=== PATIENT | male | born 1955 | race Two or more races ===

== ENCOUNTER 2021-05-31 01:03 | Inpatient (IN) | payer OTHER ==
[2021-05-31] MEDS ORDERED: HEPARIN SODIUM 1,000 UN/ML (10ML VL) IV ONE (01:07)
[2021-05-31] MEDS ORDERED: NITROGLYCERIN SL TABS 0.4 MG TAB SUBLINGUAL PRN (01:07)
--- NOTE | 2021-05-31 01:14 | ED ---
Chest Pain HPI - General Stated Complaint: STEMI Time Seen by Provider: 05/31/21 01:07 Source: patient, EMS Mode of arrival: EMS Limitations: no limitations - History of Present Illness Initial Comments: 's patient is 65-year-old man he was brought here by EMS to have evaluation after he had passed out. History is from the patient states that he had been having sex with his davis. He reports having some chest discomfort and then he does not remember anything until waking up in the ambulance. His had called 911 and first responders were performing CPR when EMS arrived. EMS did place him on a monitor which showed ventricular fibrillation. The patient did have a palpable carotid pulse at that time. They did shock the patient and had ROSC. The patient's is more alert and awake on arrival here and states that the pain has resolved in his chest. Patient denies known cardiac history but states he doesn't really see a doctor. No history of bleeding disorder. No medications. MD Complaint: chest pain -: minutes(s) Onset: other (Sexual activity) Pain Location: substernal Pain Radiation: none Severity: moderate Quality: aching Consistency: now resolved Improves With: nothing Worsens With: nothing Treatments Prior to Arrival: oxygen, defibrillation - Related Data Allergies Allergy/AdvReac Type Severity Reaction Status Date / Time No Known Allergies Allergy Verified 05/31/21 01:13 Review of Systems ROS Statement: Those systems with pertinent positive or pertinent negative responses have been documented in the HPI. ROS Other: All systems not noted in ROS Statement are negative. Constitutional: Denies: fever, chills Respiratory: Denies: cough, dyspnea Cardiovascular: Reports: as per HPI, chest pain, syncope Gastrointestinal: Denies: abdominal pain, vomiting Genitourinary: Denies: hematuria Musculoskeletal: Denies: back pain Skin: Denies: rash Neurological: Denies: headache, weakness Hematological/Lymphatic: Denies: easy bleeding General Exam General appearance: alert Head exam: Present: atraumatic, normocephalic Eye exam: Present: normal appearance. Absent: scleral icterus, conjunctival injection ENT exam: Present: normal oropharynx Neck exam: Present: normal inspection Respiratory exam: Present: normal lung sounds bilaterally. Absent: respiratory distress, wheezes, rales, rhonchi, stridor Cardiovascular Exam: Present: regular rate, normal rhythm, normal heart sounds. Absent: systolic murmur, diastolic murmur, rubs, gallop GI/Abdominal exam: Present: soft. Absent: distended, tenderness, guarding, rebound, rigid, mass Extremities exam: Present: normal inspection, normal capillary refill. Absent: pedal edema, calf tenderness Back exam: Present: normal inspection. Absent: CVA tenderness (R), CVA tenderness (L) Neurological exam: Present: alert Skin exam: Present: warm, dry, intact, normal color. Absent: rash Course Vital Signs 05/31/21 01:05 Temperature 97.6 F Pulse Rate 97 Respiratory 20 Rate Blood Pressure 215/103 O2 Sat by Pulse 98 Oximetry Chest Pain MDM - MDM This patient is 65-year-old man brought by ambulance after syncopal episode. There is initial rhythm strip does verify ventricular fibrillation. The patient arrives having regained consciousness and in sinus rhythm. Patient is seen here by cardiology and is going to the [facility]. He did have recurrence of chest pain in the emergency department. Critical Care Time Critical Care Time: Yes (30 minutes) Disposition Clinical Impression: Ventricular fibrillation Disposition: ADMITTED IP TO THIS HOSP Condition: Serious Referrals: None,Stated [Primary Care Provider] - 1-2 days
[2021-05-31] MEDS ORDERED: HEPARIN SOD,PORK IN 0.45% NACL 25,000 UNIT in 0.45% NACL 1 250ML.BAG IV SCH (01:15)
[2021-05-31 01:18] LABS: Glucose,Whole Blood 208 mg/dL (75-99)
[2021-05-31] MEDS ORDERED: ATORVASTATIN 80 MG TAB PO STA (01:21)
[2021-05-31 01:35] LABS: Basophils # (A) 0.1 k/uL (0-0.2); Basophils % (A) 1 %; Eosinophils # (A) 0.2 k/uL (0-0.7); Eosinophils % (A) 2 %; HCT 52.4 % (39.0-53.0); HGB 16.9 gm/dL (13.0-17.5); Lymphocytes # (A) 3.8 k/uL (1.0-4.8); Lymphocytes % (A) 27 %; MCH 28.8 pg (25.0-35.0); MCHC 32.3 g/dL (31.0-37.0); Mean Platelet Volume 9.5; Monocytes # (A) 1.1 k/uL (0-1.0); Monocytes % (A) 8 %; Neutrophils # (A) 8.2 k/uL (1.3-7.7); Neutrophils % (A) 60 %; Platelet Count 210 k/uL (150-450); RBC 5.89 m/uL (4.30-5.90); RDW 13.9 % (11.5-15.5); WBC 13.8 k/uL (3.8-10.6)
--- NOTE | 2021-05-31 01:35 | XR ---
EXAMINATION TYPE: XR chest 1V portable DATE OF EXAM: 05/31/2021 COMPARISON: NONE HISTORY: Cardiac arrest TECHNIQUE: Single view FINDINGS: Heart appears enlarged. There is some pulmonary interstitial edema. There is no pleural eff usion. Bony thorax is intact. IMPRESSION: Pulmonary interstitial edema could relate to acute heart failure.
[2021-05-31 01:36] LABS: Albumin 4.3 g/dL (3.5-5.0); Calcium 9.5 mg/dL (8.4-10.2); Potassium 3.6 mmol/L (3.5-5.1); Total Bilirubin 0.6 mg/dL (0.2-1.3); Total Protein 7.6 g/dL (6.3-8.2)
[2021-05-31] MEDS ORDERED: fentaNYL (PF) 50 MCG/ML 2 ML AMP ONE (01:39)
[2021-05-31 01:40] LABS: INR 0.9 (<1.2); Partial Thromboplastin Time 22.3 sec (22.0-30.0); Prothrombin Time 10.2 sec (9.0-12.0)
[2021-05-31] MEDS ORDERED: HEPARIN SODIUM 1,000 UN/ML (10ML VL) ONE (01:42)
[2021-05-31] MEDS ORDERED: MIDAZOLAM 2 MG/2 ML VIAL IV ONE (01:43)
[2021-05-31] MEDS ORDERED: NITROGLYCERIN SL TABS 0.4 MG TAB SUBLINGUAL ONE ×3 (01:44)
[2021-05-31] MEDS ORDERED: LIDOCAINE 1% INJ 10MG/ML (20 ML MDV) SQ ONE ×2 (01:45)
[2021-05-31] MEDS: MIDAZOLAM 2 MG/2 ML VIAL IV ONE ×2 (01:45→02:00)
[2021-05-31] MEDS ORDERED: VERAPAMIL SYRINGE (5 MG/10 ML) INTRAARTER ONE ×2 (01:46)
[2021-05-31] MEDS ORDERED: POTASSIUM CHLORIDE ER 20 MEQ TAB.ER PO STA ×2 (01:52→02:12)
[2021-05-31] MEDS ORDERED: IV FLUID CONTINUATION 1,000 ML IV ONE (02:00)
[2021-05-31] MEDS ORDERED: METOPROLOL TARTRATE 50 MG TAB PO STA (02:16)
[2021-05-31] MEDS ORDERED: fentaNYL (PF) 50 MCG/ML 2 ML AMP IV ONE (02:16)
[2021-05-31] MEDS ORDERED: METOPROLOL TARTRATE 50 MG TAB PO ONE (02:39)
[2021-05-31] MEDS ORDERED: IOPAMIDOL-370 100ML BTL INJ ONE ×2 (02:45)
--- NOTE | 2021-05-31 02:57 | P.HPIM ---
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 Patient was in his usual state of health, and during intercourse with his had an episode of passing out. EMS was called and responded within 3 minutes to the call. Patient was noted to be in ventricular fibrillation and received 1 shock which returned him to normal sinus rhythm. He was brought into the hospital and a STEMI alert was called. Patient was taken subsequently to the [facility]. Patient had right wrist access converted to right groin access due to difficult anatomy. RCA demonstrated chronic occlusion. Left coronary anatomy was similarly showing diffuse disease with left dominant circulation feeling right collaterals. Patient was given aspirin and atorvastatin, as well as sublingual nitroglycerin in the emergency room. In the [facility], patient received IV heparin, metoprolol, potassium. During patient's angiogram, it was noted that he had occlusion of his profunda femoralis on the right side as well. Patient was subsequently transferred to the ICU following his procedure. Review of systems was not completed due to acuity. Review of Systems See HPI Past Medical History Past Medical History: Unable to Obtain History of Any Multi-Drug Resistant Organisms: Unobtainable Past Surgical History: Unable to Obtain Past Psychological History: Unable to Obtain Past Alcohol Use History: Unable to Obtain Past Drug Use History: Unable to Obtain Medications and Allergies Allergies Allergy/AdvReac Type Severity Reaction Status Date / Time No Known Allergies Allergy Verified 05/31/21 01:13 Physical Exam Osteopathic Statement: *. No significant issues noted on an osteopathic structural exam other than those noted in the History and Physical/Consult. Vitals: Vital Signs Temp Pulse Resp BP Pulse Ox 05/31/21 01:25 96 23 181/97 95 05/31/21 01:20 96 22 202/106 98 05/31/21 01:15 98 22 201/95 98 05/31/21 01:10 94 22 203/99 98 05/31/21 01:05 97.6 F 97 20 215/103 98 Intake and Output 05/30/21 05/30/21 05/31/21 14:59 22:59 06:59 Other: Weight 81.647 kg Gen: awake, alert HEENT: normocephalic, atraumatic, good hearing acuity, moist mucous membranes Resp: good air exchange, breathing comfortably with no accessory muscle use CVS: good distal perfusion x 4, tachycardic, no murmurs GI: soft, NTTP, ND : no SPT, no CVAT, prado catheter not present MSK: no pitting edema, no clubbing Neuro: non-focal, moving all extremities Results CBC & Chem 7: 05/31/21 01:05 05/31/21 01:05 Labs: Abnormal Lab Results - Last 24 Hours (Table) 05/31/21 05/31/21 05/31/21 Range/Units 01:05 01:05 01:05 WBC 13.8 H (3.8-10.6) k/uL Neutrophils # 8.2 H (1.3-7.7) k/uL Monocytes # 1.1 H (0-1.0) k/uL Glucose 219 H (74-99) mg/dL POC Glucose (mg/dL) (75-99) mg/dL AST 247 H (17-59) U/L ALT 210 H (4-49) U/L Troponin I 0.038 H* (0.000-0.034) ng/mL 05/31/21 Range/Units 01:11 WBC (3.8-10.6) k/uL Neutrophils # (1.3-7.7) k/uL Monocytes # (0-1.0) k/uL Glucose (74-99) mg/dL POC Glucose (mg/dL) 208 H (75-99) mg/dL AST (17-59) U/L ALT (4-49) U/L Troponin I (0.000-0.034) ng/mL Assessment and Plan Assessment: Non-ST elevation MA Ventricular fibrillation cardiac arrest with ROSC in the field Peripheral arterial disease Elevated glucose -Admit to inpatient, telemetry -Cardiology consult following -Pulmonary consult to follow -Cardiothoracic surgery consult, pending -Continue aspirin, atorvastatin, metoprolol -Continue heparin drip -Trend troponins to peak -Lipid panel, A1c, TSH -Low-dose sliding scale insulin Patient is a full code is surrogate decision-maker
[2021-05-31] MEDS ORDERED: RX INFO: IV CONTRAST WAS GIVEN 1 EACH MISC MISCELLANE PRN (02:59)
[2021-05-31] MEDS ORDERED: AMIODARONE IN DEXTROSE,ISO-OSM 360 MG/200 ML PLAST..BAG IV ONE (03:00)
[2021-05-31] MEDS ORDERED: DEXTROSE 5% IN WATER 100 ML with AMIODARONE 150 MG IV ONE ×2 (03:00→03:01)
[2021-05-31] MEDS ORDERED: AMIODARONE IN DEXTROSE,ISO-OSM 150 MG/100 ML PLAST..BAG IV ONE (03:00)
[2021-05-31] MEDS ORDERED: AMIODARONE 360 MG in DEXTROSE 5% IN WATER 200 ML IV ONE ×2 (03:15)
[2021-05-31] MEDS: SODIUM CHLORIDE 0.9% 1,000 ML IV SCH ×2 (04:10→18:00)
[2021-05-31 04:43] LABS: Glucose,Whole Blood 176 mg/dL (75-99)
--- NOTE | 2021-05-31 05:00 | CC ---
CARDIAC CATHETERIZATION REPORT DATE OF SERVICE: 05/31/2021 PROCEDURE: Left heart catheterization and coronary angiography. PERFORMED BY: Dr. Devan Menchaca. Moderate conscious sedation time was 52 minutes. Patient was administered Versed and fentanyl. Oxygen saturation, hemodynamics and EKG were monitored closely. CLINICAL INFORMATION: Mr. 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 He was found to be in atrial fibrillation. He was shocked and there was return of spontaneous circulation and after arrival he still had mild discomfort in the chest, but he was hemodynamically stable. He was advised cardiac cath to assess for any significant obstructive CAD. The clinical picture is that of a non-ST elevation IL and ventricular fibrillation with cardiac arrest, probably of ischemic nature. No ST-segment elevation was noted. PROCEDURE NOTE: Under local anesthesia and strict aseptic precautions, a 6-[place]uv[place] sheath was placed in the right radial artery. I noted that there was a significant tortuosity of his brachiocephalic system. I had a lot of difficulty, but I was able to with a help of a Glidewire get into the ascending aorta and performed selective coronary injection of the right coronary artery and subselective injection of the left system. I then decided to proceed from the right femoral approach. Under strict aseptic precautions and local anesthesia a 6-[place]uv[place] sheath was placed in the right femoral artery. There was also significant tortuosity of the femoral system. However, I performed selective coronary angiography of the right coronary as well as the left coronary system and checked LV pressures as well. I noted that there was a significant disease but there was no acute occlusion that required immediate intervention. I reviewed the findings with the patient and suggested I will seek surgical opinion for possible bypasses to the branches of circumflex, RCA and also the LAD. There was evidence of triple-vessel disease. The sheath was then taken out and manual compression used to secure hemostasis. There was evidence of what seems to be occlusion of the profunda and the superficial femoral was patent. The puncture and access site were in the common femoral artery. Manual compression was used to take the femoral sheath out. The radial sheath was taken out and TR band applied with saturation of the fingers of the right hand of about 100%. The patient tolerated procedure well. CARDIAC CATHETERIZATION FINDINGS: The left ventricular end-diastolic pressure was about 9 mmHg without any gradient across aortic valve. CORONARY ANGIOGRAPHY FINDINGS: RIGHT CORONARY ARTERY: This vessel is totally occluded in the proximal portion with limited antegrade flow. Appears to be a chronic occlusion. I have obtained multiple injection both from the femoral and radial approach but this vessel seems to be chronically occluded without much antegrade flow. There are rich collaterals coming from the left system. LEFT MAIN CORONARY ARTERY: This is a long patent vessel free of significant disease that bifurcates into LAD and circumflex. There is no significant disease in the left main coronary artery. LEFT ANTERIOR DESCENDING CORONARY ARTERY: This vessel has diffuse disease throughout, has minor irregularities in the midportion. At the junction of the proximal and middle one third, there is about a 60% to 70% narrowing which I believe is moderate to severe narrowing. Beyond that, the caliber of the vessel improves and in the distal one fourth there is a subtotal occlusion of the LAD and the LAD is a very large distribution vessel that curves over the apex to supply the inferoapical portion of left ventricle. The LAD therefore has a 60% to 70% mid lesion and also has a distal subtotal occlusion. LAD is a very good graftable vessel. There are smaller diagonal branches that come off which have no significant disease. LEFT POSTERIOR CIRCUMFLEX CORONARY ARTERY: Left posterior circumflex coronary artery is technically a nondominant vessel that seems to give off high obtuse marginal branches very proximally and in the midportion there is marked much antegrade flow. Possibly the vessel is totally occluded in the mid portion after the 2 obtuse marginal branches. COLLATERAL CIRCULATION: There is a rich network of collaterals opacifying the distal branches of the RCA and circumflex and most of the collaterals are coming from the septal branches of the LAD. The 2 branches of distal RCA as well as the circumflex system is well opacified and all of these are very large caliber vessels that are graftable. The collaterals size is at least 2-2.2 mm. Most of the collaterals are coming from the septal branches of the LAD. Left ventriculogram was not performed. FINAL IMPRESSION: This patient has a right dominant system with total occlusion of the RCA, nondominant circumflex is also distally occluded. LAD in the proximal/midportion has a 60% to 70% narrowing and distally at the apex has a 99% narrowing. There is a rich network of collaterals opacifying the branches of both circumflex and RCA. Most of the collaterals are coming from the septal branches opacifying the circumflex system as well as the RCA system. The left ventricular end-diastolic pressure is normal and is about 9 mmHg without any gradient across aortic valve. RECOMMENDATIONS: After reviewing the angiogram and after some deliberation, I am recommending aortocoronary bypass surgery with GUIDO to LAD and vein graft to the branches of circumflex and RCA. The patient did not have a large myocardial infarction and he will be on amiodarone drip, beta blockers and we have given additional potassium orally and magnesium level is being checked. The patient will go to the ICU and I will seek a Cardiac surgery consult. Details were discussed with the patient and . Prognosis remains guarded. MMODL / IJN: [id number] /
[2021-05-31 05:04] LABS: Basophils % (A) 0 %; Eosinophils % (A) 0 %; HCT 48.5 % (39.0-53.0); HGB 15.6 gm/dL (13.0-17.5); Lymphocytes # (A) 0.7 k/uL (1.0-4.8); Lymphocytes % (A) 4 %; MCH 28.7 pg (25.0-35.0); MCHC 32.1 g/dL (31.0-37.0); MCV 89.4 fL (80.0-100.0); Mean Platelet Volume 10.3; Monocytes # (A) 1.5 k/uL (0-1.0); Monocytes % (A) 8 %; Neutrophils # (A) 16.2 k/uL (1.3-7.7); Neutrophils % (A) 87 %; Platelet Count 190 k/uL (150-450); RBC 5.42 m/uL (4.30-5.90); RDW 14.2 % (11.5-15.5); WBC 18.7 k/uL (3.8-10.6)
--- NOTE | 2021-05-31 05:06 | CONS ---
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 According to the available information in the note, the patient was having sexual activity when he suddenly developed some chest discomfort and passed out. His family did CPR and then the EMS arrived and he was found to be in ventricular fibrillation. He received 1 shock and then return of spontaneous circulation occurred. He was brought to the emergency room. EKG revealed a sinus mechanism with inferior ST changes, but no evidence of any ST elevation. I saw the patient in the emergency room, spoke to the family and suggested that I will do a cardiac cath and the clinical picture was that of cardiac arrest with ischemia, ventricular fibrillation and possible non ST elevation ID. There was ST- segment depression in the inferior leads and LVH by voltage criteria. I proceeded with the coronary angiography immediately after explaining to the patient and family the rationale, risks, benefits, and options. PAST MEDICAL HISTORY: Unremarkable for any hypertension, diabetes, myocardial infarction or CVA. MEDICATIONS: None. ALLERGIES: None. PAST SURGICAL HISTORY: The patient has not had any previous surgeries that we know of. PHYSICAL EXAMINATION: On examination, blood pressure was 160/90. Pulse rate was about 100 per minute regular. HEENT unremarkable. Fundus was not examined by me. NECK is supple. JVD is not evident. HEART exam reveals S1, S2 without significant murmurs. LUNGS revealed decent air entry. ABDOMEN is soft, nontender. Lower EXTREMITIES reveal diminished pulses. CENTRAL NERVOUS SYSTEM grossly no focal deficits but patient is somewhat slow to respond. IMPRESSION: 1. Acute cardiac arrest with ventricular fibrillation requiring shock and CPR. 2. Non-ST elevation myocardial infarction. 3. No evidence of any other significant risk factors. RECOMMENDATIONS: Prompt cardiac catheterization and based on findings, intervention as appropriate. MMODL / IJN: [id number] /
[2021-05-31 05:20] LABS: Partial Thromboplastin Time 25.7 sec (22.0-30.0); Prothrombin Time 10.6 sec (9.0-12.0)
[2021-05-31] MEDS ORDERED: ONDANSETRON 4 MG/2 ML VIAL IVP PRN (05:45)
[2021-05-31] MEDS: HEPARIN SOD,PORK IN 0.45% NACL 25,000 UNIT in 0.45% NACL 1 250ML.BAG IV SCH ×2 (05:47→07:00)
[2021-05-31 06:19] LABS: ALT 191 U/L (4-49); AST 204 U/L (17-59); African American GFR (CKD) >90 (>60 ml/min/1.73 sqM); Albumin 3.9 g/dL (3.5-5.0); Alkaline Phosphatase 113 U/L (38-126); Anion Gap 12 mmol/L; Bilirubin, Delta 0.1 mg/dL (0.0-0.2); Bilirubin,Unconjugated 0.3 mg/dL (0.0-1.1); Blood Urea Nitrogen 19 mg/dL (9-20); Calcium 8.8 mg/dL (8.4-10.2); Carbon Dioxide 24 mmol/L (22-30); Chloride 102 mmol/L (98-107); Glucose 185 mg/dL (74-99); Magnesium 1.8 mg/dL (1.6-2.3); Non-African American GFR(CKD) >90 (>60 ml/min/1.73 sqM); Potassium 4.3 mmol/L (3.5-5.1); Sodium 138 mmol/L (137-145); Total Bilirubin 0.4 mg/dL (0.2-1.3); Total Protein 6.9 g/dL (6.3-8.2)
[2021-05-31] MEDS: NITROGLYCERIN-D5W PMX 50 MG in DEXTROSE/WATER 1 250ML.BAG IV SCH (06:29)
[2021-05-31] MEDS ORDERED: Magnesium Replacement Protocol 1 EACH MISC MISCELLANE PRN (06:49)
--- NOTE | 2021-05-31 08:58 | P.PN ---
Subjective Progress Note Date: 05/31/21 64-year-old gentleman was admitted last night following a syncopal episode and cardiac arrest at home. It appears that patient developed ventricular fibrillation requiring CPR and shock. Patient was taken Lab and was found to have total occlusion of the RCA and circumflex with good collateral from the le ft coronary system. LAD itself has about 70% stenosis in the midportion. Patient incident was felt to be ischemic ventricular fibrillation breath and acute VA. His second troponin went up only 0.922. Patient is alert but confused. Surgical evaluation for bypass is pending. Patient is otherwise maintaining sinus rhythm. Patient is on amiodarone. His electoral lites are within normal limits. Creatinine is 0.89. A chest x-ray on admission showed evidence of pulmonary edema. Patient is output is a about 800 ml. patient is currently on amiodarone, Lipitor losartan and a metoprolol. I'm going to add small dose of Lasix. We'll going to get an echocardiogram today Objective - Vital Signs Vital signs: Vital Signs Temp 97.7 F 05/31/21 03:36 Pulse 72 05/31/21 07:00 Resp 21 05/31/21 07:00 BP 134/88 05/31/21 03:36 Pulse Ox 95 05/31/21 07:00 Intake & Output 05/30/21 05/31/21 05/31/21 18:59 06:59 18:59 Intake Total 1428 75 Output Total 800 0 Balance 628 75 Weight 81.647 kg Intake: IV 1228 75 Sodium Chloride 0.9% 1, 225 75 000 ml @ 75 mls/hr IV . [id number] [facility] Rx#:[id number] Oral 200 Output: Urine 300 0 Emesis 500 - Exam GENERAL EXAM: Patient is alert and oriented and doesn't appear to be in any acute distress HEENT: Normocephalic. Normal reaction of pupils, equal size, normal range of extraocular motion. No erythema or exudates in the throat. NECK: No masses, no nuchal rigidity. CHEST: No chest wall deformity. LUNGS: Show diminished breath sounds at bases HEART: S1 and S2 normal ABDOMEN: No hepatosplenomegaly, normal bowel sounds, no guarding or rigidity. SKIN: No rashes CENTRAL NERVOUS SYSTEM: No focal deficits. EXTREMITIES: No cyanosis, clubbing or edema. - Labs CBC & Chem 7: 12/26/21 04:30 05/31/21 05:36 Labs: Abnormal Lab Results - Last 24 Hours (Table) 05/31/21 05/31/21 05/31/21 Range/Units 01:05 01:05 01:05 WBC 13.8 H (3.8-10.6) k/uL Neutrophils # 8.2 H (1.3-7.7) k/uL Lymphocytes # (1.0-4.8) k/uL Monocytes # 1.1 H (0-1.0) k/uL Glucose 219 H (74-99) mg/dL POC Glucose (mg/dL) (75-99) mg/dL AST 247 H (17-59) U/L ALT 210 H (4-49) U/L Troponin I 0.038 H* (0.000-0.034) ng/mL C-Reactive Protein (<1.0) mg/dL 05/31/21 05/31/21 05/31/21 Range/Units 01:11 04:30 04:40 WBC 18.7 H (3.8-10.6) k/uL Neutrophils # 16.2 H (1.3-7.7) k/uL Lymphocytes # 0.7 L (1.0-4.8) k/uL Monocytes # 1.5 H (0-1.0) k/uL Glucose (74-99) mg/dL POC Glucose (mg/dL) 208 H 176 H (75-99) mg/dL AST (17-59) U/L ALT (4-49) U/L Troponin I (0.000-0.034) ng/mL C-Reactive Protein (<1.0) mg/dL 05/31/21 05/31/21 Range/Units 05:36 05:36 WBC (3.8-10.6) k/uL Neutrophils # (1.3-7.7) k/uL Lymphocytes # (1.0-4.8) k/uL Monocytes # (0-1.0) k/uL Glucose 185 H (74-99) mg/dL POC Glucose (mg/dL) (75-99) mg/dL AST 204 H (17-59) U/L ALT 191 H (4-49) U/L Troponin I 0.922 H* (0.000-0.034) ng/mL C-Reactive Protein 1.0 H (<1.0) mg/dL Assessment and Plan (1) CAD in [place] artery Current Visit: Yes Status: Acute Code(s): I25.10 - ATHSCL HEART DISEASE OF [place] CORONARY ARTERY W/O ANG PCTRS SNOMED Code(s): 01526417 (2) Ventricular fibrillation Current Visit: Yes Status: Acute Code(s): I49.01 - VENTRICULAR FIBRILLATION SNOMED Code(s): 37475604 (3) Non-STEMI (non-ST elevated myocardial infarction) Current Visit: Yes Status: Acute Code(s): I21.4 - NON-ST ELEVATION (NSTEMI) MYOCARDIAL INFARCTION SNOMED Code(s): 43238603 (4) Pulmonary edema Current Visit: Yes Status: Acute Code(s): J81.1 - CHRONIC PULMONARY EDEMA SNOMED Code(s): 62429665 Plan: Continue current medical therapy. Add small dose of Lasix. Echocardiogram. Depending upon the LV function, further recommendations to follow. Surgical consult for bypass
[2021-05-31 09:46] LABS: Glucose,Whole Blood 133 mg/dL (75-99)
[2021-05-31] MEDS: FUROSEMIDE 10 MG/ML 2 ML VIAL IV SCH ×2 (09:49→20:16)
[2021-05-31] MEDS: POTASSIUM CHLORIDE ER 10 MEQ TAB.ER.PRT PO SCH ×2 (09:50→20:16)
[2021-05-31] MEDS: ATORVASTATIN 40 MG TAB PO SCH (09:50)
[2021-05-31] MEDS: METOPROLOL TARTRATE 25 MG TAB PO SCH ×2 (09:51→20:16)
[2021-05-31] MEDS: INSULIN ASPART (NovoLOG) 100 UNIT/ML VIAL SQ SCH ×3 (09:51→18:19)
[2021-05-31] MEDS: MAGNESIUM SULFATE-D5W PMX 1 GM in DEXTROSE/WATER 1 100ML.BAG IVPB SCH ×2 (09:51→10:54)
[2021-05-31] MEDS: AMIODARONE 450 MG in DEXTROSE 5% IN WATER 250 ML IV SCH ×2 (10:00)
--- NOTE | 2021-05-31 10:43 | P.GSCN ---
History of Present Illness Consult date: 05/31/21 Reason for Consult: Triple-vessel coronary artery disease Requesting physician: Jody Menchaca History of present illness: This is a 65-year-old active gentleman who does not follow regularly with a physician on an outpatient basis. He reports no significant previous medical history and is on no home medications. He presented to [facility] emergency room via EMS after V. fib arrest with CPR and 1 shock with subsequent ROSC. Apparently he was at home and having relations with his when he reported chest discomfort and subsequently passed out. His called 911, CPR was performed, EMS arrived and placed the patient on a monitor demonstrating V. fib although patient did have a palpable carotid pulse. He was shocked once with return of spontaneous circulation and transported to [facility] for further evaluation. EKG demonstrated sinus rhythm with ST abnormalities. Chest x-ray demonstrated pulmonary interstitial edema. Labs demonstrated WBC 13.8, hemoglobin 16.9, creatinine 1.04, AST 247, atrial T2 10, troponin 0.038 which did elevate to 0.9-2 and patient was ruled in for non-STEMI. He was taken to the [facility] Claims [facility] by Dr. Menchaca which demonstrated total occlusion of the RCA, distal total occlusion of the circumflex, proximal to mid LAD 60-70% with distal LAD 99%, with collaterals to both the right and left systems. Consultation was placed to cardiothoracic surgery for revascularization recommendations. 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 Past Psychological History: No Psychological Hx Reported Smoking Status: Never smoker Past Alcohol Use History: None Reported Past Drug Use History: None Reported - Past Family History Father Family Medical History: Dementia Additional Family Medical History / Comment(s): Father had Alzheimer's Mother Family Medical History: CVA/TIA, Hypertension Medications and Allergies Home Medications Medication Instructions Recorded Confirmed Type No Known Home Medications 05/31/21 05/31/21 History Allergies Allergy/AdvReac Type Severity Reaction Status Date / Time No Known Allergies Allergy Verified 05/31/21 08:25 Surgical - Exam Vital Signs Temp Pulse Resp BP Pulse Ox 97.6 F 97 20 215/103 98 05/31/21 01:05 05/31/21 01:05 05/31/21 01:05 05/31/21 01:05 05/31/21 01:05 CONSTITUTIONAL: Awake and alert, appears comfortable, cooperative, well- developed, well-nourished, no pain, no acute distress EYES: Pupils equal, round, reactive to light, normal ocular movement ENT: Moist mucous membranes without oral lesions present NECK: No masses, no bruits, trachea midline RESPIRATORY: Lungs sounds clear to auscultation bilaterally. Respirations even, nonlabored. Currently on 2 L nasal cannula with oxygen saturation 96%. Strong cough. No chest wall deformities. No clubbing or cyanosis present CARDIOVASCULAR: S1, S2 present. Regular rate and rhythm, sinus rhythm on telemetry. Palpable peripheral pulses bilaterally. No edema present. No calf pain or tenderness noted. No significant lower extremity varicosities noted. GASTROINTESTINAL: Abdomen soft, nontender, nondistended without masses or organomegaly noted. There is no rebound or guarding present. Active bowel sounds present 4 quadrants. GENITOURINARY: Deferred INTEGUMENTARY: Skin is warm and dry with evidence of good perfusion. NEUROLOGIC: Cranial nerves II through XII intact, normal coordination, no obvious motor or sensory deficits, speech is normal MUSKULOSKELETAL: Able to move all extremities, strength equal bilaterally, normal posture PSYCHIATRIC: Alert and oriented to person place and time although forgetful but reorients quickly Results - Labs 05/31/21 04:30 05/31/21 05:36 Abnormal Lab Results - Last 24 Hours (Table) 05/31/21 05/31/21 05/31/21 Range/Units 01:05 01:05 01:05 WBC 13.8 H (3.8-10.6) k/uL Neutrophils # 8.2 H (1.3-7.7) k/uL Lymphocytes # (1.0-4.8) k/uL Monocytes # 1.1 H (0-1.0) k/uL Glucose 219 H (74-99) mg/dL POC Glucose (mg/dL) (75-99) mg/dL AST 247 H (17-59) U/L ALT 210 H (4-49) U/L Troponin I 0.038 H* (0.000-0.034) ng/mL C-Reactive Protein (<1.0) mg/dL 05/31/21 05/31/21 05/31/21 Range/Units 01:11 04:30 04:40 WBC 18.7 H (3.8-10.6) k/uL Neutrophils # 16.2 H (1.3-7.7) k/uL Lymphocytes # 0.7 L (1.0-4.8) k/uL Monocytes # 1.5 H (0-1.0) k/uL Glucose (74-99) mg/dL POC Glucose (mg/dL) 208 H 176 H (75-99) mg/dL AST (17-59) U/L ALT (4-49) U/L Troponin I (0.000-0.034) ng/mL C-Reactive Protein (<1.0) mg/dL 05/31/21 05/31/21 05/31/21 Range/Units 05:36 05:36 09:44 WBC (3.8-10.6) k/uL Neutrophils # (1.3-7.7) k/uL Lymphocytes # (1.0-4.8) k/uL Monocytes # (0-1.0) k/uL Glucose 185 H (74-99) mg/dL POC Glucose (mg/dL) 133 H (75-99) mg/dL AST 204 H (17-59) U/L ALT 191 H (4-49) U/L Troponin I 0.922 H* (0.000-0.034) ng/mL C-Reactive Protein 1.0 H (<1.0) mg/dL Diabetes panel 05/31/21 05/31/21 Range/Units 01:05 05:36 Sodium 138 138 (137-145) mmol/L Potassium 3.6 4.3 (3.5-5.1) mmol/L Chloride 100 102 (98-107) mmol/L Carbon Dioxide 22 24 (22-30) mmol/L BUN 20 19 (9-20) mg/dL Creatinine 1.04 0.89 (0.66-1.25) mg/dL Glucose 219 H 185 H (74-99) mg/dL Calcium 9.5 8.8 (8.4-10.2) mg/dL AST 247 H 204 H (17-59) U/L ALT 210 H 191 H (4-49) U/L Alkaline Phosphatase 115 113 (38-126) U/L Total Protein 7.6 6.9 (6.3-8.2) g/dL Albumin 4.3 3.9 (3.5-5.0) g/dL Thyroid panel 05/31/21 Range/Units 05:36 TSH 2.300 (0.465-4.680) mIU/L Calcium panel 05/31/21 05/31/21 Range/Units 01:05 05:36 Calcium 9.5 8.8 (8.4-10.2) mg/dL Albumin 4.3 3.9 (3.5-5.0) g/dL Pituitary panel 05/31/21 05/31/21 Range/Units 01:05 05:36 Sodium 138 138 (137-145) mmol/L Potassium 3.6 4.3 (3.5-5.1) mmol/L Chloride 100 102 (98-107) mmol/L Carbon Dioxide 22 24 (22-30) mmol/L BUN 20 19 (9-20) mg/dL Creatinine 1.04 0.89 (0.66-1.25) mg/dL Glucose 219 H 185 H (74-99) mg/dL Calcium 9.5 8.8 (8.4-10.2) mg/dL TSH 2.300 (0.465-4.680) mIU/L Adrenal panel 05/31/21 05/31/21 Range/Units 01:05 05:36 Sodium 138 138 (137-145) mmol/L Potassium 3.6 4.3 (3.5-5.1) mmol/L Chloride 100 102 (98-107) mmol/L Carbon Dioxide 22 24 (22-30) mmol/L BUN 20 19 (9-20) mg/dL Creatinine 1.04 0.89 (0.66-1.25) mg/dL Glucose 219 H 185 H (74-99) mg/dL Calcium 9.5 8.8 (8.4-10.2) mg/dL Total Bilirubin 0.6 0.4 (0.2-1.3) mg/dL AST 247 H 204 H (17-59) U/L ALT 210 H 191 H (4-49) U/L Alkaline Phosphatase 115 113 (38-126) U/L Total Protein 7.6 6.9 (6.3-8.2) g/dL Albumin 4.3 3.9 (3.5-5.0) g/dL - Imaging Chest x-ray: report reviewed, image reviewed EKG: image reviewed Additional studies: Heart catheterization films reviewed with Dr. Chaudhry Assessment and Plan Assessment: 1. Triple-vessel coronary artery disease, non-STEMI this admission 2. Status post V. fib arrest with CPR and shock 1, ROSC achieved 3. Post arrest memory impairment 4. Leukocytosis, likely reactive 5. Elevated LFTs, likely reactive 6. Never smoker Plan: The patient was seen and examined at the bedside in the intensive care unit with Dr. Chaudhry. Chart/diagnostics reviewed. The usual perioperative course of cor onary artery bypass surgery was discussed in detail with the patient at the bedside as well as with his over the phone, risks and benefits were reviewed, all questions were answered. The patient does appear to have some short-term memory loss. Preoperative testing was initiated, once completed we will calculate STS risk score and discussed with the patient and his . Recommend continuing statin and beta rosie, aspirin added. Continue amiodarone. Our plan is for myocardial revascularization with left internal mammary artery, endoscopic vein harvesting, possible left radial artery harvesting with Dr. Howard early this week pending the outcome of preoperative testing. More recommendations to follow. Thank you Dr. Menchaca for this consult. We will follow along with you. Time with Patient: Greater than 30
[2021-05-31 11:48] LABS: Chol/HDL Ratio 7.95 Ratio; LDL Cholesterol,Calculated 310.2 mg/dL (0.0-131.0)
--- NOTE | 2021-05-31 11:51 | ECHOF ---
Referral Reason:Acute NSTEMI and Vfib arrest. Assess LV FX MEASUREMENTS -------- HEIGHT: 180.3 cm WEIGHT: 81.6 kg BP: RVIDd: 2.9 cm (< 3.3) IVSd: 1.9 cm (0.6 - 1.1) LVIDd: 3.5 cm (3.9 - 5.3) LVPWd: 1.6 cm (0.6 - 1.1) IVSs: 2.6 cm LVIDs: 1.9 cm LVPWs: 2.4 cm LAESV Index (A-L): 33.89 ml/m Ao Diam: 3.4 cm (2.0 - 3.7) AV Cusp: 2.2 cm (1.5 - 2.6) LA Diam: 3.9 cm (2.7 - 3.8) MV EXCURSION: 17.701 mm (> 18.000) MV EF SLOPE: 88 mm/s (70 - 150) EPSS: 0.7 cm MV E Alex: 1.08 m/s MV DecT: 182 ms MV A Alex: 1.12 m/s MV E/A Ratio: 0.97 AV maxP.87 mmHg AV meanP.87 mmHg AR PHT: 682 ms RAP: 5.00 mmHg RVSP: 12.04 mmHg FINDINGS -------- This was a technically difficult study with suboptimal views. The left ventricular size is normal. There is severe concentric left ventricular hypertrophy. Ove rall left ventricular systolic function is low-normal with, an EF between 50 - 55 %. Normal LAP Gra de 1 Diastolic Dysfunction.Apical hypertrophy The right ventricle is normal in size. LA is midly dilated 29-33ml/m2. The right atrial size is normal. Lumason used Aortic valve is trileaflet and is mildly thickened. There is mild aortic regurgitation. Peak/mean gradient across the Aortic Valve is 13.87mmHg / 7.87mmHg. Functionally bicuspid aortic valve. Ao rtic valve is functionally bicuspid and is mildly thickened. The mitral valve is normal. The mitral valve leaflets are mildly thickened. There is trace mitral regurgitation. The tricuspid valve appears structurally normal. Trace tricuspid regurgitation present. Right all tricular systolic pressure is normal at < 35 mmHg. There is no pulmonic regurgitation present. The aortic root size is normal. Normal inferior vena cava with normal inspiratory collapse consistent with estimated right atrial pre ssure of 5 mmHg. There is no pericardial effusion. CONCLUSIONS -------- 1. The left ventricular size is normal. 2. There is severe concentric left ventricular hypertrophy. 3. Overall left ventricular systolic function is low-normal with, an EF between 50 - 55 %.Apical hype rtrophy 4. Normal LAP Grade 1 Diastolic Dysfunction. 5. LA is midly dilated 29-33ml/m2. 6. Aortic valve is trileaflet and is mildly thickened. 7. Peak/mean gradient across the Aortic Valve is 13.87mmHg / 7.87mmHg. 8. Functionally bicuspid aortic valve. 9. Aortic valve is functionally bicuspid and is mildly thickened. 10. The mitral valve leaflets are mildly thickened. 11. There is trace mitral regurgitation. 12. Trace tricuspid regurgitation present. 13. There is no pericardial effusion. SAMPLE SELECTOR: Valery Barber RDCS
[2021-05-31 11:54] LABS: Glucose,Whole Blood 147 mg/dL (75-99)
--- NOTE | 2021-05-31 12:27 | US ---
EXAMINATION TYPE: US carotid duplex BILAT DATE OF EXAM: 05/31/2021 COMPARISON: NONE CLINICAL HISTORY: 65-year-old male preop cardiac surgery. AMS, patient kept repeating same questions, states no stroke history, pre open heart TECHNIQUE: Carotid duplex ultrasound examination. Indirect Doppler criteria was utilized. 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 Left ICA appears to have high grade stenosis throughout length that was imaged today IMPRESSION: 1. Unable to identify any color Doppler flow within the right ICA. Findings could represent occlusion or subtotal occlusion. 2. Additionally, measurement suggests severe, greater than 70% left ICA stenosis. Criteria for Assigning % of Stenosis / Diameter reduction (Estimation based on the indirect measurements of the internal carotid artery velocities (ICA PSV). 1. Normal (no stenosis)=ICA PSV < 125 cm/s: ratio < 2.0: ICA EDV<40 cm/s. 2. Less than 50% stenosis=ICA PSV < 125 cm/s: ratio < 2.0: ICA EDV<40 cm/s. 3. 50 to 69% stenosis=ICA PSV of 125 to 230 cm/s: ration 2.0 ? 4.0: ICA EDV 40-100 cm/s. 4. Greater than 70% stenosis to near occlusion= ICA PSV > 230 cm/s: ratio > 4.0: ICA EDV > 100 cm/s. 5. Near occlusion= ICA PSV velocities may be low or undetectable: variable ratio and ICA EDV. 6. Total occlusion=unable to detect flow.
[2021-05-31] MEDS: HEPARIN SODIUM 1,000 UN/ML (10ML VL) IV PRN ×2 (12:28→23:36)
--- NOTE | 2021-05-31 14:27 | XR ---
EXAMINATION TYPE: XR chest 1V portable DATE OF EXAM: 05/31/2021 COMPARISON: 05/31/2021 HISTORY: 65 years Male. STUDY INDICATION GIVEN: chf . TECHNIQUE: AP chest radiograph IMPRESSION: Stable mild cardiomegaly with decreased interstitial opacities and minimal lung base atelectatic damon ges. Pneumothorax or large effusion. Catheter projecting over the right lower hemithorax unchanged in appearance.
--- NOTE | 2021-05-31 14:28 | P.PN ---
Subjective Progress Note Date: 05/31/21 (delayed charting seen at 1130) Principal diagnosis: unresponsive Val is a 65-year-old male with high cholesterol not currently taking medication who presents to ER with a V. fib arrest. He has been having intercourse when he passed out. Bystander CPR was in progress when EMS arrived. They placed him on a monitor he was shown to be in V. fib. Patient was successfully cardioverted with Rosc. Vital signs on arrival showed hypertension with a blood pressure 215/103. He was taken for emergent cardiac cath which showed a total occlusion of the RCA, nondominant circumflex distally occluded, LAD with 60-70% narrowing in the midportion and 99% at the apex. He did not require stent at that time. He was placed on amiodarone and heparin. He was admitted to the ICU and cardiac surgery was consulted. They did recommend cardiac bypass. Cholesterol came back extremely elevated with a total cholesterol 407 and an LDL of 310. Echo shows severe concentric LVH, ejection fraction 50-55%, grade 1 diastolic dysfunction. Carotid ultrasound showed severe greater than 70% left ICA stenosis. He was started on Lipitor, Cozaar, and metoprolol. Patient seen and examined at bedside. Apparently he has been diagnosed with type cholesterol the past. He was on a very strict diet and has lowered his cholesterol but has come off his diet recent bleed. It was on his brother also has high cholesterol and stated medications. He is complaining of some rib pain. No overt chest pain no shortness of breath no nausea or vomiting. present at bedside she has lots of questions regarding open heart surgery. She did talk to Valery Tinsley from cardiothoracic this morning. I showed her the open-heart binder and asked her to make a list of questions from in the morning. General: non toxic, no distress, appears at stated age Derm: warm, dry, proturbance skin colored, without flucuation on rihgt elbow with wide base. Head: atraumatic, normocephalic, symmetric Eyes: EOMI, no lid lag, anicteric sclera Mouth: no lip lesion, mucus membranes moist Cardiovascular: S1S2 reg, no murmur, positive posterior tibial pulse bilateral, Lungs: CTA bilateral, no rhonchi, no rales , no accessory muscle use Abdominal: soft, nontender to palpation, no guarding, no appreciable organomegaly Ext: no gross muscle atrophy, no edema, no contractures Neuro: CN II-XI grossly intact, no focal neuro deficits Psych: Alert, oriented, appropriate affect , slow thinking, repeats questions Assessment/Plan: V. fib arrest Multivessel coronary artery disease Non-STEMI Hyperlipidemia, Xanthomas -Aspirin, heparin, beta rosie, statin - likely will need PCSK9 inhinbitor as outpatient -Amiodarone, telemetry -Cardiothoracic surgery recommendations: Plan for cardiac bypass surgery early next week -Cardiology recommendations -Await pulmonary consultation Carotid stenosis -Await vascular surgery recommendations Elevated BP on arrival without previous diagnosis of HTN - follow BP - Continue current medications Transaminitis - likely due to decreased prefusion, alos possible fatty infiltration of the liver - repeat labs in AM -check liver US Hyperglycemia -Likely reflective acute distress -Hemoglobin A1c 5.7 DVT prophylaxis: Heparin drip Discussed with: Patient, nursing, Anticipated discharge: 10-[address]: home health A total of 45 minutes was spent on the care of this complex patient more than 50% of the time was spent in counseling and care coordination. Objective - Vital Signs Vital signs: Vital Signs Temp 97.7 F 05/31/21 03:36 Pulse 75 05/31/21 11:00 Resp 21 05/31/21 11:00 BP 151/81 05/31/21 11:00 Pulse Ox 96 05/31/21 11:00 Intake & Output 05/30/21 05/31/21 05/31/21 18:59 06:59 18:59 Intake Total 1428 353.562 Output Total 800 1650 Balance 628 -1296.438 Weight 81.647 kg Intake: IV 1228 300 Sodium Chloride 0.9% 1, 225 300 000 ml @ 75 mls/hr IV . [id number] ANN Rx#:[id number] Intake, IV Titration 53.562 Amount Heparin Sod,Pork in 0.45% 53.562 NaCl 25,000 unit In 0.45 % NaCl 1 250ml.bag @ 12 UNITS/KG/HR 9.798 mls/hr IV .Q24H ANN Rx#: [id number] Oral 200 Output: Urine 300 1650 Emesis 500 Other: # Voids 1 - Labs CBC & Chem 7: 05/31/21 04:30 05/31/21 05:36 Labs: Abnormal Lab Results - Last 24 Hours (Table) 05/31/21 05/31/21 05/31/21 Range/Units 01:05 01:05 01:05 WBC 13.8 H (3.8-10.6) k/uL Neutrophils # 8.2 H (1.3-7.7) k/uL Lymphocytes # (1.0-4.8) k/uL Monocytes # 1.1 H (0-1.0) k/uL APTT (22.0-30.0) sec Glucose 219 H (74-99) mg/dL POC Glucose (mg/dL) (75-99) mg/dL AST 247 H (17-59) U/L ALT 210 H (4-49) U/L Troponin I 0.038 H* (0.000-0.034) ng/mL C-Reactive Protein (<1.0) mg/dL Triglycerides (0.00-149.00) mg/dL Cholesterol (0.00-200.00) mg/dL LDL Cholesterol, Calc (0.0-131.0) mg/dL VLDL Cholesterol, Calc (5.00-40.00) mg/dL 05/31/21 05/31/21 05/31/21 Range/Units 01:11 04:30 04:40 WBC 18.7 H (3.8-10.6) k/uL Neutrophils # 16.2 H (1.3-7.7) k/uL Lymphocytes # 0.7 L (1.0-4.8) k/uL Monocytes # 1.5 H (0-1.0) k/uL APTT (22.0-30.0) sec Glucose (74-99) mg/dL POC Glucose (mg/dL) 208 H 176 H (75-99) mg/dL AST (17-59) U/L ALT (4-49) U/L Troponin I (0.000-0.034) ng/mL C-Reactive Protein (<1.0) mg/dL Triglycerides (0.00-149.00) mg/dL Cholesterol (0.00-200.00) mg/dL LDL Cholesterol, Calc (0.0-131.0) mg/dL VLDL Cholesterol, Calc (5.00-40.00) mg/dL 05/31/21 05/31/21 05/31/21 Range/Units 05:36 05:36 09:44 WBC (3.8-10.6) k/uL Neutrophils # (1.3-7.7) k/uL Lymphocytes # (1.0-4.8) k/uL Monocytes # (0-1.0) k/uL APTT (22.0-30.0) sec Glucose 185 H (74-99) mg/dL POC Glucose (mg/dL) 133 H (75-99) mg/dL AST 204 H (17-59) U/L ALT 191 H (4-49) U/L Troponin I 0.922 H* (0.000-0.034) ng/mL C-Reactive Protein 1.0 H (<1.0) mg/dL Triglycerides 228.00 H (0.00-149.00) mg/dL Cholesterol 407.00 H (0.00-200.00) mg/dL LDL Cholesterol, Calc 310.2 H (0.0-131.0) mg/dL VLDL Cholesterol, Calc 45.60 H (5.00-40.00) mg/dL 05/31/21 05/31/21 05/31/21 Range/Units 10:55 11:40 12:31 WBC (3.8-10.6) k/uL Neutrophils # (1.3-7.7) k/uL Lymphocytes # (1.0-4.8) k/uL Monocytes # (0-1.0) k/uL APTT 36.2 H (22.0-30.0) sec Glucose (74-99) mg/dL POC Glucose (mg/dL) 147 H (75-99) mg/dL AST (17-59) U/L ALT (4-49) U/L Troponin I 2.540 H* (0.000-0.034) ng/mL C-Reactive Protein (<1.0) mg/dL Triglycerides (0.00-149.00) mg/dL Cholesterol (0.00-200.00) mg/dL LDL Cholesterol, Calc (0.0-131.0) mg/dL VLDL Cholesterol, Calc (5.00-40.00) mg/dL
--- NOTE | 2021-05-31 14:43 | P.CNPUL ---
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 EMS responded within 3 minutes to the call, and he was noted to be in ventricular fibrillation, received 1 shock and there was return of normal sinus rhythm and return of spontaneous circulation. He was brought into the hospital and seen by cardiology on consultation. Acute ST elevation VT alert was called, patient had cardiac catheterization and he was found to have chronic occlusion of the RCA. He was also found to have diffuse disease in the left coronary system patient received aspirin, atorvastatin, and sublingual nitroglycerin. And he also received heparin in the catheterization laboratory. Transferred after the cardiac cath to the ICU, thoracic surgery was consulted, and I was asked to see him on consultation for preoperative pulmonary clearance. Patient has no active pulmonary symptoms whatsoever. Denies any history of COPD, he is a lifetime nonsmoker. Never complained of shortness of breath. No history of cough wheezing. Although the patient had COVID-19 infection back in August of 2020. Patient is not vaccinated. Initial chest x-ray on admission showed evidence of congestive heart failure. Follow-up chest x-ray continues to show minimal cardiomegaly with interstitial opacities and atelectatic changes at the bases. Echocardiogram showed good LV function however he had severe concentric LVH. No significant valvular pathology was noted. Patient was found to have bicuspid aortic valve mildly thickened. There was also evidence of grade 1 diastolic dysfunction. And trace of mitral regurgitation at any rate considering the plan to undergo cardiac surgery, I was asked to see him on consultation, based on his clinical pulmonary history, patient is considered low operative risk. Review of Systems Constitutional: Negative HEENT: Negative Cardiac: As noted in HPI Pulmonary: As noted in HPI GI: Negative Genitourinary: Negative Muscular skeletal: Negative Hematologic: Negative Neurologic: Negative Endocrine: Negative Psychiatric: Negative Skin: Negative Past Medical History Past Medical History: No Reported History Additional Past Medical History / Comment(s): Patient denies any history although he does not see a physician on a regular basis History of Any Multi-Drug Resistant Organisms: None Reported Past Surgical History: Unable to Obtain Additional Past Surgical History / Comment(s): Vasectomy Past Anesthesia/Blood Transfusion Reactions: No Reported Reaction Additional Past Anesthesia/Blood Transfusion Reaction / Comment(s): 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 Past Psychological History: No Psychological Hx Reported Smoking Status: Never smoker Past Alcohol Use History: None Reported Past Drug Use History: None Reported - Past Family History Father Family Medical History: Dementia Additional Family Medical History / Comment(s): Father had Alzheimer's Mother Family Medical History: CVA/TIA, Hypertension Medications and Allergies Home Medications Medication Instructions Recorded Confirmed Type No Known Home Medications 05/31/21 05/31/21 History Allergies Allergy/AdvReac Type Severity Reaction Status Date / Time No Known Allergies Allergy Verified 05/31/21 08:25 Physical Exam Vitals: Vital Signs Temp Pulse Resp BP Pulse Ox 05/31/21 11:00 75 21 151/81 96 05/31/21 10:00 72 14 94 L 05/31/21 09:00 85 21 139/74 91 L 05/31/21 08:00 71 18 128/87 94 L 05/31/21 07:00 72 21 95 05/31/21 06:00 66 14 96 05/31/21 05:00 67 20 97 05/31/21 04:16 97 05/31/21 04:00 66 13 99 05/31/21 03:36 97.7 F 69 17 134/88 98 05/31/21 01:25 96 23 181/97 95 05/31/21 01:20 96 22 202/106 98 05/31/21 01:15 98 22 201/95 98 05/31/21 01:10 94 22 203/99 98 05/31/21 01:05 97.6 F 97 20 215/103 98 Intake and Output 05/30/21 05/31/21 05/31/21 22:59 06:59 14:59 Intake Total 1428 353.562 Output Total 800 1650 Balance 628 -1296.438 Intake: IV 1228 300 Sodium Chloride 0.9% 1, 225 300 000 ml @ 75 mls/hr IV . [id number] [facility] Rx#:[id number] Intake, IV Titration 53.562 Amount Heparin Sod,Pork in 0.45% 53.562 NaCl 25,000 unit In 0.45 % NaCl 1 250ml.bag @ 12 UNITS/KG/HR 9.798 mls/hr IV .Q24H [facility] Rx#: [id number] Oral 200 Output: Urine 300 1650 Emesis 500 Other: # Voids 1 Weight 81.647 kg Physical Exam: Revealed a 65-year-old white male pleasant in no distress. Head: Atraumatic, normocephalic. HEENT:[Neck is supple.] [No neck masses.] [No thyromegaly.] [No JVD.] Chest: [Clear throughout, no crackles, no rhonchi, no wheezes.] Cardiac Exam: [Normal S1 and S2, no S3 gallop, 2/6 systolic murmur at the left lower sternal border. Abdomen: [Soft, nontender, no megaly, no rebound, no guarding, normal bowel sounds.] Extremities: [No clubbing, no edema, no cyanosis.] Neurological Exam: [No focal neurologic deficit.] Alert oriented 3 focal deficit Psychiatric: Normal mood affect and normal mental status examination. Skin: No rashes. Results - Laboratory Findings CBC and BMP: 05/31/21 04:30 05/31/21 05:36 PT/INR, D-dimer PT 10.6 sec (9.0-12.0) 05/31/21 04:30 INR 1.0 (<1.2) 05/31/21 04:30 Abnormal lab findings: Abnormal Labs 05/31/21 05/31/21 05/31/21 01:05 01:05 01:05 WBC 13.8 H Neutrophils # 8.2 H Lymphocytes # Monocytes # 1.1 H APTT Glucose 219 H POC Glucose (mg/dL) AST 247 H ALT 210 H Troponin I 0.038 H* C-Reactive Protein Triglycerides Cholesterol LDL Cholesterol, Calc VLDL Cholesterol, Calc 05/31/21 05/31/21 05/31/21 01:11 04:30 04:40 WBC 18.7 H Neutrophils # 16.2 H Lymphocytes # 0.7 L Monocytes # 1.5 H APTT Glucose POC Glucose (mg/dL) 208 H 176 H AST ALT Troponin I C-Reactive Protein Triglycerides Cholesterol LDL Cholesterol, Calc VLDL Cholesterol, Calc 05/31/21 05/31/21 05/31/21 05:36 05:36 09:44 WBC Neutrophils # Lymphocytes # Monocytes # APTT Glucose 185 H POC Glucose (mg/dL) 133 H AST 204 H ALT 191 H Troponin I 0.922 H* C-Reactive Protein 1.0 H Triglycerides 228.00 H Cholesterol 407.00 H LDL Cholesterol, Calc 310.2 H VLDL Cholesterol, Calc 45.60 H 05/31/21 05/31/21 05/31/21 10:55 11:40 12:31 WBC Neutrophils # Lymphocytes # Monocytes # APTT 36.2 H Glucose POC Glucose (mg/dL) 147 H AST ALT Troponin I 2.540 H* C-Reactive Protein Triglycerides Cholesterol LDL Cholesterol, Calc VLDL Cholesterol, Calc - Diagnostic Findings Chest x-ray: image reviewed (As noted in HPI.) Assessment and Plan Assessment: Impression: Ventricular fibrillation/cardiac arrest with return of spontaneous circulation in the field. Acute non-ST elevation myocardial infarction Coronary arteriosclerosis, patient is yet to be scheduled for myocardial vascularization by cardiothoracic surgery on the case. Patient has triple- vessel coronary artery disease. Mild diastolic congestive heart failure as noted on chest x-ray Lifetime nonsmoker Recommendation: Continue incentive spirometry Patient has no significant pulmonary history, clinically patient is considered low operative risk based on his pulmonary status. Agree with myocardial revascularization. Will follow postoperatively. In the meantime continue cardiac meds as ordered by cardiology including statins, heparin, beta blockers, aspirin and nitroglycerin We will follow the patient postoperatively. Time with Patient: Greater than 30
--- NOTE | 2021-05-31 15:28 | CT ---
EXAMINATION TYPE: CT angio head neck DATE OF EXAM: 05/31/2021 HISTORY: Carotid stenosis, confusion. COMPARISON: Carotid duplex 05/31/2021 CT DLP: 1753.2 mGycm. Automated Exposure Control for Dose Reduction was Utilized. TECHNIQUE: CT of the head without contrast was performed. 2-D sagittal and coronal reformats were obtained. CTA scan of the head and neck is performed without and with IV Contrast, patient injected with 65 mL of Isovue 370, axial images are obtained, coronal and sagittal reformatted images are reviewed. 3D reconstructed images are created on an independent workstation and reviewed. FINDINGS: No acute intracranial hemorrhage, mass effect, or midline shift. 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 Otherwise the nix-white differentiation is preserved. Calvarium a ppears unremarkable. Visualized paranasal sinuses and mastoid air cells are clear. Bilateral globes a nd orbits appear symmetric and unremarkable. Aberrant right subclavian artery. The right common carotid artery arises from the aortic arch. Patent origins of the great vessels from the aortic arch. Right common carotid artery appears patent. Complete occlusion of the right internal carotid artery n ear its origin. Left common carotid artery appears patent. Moderate atherosclerotic noncalcified plaque of the proxim al left internal carotid artery with approximately 60% luminal narrowing per NASCET criteria. Moderate atherosclerotic calcified and noncalcified plaque at the origin of the right vertebral arter y with moderate luminal narrowing. Left vertebral artery originates from the aortic arch and appears patent. Codominant vertebral arteries which appear patent. Right intracranial internal carotid artery is occluded with reconstitution at the carotid terminus. L eft intracranial internal carotid artery appears patent. Hypoplastic A1 segment of the right anterior cerebral artery. A2 segment and distal of the right ante rior cerebral artery appears patent. Left anterior cerebral artery appears patent. Anterior communica ting artery is present. Middle cerebral arteries appear patent. Hypoplastic V4 segment of the right vertebral artery relative to the left. Basilar artery appears patent. Irregularity and mild narrowing of the right posterior cerebral artery. Hypoplastic/stenotic P1 segment of the left posterior cerebral artery with stenosis of the proximal P 2 segment. Right posterior communicating artery is visualized. Left posterior indicating artery is no t well visualized. Dural venous sinuses appear patent. No definite abnormal enhancement of the brain parenchyma. IMPRESSION: 1. No acute intracranial process. 2. Complete occlusion of the right internal carotid artery near its origin at the carotid bifurcation . 3. Moderate luminal narrowing of the proximal left internal carotid artery secondary to noncalcified atherosclerotic plaque approximately 60%. 4. Hypoplastic/stenotic P1 segment and stenosed proximal P2 segment of the left posterior cerebral ar natalie with patency distally. 5. Irregular P1 segment of the right posterior cerebral artery. 6. Aberrant right subclavian artery. NASCET criteria was used in interpretation of this exam?
[2021-05-31] MEDS ORDERED: MD COMMUNICATION TO PHARMACY 1 EACH MISC PO ONE (15:36)
--- NOTE | 2021-05-31 16:59 | CT ---
EXAMINATION TYPE: CT chest wo con DATE OF EXAM: 05/31/2021 COMPARISON: Chest radiograph 05/31/2021 HISTORY: Eval aorta for clampability. Congestive heart failure CT DLP: 436.2 mGycm. Automated Exposure Control for Dose Reduction was Utilized. TECHNIQUE: CT scan of the thorax is performed without IV contrast. 2-D sagittal and coronal reformat s were obtained. FINDINGS: LUNGS: Central airways are normal course and caliber. No focal consolidation or pneumothorax. Trace r ight pleural effusion with recent atelectasis. MEDIASTINUM: Lack of IV contrast is noted to limit evaluation for mediastinal and especially hilar ad enopathy. There are no definitive greater than 1 cm hilar or mediastinal lymph nodes. Heart size appe ars mildly enlarged. No pericardial effusion. There is a variant right subclavian artery. No atherosc lerotic vascular calcifications of the thoracic aorta. Fusiform dilatation of the ascending thoracic aorta measuring 4.3 cm. Main pulmonary artery is of normal caliber. OTHER: Contrast material is present within the gallbladder from prior CT examination; otherwise, no a dditional significant abnormality is seen. IMPRESSION: 1. No atherosclerotic vascular calcifications of the thoracic aorta. Fusiform dilatation of the ascen ding thoracic aorta measuring 4.3 cm. 2. Trace right pleural effusion with adjacent atelectasis. No focal consolidation or pneumothorax. 3. Cardiomegaly.
--- NOTE | 2021-05-31 17:31 | US ---
EXAMINATION TYPE: US liver DATE OF EXAM: 05/31/2021 COMPARISON: NONE CLINICAL HISTORY: transaminitis . abn labs EXAM MEASUREMENTS: Liver Length: 18.2 cm Gallbladder Wall: 0.2 cm CBD: 0.5 cm Right Kidney: 12.1 x 4.5 x 5.2 cm Pancreas: wnl Liver: heterogeneous and upper limits of normal for size Gallbladder: wnl Evidence for sonographic Onofre's sign: no CBD: wnl Right Kidney: wnl IMPRESSION: Slightly heterogeneous appearance of the liver parenchyma which is nonspecific but can be seen with u nderlying hepatocellular disease most commonly hepatic steatosis.
[2021-05-31 17:59] LABS: Glucose,Whole Blood 149 mg/dL (75-99)
[2021-05-31] MEDS: MUPIROCIN 2% OINT 22 GM TUBE NASAL SCH (20:16)
[2021-05-31] MEDS ORDERED: LOSARTAN 50 MG TAB PO SCH (21:00)
[2021-05-31 21:50] LABS: Appearance,Urine Clear (Clear); Bilirubin,Urine Negative (Negative); Blood,Urine Negative (Negative); Color,Urine Light Yellow; Glucose,Urine (UA) Negative (Negative); Ketones,Urine Negative (Negative); Leukocyte Esterase,Urine Negative (Negative); Nitrite,Urine Negative (Negative); PH, Urine 5.5 (5.0-8.0); Protein,Urine Trace (Negative); Urobilinogen,Urine <2.0 mg/dL (<2.0)
[2021-05-31 23:23] LABS: Hepatitis A Antibody IgM Nonreactive (Nonreactive); Hepatitis B Core IgM Nonreactive (Nonreactive); Hepatitis B Surface Antigen Nonreactive (Nonreactive); Hepatitis C IgG Antibody Nonreactive (Nonreactive)
[2021-06-01] MEDS: AMIODARONE 450 MG in DEXTROSE 5% IN WATER 250 ML IV SCH ×6 (03:50→18:26)
[2021-06-01] MEDS ORDERED: PAPAVERINE 360 MG in SODIUM CHLORIDE 0.9% 90 ML IV ONE (05:00)
[2021-06-01] MEDS ORDERED: ELECTROLYTE-A SOLUTION 1,000 ML with POTASSIUM CHLORIDE 40 MEQ, MAGNESIUM SULFATE 16 ME... IV SCH ×5 (05:00)
[2021-06-01] MEDS ORDERED: SODIUM BICARB 8.4% 50 ML SYR (1 MEQ/ML) IV ONE (05:00)
[2021-06-01] MEDS ORDERED: PHENYLEPHRINE 10 MG/ML VIAL IV ONE (05:00)
[2021-06-01] MEDS ORDERED: DILTIAZEM 125 MG in SODIUM CHLORIDE 0.9% 100 ML IV SCH (05:00)
[2021-06-01] MEDS ORDERED: MAGNESIUM SULFATE 16.24 MEQ in EMPTY SYRINGE 1 SYR IV ONE (05:00)
[2021-06-01] MEDS ORDERED: NITROGLYCERIN-D5W PMX 50 MG in DEXTROSE/WATER 1 250ML.BAG IV SCH ×2 (05:00→13:38)
[2021-06-01] MEDS ORDERED: PROTAMINE SULFATE 250 MG in EMPTY BAG 1 BAG IV ONE (05:00)
[2021-06-01] MEDS ORDERED: INSULIN REGULAR 100 UNIT in SODIUM CHLORIDE 0.9% 100 ML IV SCH ×2 (05:00→13:38)
[2021-06-01] MEDS ORDERED: NITROGLYCERIN-D5W PMX 25 MG/250 ML BTL IV ONE (05:00)
[2021-06-01] MEDS ORDERED: ALBUMIN HUMAN 25% 50 ML in EMPTY BAG 1 BAG IVPB ONE (05:00)
[2021-06-01] MEDS ORDERED: LACTATED RINGERS 1,000 ML IV SCH (05:00)
[2021-06-01] MEDS ORDERED: HEPARIN SODIUM,PORCINE 5,000 UNIT in SODIUM CHLORIDE 0.9% 500 ML 500 ML IV ONE (05:00)
[2021-06-01] MEDS ORDERED: CALCIUM CHLORIDE 100 MG/ML 10 ML SYRINGE IVP ONE (05:00)
[2021-06-01] MEDS ORDERED: CHLORHEXIDINE GLUCONATE 15 ML CUP MUCOUS MEM ONE (05:00)
[2021-06-01] MEDS ORDERED: NOREPINEPHRINE 4 MG in SODIUM CHLORIDE 0.9% 250 ML IV SCH ×2 (05:00→18:45)
[2021-06-01] MEDS ORDERED: PROTAMINE SULFATE 10 MG/ML 25 ML VIAL IV ONE ×2 (05:00→07:54)
[2021-06-01] MEDS ORDERED: ELECTROLYTE-A SOLUTION 1,000 ML with POTASSIUM CHLORIDE 100 MEQ, MAGNESIUM SULFATE 16 M... IV SCH ×5 (05:00)
[2021-06-01] MEDS ORDERED: TRANEXAMIC ACID 2,000 MG in SODIUM CHLORIDE 0.9% 80 ML IV ONE (05:00)
[2021-06-01] MEDS ORDERED: ASPIRIN 325 MG TAB PO ONE (05:00)
[2021-06-01] MEDS ORDERED: HEPARIN SODIUM 1,000 UN/ML (10ML VL) IV ONE (05:00)
[2021-06-01] MEDS ORDERED: ATORVASTATIN 10 MG TAB PO ONE (05:00)
[2021-06-01] MEDS ORDERED: METOPROLOL TARTRATE 12.5 MG TAB PO ONE (05:00)
[2021-06-01] MEDS ORDERED: ALBUMIN HUMAN 5% 500 ML in EMPTY BAG 1 BAG IVPB ONE ×6 (05:00)
[2021-06-01] MEDS ORDERED: PHENYLEPHRINE 40 MG in SODIUM CHLORIDE 0.9% 250 ML IV ONE (05:00)
[2021-06-01] MEDS ORDERED: CLEVIDIPINE BUTYRATE 25 MG in EMPTY BAG 1 BAG IV SCH (05:00)
[2021-06-01] MEDS ORDERED: MANNITOL 25% 12.5 GM/50 ML VIAL IV ONE ×2 (05:00)
[2021-06-01 05:15] LABS: Basophils % (A) 0 %; Eosinophils % (A) 0 %; HCT 43.6 % (39.0-53.0); HGB 13.8 gm/dL (13.0-17.5); Lymphocytes # (A) 1.2 k/uL (1.0-4.8); Lymphocytes % (A) 9 %; MCH 28.2 pg (25.0-35.0); MCHC 31.6 g/dL (31.0-37.0); MCV 89.2 fL (80.0-100.0); Mean Platelet Volume 9.4; Monocytes # (A) 1.1 k/uL (0-1.0); Monocytes % (A) 8 %; Neutrophils # (A) 11.3 k/uL (1.3-7.7); Neutrophils % (A) 82 %; Platelet Count 153 k/uL (150-450); RBC 4.89 m/uL (4.30-5.90); RDW 14.6 % (11.5-15.5); WBC 13.8 k/uL (3.8-10.6)
[2021-06-01 05:22] LABS: Prothrombin Time 10.3 sec (9.0-12.0)
[2021-06-01 06:56] LABS: ALT 125 U/L (4-49); AST 90 U/L (17-59); African American GFR (CKD) >90 (>60 ml/min/1.73 sqM); Albumin 3.3 g/dL (3.5-5.0); Alkaline Phosphatase 90 U/L (38-126); Anion Gap 4 mmol/L; Blood Urea Nitrogen 15 mg/dL (9-20); Calcium 8.5 mg/dL (8.4-10.2); Carbon Dioxide 27 mmol/L (22-30); Chloride 104 mmol/L (98-107); Glucose 124 mg/dL (74-99); Magnesium 2.1 mg/dL (1.6-2.3); Non-African American GFR(CKD) >90 (>60 ml/min/1.73 sqM); Potassium 4.1 mmol/L (3.5-5.1); Sodium 135 mmol/L (137-145); Total Bilirubin 0.7 mg/dL (0.2-1.3); Total Protein 6.3 g/dL (6.3-8.2)
--- NOTE | 2021-06-01 06:57 | P.PN ---
Subjective Progress Note Date: 06/01/21 Principal diagnosis: Severe coronary artery disease The patient is a pleasant 65-year-old gentleman who had a cardiac arrest with V. fib. CPR was initiated and the patient was brought into normal sinus rhythm. An emergent heart catheterization was performed and revealed severe triple- vessel CAD and the patient is in process of having coronary artery bypass grafting later on today. He was seen in the ICU. He denies any symptoms of chest pain or chest discomfort. He is hemodynamically stable. He continues to be on amiodarone IV. He is in process of having the surgery later on today. Please note that an echocardiogram was performed and showed normal function with evidence of bicuspid aortic valve with only mild aortic stenosis. Objective - Vital Signs Vital signs: Vital Signs Temp 98.0 F 06/01/21 04:00 Pulse 70 06/01/21 06:00 Resp 19 06/01/21 06:00 BP 151/82 06/01/21 06:00 Pulse Ox 97 06/01/21 06:00 Intake & Output 05/31/21 05/31/21 06/01/21 06:59 18:59 06:59 Intake Total 1428 055.508 8386.423 Output Total 800 2250 820 Balance 628 -1521.438 903.423 Weight 81.647 kg 81.7 kg Intake: IV 1228 675 900 Sodium Chloride 0.9% 1, 225 675 900 000 ml @ 75 mls/hr IV . [id number] [facility] Rx#:[id number] Intake, IV Titration 53.562 623.423 Amount Amiodarone 450 mg In 250.000 Dextrose 5% in Water 250 ml @ 0.5 MG/MIN 16.667 mls/hr IV .Q15H [facility] Rx#: [id number] Heparin Sod,Pork in 0.45% 247.073 NaCl 25,000 unit In 0.45 % NaCl 1 250ml.bag @ 12 UNITS/KG/HR 9.798 mls/hr IV .Q24H [facility] Rx#: [id number] Heparin Sod,Pork in 0.45% 53.562 126.35 NaCl 25,000 unit In 0.45 % NaCl 1 250ml.bag @ 12 UNITS/KG/HR 9.798 mls/hr IV .Q24H [facility] Rx#: [id number] Oral 200 200 Output: Urine 300 2250 820 Emesis 500 Other: # Voids 0 - Constitutional General appearance: Present: no acute distress - Respiratory Respiratory: bilateral: CTA - Cardiovascular Rhythm: regular - Labs CBC & Chem 7: 06/01/21 04:47 05/31/21 05:36 Labs: Abnormal Lab Results - Last 24 Hours (Table) 05/31/21 05/31/21 05/31/21 Range/Units 05:36 09:44 10:55 WBC (3.8-10.6) k/uL Neutrophils # (1.3-7.7) k/uL Monocytes # (0-1.0) k/uL APTT 36.2 H (22.0-30.0) sec POC Glucose (mg/dL) 133 H (75-99) mg/dL Troponin I (0.000-0.034) ng/mL Triglycerides 228.00 H (0.00-149.00) mg/dL Cholesterol 407.00 H (0.00-200.00) mg/dL LDL Cholesterol, Calc 310.2 H (0.0-131.0) mg/dL VLDL Cholesterol, Calc 45.60 H (5.00-40.00) mg/dL Urine Protein (Negative) Crossmatch 05/31/21 05/31/21 05/31/21 Range/Units 11:40 12:31 12:31 WBC (3.8-10.6) k/uL Neutrophils # (1.3-7.7) k/uL Monocytes # (0-1.0) k/uL APTT (22.0-30.0) sec POC Glucose (mg/dL) 147 H (75-99) mg/dL Troponin I 2.540 H* (0.000-0.034) ng/mL Triglycerides (0.00-149.00) mg/dL Cholesterol (0.00-200.00) mg/dL LDL Cholesterol, Calc (0.0-131.0) mg/dL VLDL Cholesterol, Calc (5.00-40.00) mg/dL Urine Protein (Negative) Crossmatch See Detail 05/31/21 05/31/21 05/31/21 Range/Units 17:58 20:05 20:05 WBC (3.8-10.6) k/uL Neutrophils # (1.3-7.7) k/uL Monocytes # (0-1.0) k/uL APTT 40.8 H (22.0-30.0) sec POC Glucose (mg/dL) 149 H (75-99) mg/dL Troponin I 2.470 H* (0.000-0.034) ng/mL Triglycerides (0.00-149.00) mg/dL Cholesterol (0.00-200.00) mg/dL LDL Cholesterol, Calc (0.0-131.0) mg/dL VLDL Cholesterol, Calc (5.00-40.00) mg/dL Urine Protein (Negative) Crossmatch 05/31/21 06/01/21 06/01/21 Range/Units 21:00 01:53 04:47 WBC 13.8 H (3.8-10.6) k/uL Neutrophils # 11.3 H (1.3-7.7) k/uL Monocytes # 1.1 H (0-1.0) k/uL APTT 63.2 H (22.0-30.0) sec POC Glucose (mg/dL) (75-99) mg/dL Troponin I (0.000-0.034) ng/mL Triglycerides (0.00-149.00) mg/dL Cholesterol (0.00-200.00) mg/dL LDL Cholesterol, Calc (0.0-131.0) mg/dL VLDL Cholesterol, Calc (5.00-40.00) mg/dL Urine Protein Trace H (Negative) Crossmatch Microbiology - Last 24 Hours (Table) 05/31/21 12:11 Nasal Screen MRSA/MSSA - Preliminary Nasal Swab Assessment and Plan Assessment: Assessment #1 cardiac arrest #2 severe triple-vessel CAD #3 bicuspid aortic valve Plan #1 continue the current medical regimen #2 the patient is in process of having open heart surgery
[2021-06-01] MEDS ORDERED: HEPARIN SODIUM,PORCINE 10,000 UNIT/ML 1 ML VIAL ONE (07:54)
[2021-06-01] MEDS ORDERED: VECURONIUM 10 MG VIAL IV ONE (07:54)
[2021-06-01] MEDS ORDERED: SODIUM BICARB 8.4% 50 ML SYR (1 MEQ/ML) ONE (07:54)
[2021-06-01] MEDS ORDERED: CALCIUM CHLORIDE 100 MG/ML 10 ML SYRINGE ONE (07:54)
[2021-06-01] MEDS ORDERED: INSULIN REGULAR 100 UNIT/ML VIAL (IV) ONE (07:54)
[2021-06-01] MEDS ORDERED: SODIUM CHLORIDE 0.9% 250 ML BAG ONE (07:54)
[2021-06-01] MEDS ORDERED: PROPOFOL 10 MG/ML 20 ML VIAL IV ONE (07:54)
[2021-06-01] MEDS ORDERED: ELECTROLYTE-R (PH 7.4) 1,000 ML IV.SOLN IV ONE (07:54)
[2021-06-01] MEDS ORDERED: ePHEDrine 50 MG/ML 1 ML AMP ONE (07:54)
[2021-06-01] MEDS ORDERED: MIDAZOLAM 2 MG/2 ML VIAL ONE (07:54)
[2021-06-01] MEDS ORDERED: MAGNESIUM SULFATE 4 MEQ/ML 10ML VIAL ONE (07:54)
[2021-06-01] MEDS ORDERED: LIDOCAINE 2% SYG (PF) 100 MG/5 ML ONE (07:54)
[2021-06-01] MEDS ORDERED: NITROGLYCERIN-D5W PMX 50 MG/250 ML BOTTLE IV ONE (07:54)
[2021-06-01] MEDS ORDERED: fentaNYL (PF) 50 MCG/ML 50 ML VIAL ONE (07:54)
[2021-06-01] MEDS ORDERED: TRANEXAMIC ACID 1,000 MG/10 ML VIAL ONE (07:54)
[2021-06-01] MEDS ORDERED: SODIUM CHLORIDE 0.9% IRRIG 1,000 ML BTL IRRIGATION ONE (07:54)
[2021-06-01] MEDS ORDERED: HEPARIN SODIUM 1,000 UN/ML (10ML VL) ONE (08:00)
[2021-06-01] MEDS ORDERED: HEPARIN SODIUM,PORCINE 5,000 UNIT/ML 1 ML VIAL ONE (08:00)
[2021-06-01] MEDS ORDERED: ASPIRIN 81 MG PO SCH (09:00)
[2021-06-01 09:17] LABS: ABG Glucose Whole Blood 120 mg/dL (75-99); ABG HCO3 27 mmol/L (21-25); ABG Ionized Calcium 4.6 mg/dL (4.5-5.3); ABG Lactic Acid Whole Blood 0.8 mmol/L (0.5-1.6); ABG PCO2 43 mmHg (35-45); ABG PH 7.41 (7.35-7.45); ABG PO2 349 mmHg (83-108); ABG Potassium Whole Blood 4.3 mmol/L (3.4-4.5); ABG Sodium Whole Blood 137 mmol/L (135-146); ABG TCO2 28 mmol/L (19-24)
[2021-06-01] MEDS: ceFAZolin 1,000 MG in SODIUM CHLORIDE 0.9% IRRIGATIO 1,000 ML IRRIGATION ONE ×2 (09:37→13:45)
[2021-06-01 10:19] LABS: ABG Base Excess 0.1 mmol/L; ABG Glucose Whole Blood 123 mg/dL (75-99); ABG HCO3 25 mmol/L (21-25); ABG Hematocrit 36 % (34.0-46.0); ABG Ionized Calcium 4.3 mg/dL (4.5-5.3); ABG Lactic Acid Whole Blood 0.8 mmol/L (0.5-1.6); ABG Oxygen Saturation 99.5 % (94-97); ABG PCO2 40 mmHg (35-45); ABG PO2 179 mmHg (83-108); ABG Potassium Whole Blood 4.1 mmol/L (3.4-4.5); ABG Sodium Whole Blood 137 mmol/L (135-146); ABG TCO2 26 mmol/L (19-24)
[2021-06-01 11:24] LABS: ABG Base Excess -0.2 mmol/L; ABG Glucose Whole Blood 147 mg/dL (75-99); ABG HCO3 25 mmol/L (21-25); ABG Hematocrit 33 % (34.0-46.0); ABG Ionized Calcium 4.1 mg/dL (4.5-5.3); ABG Oxygen Saturation 99.9 % (94-97); ABG PCO2 45 mmHg (35-45); ABG PH 7.36 (7.35-7.45); ABG PO2 317 mmHg (83-108); ABG Potassium Whole Blood 6.1 mmol/L (3.4-4.5); ABG Sodium Whole Blood 133 mmol/L (135-146); ABG TCO2 27 mmol/L (19-24)
[2021-06-01 11:49] LABS: ABG Base Excess -0.9 mmol/L; ABG Glucose Whole Blood 161 mg/dL (75-99); ABG HCO3 24 mmol/L (21-25); ABG Hematocrit 36 % (34.0-46.0); ABG Ionized Calcium 4.1 mg/dL (4.5-5.3); ABG Oxygen Saturation 99.9 % (94-97); ABG PCO2 41 mmHg (35-45); ABG PH 7.38 (7.35-7.45); ABG PO2 378 mmHg (83-108); ABG Sodium Whole Blood 132 mmol/L (135-146); ABG TCO2 25 mmol/L (19-24)
[2021-06-01 12:16] LABS: ABG Glucose Whole Blood 172 mg/dL (75-99); ABG HCO3 22 mmol/L (21-25); ABG Hematocrit 34 % (34.0-46.0); ABG PCO2 41 mmHg (35-45); ABG PH 7.33 (7.35-7.45); ABG PO2 350 mmHg (83-108); ABG Sodium Whole Blood 134 mmol/L (135-146); ABG TCO2 23 mmol/L (19-24)
[2021-06-01 12:28] LABS: ABG Base Excess -1.8 mmol/L; ABG Glucose Whole Blood 184 mg/dL (75-99); ABG HCO3 23 mmol/L (21-25); ABG Hematocrit 33 % (34.0-46.0); ABG Ionized Calcium 3.9 mg/dL (4.5-5.3); ABG Oxygen Saturation 99.9 % (94-97); ABG PCO2 37 mmHg (35-45); ABG PO2 411 mmHg (83-108); ABG Potassium Whole Blood 5.6 mmol/L (3.4-4.5); ABG Sodium Whole Blood 135 mmol/L (135-146); ABG TCO2 24 mmol/L (19-24)
[2021-06-01] MEDS: SODIUM CHLORIDE 0.9% 1,000 ML IV SCH ×2 (13:16→18:27)
[2021-06-01] MEDS: ATORVASTATIN 40 MG TAB PO SCH (13:17)
[2021-06-01] MEDS: FUROSEMIDE 10 MG/ML 2 ML VIAL IV SCH (13:17)
[2021-06-01] MEDS: INSULIN ASPART (NovoLOG) 100 UNIT/ML VIAL SQ SCH ×2 (13:17→13:18)
[2021-06-01] MEDS: METOPROLOL TARTRATE 25 MG TAB PO SCH (13:17)
[2021-06-01] MEDS: NITROGLYCERIN-D5W PMX 50 MG in DEXTROSE/WATER 1 250ML.BAG IV SCH (13:17)
[2021-06-01] MEDS: MUPIROCIN 2% OINT 22 GM TUBE NASAL SCH ×2 (13:18→21:47)
[2021-06-01] MEDS: POTASSIUM CHLORIDE ER 10 MEQ TAB.ER.PRT PO SCH (13:18)
[2021-06-01] MEDS ORDERED: IPRATROPIUM-ALBUTEROL 3 ML NEB INHALATION PRN (13:38)
[2021-06-01] MEDS ORDERED: Phosphorus Replacement Protoco 1 EACH MISC MISCELLANE PRN (13:38)
[2021-06-01] MEDS ORDERED: BENZOCAINE/MENTHOL LOZENG 1 EACH LOZENGE MUCOUS MEM PRN (13:38)
[2021-06-01] MEDS ORDERED: ONDANSETRON 4 MG/2 ML VIAL IVP PRN (13:38)
[2021-06-01] MEDS ORDERED: AMIODARONE 360 MG in DEXTROSE 5% IN WATER 200 ML IV PRN ×2 (13:38)
[2021-06-01] MEDS ORDERED: DEXMEDETOMIDINE/0.9% NACL(PMX) 400 MCG in EMPTY BAG 1 BAG IV SCH (13:38)
[2021-06-01] MEDS ORDERED: Magnesium Replacement Protocol 1 EACH MISC MISCELLANE PRN (13:38)
[2021-06-01] MEDS ORDERED: Potassium Replacement Protocol 1 EACH MISC MISCELLANE PRN (13:38)
[2021-06-01] MEDS ORDERED: hydrALAZINE HCL 20 MG/ML 1 ML VIAL IVP PRN (13:38)
[2021-06-01] MEDS ORDERED: DEXTROSE 5% IN WATER 100 ML with AMIODARONE 150 MG IV PRN (13:38)
[2021-06-01] MEDS ORDERED: ALBUMIN HUMAN 5% 250 ML in EMPTY BAG 1 BAG IVPB PRN (13:38)
[2021-06-01] MEDS ORDERED: AMIODARONE 450 MG in DEXTROSE 5% IN WATER 250 ML IV PRN ×2 (13:38)
[2021-06-01 13:44] LABS: ABG Base Excess 2.1 mmol/L; ABG Hematocrit 40 % (34.0-46.0); ABG Oxygen Saturation 99.7 % (94-97)
[2021-06-01 13:46] LABS: ABG Lactic Acid Whole Blood 2.9 mmol/L (0.5-1.6); ABG Potassium Whole Blood 6.9 mmol/L (3.4-4.5)
[2021-06-01 13:47] LABS: ABG Lactic Acid Whole Blood 4.2 mmol/L (0.5-1.6); ABG Potassium Whole Blood 6.3 mmol/L (3.4-4.5)
[2021-06-01 13:48] LABS: ABG Lactic Acid Whole Blood 4.7 mmol/L (0.5-1.6)
[2021-06-01 14:13] LABS: Glucose,Whole Blood 104 mg/dL (75-99)
[2021-06-01 14:20] LABS: ABG Base Excess 1.1 mmol/L; ABG HCO3 26 mmol/L (21-25); ABG PCO2 40 mmHg (35-45); ABG PH 7.41 (7.35-7.45); ABG PO2 273 mmHg (83-108); ABG TCO2 27 mmol/L (19-24); Allen Test Performed? Yes
[2021-06-01 14:26] LABS: Basophils # (A) 0.2 k/uL (0-0.2); Basophils % (A) 1 %; Eosinophils # (A) 0.1 k/uL (0-0.7); Eosinophils % (A) 0 %; HCT 37.3 % (39.0-53.0); HGB 12.2 gm/dL (13.0-17.5); Lymphocytes # (A) 1.2 k/uL (1.0-4.8); Lymphocytes % (A) 7 %; MCH 29.4 pg (25.0-35.0); MCHC 32.8 g/dL (31.0-37.0); MCV 89.6 fL (80.0-100.0); Mean Platelet Volume 9.8; Monocytes # (A) 1.1 k/uL (0-1.0); Monocytes % (A) 6 %; Neutrophils # (A) 14.9 k/uL (1.3-7.7); Neutrophils % (A) 85 %; Platelet Count 123 k/uL (150-450); RBC 4.16 m/uL (4.30-5.90); RDW 14.6 % (11.5-15.5); WBC 17.5 k/uL (3.8-10.6)
--- NOTE | 2021-06-01 14:33 | XR ---
EXAMINATION TYPE: XR chest 1V portable DATE OF EXAM: 06/01/2021 HISTORY: Post Op CABG COMPARISON: Preoperative study 05/31/2021 TECHNIQUE: Single view of the chest is submitted. FINDINGS: Endotracheal tube, NG tube, SG catheter, mediastianal drains and chest tubes are appropriately placed . Post operative changes of CABG. No sizeable pneumothorax. Scattered Pleural-parencymal opacities may reflect atelectasis. The heart is not enlarged. IMPRESSION: 1. Post operative changes of CABG.
[2021-06-01] MEDS: CLEVIDIPINE BUTYRATE 25 MG in EMPTY BAG 1 BAG IV SCH ×3 (14:34→21:46)
[2021-06-01] MEDS: LACTATED RINGERS 1,000 ML IV SCH (14:34)
[2021-06-01 14:46] LABS: Ionized Calcium 4.6 mg/dL (4.5-5.3)
[2021-06-01] MEDS ORDERED: CALCIUM GLUCONATE 2 GM in SODIUM CHLORIDE 0.9% 100 ML IVPB PRN (15:00)
[2021-06-01 15:01] LABS: Partial Thromboplastin Time 33.2 sec (22.0-30.0)
[2021-06-01 15:04] LABS: ALT 75 U/L (4-49); AST 73 U/L (17-59); African American GFR (CKD) >90 (>60 ml/min/1.73 sqM); Albumin 2.6 g/dL (3.5-5.0); Alkaline Phosphatase 60 U/L (38-126); Anion Gap 7 mmol/L; Blood Urea Nitrogen 16 mg/dL (9-20); Calcium 7.9 mg/dL (8.4-10.2); Carbon Dioxide 24 mmol/L (22-30); Chloride 104 mmol/L (98-107); Glucose 112 mg/dL (74-99); Magnesium 2.8 mg/dL (1.6-2.3); Non-African American GFR(CKD) 81 (>60 ml/min/1.73 sqM); Potassium 4.7 mmol/L (3.5-5.1); Sodium 135 mmol/L (137-145); Total Bilirubin 0.5 mg/dL (0.2-1.3); Total Protein 4.9 g/dL (6.3-8.2)
[2021-06-01 15:07] LABS: Glucose,Whole Blood 103 mg/dL (75-99)
--- NOTE | 2021-06-01 15:32 | OP ---
OPERATIVE REPORT DATE OF SURGERY: 06/01/2021 PREOPERATIVE DIAGNOSIS: Coronary artery disease. POSTOPERATIVE DIAGNOSIS: Coronary artery disease. PROCEDURE: 1. Coronary artery bypass grafting x3 vessels (left internal mammary artery to left anterior descending artery, saphenous vein graft to obtuse marginal artery, saphenous vein graft to posterior descending artery). 2. Endoscopic harvest of left greater saphenous vein. 3. Ligation of left atrial appendage using 35 mm AtriClip. 4. Epiaortic ultrasound. 5. Transesophageal echocardiogram. SURGEON: Kevin Howard M.D. ASSISTANTS: 1. HUGO Parker. 2. HUGO Davies. ANESTHESIA: General. SPECIMEN: None. COMPLICATIONS: None. INDICATION: The patient is a 65-year-old male with a past medical history significant for hypertension and hyperlipidemia who presented to the hospital after a ventricular fibrillation arrest followed by CPR and one cardioversion. Workup revealed a non-ST- elevation myocardial infarction. Cardiac catheterization revealed multivessel coronary artery disease. The patient did have some confusion following this event but was otherwise neurologically intact and hemodynamically stable. Coronary artery bypass was recommended. The risks, benefits and alternatives of the procedure were discussed with the patient. All of his questions were answered. Consent was obtained. Of note, during his preoperative workup he was noted to have a complete occlusion of the right internal carotid artery. CT of the head and neck verified this finding. Vascular Surgery was consulted and felt there was no additional intervention to be done at this point. FINDINGS: The left internal mammary artery was good conduit with brisk flow. The saphenous vein was a good conduit. The left anterior descending artery measured 1.3 mm. The posterior descending artery measured 1.3 mm. The distal obtuse marginal artery branch off the circumflex artery measured 1.3 mm. PROCEDURE IN DETAIL: The patient was taken to the operating room and placed supine on the operating room table. After induction of general anesthesia, he was prepped and draped in the usual sterile fashion. Preoperative transesophageal echocardiogram confirmed a preserved ejection fraction with trace mitral regurgitation and trace aortic insufficiency. The aortic valve itself was trileaflet in nature without evidence of stenosis. A median sternotomy was performed. The left internal mammary artery was harvested in standard fashion, taking care to clip all branches. Intravenous heparin was administered. The vessel was transected distally, revealing brisk flow. Simultaneously, greater saphenous vein was harvested from the left lower extremity using endoscopic technique. All branches were tied. Both the mammary artery and saphenous vein were good conduits. A pericardial cradle was created. The ascending aorta was identified. It was dilated in nature, which was consistent with our preoperative findings. His preoperative CT scan revealed an ascending aorta measuring approximately 4.2 cm in diameter. It did not appear to be thin-walled. There was no significant calcific plaque noted. Epiaortic ultrasound was then performed on the ascending aorta. Again no calcific plaque or atheromatous disease was identified. An arterial cannula was placed in the distal ascending aorta. A venous cannula was placed through the atrial appendage directed into the IVC. Both antegrade and retrograde catheters were placed as well. The patient was then placed on cardiopulmonary bypass with good decompression of the heart. The aortic cross-clamp was applied. Cold blood potassium and cardioplegia was delivered in both antegrade and retrograde fashion to achieve arrest of the heart. Of note, cardioplegia was delivered every 15 to 20 minutes with the patient under cross- clamp. I began by identifying the left atrial appendage. A 35 mm AtriClip was placed across the base to ensure ligation. Next, attention was turned to the inferior wall. The posterior descending artery was identified. A small arteriotomy was created. This vessel accepted a 1.0 mm probe. Using the saphenous vein in a reverse fashion, and end-to-side anastomosis was created. This was performed using running 7-0 Prolene suture. The graft was hemostatic and had great flow. Next, attention was directed to the lateral wall. The distal branch of the circumflex artery was identified and dissected free just prior to a bifurcation. A small arteriotomy was created. This vessel accepted a 1.0 mm probe. Using saphenous vein in a reverse fashion, end-to-side anastomosis was created. This was performed using 7-0 Prolene suture. The graft was hemostatic and had great flow. Finally, attention was turned to the anterior wall. The left anterior descending artery was identified and it was dissected free in its mid portion. A small arteriotomy was created. This vessel accepted a 1.0 mm probe. Using the left internal mammary artery, an end-to-side anastomosis was created. This was performed using a running 8-0 Prolene suture. The graft was hemostatic. The mammary pedicle was then tacked down to the anterior surface of the heart. Attention was then turned to the proximal anastomoses. These were performed in an end-to-side fashion using running 6-0 Prolene suture. One liter of warm blood was delivered in retrograde fashion. Both lidocaine and magnesium were administered as well. The aortic cross-clamp was removed. The vein grafts were de-aired in the standard fashion. Distal anastomoses were inspected and appeared to be hemostatic. Temporary atrial and ventricular pacing wires were placed and brought through the skin. The patient was then weaned off cardiopulmonary bypass. He without difficulty. Follow-up transesophageal echocardiogram confirmed preserved ejection fraction and no change in valvular pathology. Protamine was administered. Of note, there were no adverse reactions. The remaining cannulas were then removed. The mediastinum was copiously irrigated with warm saline solution. Again all surgical sites were inspected and appeared to be hemostatic. Soft tissues were reapproximated over the ascending aorta as well as the apex of the heart. Straight chest tubes were placed in both the left pleural space and the mediastinum. These were all secured to the skin using sutures. The sternum was then reapproximated using the [employer] System. The cables were placed in a [id number] fashion. At the completion of the closure, the sternum was well aligned. The remainder of the wound was closed in layers. A sterile dressing was applied. The patient appeared to tolerate the procedure well. There were no immediate complications. He returned to the ICU in critical but stable condition. He did not receive any intraoperative blood products. We did optimize his perfusion pressure throughout the case. MMODL / IJN: [id number] /
[2021-06-01] MEDS ORDERED: IPRATROPIUM-ALBUTEROL 3 ML NEB INHALATION SCH (16:00)
[2021-06-01 16:06] LABS: Glucose,Whole Blood 119 mg/dL (75-99)
[2021-06-01] MEDS: HEPARIN SODIUM,PORCINE/PF 5,000 UNIT/0.5 ML SYRINGE SQ SCH ×2 (16:23→23:03)
--- NOTE | 2021-06-01 16:39 | P.PN ---
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 EMS responded within 3 minutes to the call, and he was noted to be in ventricular fibrillation, received 1 shock and there was return of normal sinus rhythm and return of spontaneous circulation. He was brought into the hospital and seen by cardiology on consultation. Acute ST elevation DC alert was called, patient had cardiac catheterization and he was found to have chronic occlusion of the RCA. He was also found to have diffuse disease in the left coronary system patient received aspirin, atorvastatin, and sublingual nitroglycerin. And he also received heparin in the catheterization laboratory. Transferred after the cardiac cath to the ICU, thoracic surgery was consulted, and I was asked to see him on consultation for preoperative pulmonary clearance. Patient has no active pulmonary symptoms whatsoever. Denies any history of COPD, he is a lifetime nonsmoker. Never complained of shortness of breath. No history of cough wheezing. Although the patient had COVID-19 infection back in August of 2020. Patient is not vaccinated. Initial chest x-ray on admission showed evidence of congestive heart failure. Follow-up chest x-ray continues to show minimal cardiomegaly with interstitial opacities and atelectatic changes at the bases. Echocardiogram showed good LV function however he had severe concentric LVH. No significant valvular pathology was noted. Patient was found to have bicuspid aortic valve mildly thickened. There was also evidence of grade 1 diastolic dysfunction. And trace of mitral regurgitation at any rate considering the plan to undergo cardiac surgery, I was asked to see him on consultation, based on his clinical pulmonary history, patient is considered low operative risk. Reevaluated today on 06/01/21, patient just came back from the operating room, he is status post CABG, patient had GUIDO to LAD saphenous vein graft to obtuse marginal artery and saphenous vein graft to posterior descending. He is now in the ICU on mechanical ventilation, he is on assist control rate of 12 tidal volume of 500 FiO2 was initially on the percent and now it is 50%, and PEEP of 5. Chest x-ray showed no evidence of active disease, postoperative changes noted. ABG earlier today showed a pO2 of 273 pCO2 40 pH of 7.41 hence the patient is now on 50% FiO2. Patient is not requiring any inotropes or any pressors, he is on a low dose of propofol, and on clevidipine. Objective - Vital Signs Vital signs: Vital Signs Temp 98.0 F 06/01/21 04:00 Pulse 93 06/01/21 16:00 Resp 25 H 06/01/21 16:00 BP 131/76 06/01/21 14:45 Pulse Ox 95 06/01/21 16:00 Intake & Output 05/31/21 06/01/21 06/01/21 18:59 06:59 18:59 Intake Total 081.764 5026.423 297.665 Output Total 2250 820 1569 Balance -1521.438 903.423 -1271.335 Weight 81.7 kg Intake: IV 675 900 273.0 CO/CI 50 Lactated Ringers 1,000 ml 100 @ 50 mls/hr IV .Q20H ANN Rx#:[id number] Nitroglycerin-D5w Pmx 50 3.0 mg In Dextrose/Water 1 250ml.bag @ 5 MCG/MIN 1.5 mls/hr IV .Q24H ANN Rx#: [id number] Pressure bag 18 Sodium Chloride 0.9% 1, 675 900 000 ml @ 75 mls/hr IV . [id number] ANN Rx#:[id number] ceFAZolin 2 gm In Sodium 50 Chloride 0.9% 50 ml @ 100 mls/hr IVPB ONCE ONE Rx# :[id number] Intake, IV Titration 53.562 623.423 24.665 Amount Amiodarone 450 mg In 250.000 Dextrose 5% in Water 250 ml @ 0.5 MG/MIN 16.667 mls/hr IV .Q15H ANN Rx#: [id number] Clevidipine Butyrate 25 24.665 mg In Empty Bag 1 bag @ 1 MG/HR 2 mls/hr IV .Q24H ANN Rx#:[id number] Heparin Sod,Pork in 0.45% 247.073 NaCl 25,000 unit In 0.45 % NaCl 1 250ml.bag @ 12 UNITS/KG/HR 9.798 mls/hr IV .Q24H ANN Rx#: [id number] Heparin Sod,Pork in 0.45% 53.562 126.35 NaCl 25,000 unit In 0.45 % NaCl 1 250ml.bag @ 12 UNITS/KG/HR 9.798 mls/hr IV .Q24H [facility] Rx#: [id number] Oral 200 Output: Chest Tube Drainage 209 Chest Tube Left Pleural/ 58 Mediastinal Chest Tube Mediastinal 151 Urine 2250 820 460 Estimated Blood Loss 900 Other: Voiding Method Indwelling Catheter # Voids 0 ABP, PAP, CO, CI - Last Documented Arterial Blood Pressure 142/57 Pulmonary Artery Pressure 34/20 Cardiac Output 7.4 Cardiac Index 3.7 - Exam Physical Exam alert revealed 65-year-old white male intubated sedated in no distress. Head: Atraumatic, normocephalic. Endotracheal tube and orogastric tube are intact HEENT:[Neck is supple.] [No neck masses.] [No thyromegaly.] [No JVD.] Chest: [Chest tubes noted mediastinal tube noted crackles at the bases no rhonchi and no wheezes symmetrical chest expansion. Cardiac Exam: [Normal S1 and S2, no S3 gallop, no murmur.] Abdomen: [Soft, nontender, no megaly, no rebound, no guarding, normal bowel so unds.] Extremities: [No clubbing, no edema, no cyanosis.] Neurological Exam: Cannot assess patient is sedated Cannot assess patient is sedated - Labs CBC & Chem 7: 06/01/21 14:10 06/01/21 14:10 Labs: Abnormal Lab Results - Last 24 Hours (Table) 05/31/21 05/31/21 05/31/21 Range/Units 12:31 17:58 20:05 WBC (3.8-10.6) k/uL RBC (4.30-5.90) m/uL Hgb (13.0-17.5) gm/dL Hct (39.0-53.0) % Plt Count (150-450) k/uL Neutrophils # (1.3-7.7) k/uL Monocytes # (0-1.0) k/uL APTT (22.0-30.0) sec ABG pH (7.35-7.45) ABG pO2 (83-108) mmHg ABG HCO3 (21-25) mmol/L ABG Total CO2 (19-24) mmol/L ABG O2 Saturation (94-97) % ABG Hematocrit (34.0-46.0) % ABG Sodium (135-146) mmol/L ABG Potassium (3.4-4.5) mmol/L ABG Ionized Calcium (4.5-5.3) mg/dL ABG Glucose (75-99) mg/dL ABG Lactic Acid (0.5-1.6) mmol/L Hemoglobin (13.0-17.5) gm/dL Sodium (137-145) mmol/L Glucose (74-99) mg/dL POC Glucose (mg/dL) 149 H (75-99) mg/dL Calcium (8.4-10.2) mg/dL Magnesium (1.6-2.3) mg/dL AST (17-59) U/L ALT (4-49) U/L Troponin I 2.470 H* (0.000-0.034) ng/mL Total Protein (6.3-8.2) g/dL Albumin (3.5-5.0) g/dL Arterial Blood Potassium (3.4-4.5) mmol/L Arterial Blood Glucose (75-99) mg/dL Urine Protein (Negative) Crossmatch See Detail 05/31/21 05/31/21 06/01/21 Range/Units 20:05 21:00 01:53 WBC (3.8-10.6) k/uL RBC (4.30-5.90) m/uL Hgb (13.0-17.5) gm/dL Hct (39.0-53.0) % Plt Count (150-450) k/uL Neutrophils # (1.3-7.7) k/uL Monocytes # (0-1.0) k/uL APTT 40.8 H 63.2 H (22.0-30.0) sec ABG pH (7.35-7.45) ABG pO2 (83-108) mmHg ABG HCO3 (21-25) mmol/L ABG Total CO2 (19-24) mmol/L ABG O2 Saturation (94-97) % ABG Hematocrit (34.0-46.0) % ABG Sodium (135-146) mmol/L ABG Potassium (3.4-4.5) mmol/L ABG Ionized Calcium (4.5-5.3) mg/dL ABG Glucose (75-99) mg/dL ABG Lactic Acid (0.5-1.6) mmol/L Hemoglobin (13.0-17.5) gm/dL Sodium (137-145) mmol/L Glucose (74-99) mg/dL POC Glucose (mg/dL) (75-99) mg/dL Calcium (8.4-10.2) mg/dL Magnesium (1.6-2.3) mg/dL AST (17-59) U/L ALT (4-49) U/L Troponin I (0.000-0.034) ng/mL Total Protein (6.3-8.2) g/dL Albumin (3.5-5.0) g/dL Arterial Blood Potassium (3.4-4.5) mmol/L Arterial Blood Glucose (75-99) mg/dL Urine Protein Trace H (Negative) Crossmatch 06/01/21 06/01/21 06/01/21 Range/Units 04:47 04:47 09:16 WBC 13.8 H (3.8-10.6) k/uL RBC (4.30-5.90) m/uL Hgb (13.0-17.5) gm/dL Hct (39.0-53.0) % Plt Count (150-450) k/uL Neutrophils # 11.3 H (1.3-7.7) k/uL Monocytes # 1.1 H (0-1.0) k/uL APTT (22.0-30.0) sec ABG pH (7.35-7.45) ABG pO2 349 H (83-108) mmHg ABG HCO3 27 H (21-25) mmol/L ABG Total CO2 28 H (19-24) mmol/L ABG O2 Saturation 99.7 H (94-97) % ABG Hematocrit (34.0-46.0) % ABG Sodium (135-146) mmol/L ABG Potassium (3.4-4.5) mmol/L ABG Ionized Calcium (4.5-5.3) mg/dL ABG Glucose 120 H (75-99) mg/dL ABG Lactic Acid (0.5-1.6) mmol/L Hemoglobin (13.0-17.5) gm/dL Sodium 135 L (137-145) mmol/L Glucose 124 H (74-99) mg/dL POC Glucose (mg/dL) (75-99) mg/dL Calcium (8.4-10.2) mg/dL Magnesium (1.6-2.3) mg/dL AST 90 H (17-59) U/L ALT 125 H (4-49) U/L Troponin I (0.000-0.034) ng/mL Total Protein (6.3-8.2) g/dL Albumin 3.3 L (3.5-5.0) g/dL Arterial Blood Potassium (3.4-4.5) mmol/L Arterial Blood Glucose 120 H (75-99) mg/dL Urine Protein (Negative) Crossmatch 06/01/21 06/01/21 06/01/21 Range/Units 10:18 11:23 11:48 WBC (3.8-10.6) k/uL RBC (4.30-5.90) m/uL Hgb (13.0-17.5) gm/dL Hct (39.0-53.0) % Plt Count (150-450) k/uL Neutrophils # (1.3-7.7) k/uL Monocytes # (0-1.0) k/uL APTT (22.0-30.0) sec ABG pH (7.35-7.45) ABG pO2 179 H 317 H 378 H (83-108) mmHg ABG HCO3 (21-25) mmol/L ABG Total CO2 26 H 27 H 25 H (19-24) mmol/L ABG O2 Saturation 99.5 H 99.9 H 99.9 H (94-97) % ABG Hematocrit 33 L (34.0-46.0) % ABG Sodium 133 L 132 L (135-146) mmol/L ABG Potassium 6.1 H 6.9 H* (3.4-4.5) mmol/L ABG Ionized Calcium 4.3 L 4.1 L 4.1 L (4.5-5.3) mg/dL ABG Glucose 123 H 147 H 161 H (75-99) mg/dL ABG Lactic Acid 2.0 H 2.9 H* (0.5-1.6) mmol/L Hemoglobin 11.7 L 10.7 L 11.6 L (13.0-17.5) gm/dL Sodium (137-145) mmol/L Glucose (74-99) mg/dL POC Glucose (mg/dL) (75-99) mg/dL Calcium (8.4-10.2) mg/dL Magnesium (1.6-2.3) mg/dL AST (17-59) U/L ALT (4-49) U/L Troponin I (0.000-0.034) ng/mL Total Protein (6.3-8.2) g/dL Albumin (3.5-5.0) g/dL Arterial Blood Potassium 6.1 H 6.9 H* (3.4-4.5) mmol/L Arterial Blood Glucose 123 H 147 H 161 H (75-99) mg/dL Urine Protein (Negative) Crossmatch 06/01/21 06/01/21 06/01/21 Range/Units 12:15 12:27 14:10 WBC 17.5 H (3.8-10.6) k/uL RBC 4.16 L (4.30-5.90) m/uL Hgb 12.2 L (13.0-17.5) gm/dL Hct 37.3 L (39.0-53.0) % Plt Count 123 L (150-450) k/uL Neutrophils # 14.9 H (1.3-7.7) k/uL Monocytes # 1.1 H (0-1.0) k/uL APTT (22.0-30.0) sec ABG pH 7.33 L (7.35-7.45) ABG pO2 350 H 411 H (83-108) mmHg ABG HCO3 (21-25) mmol/L ABG Total CO2 (19-24) mmol/L ABG O2 Saturation 100.0 H 99.9 H (94-97) % ABG Hematocrit 33 L (34.0-46.0) % ABG Sodium 134 L (135-146) mmol/L ABG Potassium 6.3 H* 5.6 H (3.4-4.5) mmol/L ABG Ionized Calcium 4.0 L 3.9 L (4.5-5.3) mg/dL ABG Glucose 172 H 184 H (75-99) mg/dL ABG Lactic Acid 4.2 H* 4.7 H* (0.5-1.6) mmol/L Hemoglobin 11.0 L 10.8 L (13.0-17.5) gm/dL Sodium (137-145) mmol/L Glucose (74-99) mg/dL POC Glucose (mg/dL) (75-99) mg/dL Calcium (8.4-10.2) mg/dL Magnesium (1.6-2.3) mg/dL AST (17-59) U/L ALT (4-49) U/L Troponin I (0.000-0.034) ng/mL Total Protein (6.3-8.2) g/dL Albumin (3.5-5.0) g/dL Arterial Blood Potassium 6.3 H* 5.6 H (3.4-4.5) mmol/L Arterial Blood Glucose 172 H 184 H (75-99) mg/dL Urine Protein (Negative) Crossmatch 06/01/21 06/01/21 06/01/21 Range/Units 14:10 14:10 14:11 WBC (3.8-10.6) k/uL RBC (4.30-5.90) m/uL Hgb (13.0-17.5) gm/dL Hct (39.0-53.0) % Plt Count (150-450) k/uL Neutrophils # (1.3-7.7) k/uL Monocytes # (0-1.0) k/uL APTT 33.2 H (22.0-30.0) sec ABG pH (7.35-7.45) ABG pO2 (83-108) mmHg ABG HCO3 (21-25) mmol/L ABG Total CO2 (19-24) mmol/L ABG O2 Saturation (94-97) % ABG Hematocrit (34.0-46.0) % ABG Sodium (135-146) mmol/L ABG Potassium (3.4-4.5) mmol/L ABG Ionized Calcium (4.5-5.3) mg/dL ABG Glucose (75-99) mg/dL ABG Lactic Acid (0.5-1.6) mmol/L Hemoglobin (13.0-17.5) gm/dL Sodium 135 L (137-145) mmol/L Glucose 112 H (74-99) mg/dL POC Glucose (mg/dL) 104 H (75-99) mg/dL Calcium 7.9 L (8.4-10.2) mg/dL Magnesium 2.8 H (1.6-2.3) mg/dL AST 73 H (17-59) U/L ALT 75 H (4-49) U/L Troponin I (0.000-0.034) ng/mL Total Protein 4.9 L (6.3-8.2) g/dL Albumin 2.6 L (3.5-5.0) g/dL Arterial Blood Potassium (3.4-4.5) mmol/L Arterial Blood Glucose (75-99) mg/dL Urine Protein (Negative) Crossmatch 06/01/21 06/01/21 06/01/21 Range/Units 14:14 15:05 16:05 WBC (3.8-10.6) k/uL RBC (4.30-5.90) m/uL Hgb (13.0-17.5) gm/dL Hct (39.0-53.0) % Plt Count (150-450) k/uL Neutrophils # (1.3-7.7) k/uL Monocytes # (0-1.0) k/uL APTT (22.0-30.0) sec ABG pH (7.35-7.45) ABG pO2 273 H (83-108) mmHg ABG HCO3 26 H (21-25) mmol/L ABG Total CO2 27 H (19-24) mmol/L ABG O2 Saturation 100.0 H (94-97) % ABG Hematocrit (34.0-46.0) % ABG Sodium (135-146) mmol/L ABG Potassium (3.4-4.5) mmol/L ABG Ionized Calcium (4.5-5.3) mg/dL ABG Glucose (75-99) mg/dL ABG Lactic Acid (0.5-1.6) mmol/L Hemoglobin (13.0-17.5) gm/dL Sodium (137-145) mmol/L Glucose (74-99) mg/dL POC Glucose (mg/dL) 103 H 119 H (75-99) mg/dL Calcium (8.4-10.2) mg/dL Magnesium (1.6-2.3) mg/dL AST (17-59) U/L ALT (4-49) U/L Troponin I (0.000-0.034) ng/mL Total Protein (6.3-8.2) g/dL Albumin (3.5-5.0) g/dL Arterial Blood Potassium (3.4-4.5) mmol/L Arterial Blood Glucose (75-99) mg/dL Urine Protein (Negative) Crossmatch Microbiology - Last 24 Hours (Table) 05/31/21 12:11 Nasal Screen MRSA/MSSA - Preliminary Nasal Swab Assessment and Plan Assessment: Impression: Status post CABG, GUIDO to LAD, SVG to obtuse marginal artery and SVG to posterior descending artery. Postoperative day #0 patient is intubated and mechanically ventilated Ventricular fibrillation/cardiac arrest with return of spontaneous circulation in the field. Acute non-ST elevation myocardial infarction Coronary arteriosclerosis, patient is yet to be scheduled for myocardial vascularization by cardiothoracic surgery on the case. Patient has triple- vessel coronary artery disease. Mild diastolic congestive heart failure as noted on chest x-ray Lifetime nonsmoker Recommendation: Continue ventilatory support and adjust ventilator settings accordingly patient is now on 50% assist control rate of 12 tidal volume is 500 and PEEP of 5 Possible weaning and extubation in the next few hours. Continue cardiac meds as ordered Early extubation is possible and postoperative incentive spirometry. We'll continue to follow. Critical care time is over 30 minutes Time with Patient: Greater than 30
--- NOTE | 2021-06-01 16:57 | P.PN ---
Subjective Progress Note Date: 06/01/21 Principal diagnosis: unresponsive Val is a 65-year-old male with high cholesterol not currently taking medication who presents to ER with a V. fib arrest. He has been having intercourse when he passed out. Bystander CPR was in progress when EMS arrived. They placed him on a monitor he was shown to be in V. fib. Patient was successfully cardioverted with Rosc. Vital signs on arrival showed hypertension with a blood pressure 215/103. He was taken for emergent cardiac cath which showed a total occlusion of the RCA, nondominant circumflex distally occluded, LAD with 60-70% narrowing in the midportion and 99% at the apex. He did not require stent at that time. He was placed on amiodarone and heparin. He was admitted to the ICU and cardiac surgery was consulted. They did recommend cardiac bypass. Cholesterol came back extremely elevated with a total chol esterol 407 and an LDL of 310. Echo shows severe concentric LVH, ejection fraction 50-55%, grade 1 diastolic dysfunction. Carotid ultrasound showed severe greater than 70% left ICA stenosis. He was started on Lipitor, Cozaar, and metoprolol. He was taken for CABG on 06/01 and underwent GUIDO to LAD, SVG to OM and SVG to posterior descending artery Patient seen and examined at bedside. He is sedated on the vent. Currently on nitro, prop, and cleveprix. General: non toxic, no distress, appears at stated age Derm: dressing inplace b/l LE. , Lesion on left elbow, skin colored raise, wide based. Head: atraumatic, normocephalic, symmetric Eyes: PERRL, no lid lesion, anicteric sclera Mouth: no lip lesion, mucus membranes moist Cardiovascular: S1S2 reg, no murmur, positive posterior tibial pulse bilateral, Lungs: Course bs bilateral, no rhonchi, no rales , no accessory muscle use, on vent Abdominal: soft, nontender to palpation, no guarding, no appreciable organomegaly Ext: no gross muscle atrophy, no edema, no contractures Neuro: + cough, + gag, breathing over the vent, no withdrawal to pain on sedation Psych: sedated on vent Assessment/Plan: V. fib arrest Multivessel coronary artery disease S/P CABG, GUIDO to LAD, SVG to OM and SVG to PDA Non-STEMI Hyperlipidemia, Xanthomas - management per cardio thorasic surgery -statin - likely will need PCSK9 inhinbitor as outpatient -Cardiology recommendations -Pulm recs Carotid stenosis -Await vascular recs Elevated BP on arrival without previous diagnosis of HTN - follow BP - Continue current medications Transaminitis Hepatic Steatosis - likely due to decreased perfusion and fatty infiltration of the liver - repeat labs in AM -check liver US Hyperglycemia -Likely reflective acute distress -Hemoglobin A1c 5.7 Discussed with: Nursing Anticipated discharge: 6-[address]: home health A total of 25 minutes was spent on the care of this complex patient more than 50% of the time was spent in counseling and care coordination. Objective - Vital Signs Vital signs: Vital Signs Temp 98.0 F 06/01/21 04:00 Pulse 93 06/01/21 16:00 Resp 25 H 06/01/21 16:00 BP 131/76 06/01/21 14:45 Pulse Ox 95 06/01/21 16:00 Intake & Output 05/31/21 06/01/21 06/01/21 18:59 06:59 18:59 Intake Total 589.850 7746.423 314.665 Output Total 2250 820 1569 Balance -1521.438 903.423 -1254.335 Weight 81.7 kg Intake: IV 675 900 273.0 CO/CI 50 Lactated Ringers 1,000 ml 100 @ 50 mls/hr IV .Q20H ANN Rx#:[id number] Nitroglycerin-D5w Pmx 50 3.0 mg In Dextrose/Water 1 250ml.bag @ 5 MCG/MIN 1.5 mls/hr IV .Q24H ANN Rx#: [id number] Pressure bag 18 Sodium Chloride 0.9% 1, 675 900 000 ml @ 75 mls/hr IV . [id number] ANN Rx#:[id number] ceFAZolin 2 gm In Sodium 50 Chloride 0.9% 50 ml @ 100 mls/hr IVPB ONCE ONE Rx# :[id number] Intake, IV Titration 53.562 623.423 41.665 Amount Amiodarone 450 mg In 250.000 Dextrose 5% in Water 250 ml @ 0.5 MG/MIN 16.667 mls/hr IV .Q15H ANN Rx#: [id number] Clevidipine Butyrate 25 41.665 mg In Empty Bag 1 bag @ 1 MG/HR 2 mls/hr IV .Q24H [facility] Rx#:[id number] Heparin Sod,Pork in 0.45% 247.073 NaCl 25,000 unit In 0.45 % NaCl 1 250ml.bag @ 12 UNITS/KG/HR 9.798 mls/hr IV .Q24H [facility] Rx#: [id number] Heparin Sod,Pork in 0.45% 53.562 126.35 NaCl 25,000 unit In 0.45 % NaCl 1 250ml.bag @ 12 UNITS/KG/HR 9.798 mls/hr IV .Q24H [facility] Rx#: [id number] Oral 200 Output: Chest Tube Drainage 209 Chest Tube Left Pleural/ 58 Mediastinal Chest Tube Mediastinal 151 Urine 2250 820 460 Estimated Blood Loss 900 Other: Voiding Method Indwelling Catheter # Voids 0 ABP, PAP, CO, CI - Last Documented Arterial Blood Pressure 142/57 Pulmonary Artery Pressure 34/20 Cardiac Output 7.4 Cardiac Index 3.7 - Labs CBC & Chem 7: 06/01/21 14:10 06/01/21 14:10 Labs: Abnormal Lab Results - Last 24 Hours (Table) 05/31/21 05/31/21 05/31/21 Range/Units 12:31 17:58 20:05 WBC (3.8-10.6) k/uL RBC (4.30-5.90) m/uL Hgb (13.0-17.5) gm/dL Hct (39.0-53.0) % Plt Count (150-450) k/uL Neutrophils # (1.3-7.7) k/uL Monocytes # (0-1.0) k/uL APTT (22.0-30.0) sec ABG pH (7.35-7.45) ABG pO2 (83-108) mmHg ABG HCO3 (21-25) mmol/L ABG Total CO2 (19-24) mmol/L ABG O2 Saturation (94-97) % ABG Hematocrit (34.0-46.0) % ABG Sodium (135-146) mmol/L ABG Potassium (3.4-4.5) mmol/L ABG Ionized Calcium (4.5-5.3) mg/dL ABG Glucose (75-99) mg/dL ABG Lactic Acid (0.5-1.6) mmol/L Hemoglobin (13.0-17.5) gm/dL Sodium (137-145) mmol/L Glucose (74-99) mg/dL POC Glucose (mg/dL) 149 H (75-99) mg/dL Calcium (8.4-10.2) mg/dL Magnesium (1.6-2.3) mg/dL AST (17-59) U/L ALT (4-49) U/L Troponin I 2.470 H* (0.000-0.034) ng/mL Total Protein (6.3-8.2) g/dL Albumin (3.5-5.0) g/dL Arterial Blood Potassium (3.4-4.5) mmol/L Arterial Blood Glucose (75-99) mg/dL Urine Protein (Negative) Crossmatch See Detail 05/31/21 05/31/21 06/01/21 Range/Units 20:05 21:00 01:53 WBC (3.8-10.6) k/uL RBC (4.30-5.90) m/uL Hgb (13.0-17.5) gm/dL Hct (39.0-53.0) % Plt Count (150-450) k/uL Neutrophils # (1.3-7.7) k/uL Monocytes # (0-1.0) k/uL APTT 40.8 H 63.2 H (22.0-30.0) sec ABG pH (7.35-7.45) ABG pO2 (83-108) mmHg ABG HCO3 (21-25) mmol/L ABG Total CO2 (19-24) mmol/L ABG O2 Saturation (94-97) % ABG Hematocrit (34.0-46.0) % ABG Sodium (135-146) mmol/L ABG Potassium (3.4-4.5) mmol/L ABG Ionized Calcium (4.5-5.3) mg/dL ABG Glucose (75-99) mg/dL ABG Lactic Acid (0.5-1.6) mmol/L Hemoglobin (13.0-17.5) gm/dL Sodium (137-145) mmol/L Glucose (74-99) mg/dL POC Glucose (mg/dL) (75-99) mg/dL Calcium (8.4-10.2) mg/dL Magnesium (1.6-2.3) mg/dL AST (17-59) U/L ALT (4-49) U/L Troponin I (0.000-0.034) ng/mL Total Protein (6.3-8.2) g/dL Albumin (3.5-5.0) g/dL Arterial Blood Potassium (3.4-4.5) mmol/L Arterial Blood Glucose (75-99) mg/dL Urine Protein Trace H (Negative) Crossmatch 06/01/21 06/01/21 06/01/21 Range/Units 04:47 04:47 09:16 WBC 13.8 H (3.8-10.6) k/uL RBC (4.30-5.90) m/uL Hgb (13.0-17.5) gm/dL Hct (39.0-53.0) % Plt Count (150-450) k/uL Neutrophils # 11.3 H (1.3-7.7) k/uL Monocytes # 1.1 H (0-1.0) k/uL APTT (22.0-30.0) sec ABG pH (7.35-7.45) ABG pO2 349 H (83-108) mmHg ABG HCO3 27 H (21-25) mmol/L ABG Total CO2 28 H (19-24) mmol/L ABG O2 Saturation 99.7 H (94-97) % ABG Hematocrit (34.0-46.0) % ABG Sodium (135-146) mmol/L ABG Potassium (3.4-4.5) mmol/L ABG Ionized Calcium (4.5-5.3) mg/dL ABG Glucose 120 H (75-99) mg/dL ABG Lactic Acid (0.5-1.6) mmol/L Hemoglobin (13.0-17.5) gm/dL Sodium 135 L (137-145) mmol/L Glucose 124 H (74-99) mg/dL POC Glucose (mg/dL) (75-99) mg/dL Calcium (8.4-10.2) mg/dL Magnesium (1.6-2.3) mg/dL AST 90 H (17-59) U/L ALT 125 H (4-49) U/L Troponin I (0.000-0.034) ng/mL Total Protein (6.3-8.2) g/dL Albumin 3.3 L (3.5-5.0) g/dL Arterial Blood Potassium (3.4-4.5) mmol/L Arterial Blood Glucose 120 H (75-99) mg/dL Urine Protein (Negative) Crossmatch 06/01/21 06/01/21 06/01/21 Range/Units 10:18 11:23 11:48 WBC (3.8-10.6) k/uL RBC (4.30-5.90) m/uL Hgb (13.0-17.5) gm/dL Hct (39.0-53.0) % Plt Count (150-450) k/uL Neutrophils # (1.3-7.7) k/uL Monocytes # (0-1.0) k/uL APTT (22.0-30.0) sec ABG pH (7.35-7.45) ABG pO2 179 H 317 H 378 H (83-108) mmHg ABG HCO3 (21-25) mmol/L ABG Total CO2 26 H 27 H 25 H (19-24) mmol/L ABG O2 Saturation 99.5 H 99.9 H 99.9 H (94-97) % ABG Hematocrit 33 L (34.0-46.0) % ABG Sodium 133 L 132 L (135-146) mmol/L ABG Potassium 6.1 H 6.9 H* (3.4-4.5) mmol/L ABG Ionized Calcium 4.3 L 4.1 L 4.1 L (4.5-5.3) mg/dL ABG Glucose 123 H 147 H 161 H (75-99) mg/dL ABG Lactic Acid 2.0 H 2.9 H* (0.5-1.6) mmol/L Hemoglobin 11.7 L 10.7 L 11.6 L (13.0-17.5) gm/dL Sodium (137-145) mmol/L Glucose (74-99) mg/dL POC Glucose (mg/dL) (75-99) mg/dL Calcium (8.4-10.2) mg/dL Magnesium (1.6-2.3) mg/dL AST (17-59) U/L ALT (4-49) U/L Troponin I (0.000-0.034) ng/mL Total Protein (6.3-8.2) g/dL Albumin (3.5-5.0) g/dL Arterial Blood Potassium 6.1 H 6.9 H* (3.4-4.5) mmol/L Arterial Blood Glucose 123 H 147 H 161 H (75-99) mg/dL Urine Protein (Negative) Crossmatch 06/01/21 06/01/21 06/01/21 Range/Units 12:15 12: 14:10 WBC 17.5 H (3.8-10.6) k/uL RBC 4.16 L (4.30-5.90) m/uL Hgb 12.2 L (13.0-17.5) gm/dL Hct 37.3 L (39.0-53.0) % Plt Count 123 L (150-450) k/uL Neutrophils # 14.9 H (1.3-7.7) k/uL Monocytes # 1.1 H (0-1.0) k/uL APTT (22.0-30.0) sec ABG pH 7.33 L (7.35-7.45) ABG pO2 350 H 411 H (83-108) mmHg ABG HCO3 (21-25) mmol/L ABG Total CO2 (19-24) mmol/L ABG O2 Saturation 100.0 H 99.9 H (94-97) % ABG Hematocrit 33 L (34.0-46.0) % ABG Sodium 134 L (135-146) mmol/L ABG Potassium 6.3 H* 5.6 H (3.4-4.5) mmol/L ABG Ionized Calcium 4.0 L 3.9 L (4.5-5.3) mg/dL ABG Glucose 172 H 184 H (75-99) mg/dL ABG Lactic Acid 4.2 H* 4.7 H* (0.5-1.6) mmol/L Hemoglobin 11.0 L 10.8 L (13.0-17.5) gm/dL Sodium (137-145) mmol/L Glucose (74-99) mg/dL POC Glucose (mg/dL) (75-99) mg/dL Calcium (8.4-10.2) mg/dL Magnesium (1.6-2.3) mg/dL AST (17-59) U/L ALT (4-49) U/L Troponin I (0.000-0.034) ng/mL Total Protein (6.3-8.2) g/dL Albumin (3.5-5.0) g/dL Arterial Blood Potassium 6.3 H* 5.6 H (3.4-4.5) mmol/L Arterial Blood Glucose 172 H 184 H (75-99) mg/dL Urine Protein (Negative) Crossmatch 06/01/21 06/01/21 06/01/21 Range/Units 14:10 14:10 14:11 WBC (3.8-10.6) k/uL RBC (4.30-5.90) m/uL Hgb (13.0-17.5) gm/dL Hct (39.0-53.0) % Plt Count (150-450) k/uL Neutrophils # (1.3-7.7) k/uL Monocytes # (0-1.0) k/uL APTT 33.2 H (22.0-30.0) sec ABG pH (7.35-7.45) ABG pO2 (83-108) mmHg ABG HCO3 (21-25) mmol/L ABG Total CO2 (19-24) mmol/L ABG O2 Saturation (94-97) % ABG Hematocrit (34.0-46.0) % ABG Sodium (135-146) mmol/L ABG Potassium (3.4-4.5) mmol/L ABG Ionized Calcium (4.5-5.3) mg/dL ABG Glucose (75-99) mg/dL ABG Lactic Acid (0.5-1.6) mmol/L Hemoglobin (13.0-17.5) gm/dL Sodium 135 L (137-145) mmol/L Glucose 112 H (74-99) mg/dL POC Glucose (mg/dL) 104 H (75-99) mg/dL Calcium 7.9 L (8.4-10.2) mg/dL Magnesium 2.8 H (1.6-2.3) mg/dL AST 73 H (17-59) U/L ALT 75 H (4-49) U/L Troponin I (0.000-0.034) ng/mL Total Protein 4.9 L (6.3-8.2) g/dL Albumin 2.6 L (3.5-5.0) g/dL Arterial Blood Potassium (3.4-4.5) mmol/L Arterial Blood Glucose (75-99) mg/dL Urine Protein (Negative) Crossmatch 06/01/21 06/01/21 06/01/21 Range/Units 14:14 15:05 16:05 WBC (3.8-10.6) k/uL RBC (4.30-5.90) m/uL Hgb (13.0-17.5) gm/dL Hct (39.0-53.0) % Plt Count (150-450) k/uL Neutrophils # (1.3-7.7) k/uL Monocytes # (0-1.0) k/uL APTT (22.0-30.0) sec ABG pH (7.35-7.45) ABG pO2 273 H (83-108) mmHg ABG HCO3 26 H (21-25) mmol/L ABG Total CO2 27 H (19-24) mmol/L ABG O2 Saturation 100.0 H (94-97) % ABG Hematocrit (34.0-46.0) % ABG Sodium (135-146) mmol/L ABG Potassium (3.4-4.5) mmol/L ABG Ionized Calcium (4.5-5.3) mg/dL ABG Glucose (75-99) mg/dL ABG Lactic Acid (0.5-1.6) mmol/L Hemoglobin (13.0-17.5) gm/dL Sodium (137-145) mmol/L Glucose (74-99) mg/dL POC Glucose (mg/dL) 103 H 119 H (75-99) mg/dL Calcium (8.4-10.2) mg/dL Magnesium (1.6-2.3) mg/dL AST (17-59) U/L ALT (4-49) U/L Troponin I (0.000-0.034) ng/mL Total Protein (6.3-8.2) g/dL Albumin (3.5-5.0) g/dL Arterial Blood Potassium (3.4-4.5) mmol/L Arterial Blood Glucose (75-99) mg/dL Urine Protein (Negative) Crossmatch Microbiology - Last 24 Hours (Table) 05/31/21 12:11 Nasal Screen MRSA/MSSA - Preliminary Nasal Swab
[2021-06-01 17:05] LABS: Glucose,Whole Blood 148 mg/dL (75-99)
[2021-06-01 17:11] LABS: Basophils % (A) 0 %; Eosinophils % (A) 0 %; HCT 41.5 % (39.0-53.0); HGB 13.3 gm/dL (13.0-17.5); Lymphocytes % (A) 6 %; MCH 28.7 pg (25.0-35.0); MCHC 31.9 g/dL (31.0-37.0); MCV 89.8 fL (80.0-100.0); Mean Platelet Volume 9.6; Monocytes # (A) 1.5 k/uL (0-1.0); Monocytes % (A) 8 %; Neutrophils # (A) 15.7 k/uL (1.3-7.7); Neutrophils % (A) 85 %; Platelet Count 153 k/uL (150-450); RBC 4.62 m/uL (4.30-5.90); RDW 14.8 % (11.5-15.5); WBC 18.5 k/uL (3.8-10.6)
[2021-06-01] MEDS: ACETAMINOPHEN IV (For NPO) 1,000 MG in EMPTY BAG 1 BAG IVPB SCH ×2 (17:25→23:03)
[2021-06-01] MEDS: KETOROLAC 30 MG/ML 1 ML VIAL IVP SCH ×2 (17:44→23:04)
[2021-06-01 18:04] LABS: Glucose,Whole Blood 149 mg/dL (75-99)
[2021-06-01 19:01] LABS: Glucose,Whole Blood 138 mg/dL (75-99)
[2021-06-01 19:46] LABS: Glucose,Whole Blood 133 mg/dL (75-99)
[2021-06-01 20:01] LABS: Basophils % (A) 0 %; Eosinophils % (A) 0 %; HCT 37.4 % (39.0-53.0); HGB 12.2 gm/dL (13.0-17.5); Lymphocytes # (A) 0.6 k/uL (1.0-4.8); Lymphocytes % (A) 4 %; MCHC 32.5 g/dL (31.0-37.0); MCV 89.1 fL (80.0-100.0); Mean Platelet Volume 9.9; Monocytes # (A) 1.1 k/uL (0-1.0); Monocytes % (A) 8 %; Neutrophils # (A) 12.7 k/uL (1.3-7.7); Neutrophils % (A) 87 %; Platelet Count 133 k/uL (150-450); RDW 15.2 % (11.5-15.5); WBC 14.6 k/uL (3.8-10.6)
[2021-06-01 21:16] LABS: Glucose,Whole Blood 131 mg/dL (75-99)
[2021-06-01 22:13] LABS: Glucose,Whole Blood 133 mg/dL (75-99)
[2021-06-01 23:27] LABS: Glucose,Whole Blood 140 mg/dL (75-99)
[2021-06-02] MEDS: IPRATROPIUM-ALBUTEROL 3 ML NEB INHALATION SCH ×5 (00:10→20:49)
[2021-06-02 00:49] LABS: Glucose,Whole Blood 139 mg/dL (75-99)
[2021-06-02 02:42] LABS: Glucose,Whole Blood 128 mg/dL (75-99)
[2021-06-02] MEDS: CLEVIDIPINE BUTYRATE 25 MG in EMPTY BAG 1 BAG IV SCH (02:45)
[2021-06-02] MEDS: HYDROcodone/APAP 5-325MG 1 EACH TAB PO PRN ×4 (02:45→20:23)
[2021-06-02 03:32] LABS: Glucose,Whole Blood 124 mg/dL (75-99)
[2021-06-02 03:44] LABS: Basophils % (A) 0 %; Eosinophils % (A) 0 %; HCT 38.5 % (39.0-53.0); HGB 12.6 gm/dL (13.0-17.5); Lymphocytes # (A) 0.8 k/uL (1.0-4.8); Lymphocytes % (A) 5 %; MCH 29.2 pg (25.0-35.0); MCHC 32.8 g/dL (31.0-37.0); MCV 89.1 fL (80.0-100.0); Mean Platelet Volume 9.8; Monocytes # (A) 1.2 k/uL (0-1.0); Monocytes % (A) 8 %; Neutrophils # (A) 13.5 k/uL (1.3-7.7); Neutrophils % (A) 86 %; Platelet Count 152 k/uL (150-450); RBC 4.32 m/uL (4.30-5.90); RDW 15.4 % (11.5-15.5); WBC 15.8 k/uL (3.8-10.6)
[2021-06-02 03:50] LABS: Ionized Calcium 4.7 mg/dL (4.5-5.3)
[2021-06-02 03:58] LABS: ALT 69 U/L (4-49); AST 114 U/L (17-59); African American GFR (CKD) >90 (>60 ml/min/1.73 sqM); Albumin 3.2 g/dL (3.5-5.0); Alkaline Phosphatase 79 U/L (38-126); Anion Gap 6 mmol/L; Blood Urea Nitrogen 19 mg/dL (9-20); Calcium 8.3 mg/dL (8.4-10.2); Carbon Dioxide 25 mmol/L (22-30); Chloride 104 mmol/L (98-107); Glucose 141 mg/dL (74-99); Magnesium 2.2 mg/dL (1.6-2.3); Non-African American GFR(CKD) >90 (>60 ml/min/1.73 sqM); Potassium 4.8 mmol/L (3.5-5.1); Sodium 135 mmol/L (137-145); Total Bilirubin 0.7 mg/dL (0.2-1.3); Total Protein 5.7 g/dL (6.3-8.2)
[2021-06-02] MEDS: KETOROLAC 30 MG/ML 1 ML VIAL IVP SCH ×4 (05:13→23:41)
[2021-06-02 05:34] LABS: Glucose,Whole Blood 121 mg/dL (75-99)
[2021-06-02] MEDS ORDERED: ACETAMINOPHEN TAB 325 MG TAB PO PRN (06:43)
[2021-06-02 06:52] LABS: Glucose,Whole Blood 132 mg/dL (75-99)
[2021-06-02] MEDS: METOCLOPRAMIDE 5 MG/ML 2 ML VIAL IVP PRN (06:55)
--- NOTE | 2021-06-02 07:53 | P.PN ---
Subjective Progress Note Date: 06/02/21 Principal diagnosis: Severe coronary artery disease The patient is a pleasant 65-year-old gentleman who had a cardiac arrest with V. fib. CPR was initiated and the patient was brought into normal sinus rhythm. An emergent heart catheterization was performed and revealed severe triple- vessel CAD. The patient underwent coronary artery bypass grafting 3 yesterday with GUIDO to LAD and SVG to OM and SVG to PDA. He was seen this morning. The patient currently is extubated. He is sitting in the chair. Hemodynamically stable and not on any vasopressors. He is slightly hypertensive and tachycardic with a resting heart rate 100 bpm. He is on maximize medical treatment consistent of dual antiplatelet therapy along with simvastatin along with beta rosie. I would suggest to gradually increase the dose of beta rosie as far as his blood pressure and heart rate allow. His LDL is extremely elevated. The hemoglobin is 12.6. The creatinine is normal. Electrolytes are normal. The chest x-ray was reviewed as well. The chest x-ray showed left pleural effusion. Objective - Vital Signs Vital signs: Vital Signs Temp 99.5 F 06/02/21 04:00 Pulse 101 H 06/02/21 07:15 Resp 20 06/02/21 07:15 BP 146/86 06/02/21 02:15 Pulse Ox 95 06/02/21 07:15 Intake & Output 06/01/21 06/02/21 06/02/21 18:59 06:59 18:59 Intake Total 102.526 9811.167 Output Total 1879 1344 Balance -1358.560 295.167 Weight 87.7 kg Intake: IV 434.0 1568.5 ACETAMINOPHEN IV (For NPO 100 ) 1,000 mg In Empty Bag 1 bag @ 400 mls/hr IVPB Q6HR ANN Rx#:[id number] Albumin Human 5% 500 ml 500 In Empty Bag 1 bag @ 250 mls/hr IVPB ONCE ONE Rx#: [id number] CO/CI 90 200 Lactated Ringers 1,000 ml 200 650 @ 50 mls/hr IV .Q20H ANN Rx#:[id number] Nitroglycerin-D5w Pmx 50 6.0 1.5 mg In Dextrose/Water 1 250ml.bag @ 5 MCG/MIN 1.5 mls/hr IV .Q24H ANN Rx#: [id number] Pressure bag 36 117 ceFAZolin 2 gm In Sodium 50 Chloride 0.9% 50 ml @ 100 mls/hr IVPB ONCE ONE Rx# :[id number] Intake, IV Titration 86.440 70.667 Amount Clevidipine Butyrate 25 64.865 45.066 mg In Empty Bag 1 bag @ 1 MG/HR 2 mls/hr IV .Q24H ANN Rx#:[id number] Dexmedetomidine/0.9% NaCl 17.600 0.204 (Pmx) 400 mcg In Empty Bag 1 bag @ Titrate IV . Q0M ANN Rx#:[id number] Insulin Regular 100 unit 1.952 19.897 In Sodium Chloride 0.9% 100 ml @ Per Protocol IV .Q0M ANN Rx#:[id number] Norepinephrine 4 mg In 2.023 5.5 Sodium Chloride 0.9% 250 ml @ 0.05 MCG/KG/MIN 15. 564 mls/hr IV .Q98S25K ANN Rx#:[id number] Output: Chest Tube Drainage 279 419 Chest Tube Left Pleural/ 72 289 Mediastinal Chest Tube Mediastinal 207 130 Urine 700 925 Estimated Blood Loss 900 Other: Voiding Method Indwelling Catheter Indwelling Catheter ABP, PAP, CO, CI - Last Documented Arterial Blood Pressure 144/63 Pulmonary Artery Pressure 28/11 Cardiac Output 5.7 Cardiac Index 2.9 - Constitutional General appearance: Present: no acute distress - Respiratory Respiratory: bilateral: diminished - Cardiovascular Rhythm: regular - Labs CBC & Chem 7: 06/02/21 03:35 06/02/21 03:35 Labs: Abnormal Lab Results - Last 24 Hours (Table) 05/31/21 06/01/21 06/01/21 Range/Units 12:31 09:16 10:18 WBC (3.8-10.6) k/uL RBC (4.30-5.90) m/uL Hgb (13.0-17.5) gm/dL Hct (39.0-53.0) % Plt Count (150-450) k/uL Neutrophils # (1.3-7.7) k/uL Lymphocytes # (1.0-4.8) k/uL Monocytes # (0-1.0) k/uL APTT (22.0-30.0) sec ABG pH (7.35-7.45) ABG pO2 349 H 179 H (83-108) mmHg ABG HCO3 27 H (21-25) mmol/L ABG Total CO2 28 H 26 H (19-24) mmol/L ABG O2 Saturation 99.7 H 99.5 H (94-97) % ABG Hematocrit (34.0-46.0) % ABG Sodium (135-146) mmol/L ABG Potassium (3.4-4.5) mmol/L ABG Ionized Calcium 4.3 L (4.5-5.3) mg/dL ABG Glucose 120 H 123 H (75-99) mg/dL ABG Lactic Acid (0.5-1.6) mmol/L Hemoglobin 11.7 L (13.0-17.5) gm/dL Sodium (137-145) mmol/L Glucose (74-99) mg/dL POC Glucose (mg/dL) (75-99) mg/dL Calcium (8.4-10.2) mg/dL Magnesium (1.6-2.3) mg/dL AST (17-59) U/L ALT (4-49) U/L Total Protein (6.3-8.2) g/dL Albumin (3.5-5.0) g/dL Arterial Blood Potassium (3.4-4.5) mmol/L Arterial Blood Glucose 120 H 123 H (75-99) mg/dL Crossmatch See Detail 06/01/21 06/01/21 06/01/21 Range/Units 11:23 11:48 12:15 WBC (3.8-10.6) k/uL RBC (4.30-5.90) m/uL Hgb (13.0-17.5) gm/dL Hct (39.0-53.0) % Plt Count (150-450) k/uL Neutrophils # (1.3-7.7) k/uL Lymphocytes # (1.0-4.8) k/uL Monocytes # (0-1.0) k/uL APTT (22.0-30.0) sec ABG pH 7.33 L (7.35-7.45) ABG pO2 317 H 378 H 350 H (83-108) mmHg ABG HCO3 (21-25) mmol/L ABG Total CO2 27 H 25 H (19-24) mmol/L ABG O2 Saturation 99.9 H 99.9 H 100.0 H (94-97) % ABG Hematocrit 33 L (34.0-46.0) % ABG Sodium 133 L 132 L 134 L (135-146) mmol/L ABG Potassium 6.1 H 6.9 H* 6.3 H* (3.4-4.5) mmol/L ABG Ionized Calcium 4.1 L 4.1 L 4.0 L (4.5-5.3) mg/dL ABG Glucose 147 H 161 H 172 H (75-99) mg/dL ABG Lactic Acid 2.0 H 2.9 H* 4.2 H* (0.5-1.6) mmol/L Hemoglobin 10.7 L 11.6 L 11.0 L (13.0-17.5) gm/dL Sodium (137-145) mmol/L Glucose (74-99) mg/dL POC Glucose (mg/dL) (75-99) mg/dL Calcium (8.4-10.2) mg/dL Magnesium (1.6-2.3) mg/dL AST (17-59) U/L ALT (4-49) U/L Total Protein (6.3-8.2) g/dL Albumin (3.5-5.0) g/dL Arterial Blood Potassium 6.1 H 6.9 H* 6.3 H* (3.4-4.5) mmol/L Arterial Blood Glucose 147 H 161 H 172 H (75-99) mg/dL Crossmatch 06/01/21 06/01/21 06/01/21 Range/Units 12: 14:10 14:10 WBC 17.5 H (3.8-10.6) k/uL RBC 4.16 L (4.30-5.90) m/uL Hgb 12.2 L (13.0-17.5) gm/dL Hct 37.3 L (39.0-53.0) % Plt Count 123 L (150-450) k/uL Neutrophils # 14.9 H (1.3-7.7) k/uL Lymphocytes # (1.0-4.8) k/uL Monocytes # 1.1 H (0-1.0) k/uL APTT 33.2 H (22.0-30.0) sec ABG pH (7.35-7.45) ABG pO2 411 H (83-108) mmHg ABG HCO3 (21-25) mmol/L ABG Total CO2 (19-24) mmol/L ABG O2 Saturation 99.9 H (94-97) % ABG Hematocrit 33 L (34.0-46.0) % ABG Sodium (135-146) mmol/L ABG Potassium 5.6 H (3.4-4.5) mmol/L ABG Ionized Calcium 3.9 L (4.5-5.3) mg/dL ABG Glucose 184 H (75-99) mg/dL ABG Lactic Acid 4.7 H* (0.5-1.6) mmol/L Hemoglobin 10.8 L (13.0-17.5) gm/dL Sodium (137-145) mmol/L Glucose (74-99) mg/dL POC Glucose (mg/dL) (75-99) mg/dL Calcium (8.4-10.2) mg/dL Magnesium (1.6-2.3) mg/dL AST (17-59) U/L ALT (4-49) U/L Total Protein (6.3-8.2) g/dL Albumin (3.5-5.0) g/dL Arterial Blood Potassium 5.6 H (3.4-4.5) mmol/L Arterial Blood Glucose 184 H (75-99) mg/dL Crossmatch 06/01/21 06/01/21 06/01/21 Range/Units 14:10 14:11 14:14 WBC (3.8-10.6) k/uL RBC (4.30-5.90) m/uL Hgb (13.0-17.5) gm/dL Hct (39.0-53.0) % Plt Count (150-450) k/uL Neutrophils # (1.3-7.7) k/uL Lymphocytes # (1.0-4.8) k/uL Monocytes # (0-1.0) k/uL APTT (22.0-30.0) sec ABG pH (7.35-7.45) ABG pO2 273 H (83-108) mmHg ABG HCO3 26 H (21-25) mmol/L ABG Total CO2 27 H (19-24) mmol/L ABG O2 Saturation 100.0 H (94-97) % ABG Hematocrit (34.0-46.0) % ABG Sodium (135-146) mmol/L ABG Potassium (3.4-4.5) mmol/L ABG Ionized Calcium (4.5-5.3) mg/dL ABG Glucose (75-99) mg/dL ABG Lactic Acid (0.5-1.6) mmol/L Hemoglobin (13.0-17.5) gm/dL Sodium 135 L (137-145) mmol/L Glucose 112 H (74-99) mg/dL POC Glucose (mg/dL) 104 H (75-99) mg/dL Calcium 7.9 L (8.4-10.2) mg/dL Magnesium 2.8 H (1.6-2.3) mg/dL AST 73 H (17-59) U/L ALT 75 H (4-49) U/L Total Protein 4.9 L (6.3-8.2) g/dL Albumin 2.6 L (3.5-5.0) g/dL Arterial Blood Potassium (3.4-4.5) mmol/L Arterial Blood Glucose (75-99) mg/dL Crossmatch 06/01/21 06/01/21 06/01/21 Range/Units 15:05 16:05 17:03 WBC (3.8-10.6) k/uL RBC (4.30-5.90) m/uL Hgb (13.0-17.5) gm/dL Hct (39.0-53.0) % Plt Count (150-450) k/uL Neutrophils # (1.3-7.7) k/uL Lymphocytes # (1.0-4.8) k/uL Monocytes # (0-1.0) k/uL APTT (22.0-30.0) sec ABG pH (7.35-7.45) ABG pO2 (83-108) mmHg ABG HCO3 (21-25) mmol/L ABG Total CO2 (19-24) mmol/L ABG O2 Saturation (94-97) % ABG Hematocrit (34.0-46.0) % ABG Sodium (135-146) mmol/L ABG Potassium (3.4-4.5) mmol/L ABG Ionized Calcium (4.5-5.3) mg/dL ABG Glucose (75-99) mg/dL ABG Lactic Acid (0.5-1.6) mmol/L Hemoglobin (13.0-17.5) gm/dL Sodium (137-145) mmol/L Glucose (74-99) mg/dL POC Glucose (mg/dL) 103 H 119 H 148 H (75-99) mg/dL Calcium (8.4-10.2) mg/dL Magnesium (1.6-2.3) mg/dL AST (17-59) U/L ALT (4-49) U/L Total Protein (6.3-8.2) g/dL Albumin (3.5-5.0) g/dL Arterial Blood Potassium (3.4-4.5) mmol/L Arterial Blood Glucose (75-99) mg/dL Crossmatch 06/01/21 06/01/21 06/01/21 Range/Units 18:03 18:59 19:45 WBC (3.8-10.6) k/uL RBC (4.30-5.90) m/uL Hgb (13.0-17.5) gm/dL Hct (39.0-53.0) % Plt Count (150-450) k/uL Neutrophils # (1.3-7.7) k/uL Lymphocytes # (1.0-4.8) k/uL Monocytes # (0-1.0) k/uL APTT (22.0-30.0) sec ABG pH (7.35-7.45) ABG pO2 (83-108) mmHg ABG HCO3 (21-25) mmol/L ABG Total CO2 (19-24) mmol/L ABG O2 Saturation (94-97) % ABG Hematocrit (34.0-46.0) % ABG Sodium (135-146) mmol/L ABG Potassium (3.4-4.5) mmol/L ABG Ionized Calcium (4.5-5.3) mg/dL ABG Glucose (75-99) mg/dL ABG Lactic Acid (0.5-1.6) mmol/L Hemoglobin (13.0-17.5) gm/dL Sodium (137-145) mmol/L Glucose (74-99) mg/dL POC Glucose (mg/dL) 149 H 138 H 133 H (75-99) mg/dL Calcium (8.4-10.2) mg/dL Magnesium (1.6-2.3) mg/dL AST (17-59) U/L ALT (4-49) U/L Total Protein (6.3-8.2) g/dL Albumin (3.5-5.0) g/dL Arterial Blood Potassium (3.4-4.5) mmol/L Arterial Blood Glucose (75-99) mg/dL Crossmatch 06/01/21 06/01/21 06/01/21 Range/Units 19:50 21:15 22:12 WBC 14.6 H (3.8-10.6) k/uL RBC 4.20 L (4.30-5.90) m/uL Hgb 12.2 L (13.0-17.5) gm/dL Hct 37.4 L (39.0-53.0) % Plt Count 133 L (150-450) k/uL Neutrophils # 12.7 H (1.3-7.7) k/uL Lymphocytes # 0.6 L (1.0-4.8) k/uL Monocytes # 1.1 H (0-1.0) k/uL APTT (22.0-30.0) sec ABG pH (7.35-7.45) ABG pO2 (83-108) mmHg ABG HCO3 (21-25) mmol/L ABG Total CO2 (19-24) mmol/L ABG O2 Saturation (94-97) % ABG Hematocrit (34.0-46.0) % ABG Sodium (135-146) mmol/L ABG Potassium (3.4-4.5) mmol/L ABG Ionized Calcium (4.5-5.3) mg/dL ABG Glucose (75-99) mg/dL ABG Lactic Acid (0.5-1.6) mmol/L Hemoglobin (13.0-17.5) gm/dL Sodium (137-145) mmol/L Glucose (74-99) mg/dL POC Glucose (mg/dL) 131 H 133 H (75-99) mg/dL Calcium (8.4-10.2) mg/dL Magnesium (1.6-2.3) mg/dL AST (17-59) U/L ALT (4-49) U/L Total Protein (6.3-8.2) g/dL Albumin (3.5-5.0) g/dL Arterial Blood Potassium (3.4-4.5) mmol/L Arterial Blood Glucose (75-99) mg/dL Crossmatch 06/01/21 06/01/21 06/02/21 Range/Units 23:25 Unknown 00:48 WBC 18.5 H (3.8-10.6) k/uL RBC (4.30-5.90) m/uL Hgb (13.0-17.5) gm/dL Hct (39.0-53.0) % Plt Count (150-450) k/uL Neutrophils # 15.7 H (1.3-7.7) k/uL Lymphocytes # (1.0-4.8) k/uL Monocytes # 1.5 H (0-1.0) k/uL APTT (22.0-30.0) sec ABG pH (7.35-7.45) ABG pO2 (83-108) mmHg ABG HCO3 (21-25) mmol/L ABG Total CO2 (19-24) mmol/L ABG O2 Saturation (94-97) % ABG Hematocrit (34.0-46.0) % ABG Sodium (135-146) mmol/L ABG Potassium (3.4-4.5) mmol/L ABG Ionized Calcium (4.5-5.3) mg/dL ABG Glucose (75-99) mg/dL ABG Lactic Acid (0.5-1.6) mmol/L Hemoglobin (13.0-17.5) gm/dL Sodium (137-145) mmol/L Glucose (74-99) mg/dL POC Glucose (mg/dL) 140 H 139 H (75-99) mg/dL Calcium (8.4-10.2) mg/dL Magnesium (1.6-2.3) mg/dL AST (17-59) U/L ALT (4-49) U/L Total Protein (6.3-8.2) g/dL Albumin (3.5-5.0) g/dL Arterial Blood Potassium (3.4-4.5) mmol/L Arterial Blood Glucose (75-99) mg/dL Crossmatch 06/02/21 06/02/21 06/02/21 Range/Units 02:41 03:31 03:35 WBC 15.8 H (3.8-10.6) k/uL RBC (4.30-5.90) m/uL Hgb 12.6 L (13.0-17.5) gm/dL Hct 38.5 L (39.0-53.0) % Plt Count (150-450) k/uL Neutrophils # 13.5 H (1.3-7.7) k/uL Lymphocytes # 0.8 L (1.0-4.8) k/uL Monocytes # 1.2 H (0-1.0) k/uL APTT (22.0-30.0) sec ABG pH (7.35-7.45) ABG pO2 (83-108) mmHg ABG HCO3 (21-25) mmol/L ABG Total CO2 (19-24) mmol/L ABG O2 Saturation (94-97) % ABG Hematocrit (34.0-46.0) % ABG Sodium (135-146) mmol/L ABG Potassium (3.4-4.5) mmol/L ABG Ionized Calcium (4.5-5.3) mg/dL ABG Glucose (75-99) mg/dL ABG Lactic Acid (0.5-1.6) mmol/L Hemoglobin (13.0-17.5) gm/dL Sodium (137-145) mmol/L Glucose (74-99) mg/dL POC Glucose (mg/dL) 128 H 124 H (75-99) mg/dL Calcium (8.4-10.2) mg/dL Magnesium (1.6-2.3) mg/dL AST (17-59) U/L ALT (4-49) U/L Total Protein (6.3-8.2) g/dL Albumin (3.5-5.0) g/dL Arterial Blood Potassium (3.4-4.5) mmol/L Arterial Blood Glucose (75-99) mg/dL Crossmatch 06/02/21 06/02/21 06/02/21 Range/Units 03:35 05:33 06:51 WBC (3.8-10.6) k/uL RBC (4.30-5.90) m/uL Hgb (13.0-17.5) gm/dL Hct (39.0-53.0) % Plt Count (150-450) k/uL Neutrophils # (1.3-7.7) k/uL Lymphocytes # (1.0-4.8) k/uL Monocytes # (0-1.0) k/uL APTT (22.0-30.0) sec ABG pH (7.35-7.45) ABG pO2 (83-108) mmHg ABG HCO3 (21-25) mmol/L ABG Total CO2 (19-24) mmol/L ABG O2 Saturation (94-97) % ABG Hematocrit (34.0-46.0) % ABG Sodium (135-146) mmol/L ABG Potassium (3.4-4.5) mmol/L ABG Ionized Calcium (4.5-5.3) mg/dL ABG Glucose (75-99) mg/dL ABG Lactic Acid (0.5-1.6) mmol/L Hemoglobin (13.0-17.5) gm/dL Sodium 135 L (137-145) mmol/L Glucose 141 H (74-99) mg/dL POC Glucose (mg/dL) 121 H 132 H (75-99) mg/dL Calcium 8.3 L (8.4-10.2) mg/dL Magnesium (1.6-2.3) mg/dL AST 114 H (17-59) U/L ALT 69 H (4-49) U/L Total Protein 5.7 L (6.3-8.2) g/dL Albumin 3.2 L (3.5-5.0) g/dL Arterial Blood Potassium (3.4-4.5) mmol/L Arterial Blood Glucose (75-99) mg/dL Crossmatch Microbiology - Last 24 Hours (Table) 05/31/21 12:11 Nasal Screen MRSA/MSSA - Final Nasal Swab Assessment and Plan Assessment: Assessment #1 cardiac arrest #2 severe triple-vessel CAD and status post CABG #3 bicuspid aortic valve Plan #1 continue the current medical regimen #2 up titrate the dose of beta rosie down the line #3 restart the patient on amiodarone by mouth #4 suggesting adding Zetia as well # follow-up with the patient
--- NOTE | 2021-06-02 07:54 | P.PN ---
Subjective Progress Note Date: 06/02/21 Principal diagnosis: Triple-vessel coronary artery disease with non-STEMI this admission, V. fib arrest with CPR and shock 1, postarrest memory impairment, leukocytosis, transaminitis, hypertension on admission. Previous medical history of hyperlipidemia, COVID infection in August 2020, remains unvaccinated, never smoker. Bilateral carotid stenosis, right ICA 100%, left ICA 60% per CTA. POD #1 coronary artery bypass grafting 3 vessels, left internal mammary artery to the left anterior descending artery, reverse saphenous vein graft to the obtuse marginal artery, reverse saphenous vein graft to the posterior descending artery, endoscopic harvesting of the left greater saphenous vein, ligation of the left atrial appendage using a 35 mm AtriClip, epi-aortic ultrasound and intraoperative transesophageal echocardiogram The patient was seen and examined this morning in the intensive care unit. He is sitting up in the recliner in no acute distress. He was successfully extubated last night at 20:10. States pain is controlled on current medication regimen, denies shortness of breath. States he feels tired. Remains in sinus tach with heart rate in the low 100s, hemodynamically stable on no inotropes or pressors. Nursing reports less confusion. Right internal jugular [place]/Cordis, right radial arterial line, mediastinal/left pleural chest tubes all remain. No other new concerns. Objective - Vital Signs Vital signs: Vital Signs Temp 99.5 F 06/02/21 04:00 Pulse 101 H 06/02/21 07:15 Resp 20 06/02/21 07:15 BP 146/86 06/02/21 02:15 Pulse Ox 95 06/02/21 07:15 Intake & Output 06/01/21 06/02/21 06/02/21 18:59 06:59 18:59 Intake Total 419.999 2716.167 Output Total 1879 1344 Balance -1358.560 295.167 Weight 87.7 kg Intake: IV 434.0 1568.5 ACETAMINOPHEN IV (For NPO 100 ) 1,000 mg In Empty Bag 1 bag @ 400 mls/hr IVPB Q6HR [facility] Rx#:[id number] Albumin Human 5% 500 ml 500 In Empty Bag 1 bag @ 250 mls/hr IVPB ONCE ONE Rx#: [id number] CO/CI 90 200 Lactated Ringers 1,000 ml 200 650 @ 50 mls/hr IV .Q20H ANN Rx#:[id number] Nitroglycerin-D5w Pmx 50 6.0 1.5 mg In Dextrose/Water 1 250ml.bag @ 5 MCG/MIN 1.5 mls/hr IV .Q24H ANN Rx#: [id number] Pressure bag 36 117 ceFAZolin 2 gm In Sodium 50 Chloride 0.9% 50 ml @ 100 mls/hr IVPB ONCE ONE Rx# :[id number] Intake, IV Titration 86.440 70.667 Amount Clevidipine Butyrate 25 64.865 45.066 mg In Empty Bag 1 bag @ 1 MG/HR 2 mls/hr IV .Q24H ANN Rx#:[id number] Dexmedetomidine/0.9% NaCl 17.600 0.204 (Pmx) 400 mcg In Empty Bag 1 bag @ Titrate IV . Q0M [facility] Rx#:[id number] Insulin Regular 100 unit 1.952 19.897 In Sodium Chloride 0.9% 100 ml @ Per Protocol IV .Q0M [facility] Rx#:[id number] Norepinephrine 4 mg In 2.023 5.5 Sodium Chloride 0.9% 250 ml @ 0.05 MCG/KG/MIN 15. 564 mls/hr IV .[id number] [facility] Rx#:[id number] Output: Chest Tube Drainage 279 419 Chest Tube Left Pleural/ 72 289 Mediastinal Chest Tube Mediastinal 207 130 Urine 700 925 Estimated Blood Loss 900 Other: Voiding Method Indwelling Catheter Indwelling Catheter ABP, PAP, CO, CI - Last Documented Arterial Blood Pressure 144/63 Pulmonary Artery Pressure 28/11 Cardiac Output 5.7 Cardiac Index 2.9 - Exam CONSTITUTIONAL: Appears comfortable, cooperative, no acute distress RESPIRATORY: Lungs sounds diminished bilaterally. Respirations even, nonlabored. Currently on 4 L nasal cannula with oxygen saturation 98%. Able to achieve 750-1000 mL on incentive spirometry. Strong cough. CARDIOVASCULAR: S1, S2 present. Regular rate and rhythm, sinus tach on telemetry with heart rate in the low 100's. Sternum stable. Palpable peripheral pulses bilaterally. No edema present. No calf pain or tenderness noted. Heart hugger in place with patient demonstrating appropriate use. Antiembolism stockings, SCDs present. GASTROINTESTINAL: Abdomen soft, nontender, nondistended. Hypoactive bowel sounds present 4 quadrants. Tolerating clear liquid diet. GENITOURINARY: Robles present draining clear, yellow urine. Output overnight 70-160 mL per hour, down to 30 mL/h this morning. INTEGUMENTARY: Skin is warm and dry with evidence of good perfusion. Anterior chest incision well approximated and covered with dry intact dressing. Left lower extremity EVH site well approximated without redness or drainage. NEUROLOGIC: Cranial nerves II through XII intact MUSKULOSKELETAL: Able to move all extremities, strength equal bilaterally PSYCHIATRIC: Alert and oriented to person place and time, appropriate affect INVASIVE LINES AND TUBES: Mediastinal/left pleural chest tubes present and connected to wall suction, no air leaks present. Mediastinal tube with 110 mL serosanguineous drainage overnight, 360 mL since surgery. Left pleural chest tube with 250 mL serosanguineous drainage overnight, 350 mL in the last 24 hours. A/V epicardial pacemaker wires present, connected to generator, VVI mode with backup rate 50 bpm. Right internal jugular [place]/Cordis, right radial arterial line present. Last CO/CI 5.7/2.9, PA 03/06, CVP 7. - Allied health notes Allied health notes reviewed: nursing - Labs CBC & Chem 7: 06/02/21 03:35 06/02/21 03:35 Labs: Abnormal Lab Results - Last 24 Hours (Table) 05/31/21 06/01/21 06/01/21 Range/Units 12:31 09:16 10:18 WBC (3.8-10.6) k/uL RBC (4.30-5.90) m/uL Hgb (13.0-17.5) gm/dL Hct (39.0-53.0) % Plt Count (150-450) k/uL Neutrophils # (1.3-7.7) k/uL Lymphocytes # (1.0-4.8) k/uL Monocytes # (0-1.0) k/uL APTT (22.0-30.0) sec ABG pH (7.35-7.45) ABG pO2 349 H 179 H (83-108) mmHg ABG HCO3 27 H (21-25) mmol/L ABG Total CO2 28 H 26 H (19-24) mmol/L ABG O2 Saturation 99.7 H 99.5 H (94-97) % ABG Hematocrit (34.0-46.0) % ABG Sodium (135-146) mmol/L ABG Potassium (3.4-4.5) mmol/L ABG Ionized Calcium 4.3 L (4.5-5.3) mg/dL ABG Glucose 120 H 123 H (75-99) mg/dL ABG Lactic Acid (0.5-1.6) mmol/L Hemoglobin 11.7 L (13.0-17.5) gm/dL Sodium (137-145) mmol/L Glucose (74-99) mg/dL POC Glucose (mg/dL) (75-99) mg/dL Calcium (8.4-10.2) mg/dL Magnesium (1.6-2.3) mg/dL AST (17-59) U/L ALT (4-49) U/L Total Protein (6.3-8.2) g/dL Albumin (3.5-5.0) g/dL Arterial Blood Potassium (3.4-4.5) mmol/L Arterial Blood Glucose 120 H 123 H (75-99) mg/dL Crossmatch See Detail 06/01/21 06/01/21 06/01/21 Range/Units 11:23 11:48 12:15 WBC (3.8-10.6) k/uL RBC (4.30-5.90) m/uL Hgb (13.0-17.5) gm/dL Hct (39.0-53.0) % Plt Count (150-450) k/uL Neutrophils # (1.3-7.7) k/uL Lymphocytes # (1.0-4.8) k/uL Monocytes # (0-1.0) k/uL APTT (22.0-30.0) sec ABG pH 7.33 L (7.35-7.45) ABG pO2 317 H 378 H 350 H (83-108) mmHg ABG HCO3 (21-25) mmol/L ABG Total CO2 27 H 25 H (19-24) mmol/L ABG O2 Saturation 99.9 H 99.9 H 100.0 H (94-97) % ABG Hematocrit 33 L (34.0-46.0) % ABG Sodium 133 L 132 L 134 L (135-146) mmol/L ABG Potassium 6.1 H 6.9 H* 6.3 H* (3.4-4.5) mmol/L ABG Ionized Calcium 4.1 L 4.1 L 4.0 L (4.5-5.3) mg/dL ABG Glucose 147 H 161 H 172 H (75-99) mg/dL ABG Lactic Acid 2.0 H 2.9 H* 4.2 H* (0.5-1.6) mmol/L Hemoglobin 10.7 L 11.6 L 11.0 L (13.0-17.5) gm/dL Sodium (137-145) mmol/L Glucose (74-99) mg/dL POC Glucose (mg/dL) (75-99) mg/dL Calcium (8.4-10.2) mg/dL Magnesium (1.6-2.3) mg/dL AST (17-59) U/L ALT (4-49) U/L Total Protein (6.3-8.2) g/dL Albumin (3.5-5.0) g/dL Arterial Blood Potassium 6.1 H 6.9 H* 6.3 H* (3.4-4.5) mmol/L Arterial Blood Glucose 147 H 161 H 172 H (75-99) mg/dL Crossmatch 06/01/21 06/01/21 06/01/21 Range/Units 12:27 14:10 14:10 WBC 17.5 H (3.8-10.6) k/uL RBC 4.16 L (4.30-5.90) m/uL Hgb 12.2 L (13.0-17.5) gm/dL Hct 37.3 L (39.0-53.0) % Plt Count 123 L (150-450) k/uL Neutrophils # 14.9 H (1.3-7.7) k/uL Lymphocytes # (1.0-4.8) k/uL Monocytes # 1.1 H (0-1.0) k/uL APTT 33.2 H (22.0-30.0) sec ABG pH (7.35-7.45) ABG pO2 411 H (83-108) mmHg ABG HCO3 (21-25) mmol/L ABG Total CO2 (19-24) mmol/L ABG O2 Saturation 99.9 H (94-97) % ABG Hematocrit 33 L (34.0-46.0) % ABG Sodium (135-146) mmol/L ABG Potassium 5.6 H (3.4-4.5) mmol/L ABG Ionized Calcium 3.9 L (4.5-5.3) mg/dL ABG Glucose 184 H (75-99) mg/dL ABG Lactic Acid 4.7 H* (0.5-1.6) mmol/L Hemoglobin 10.8 L (13.0-17.5) gm/dL Sodium (137-145) mmol/L Glucose (74-99) mg/dL POC Glucose (mg/dL) (75-99) mg/dL Calcium (8.4-10.2) mg/dL Magnesium (1.6-2.3) mg/dL AST (17-59) U/L ALT (4-49) U/L Total Protein (6.3-8.2) g/dL Albumin (3.5-5.0) g/dL Arterial Blood Potassium 5.6 H (3.4-4.5) mmol/L Arterial Blood Glucose 184 H (75-99) mg/dL Crossmatch 06/01/21 06/01/21 06/01/21 Range/Units 14:10 14:11 14:14 WBC (3.8-10.6) k/uL RBC (4.30-5.90) m/uL Hgb (13.0-17.5) gm/dL Hct (39.0-53.0) % Plt Count (150-450) k/uL Neutrophils # (1.3-7.7) k/uL Lymphocytes # (1.0-4.8) k/uL Monocytes # (0-1.0) k/uL APTT (22.0-30.0) sec ABG pH (7.35-7.45) ABG pO2 273 H (83-108) mmHg ABG HCO3 26 H (21-25) mmol/L ABG Total CO2 27 H (19-24) mmol/L ABG O2 Saturation 100.0 H (94-97) % ABG Hematocrit (34.0-46.0) % ABG Sodium (135-146) mmol/L ABG Potassium (3.4-4.5) mmol/L ABG Ionized Calcium (4.5-5.3) mg/dL ABG Glucose (75-99) mg/dL ABG Lactic Acid (0.5-1.6) mmol/L Hemoglobin (13.0-17.5) gm/dL Sodium 135 L (137-145) mmol/L Glucose 112 H (74-99) mg/dL POC Glucose (mg/dL) 104 H (75-99) mg/dL Calcium 7.9 L (8.4-10.2) mg/dL Magnesium 2.8 H (1.6-2.3) mg/dL AST 73 H (17-59) U/L ALT 75 H (4-49) U/L Total Protein 4.9 L (6.3-8.2) g/dL Albumin 2.6 L (3.5-5.0) g/dL Arterial Blood Potassium (3.4-4.5) mmol/L Arterial Blood Glucose (75-99) mg/dL Crossmatch 06/01/21 06/01/21 06/01/21 Range/Units 15:05 16:05 17:03 WBC (3.8-10.6) k/uL RBC (4.30-5.90) m/uL Hgb (13.0-17.5) gm/dL Hct (39.0-53.0) % Plt Count (150-450) k/uL Neutrophils # (1.3-7.7) k/uL Lymphocytes # (1.0-4.8) k/uL Monocytes # (0-1.0) k/uL APTT (22.0-30.0) sec ABG pH (7.35-7.45) ABG pO2 (83-108) mmHg ABG HCO3 (21-25) mmol/L ABG Total CO2 (19-24) mmol/L ABG O2 Saturation (94-97) % ABG Hematocrit (34.0-46.0) % ABG Sodium (135-146) mmol/L ABG Potassium (3.4-4.5) mmol/L ABG Ionized Calcium (4.5-5.3) mg/dL ABG Glucose (75-99) mg/dL ABG Lactic Acid (0.5-1.6) mmol/L Hemoglobin (13.0-17.5) gm/dL Sodium (137-145) mmol/L Glucose (74-99) mg/dL POC Glucose (mg/dL) 103 H 119 H 148 H (75-99) mg/dL Calcium (8.4-10.2) mg/dL Magnesium (1.6-2.3) mg/dL AST (17-59) U/L ALT (4-49) U/L Total Protein (6.3-8.2) g/dL Albumin (3.5-5.0) g/dL Arterial Blood Potassium (3.4-4.5) mmol/L Arterial Blood Glucose (75-99) mg/dL Crossmatch 06/01/21 06/01/21 06/01/21 Range/Units 18:03 18:59 19:45 WBC (3.8-10.6) k/uL RBC (4.30-5.90) m/uL Hgb (13.0-17.5) gm/dL Hct (39.0-53.0) % Plt Count (150-450) k/uL Neutrophils # (1.3-7.7) k/uL Lymphocytes # (1.0-4.8) k/uL Monocytes # (0-1.0) k/uL APTT (22.0-30.0) sec ABG pH (7.35-7.45) ABG pO2 (83-108) mmHg ABG HCO3 (21-25) mmol/L ABG Total CO2 (19-24) mmol/L ABG O2 Saturation (94-97) % ABG Hematocrit (34.0-46.0) % ABG Sodium (135-146) mmol/L ABG Potassium (3.4-4.5) mmol/L ABG Ionized Calcium (4.5-5.3) mg/dL ABG Glucose (75-99) mg/dL ABG Lactic Acid (0.5-1.6) mmol/L Hemoglobin (13.0-17.5) gm/dL Sodium (137-145) mmol/L Glucose (74-99) mg/dL POC Glucose (mg/dL) 149 H 138 H 133 H (75-99) mg/dL Calcium (8.4-10.2) mg/dL Magnesium (1.6-2.3) mg/dL AST (17-59) U/L ALT (4-49) U/L Total Protein (6.3-8.2) g/dL Albumin (3.5-5.0) g/dL Arterial Blood Potassium (3.4-4.5) mmol/L Arterial Blood Glucose (75-99) mg/dL Crossmatch 06/01/21 06/01/21 06/01/21 Range/Units 19:50 21:15 22:12 WBC 14.6 H (3.8-10.6) k/uL RBC 4.20 L (4.30-5.90) m/uL Hgb 12.2 L (13.0-17.5) gm/dL Hct 37.4 L (39.0-53.0) % Plt Count 133 L (150-450) k/uL Neutrophils # 12.7 H (1.3-7.7) k/uL Lymphocytes # 0.6 L (1.0-4.8) k/uL Monocytes # 1.1 H (0-1.0) k/uL APTT (22.0-30.0) sec ABG pH (7.35-7.45) ABG pO2 (83-108) mmHg ABG HCO3 (21-25) mmol/L ABG Total CO2 (19-24) mmol/L ABG O2 Saturation (94-97) % ABG Hematocrit (34.0-46.0) % ABG Sodium (135-146) mmol/L ABG Potassium (3.4-4.5) mmol/L ABG Ionized Calcium (4.5-5.3) mg/dL ABG Glucose (75-99) mg/dL ABG Lactic Acid (0.5-1.6) mmol/L Hemoglobin (13.0-17.5) gm/dL Sodium (137-145) mmol/L Glucose (74-99) mg/dL POC Glucose (mg/dL) 131 H 133 H (75-99) mg/dL Calcium (8.4-10.2) mg/dL Magnesium (1.6-2.3) mg/dL AST (17-59) U/L ALT (4-49) U/L Total Protein (6.3-8.2) g/dL Albumin (3.5-5.0) g/dL Arterial Blood Potassium (3.4-4.5) mmol/L Arterial Blood Glucose (75-99) mg/dL Crossmatch 06/01/21 06/01/21 06/02/21 Range/Units 23:25 Unknown 00:48 WBC 18.5 H (3.8-10.6) k/uL RBC (4.30-5.90) m/uL Hgb (13.0-17.5) gm/dL Hct (39.0-53.0) % Plt Count (150-450) k/uL Neutrophils # 15.7 H (1.3-7.7) k/uL Lymphocytes # (1.0-4.8) k/uL Monocytes # 1.5 H (0-1.0) k/uL APTT (22.0-30.0) sec ABG pH (7.35-7.45) ABG pO2 (83-108) mmHg ABG HCO3 (21-25) mmol/L ABG Total CO2 (19-24) mmol/L ABG O2 Saturation (94-97) % ABG Hematocrit (34.0-46.0) % ABG Sodium (135-146) mmol/L ABG Potassium (3.4-4.5) mmol/L ABG Ionized Calcium (4.5-5.3) mg/dL ABG Glucose (75-99) mg/dL ABG Lactic Acid (0.5-1.6) mmol/L Hemoglobin (13.0-17.5) gm/dL Sodium (137-145) mmol/L Glucose (74-99) mg/dL POC Glucose (mg/dL) 140 H 139 H (75-99) mg/dL Calcium (8.4-10.2) mg/dL Magnesium (1.6-2.3) mg/dL AST (17-59) U/L ALT (4-49) U/L Total Protein (6.3-8.2) g/dL Albumin (3.5-5.0) g/dL Arterial Blood Potassium (3.4-4.5) mmol/L Arterial Blood Glucose (75-99) mg/dL Crossmatch 06/02/21 06/02/21 06/02/21 Range/Units 02:41 03:31 03:35 WBC 15.8 H (3.8-10.6) k/uL RBC (4.30-5.90) m/uL Hgb 12.6 L (13.0-17.5) gm/dL Hct 38.5 L (39.0-53.0) % Plt Count (150-450) k/uL Neutrophils # 13.5 H (1.3-7.7) k/uL Lymphocytes # 0.8 L (1.0-4.8) k/uL Monocytes # 1.2 H (0-1.0) k/uL APTT (22.0-30.0) sec ABG pH (7.35-7.45) ABG pO2 (83-108) mmHg ABG HCO3 (21-25) mmol/L ABG Total CO2 (19-24) mmol/L ABG O2 Saturation (94-97) % ABG Hematocrit (34.0-46.0) % ABG Sodium (135-146) mmol/L ABG Potassium (3.4-4.5) mmol/L ABG Ionized Calcium (4.5-5.3) mg/dL ABG Glucose (75-99) mg/dL ABG Lactic Acid (0.5-1.6) mmol/L Hemoglobin (13.0-17.5) gm/dL Sodium (137-145) mmol/L Glucose (74-99) mg/dL POC Glucose (mg/dL) 128 H 124 H (75-99) mg/dL Calcium (8.4-10.2) mg/dL Magnesium (1.6-2.3) mg/dL AST (17-59) U/L ALT (4-49) U/L Total Protein (6.3-8.2) g/dL Albumin (3.5-5.0) g/dL Arterial Blood Potassium (3.4-4.5) mmol/L Arterial Blood Glucose (75-99) mg/dL Crossmatch 06/02/21 06/02/21 06/02/21 Range/Units 03:35 05:33 06:51 WBC (3.8-10.6) k/uL RBC (4.30-5.90) m/uL Hgb (13.0-17.5) gm/dL Hct (39.0-53.0) % Plt Count (150-450) k/uL Neutrophils # (1.3-7.7) k/uL Lymphocytes # (1.0-4.8) k/uL Monocytes # (0-1.0) k/uL APTT (22.0-30.0) sec ABG pH (7.35-7.45) ABG pO2 (83-108) mmHg ABG HCO3 (21-25) mmol/L ABG Total CO2 (19-24) mmol/L ABG O2 Saturation (94-97) % ABG Hematocrit (34.0-46.0) % ABG Sodium (135-146) mmol/L ABG Potassium (3.4-4.5) mmol/L ABG Ionized Calcium (4.5-5.3) mg/dL ABG Glucose (75-99) mg/dL ABG Lactic Acid (0.5-1.6) mmol/L Hemoglobin (13.0-17.5) gm/dL Sodium 135 L (137-145) mmol/L Glucose 141 H (74-99) mg/dL POC Glucose (mg/dL) 121 H 132 H (75-99) mg/dL Calcium 8.3 L (8.4-10.2) mg/dL Magnesium (1.6-2.3) mg/dL AST 114 H (17-59) U/L ALT 69 H (4-49) U/L Total Protein 5.7 L (6.3-8.2) g/dL Albumin 3.2 L (3.5-5.0) g/dL Arterial Blood Potassium (3.4-4.5) mmol/L Arterial Blood Glucose (75-99) mg/dL Crossmatch Microbiology - Last 24 Hours (Table) 05/31/21 12:11 Nasal Screen MRSA/MSSA - Final Nasal Swab - Imaging and Cardiology Chest x-ray: image reviewed Assessment and Plan Assessment: 1. Triple-vessel coronary artery disease, non-STEMI this admission, status post three-vessel CABG 2. Status post V. fib arrest with CPR and shock 1, ROSC achieved 3. Post arrest memory impairment 4. Leukocytosis, likely reactive 5. Transaminitis, likely from hepatic steatosis 6. Hypertension on admission 7. History of hyperlipidemia, untreated, cholesterol 407, LDL 310, t riglycerides 228 8. Bilateral carotid stenosis, right ICA 100%, left ICA 60% per CTA. 9. COVID infection in August 2020, remains unvaccinated 10. Never smoker Plan: 1. Continue aspirin, statin, Plavix, beta rosie therapy. Will increase beta rosie therapy as tolerated, started at 25 mg twice a day today. Discontinue IV nitro 2. Will initiate amiodarone 400 mg twice a day today due to recent V. fib arrest as well as prophylaxis for atrial fibrillation 3. Wean O2 as tolerated. Encourage incentive spirometry 10 times every hour while awake. Bronchodilators per pulmonology 4. Increase activity, ambulate as tolerated. PT/OT/cardiac rehab consulted 5. Will monitor daily labs and x-rays. Electrolyte replacement protocol. Will give 20 mg IV lasix today 6. Pain control current medication regimen 7. Insulin management per primary care service. Patient is not a diabetic, hemoglobin A1c 5.7%. Needs tight blood sugar control to promote sternal union and prevent infection 8. Continue mediastinal/left pleural chest tubes for another 24 hours 9. Continue Robles catheter for another 24 hours for strict accurate intake and output. Daily weights 10. Discontinue [place]. Connect Cordis to continuous CVP monitoring 11. Keep mean arterial pressure greater than 70 due to carotid stenosis, patient to follow up with vascular outpatient 12. More recommendations to follow as patient progresses Time with Patient: Greater than 30
--- NOTE | 2021-06-02 07:59 | XR ---
EXAMINATION TYPE: XR chest 1V portable DATE OF EXAM: 06/02/2021 COMPARISON: 06/01/2021 HISTORY: SOB, Follow Up FINDINGS: Endotracheal tube and NG tube have been removed. Oklee-Seun catheter and mediastinal drains are in delmar ce. Left-sided chest tube remains in place. Small less than 10% pneumothorax noted. Mild pulmonary venous congestion scattered basilar atelectasis. Stable appearance of the cardio-mediastinal structures at this time. IMPRESSION: 1. Tiny left apical pneumothorax noted. Scattered areas of atelectasis and mild pulmonary venous kathi estion.
[2021-06-02 08:04] LABS: Glucose,Whole Blood 125 mg/dL (75-99)
[2021-06-02] MEDS: AMIODARONE 200 MG TAB PO SCH ×2 (08:42→20:17)
[2021-06-02] MEDS: HEPARIN SODIUM,PORCINE/PF 5,000 UNIT/0.5 ML SYRINGE SQ SCH ×3 (08:42→23:41)
[2021-06-02] MEDS: CLOPIDOGREL 75 MG TAB PO SCH (08:43)
[2021-06-02] MEDS: ATORVASTATIN 40 MG TAB PO SCH (08:43)
[2021-06-02] MEDS: ASPIRIN 325 MG TAB PO SCH (08:43)
[2021-06-02] MEDS: MUPIROCIN 2% OINT 22 GM TUBE NASAL SCH ×2 (08:43→20:18)
[2021-06-02] MEDS ORDERED: FUROSEMIDE 10 MG/ML 2 ML VIAL IV ONE ×2 (08:45→14:24)
[2021-06-02] MEDS ORDERED: METOPROLOL TARTRATE 12.5 MG TAB PO SCH (09:00)
[2021-06-02] MEDS ORDERED: bisacodyL 10 MG SUPP RECTAL PRN (09:00)
[2021-06-02] MEDS ORDERED: METOPROLOL TARTRATE 25 MG TAB PO SCH (09:00)
[2021-06-02] MEDS ORDERED: PANTOPRAZOLE 40 MG/10 ML VIAL IVP SCH (09:00)
[2021-06-02] MEDS ORDERED: MAGNESIUM HYDROXIDE 2,400 MG/10 ML CUP PO PRN (09:00)
[2021-06-02 09:02] LABS: Glucose,Whole Blood 123 mg/dL (75-99)
--- NOTE | 2021-06-02 09:54 | P.GSCN ---
History of Present Illness Consult date: 06/02/21 History of present illness: Daljit is a 65-year-old male who initially presented to the hospital with a V. fib arrest, CPR and shock 1. He was found to have triple-vessel coronary artery disease with a non-STEMI, leukocytosis, transaminitis and hypertension. He has a history of hyperlipidemia, history of Covid remaining on vaccinated and a never smoker. He underwent imaging revealing an occluded right internal carotid artery as well as left ICA stenosis 60-70%. He underwent relatively urgent coronary artery bypass grafting 3 with the left internal mammary artery to left anterior descending, reverse saphenous vein to obtuse marginal artery and reverse saphenous to the posterior descending as well as a left atrial appendage clip. He tolerated this relatively well. This morning he is seen for his carotid stenosis. He is extubated and sitting in chair at the bedside. His pain is controlled denies any chest pains or shortness of breath. He denies any issues with unilateral weakness or speech impairment. He denies any history of this study is aware of. He has not seen a doctor regularly in the past. Review of Systems 14 point review of systems performed. 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 Past Psychological History: No Psychological Hx Reported Smoking Status: Never smoker Past Alcohol Use History: None Reported Past Drug Use History: None Reported - Past Family History Father Family Medical History: Dementia Additional Family Medical History / Comment(s): Father had Alzheimer's Mother Family Medical History: CVA/TIA, Hypertension Medications and Allergies Home Medications Medication Instructions Recorded Confirmed Type No Known Home Medications 05/31/21 05/31/21 History Allergies Allergy/AdvReac Type Severity Reaction Status Date / Time No Known Allergies Allergy Verified 05/31/21 08:25 Surgical - Exam Vital Signs Temp Pulse Resp BP Pulse Ox 97.6 F 97 20 215/103 98 05/31/21 01:05 05/31/21 01:05 05/31/21 01:05 05/31/21 01:05 05/31/21 01:05 Gen. is a pleasant and cooperative male appearing comfortable sitting at the bedside HEENT is normocephalic, atraumatic. Central lines in the right neck. L marilynn sounds are diminished, on 4 L O2 per nasal cannula. Strong cough. Heart is regular in rate and rhythm. Abdomen is soft, nontender nondistended. Robles is present draining clear yellow urine. Skin is warm and dry without evidence of good perfusion. Cranial nerves II through XII grossly intact. No significant weakness. Alert and oriented to person place and time. Normal mood and affect. Results CTA and ultrasounds are reviewed. CT shows a proximally 60% left internal carotid artery stenosis. The ultrasound shows a peak systolic velocity of 327.5 with a ratio of 3.5 measuring about 70% stenosis. - Labs 06/02/21 03:35 06/02/21 03:35 Abnormal Lab Results - Last 24 Hours (Table) 05/31/21 06/01/21 06/01/21 Range/Units 12:31 09:16 10:18 WBC (3.8-10.6) k/uL RBC (4.30-5.90) m/uL Hgb (13.0-17.5) gm/dL Hct (39.0-53.0) % Plt Count (150-450) k/uL Neutrophils # (1.3-7.7) k/uL Lymphocytes # (1.0-4.8) k/uL Monocytes # (0-1.0) k/uL APTT (22.0-30.0) sec ABG pH (7.35-7.45) ABG pO2 349 H 179 H (83-108) mmHg ABG HCO3 27 H (21-25) mmol/L ABG Total CO2 28 H 26 H (19-24) mmol/L ABG O2 Saturation 99.7 H 99.5 H (94-97) % ABG Hematocrit (34.0-46.0) % ABG Sodium (135-146) mmol/L ABG Potassium (3.4-4.5) mmol/L ABG Ionized Calcium 4.3 L (4.5-5.3) mg/dL ABG Glucose 120 H 123 H (75-99) mg/dL ABG Lactic Acid (0.5-1.6) mmol/L Hemoglobin 11.7 L (13.0-17.5) gm/dL Sodium (137-145) mmol/L Glucose (74-99) mg/dL POC Glucose (mg/dL) (75-99) mg/dL Calcium (8.4-10.2) mg/dL Magnesium (1.6-2.3) mg/dL AST (17-59) U/L ALT (4-49) U/L Total Protein (6.3-8.2) g/dL Albumin (3.5-5.0) g/dL Arterial Blood Potassium (3.4-4.5) mmol/L Arterial Blood Glucose 120 H 123 H (75-99) mg/dL Crossmatch See Detail 06/01/21 06/01/21 06/01/21 Range/Units 11:23 11:48 12:15 WBC (3.8-10.6) k/uL RBC (4.30-5.90) m/uL Hgb (13.0-17.5) gm/dL Hct (39.0-53.0) % Plt Count (150-450) k/uL Neutrophils # (1.3-7.7) k/uL Lymphocytes # (1.0-4.8) k/uL Monocytes # (0-1.0) k/uL APTT (22.0-30.0) sec ABG pH 7.33 L (7.35-7.45) ABG pO2 317 H 378 H 350 H (83-108) mmHg ABG HCO3 (21-25) mmol/L ABG Total CO2 27 H 25 H (19-24) mmol/L ABG O2 Saturation 99.9 H 99.9 H 100.0 H (94-97) % ABG Hematocrit 33 L (34.0-46.0) % ABG Sodium 133 L 132 L 134 L (135-146) mmol/L ABG Potassium 6.1 H 6.9 H* 6.3 H* (3.4-4.5) mmol/L ABG Ionized Calcium 4.1 L 4.1 L 4.0 L (4.5-5.3) mg/dL ABG Glucose 147 H 161 H 172 H (75-99) mg/dL ABG Lactic Acid 2.0 H 2.9 H* 4.2 H* (0.5-1.6) mmol/L Hemoglobin 10.7 L 11.6 L 11.0 L (13.0-17.5) gm/dL Sodium (137-145) mmol/L Glucose (74-99) mg/dL POC Glucose (mg/dL) (75-99) mg/dL Calcium (8.4-10.2) mg/dL Magnesium (1.6-2.3) mg/dL AST (17-59) U/L ALT (4-49) U/L Total Protein (6.3-8.2) g/dL Albumin (3.5-5.0) g/dL Arterial Blood Potassium 6.1 H 6.9 H* 6.3 H* (3.4-4.5) mmol/L Arterial Blood Glucose 147 H 161 H 172 H (75-99) mg/dL Crossmatch 06/01/21 06/01/21 06/01/21 Range/Units 12:27 14:10 14:10 WBC 17.5 H (3.8-10.6) k/uL RBC 4.16 L (4.30-5.90) m/uL Hgb 12.2 L (13.0-17.5) gm/dL Hct 37.3 L (39.0-53.0) % Plt Count 123 L (150-450) k/uL Neutrophils # 14.9 H (1.3-7.7) k/uL Lymphocytes # (1.0-4.8) k/uL Monocytes # 1.1 H (0-1.0) k/uL APTT 33.2 H (22.0-30.0) sec ABG pH (7.35-7.45) ABG pO2 411 H (83-108) mmHg ABG HCO3 (21-25) mmol/L ABG Total CO2 (19-24) mmol/L ABG O2 Saturation 99.9 H (94-97) % ABG Hematocrit 33 L (34.0-46.0) % ABG Sodium (135-146) mmol/L ABG Potassium 5.6 H (3.4-4.5) mmol/L ABG Ionized Calcium 3.9 L (4.5-5.3) mg/dL ABG Glucose 184 H (75-99) mg/dL ABG Lactic Acid 4.7 H* (0.5-1.6) mmol/L Hemoglobin 10.8 L (13.0-17.5) gm/dL Sodium (137-145) mmol/L Glucose (74-99) mg/dL POC Glucose (mg/dL) (75-99) mg/dL Calcium (8.4-10.2) mg/dL Magnesium (1.6-2.3) mg/dL AST (17-59) U/L ALT (4-49) U/L Total Protein (6.3-8.2) g/dL Albumin (3.5-5.0) g/dL Arterial Blood Potassium 5.6 H (3.4-4.5) mmol/L Arterial Blood Glucose 184 H (75-99) mg/dL Crossmatch 06/01/21 06/01/21 06/01/21 Range/Units 14:10 14:11 14:14 WBC (3.8-10.6) k/uL RBC (4.30-5.90) m/uL Hgb (13.0-17.5) gm/dL Hct (39.0-53.0) % Plt Count (150-450) k/uL Neutrophils # (1.3-7.7) k/uL Lymphocytes # (1.0-4.8) k/uL Monocytes # (0-1.0) k/uL APTT (22.0-30.0) sec ABG pH (7.35-7.45) ABG pO2 273 H (83-108) mmHg ABG HCO3 26 H (21-25) mmol/L ABG Total CO2 27 H (19-24) mmol/L ABG O2 Saturation 100.0 H (94-97) % ABG Hematocrit (34.0-46.0) % ABG Sodium (135-146) mmol/L ABG Potassium (3.4-4.5) mmol/L ABG Ionized Calcium (4.5-5.3) mg/dL ABG Glucose (75-99) mg/dL ABG Lactic Acid (0.5-1.6) mmol/L Hemoglobin (13.0-17.5) gm/dL Sodium 135 L (137-145) mmol/L Glucose 112 H (74-99) mg/dL POC Glucose (mg/dL) 104 H (75-99) mg/dL Calcium 7.9 L (8.4-10.2) mg/dL Magnesium 2.8 H (1.6-2.3) mg/dL AST 73 H (17-59) U/L ALT 75 H (4-49) U/L Total Protein 4.9 L (6.3-8.2) g/dL Albumin 2.6 L (3.5-5.0) g/dL Arterial Blood Potassium (3.4-4.5) mmol/L Arterial Blood Glucose (75-99) mg/dL Crossmatch 06/01/21 06/01/21 06/01/21 Range/Units 15:05 16:05 17:03 WBC (3.8-10.6) k/uL RBC (4.30-5.90) m/uL Hgb (13.0-17.5) gm/dL Hct (39.0-53.0) % Plt Count (150-450) k/uL Neutrophils # (1.3-7.7) k/uL Lymphocytes # (1.0-4.8) k/uL Monocytes # (0-1.0) k/uL APTT (22.0-30.0) sec ABG pH (7.35-7.45) ABG pO2 (83-108) mmHg ABG HCO3 (21-25) mmol/L ABG Total CO2 (19-24) mmol/L ABG O2 Saturation (94-97) % ABG Hematocrit (34.0-46.0) % ABG Sodium (135-146) mmol/L ABG Potassium (3.4-4.5) mmol/L ABG Ionized Calcium (4.5-5.3) mg/dL ABG Glucose (75-99) mg/dL ABG Lactic Acid (0.5-1.6) mmol/L Hemoglobin (13.0-17.5) gm/dL Sodium (137-145) mmol/L Glucose (74-99) mg/dL POC Glucose (mg/dL) 103 H 119 H 148 H (75-99) mg/dL Calcium (8.4-10.2) mg/dL Magnesium (1.6-2.3) mg/dL AST (17-59) U/L ALT (4-49) U/L Total Protein (6.3-8.2) g/dL Albumin (3.5-5.0) g/dL Arterial Blood Potassium (3.4-4.5) mmol/L Arterial Blood Glucose (75-99) mg/dL Crossmatch 06/01/21 06/01/21 06/01/21 Range/Units 18:03 18:59 19:45 WBC (3.8-10.6) k/uL RBC (4.30-5.90) m/uL Hgb (13.0-17.5) gm/dL Hct (39.0-53.0) % Plt Count (150-450) k/uL Neutrophils # (1.3-7.7) k/uL Lymphocytes # (1.0-4.8) k/uL Monocytes # (0-1.0) k/uL APTT (22.0-30.0) sec ABG pH (7.35-7.45) ABG pO2 (83-108) mmHg ABG HCO3 (21-25) mmol/L ABG Total CO2 (19-24) mmol/L ABG O2 Saturation (94-97) % ABG Hematocrit (34.0-46.0) % ABG Sodium (135-146) mmol/L ABG Potassium (3.4-4.5) mmol/L ABG Ionized Calcium (4.5-5.3) mg/dL ABG Glucose (75-99) mg/dL ABG Lactic Acid (0.5-1.6) mmol/L Hemoglobin (13.0-17.5) gm/dL Sodium (137-145) mmol/L Glucose (74-99) mg/dL POC Glucose (mg/dL) 149 H 138 H 133 H (75-99) mg/dL Calcium (8.4-10.2) mg/dL Magnesium (1.6-2.3) mg/dL AST (17-59) U/L ALT (4-49) U/L Total Protein (6.3-8.2) g/dL Albumin (3.5-5.0) g/dL Arterial Blood Potassium (3.4-4.5) mmol/L Arterial Blood Glucose (75-99) mg/dL Crossmatch 06/01/21 06/01/21 06/01/21 Range/Units 19:50 21:15 22:12 WBC 14.6 H (3.8-10.6) k/uL RBC 4.20 L (4.30-5.90) m/uL Hgb 12.2 L (13.0-17.5) gm/dL Hct 37.4 L (39.0-53.0) % Plt Count 133 L (150-450) k/uL Neutrophils # 12.7 H (1.3-7.7) k/uL Lymphocytes # 0.6 L (1.0-4.8) k/uL Monocytes # 1.1 H (0-1.0) k/uL APTT (22.0-30.0) sec ABG pH (7.35-7.45) ABG pO2 (83-108) mmHg ABG HCO3 (21-25) mmol/L ABG Total CO2 (19-24) mmol/L ABG O2 Saturation (94-97) % ABG Hematocrit (34.0-46.0) % ABG Sodium (135-146) mmol/L ABG Potassium (3.4-4.5) mmol/L ABG Ionized Calcium (4.5-5.3) mg/dL ABG Glucose (75-99) mg/dL ABG Lactic Acid (0.5-1.6) mmol/L Hemoglobin (13.0-17.5) gm/dL Sodium (137-145) mmol/L Glucose (74-99) mg/dL POC Glucose (mg/dL) 131 H 133 H (75-99) mg/dL Calcium (8.4-10.2) mg/dL Magnesium (1.6-2.3) mg/dL AST (17-59) U/L ALT (4-49) U/L Total Protein (6.3-8.2) g/dL Albumin (3.5-5.0) g/dL Arterial Blood Potassium (3.4-4.5) mmol/L Arterial Blood Glucose (75-99) mg/dL Crossmatch 06/01/21 06/01/21 06/02/21 Range/Units 23:25 Unknown 00:48 WBC 18.5 H (3.8-10.6) k/uL RBC (4.30-5.90) m/uL Hgb (13.0-17.5) gm/dL Hct (39.0-53.0) % Plt Count (150-450) k/uL Neutrophils # 15.7 H (1.3-7.7) k/uL Lymphocytes # (1.0-4.8) k/uL Monocytes # 1.5 H (0-1.0) k/uL APTT (22.0-30.0) sec ABG pH (7.35-7.45) ABG pO2 (83-108) mmHg ABG HCO3 (21-25) mmol/L ABG Total CO2 (19-24) mmol/L ABG O2 Saturation (94-97) % ABG Hematocrit (34.0-46.0) % ABG Sodium (135-146) mmol/L ABG Potassium (3.4-4.5) mmol/L ABG Ionized Calcium (4.5-5.3) mg/dL ABG Glucose (75-99) mg/dL ABG Lactic Acid (0.5-1.6) mmol/L Hemoglobin (13.0-17.5) gm/dL Sodium (137-145) mmol/L Glucose (74-99) mg/dL POC Glucose (mg/dL) 140 H 139 H (75-99) mg/dL Calcium (8.4-10.2) mg/dL Magnesium (1.6-2.3) mg/dL AST (17-59) U/L ALT (4-49) U/L Total Protein (6.3-8.2) g/dL Albumin (3.5-5.0) g/dL Arterial Blood Potassium (3.4-4.5) mmol/L Arterial Blood Glucose (75-99) mg/dL Crossmatch 06/02/21 06/02/21 06/02/21 Range/Units 02:41 03:31 03:35 WBC 15.8 H (3.8-10.6) k/uL RBC (4.30-5.90) m/uL Hgb 12.6 L (13.0-17.5) gm/dL Hct 38.5 L (39.0-53.0) % Plt Count (150-450) k/uL Neutrophils # 13.5 H (1.3-7.7) k/uL Lymphocytes # 0.8 L (1.0-4.8) k/uL Monocytes # 1.2 H (0-1.0) k/uL APTT (22.0-30.0) sec ABG pH (7.35-7.45) ABG pO2 (83-108) mmHg ABG HCO3 (21-25) mmol/L ABG Total CO2 (19-24) mmol/L ABG O2 Saturation (94-97) % ABG Hematocrit (34.0-46.0) % ABG Sodium (135-146) mmol/L ABG Potassium (3.4-4.5) mmol/L ABG Ionized Calcium (4.5-5.3) mg/dL ABG Glucose (75-99) mg/dL ABG Lactic Acid (0.5-1.6) mmol/L Hemoglobin (13.0-17.5) gm/dL Sodium (137-145) mmol/L Glucose (74-99) mg/dL POC Glucose (mg/dL) 128 H 124 H (75-99) mg/dL Calcium (8.4-10.2) mg/dL Magnesium (1.6-2.3) mg/dL AST (17-59) U/L ALT (4-49) U/L Total Protein (6.3-8.2) g/dL Albumin (3.5-5.0) g/dL Arterial Blood Potassium (3.4-4.5) mmol/L Arterial Blood Glucose (75-99) mg/dL Crossmatch 06/02/21 06/02/21 06/02/21 Range/Units 03:35 05:33 06:51 WBC (3.8-10.6) k/uL RBC (4.30-5.90) m/uL Hgb (13.0-17.5) gm/dL Hct (39.0-53.0) % Plt Count (150-450) k/uL Neutrophils # (1.3-7.7) k/uL Lymphocytes # (1.0-4.8) k/uL Monocytes # (0-1.0) k/uL APTT (22.0-30.0) sec ABG pH (7.35-7.45) ABG pO2 (83-108) mmHg ABG HCO3 (21-25) mmol/L ABG Total CO2 (19-24) mmol/L ABG O2 Saturation (94-97) % ABG Hematocrit (34.0-46.0) % ABG Sodium (135-146) mmol/L ABG Potassium (3.4-4.5) mmol/L ABG Ionized Calcium (4.5-5.3) mg/dL ABG Glucose (75-99) mg/dL ABG Lactic Acid (0.5-1.6) mmol/L Hemoglobin (13.0-17.5) gm/dL Sodium 135 L (137-145) mmol/L Glucose 141 H (74-99) mg/dL POC Glucose (mg/dL) 121 H 132 H (75-99) mg/dL Calcium 8.3 L (8.4-10.2) mg/dL Magnesium (1.6-2.3) mg/dL AST 114 H (17-59) U/L ALT 69 H (4-49) U/L Total Protein 5.7 L (6.3-8.2) g/dL Albumin 3.2 L (3.5-5.0) g/dL Arterial Blood Potassium (3.4-4.5) mmol/L Arterial Blood Glucose (75-99) mg/dL Crossmatch 06/02/21 06/02/21 Range/Units 08:03 09:00 WBC (3.8-10.6) k/uL RBC (4.30-5.90) m/uL Hgb (13.0-17.5) gm/dL Hct (39.0-53.0) % Plt Count (150-450) k/uL Neutrophils # (1.3-7.7) k/uL Lymphocytes # (1.0-4.8) k/uL Monocytes # (0-1.0) k/uL APTT (22.0-30.0) sec ABG pH (7.35-7.45) ABG pO2 (83-108) mmHg ABG HCO3 (21-25) mmol/L ABG Total CO2 (19-24) mmol/L ABG O2 Saturation (94-97) % ABG Hematocrit (34.0-46.0) % ABG Sodium (135-146) mmol/L ABG Potassium (3.4-4.5) mmol/L ABG Ionized Calcium (4.5-5.3) mg/dL ABG Glucose (75-99) mg/dL ABG Lactic Acid (0.5-1.6) mmol/L Hemoglobin (13.0-17.5) gm/dL Sodium (137-145) mmol/L Glucose (74-99) mg/dL POC Glucose (mg/dL) 125 H 123 H (75-99) mg/dL Calcium (8.4-10.2) mg/dL Magnesium (1.6-2.3) mg/dL AST (17-59) U/L ALT (4-49) U/L Total Protein (6.3-8.2) g/dL Albumin (3.5-5.0) g/dL Arterial Blood Potassium (3.4-4.5) mmol/L Arterial Blood Glucose (75-99) mg/dL Crossmatch Microbiology - Last 24 Hours (Table) 05/31/21 12:11 Nasal Screen MRSA/MSSA - Final Nasal Swab Diabetes panel 06/01/21 06/02/21 Range/Units 14:10 03:35 Sodium 135 L 135 L (137-145) mmol/L Potassium 4.7 4.8 (3.5-5.1) mmol/L Chloride 104 104 (98-107) mmol/L Carbon Dioxide 24 25 (22-30) mmol/L BUN 16 19 (9-20) mg/dL Creatinine 0.99 0.83 (0.66-1.25) mg/dL Glucose 112 H 141 H (74-99) mg/dL Calcium 7.9 L 8.3 L (8.4-10.2) mg/dL AST 73 H 114 H (17-59) U/L ALT 75 H 69 H (4-49) U/L Alkaline Phosphatase 60 79 (38-126) U/L Total Protein 4.9 L 5.7 L (6.3-8.2) g/dL Albumin 2.6 L 3.2 L (3.5-5.0) g/dL Calcium panel 06/01/21 06/02/21 Range/Units 14:10 03:35 Calcium 7.9 L 8.3 L (8.4-10.2) mg/dL Ionized Calcium Chel 4.6 4.7 (4.5-5.3) mg/dL Albumin 2.6 L 3.2 L (3.5-5.0) g/dL Pituitary panel 06/01/21 06/02/21 Range/Units 14:10 03:35 Sodium 135 L 135 L (137-145) mmol/L Potassium 4.7 4.8 (3.5-5.1) mmol/L Chloride 104 104 (98-107) mmol/L Carbon Dioxide 24 25 (22-30) mmol/L BUN 16 19 (9-20) mg/dL Creatinine 0.99 0.83 (0.66-1.25) mg/dL Glucose 112 H 141 H (74-99) mg/dL Calcium 7.9 L 8.3 L (8.4-10.2) mg/dL Adrenal panel 06/01/21 06/02/21 Range/Units 14:10 03:35 Sodium 135 L 135 L (137-145) mmol/L Potassium 4.7 4.8 (3.5-5.1) mmol/L Chloride 104 104 (98-107) mmol/L Carbon Dioxide 24 25 (22-30) mmol/L BUN 16 19 (9-20) mg/dL Creatinine 0.99 0.83 (0.66-1.25) mg/dL Glucose 112 H 141 H (74-99) mg/dL Calcium 7.9 L 8.3 L (8.4-10.2) mg/dL Total Bilirubin 0.5 0.7 (0.2-1.3) mg/dL AST 73 H 114 H (17-59) U/L ALT 75 H 69 H (4-49) U/L Alkaline Phosphatase 60 79 (38-126) U/L Total Protein 4.9 L 5.7 L (6.3-8.2) g/dL Albumin 2.6 L 3.2 L (3.5-5.0) g/dL Assessment and Plan Assessment: Left internal carotid artery stenosis Right carotid artery occlusion V. fib arrest with CPR and Rosc Postoperative day 1 from coronary artery bypass grafting 3 vessels Hyperlipidemia Hypertension History of COVID August 2020 Plan: At this time the patient appears to be doing well and his postoperative phases from his CABG. No evidence of symptomatic carotid stenosis at this time. We'll follow-up as an outpatient for surveillance imaging and discussions regarding possibly fixing his carotid likely with a trans-carotid artery revascularization versus open endarterectomy. He is continue his medications as previously ordered. No further plans from vascular standpoint at this time. Discharge information will be provided.
[2021-06-02 10:08] LABS: Glucose,Whole Blood 123 mg/dL (75-99)
[2021-06-02 11:02] LABS: Glucose,Whole Blood 117 mg/dL (75-99)
[2021-06-02] MEDS: LACTATED RINGERS 1,000 ML IV SCH (11:06)
[2021-06-02 11:33] VITALS: BMI 27.7
[2021-06-02 11:45] LABS: Glucose,Whole Blood 122 mg/dL (75-99)
--- NOTE | 2021-06-02 12:56 | P.PN ---
Subjective Progress Note Date: 06/02/21 Principal diagnosis: unresponsive Val is a 65-year-old male with high cholesterol not currently taking medication who presents to ER with a V. fib arrest. He has been having intercourse when he passed out. Bystander CPR was in progress when EMS arrived. They placed him on a monitor he was shown to be in V. fib. Patient was successfully cardioverted with Rosc. Vital signs on arrival showed hypertension with a blood pressure 215/103. He was taken for emergent cardiac cath which showed a total occlusion of the RCA, nondominant circumflex distally occluded, LAD with 60-70% narrowing in the midportion and 99% at the apex. He did not require stent at that time. He was placed on amiodarone and heparin. He was admitted to the ICU and cardiac surgery was consulted. They did recommend cardiac bypass. Cholesterol came back extremely elevated with a total chol esterol 407 and an LDL of 310. Echo shows severe concentric LVH, ejection fraction 50-55%, grade 1 diastolic dysfunction. Carotid ultrasound showed severe greater than 70% left ICA stenosis. He was started on Lipitor, Cozaar, and metoprolol. He was taken for CABG on 06/01 and underwent GUIDO to LAD, SVG to OM and SVG to posterior descending artery Patient seen and examined at bedside. Awake, alert, sitting in chair. Complaining of some low back pain. Denies any significant chest discomfort other than when coughing, breathing well. present at bedside and all questions answered. Was up and ambulating in the halls today. General: non toxic, no distress, appears at stated age Derm: warm, dry Head: atraumatic, normocephalic, symmetric Eyes: EOMI, no lid lag, anicteric sclera Mouth: no lip lesion, mucus membranes moist Cardiovascular: S1S2 reg, no murmur, positive posterior tibial pulse bilateral, spinal and chest tube in place, Bear Hugger in place Lungs: Decreased bs bilateral, no rhonchi, no rales , no accessory muscle use Abdominal: soft, nontender to palpation, no guarding, no appreciable organomegaly Ext: no gross muscle atrophy, no edema, no contractures Neuro: CN II-XI grossly intact, no focal neuro deficits Psych: Alert, oriented, flat affect, delayed thinking Assessment/Plan: V. fib arrest Multivessel coronary artery disease S/P CABG, GUIDO to LAD, SVG to OM and SVG to PDA Non-STEMI Hyperlipidemia, Xanthomas - management per cardio thorasic surgery -statin - likely will need PCSK9 inhinbitor as outpatient -Cardiology recommendations -Pulm recs - Plavix, Metoprolol, ASA - amio Carotid stenosis -Await vascular recs Elevated BP on arrival without previous diagnosis of HTN - follow BP - Continue current medications Transaminitis Hepatic Steatosis - likely due to decreased perfusion and fatty infiltration of the liver - repeat labs in AM Hyperglycemia - currently on insulin gtt for tight glycemic control -Likely reflective acute distress -Hemoglobin A1c 5.7 Discussed with: Nursing Anticipated discharge: 6-[address]: home health A total of 25 minutes was spent on the care of this complex patient more than 50% of the time was spent in counseling and care coordination. Active Medications Generic Name Dose Route Start Last Admin Trade Name Freq PRN Reason Stop Dose Admin Acetaminophen 650 mg 06/02/21 06:43 Acetaminophen Tab 325 Mg Tab PO Q4HR PRN Fever and/ or Pain Hydrocodone Bitart/Acetaminophen 2 each 06/02/21 01:10 06/02/21 08:31 Hydrocodone/Apap 5-325mg 1 Each Tab PO 2 each Q4HR PRN Administration Severe Pain Hydrocodone Bitart/Acetaminophen 1 each 06/02/21 01:10 Hydrocodone/Apap 5-325mg 1 Each Tab PO Q4HR PRN Moderate Pain Albuterol/Ipratropium 3 ml 06/01/21 13:38 Ipratropium-Albuterol 3 Ml Neb INHALATION RT-Q2H PRN Shortness Of Breath Or Wheezing Albuterol/Ipratropium 3 ml 06/01/21 20:00 06/02/21 12:34 Ipratropium-Albuterol 3 Ml Neb INHALATION Not Given RT-QID ANN Amiodarone HCl 400 mg 06/02/21 09:00 06/02/21 08:42 Amiodarone 200 Mg Tab PO 400 mg BID ANN Administration Aspirin 325 mg 06/02/21 09:00 06/02/21 08:43 Aspirin 325 Mg Tab PO 325 mg DAILY ANN Administration Atorvastatin Calcium 80 mg 05/31/21 09:00 06/02/21 08:43 Atorvastatin 40 Mg Tab PO 80 mg DAILY ANN Administration Benzocaine/Menthol 1 each 06/01/21 13:38 Benzocaine/Menthol Lozeng 1 Each Lozenge MUCOUS MEM Q2H PRN Sore Throat Bisacodyl 10 mg 06/02/21 09:00 Bisacodyl 10 Mg Supp RECTAL DAILY PRN Constipation Clopidogrel Bisulfate 75 mg 06/02/21 09:00 06/02/21 08:43 Clopidogrel 75 Mg Tab PO 75 mg DAILY ANN Administration Heparin Sodium (Porcine) 5,000 unit 06/01/21 16:00 06/02/21 08:42 Heparin Sodium,Porcine/Pf 5,000 Unit/0.5 Ml Syringe SQ 5,000 unit Q8HR ANN Administration Hydralazine HCl 10 mg 06/01/21 13:38 Hydralazine Hcl 20 Mg/Ml 1 Ml Vial IVP Q1H PRN Blood Pressure - High Amiodarone HCl 150 mg/ 103 mls @ 618 mls/hr 06/01/21 13:38 Dextrose/Water IV .Q10M PRN A.FIB/FLUTTER Protocol Amiodarone HCl 360 mg/ 207.2 mls @ 34.533 mls/hr 06/01/21 13:38 Dextrose/Water IV .Q6H PRN A.FIB/FLUTTER Protocol 1 MG/MIN Insulin Human Regular 100 unit 101 mls @ 0 mls/hr 06/01/21 13:38 06/02/21 09:01 / Sodium Chloride IV 1 units/hr .Q0M ANN 1.01 mls/hr Titration Protocol Per Protocol Lactated Ringer's 1,000 mls @ 20 mls/hr 06/01/21 13:38 06/02/21 11:06 Lactated Ringers IV 20 mls/hr .Q24H ANN Administration Albumin Human 250 ml/ IV 250 mls @ 250 mls/hr 06/01/21 13:38 06/01/21 18:52 Solution IVPB 06/03/21 13:39 250 mls/hr Q1HR PRN Administration For Volume Protocol Amiodarone HCl 450 mg/ 250 mls @ 16.667 mls/hr 06/01/21 13:38 Dextrose/Water IV .Q15H PRN A.FIB/FLUTTER Protocol 0.5 MG/MIN Ketorolac Tromethamine 15 mg 06/01/21 18:00 06/02/21 11:06 Ketorolac 30 Mg/Ml 1 Ml Vial IVP 06/06/21 18:01 15 mg Q6HR ANN Administration Magnesium Hydroxide 2,400 mg 06/02/21 09:00 Magnesium Hydroxide 2,400 Mg/10 Ml Cup PO BID PRN Constipation Metoclopramide HCl 10 mg 06/01/21 13:38 06/02/21 06:55 Metoclopramide 5 Mg/Ml 2 Ml Vial IVP 10 mg Q4H PRN Administration Nausea And Vomiting Metoprolol Tartrate 25 mg 06/02/21 09:00 06/02/21 07:19 Metoprolol Tartrate 25 Mg Tab PO 25 mg BID ANN Administration Miscellaneous Information 1 each 06/01/21 13:38 Magnesium Replacement Protocol 1 Each Misc MISCELLANE DAILY PRN Per Protocol Protocol Miscellaneous Information 1 each 06/01/21 13:38 Potassium Replacement Protocol 1 Each Misc MISCELLANE DAILY PRN Per Protocol Protocol Miscellaneous Information 1 each 06/01/21 13:38 Phosphorus Replacement Protoco 1 Each Misc MISCELLANE DAILY PRN Per Protocol Protocol Mupirocin 1 applic 06/01/21 21:00 06/02/21 08:43 Mupirocin 2% Oint 22 Gm Tube NASAL 06/04/21 21:01 1 applic BID ANN Administration Ondansetron HCl 4 mg 06/01/21 13:38 Ondansetron 4 Mg/2 Ml Vial IVP Q6HR PRN Nausea And Vomiting Pantoprazole Sodium 40 mg 06/03/21 07:30 Pantoprazole 40 Mg Tablet PO AC-BRKFST ANN Senna/Docusate Sodium 2 each 06/02/21 21:00 Sennosides-Docusate Sodium 1 Each Tab PO HS ANN Sodium Chloride 10 ml 06/01/21 21:00 06/02/21 08:43 Sodium Chloride 0.9% Flush 10 Ml Syringe IV 10 ml BID ANN Administration Objective - Vital Signs Vital signs: Vital Signs Temp 99.5 F 06/02/21 04:00 Pulse 79 06/02/21 11:00 Resp 26 H 06/02/21 11:00 BP 146/86 06/02/21 02:15 Pulse Ox 97 06/02/21 11:00 Intake & Output 06/01/21 06/02/21 06/02/21 18:59 06:59 18:59 Intake Total 657.979 2727.167 899.283 Output Total 1879 1344 350 Balance -1358.560 295.167 549.283 Weight 87.7 kg 87.7 kg Intake: IV 434.0 1568.5 296 ACETAMINOPHEN IV (For NPO 100 ) 1,000 mg In Empty Bag 1 bag @ 400 mls/hr IVPB Q6HR ANN Rx#:[id number] Albumin Human 5% 500 ml 500 In Empty Bag 1 bag @ 250 mls/hr IVPB ONCE ONE Rx#: [id number] CO/CI 90 200 20 Lactated Ringers 1,000 ml 200 650 190 @ 20 mls/hr IV .Q24H ANN Rx#:[id number] Nitroglycerin-D5w Pmx 50 6.0 1.5 mg In Dextrose/Water 1 250ml.bag @ 5 MCG/MIN 1.5 mls/hr IV .Q24H ANN Rx#: [id number] Pressure bag 36 117 36 ceFAZolin 2 gm In Sodium 50 50 Chloride 0.9% 50 ml @ 100 mls/hr IVPB ONCE ONE Rx# :[id number] Intake, IV Titration 86.440 70.667 3.283 Amount Clevidipine Butyrate 25 64.865 45.066 mg In Empty Bag 1 bag @ 1 MG/HR 2 mls/hr IV .Q24H [facility] Rx#:[id number] Dexmedetomidine/0.9% NaCl 17.600 0.204 (Pmx) 400 mcg In Empty Bag 1 bag @ Titrate IV . Q0M [facility] Rx#:[id number] Insulin Regular 100 unit 1.952 19.897 3.283 In Sodium Chloride 0.9% 100 ml @ Per Protocol IV .Q0M ANN Rx#:[id number] Norepinephrine 4 mg In 2.023 5.5 Sodium Chloride 0.9% 250 ml @ 0.05 MCG/KG/MIN 15. 564 mls/hr IV .[id number] ANN Rx#:[id number] Oral 600 Output: Chest Tube Drainage 279 419 150 Chest Tube Left Pleural/ 72 289 80 Mediastinal Chest Tube Mediastinal 207 130 70 Urine 700 925 200 Estimated Blood Loss 900 Other: Voiding Method Indwelling Catheter Indwelling Catheter Indwelling Catheter ABP, PAP, CO, CI - Last Documented Arterial Blood Pressure 134/59 Pulmonary Artery Pressure 31/11 Cardiac Output 4.4 Cardiac Index 2.2 - Labs CBC & Chem 7: 06/02/21 03:35 06/02/21 03:35 Labs: Abnormal Lab Results - Last 24 Hours (Table) 05/31/21 06/01/21 06/01/21 Range/Units 12:31 09:16 10:18 WBC (3.8-10.6) k/uL RBC (4.30-5.90) m/uL Hgb (13.0-17.5) gm/dL Hct (39.0-53.0) % Plt Count (150-450) k/uL Neutrophils # (1.3-7.7) k/uL Lymphocytes # (1.0-4.8) k/uL Monocytes # (0-1.0) k/uL APTT (22.0-30.0) sec ABG pH (7.35-7.45) ABG pO2 349 H 179 H (83-108) mmHg ABG HCO3 27 H (21-25) mmol/L ABG Total CO2 28 H 26 H (19-24) mmol/L ABG O2 Saturation 99.7 H 99.5 H (94-97) % ABG Hematocrit (34.0-46.0) % ABG Sodium (135-146) mmol/L ABG Potassium (3.4-4.5) mmol/L ABG Ionized Calcium 4.3 L (4.5-5.3) mg/dL ABG Glucose 120 H 123 H (75-99) mg/dL ABG Lactic Acid (0.5-1.6) mmol/L Hemoglobin 11.7 L (13.0-17.5) gm/dL Sodium (137-145) mmol/L Glucose (74-99) mg/dL POC Glucose (mg/dL) (75-99) mg/dL Calcium (8.4-10.2) mg/dL Magnesium (1.6-2.3) mg/dL AST (17-59) U/L ALT (4-49) U/L Total Protein (6.3-8.2) g/dL Albumin (3.5-5.0) g/dL Arterial Blood Potassium (3.4-4.5) mmol/L Arterial Blood Glucose 120 H 123 H (75-99) mg/dL Crossmatch See Detail 06/01/21 06/01/21 06/01/21 Range/Units 11:23 11:48 12:15 WBC (3.8-10.6) k/uL RBC (4.30-5.90) m/uL Hgb (13.0-17.5) gm/dL Hct (39.0-53.0) % Plt Count (150-450) k/uL Neutrophils # (1.3-7.7) k/uL Lymphocytes # (1.0-4.8) k/uL Monocytes # (0-1.0) k/uL APTT (22.0-30.0) sec ABG pH 7.33 L (7.35-7.45) ABG pO2 317 H 378 H 350 H (83-108) mmHg ABG HCO3 (21-25) mmol/L ABG Total CO2 27 H 25 H (19-24) mmol/L ABG O2 Saturation 99.9 H 99.9 H 100.0 H (94-97) % ABG Hematocrit 33 L (34.0-46.0) % ABG Sodium 133 L 132 L 134 L (135-146) mmol/L ABG Potassium 6.1 H 6.9 H* 6.3 H* (3.4-4.5) mmol/L ABG Ionized Calcium 4.1 L 4.1 L 4.0 L (4.5-5.3) mg/dL ABG Glucose 147 H 161 H 172 H (75-99) mg/dL ABG Lactic Acid 2.0 H 2.9 H* 4.2 H* (0.5-1.6) mmol/L Hemoglobin 10.7 L 11.6 L 11.0 L (13.0-17.5) gm/dL Sodium (137-145) mmol/L Glucose (74-99) mg/dL POC Glucose (mg/dL) (75-99) mg/dL Calcium (8.4-10.2) mg/dL Magnesium (1.6-2.3) mg/dL AST (17-59) U/L ALT (4-49) U/L Total Protein (6.3-8.2) g/dL Albumin (3.5-5.0) g/dL Arterial Blood Potassium 6.1 H 6.9 H* 6.3 H* (3.4-4.5) mmol/L Arterial Blood Glucose 147 H 161 H 172 H (75-99) mg/dL Crossmatch 06/01/21 06/01/21 06/01/21 Range/Units 12: 14:10 14:10 WBC 17.5 H (3.8-10.6) k/uL RBC 4.16 L (4.30-5.90) m/uL Hgb 12.2 L (13.0-17.5) gm/dL Hct 37.3 L (39.0-53.0) % Plt Count 123 L (150-450) k/uL Neutrophils # 14.9 H (1.3-7.7) k/uL Lymphocytes # (1.0-4.8) k/uL Monocytes # 1.1 H (0-1.0) k/uL APTT 33.2 H (22.0-30.0) sec ABG pH (7.35-7.45) ABG pO2 411 H (83-108) mmHg ABG HCO3 (21-25) mmol/L ABG Total CO2 (19-24) mmol/L ABG O2 Saturation 99.9 H (94-97) % ABG Hematocrit 33 L (34.0-46.0) % ABG Sodium (135-146) mmol/L ABG Potassium 5.6 H (3.4-4.5) mmol/L ABG Ionized Calcium 3.9 L (4.5-5.3) mg/dL ABG Glucose 184 H (75-99) mg/dL ABG Lactic Acid 4.7 H* (0.5-1.6) mmol/L Hemoglobin 10.8 L (13.0-17.5) gm/dL Sodium (137-145) mmol/L Glucose (74-99) mg/dL POC Glucose (mg/dL) (75-99) mg/dL Calcium (8.4-10.2) mg/dL Magnesium (1.6-2.3) mg/dL AST (17-59) U/L ALT (4-49) U/L Total Protein (6.3-8.2) g/dL Albumin (3.5-5.0) g/dL Arterial Blood Potassium 5.6 H (3.4-4.5) mmol/L Arterial Blood Glucose 184 H (75-99) mg/dL Crossmatch 06/01/21 06/01/21 06/01/21 Range/Units 14:10 14:11 14:14 WBC (3.8-10.6) k/uL RBC (4.30-5.90) m/uL Hgb (13.0-17.5) gm/dL Hct (39.0-53.0) % Plt Count (150-450) k/uL Neutrophils # (1.3-7.7) k/uL Lymphocytes # (1.0-4.8) k/uL Monocytes # (0-1.0) k/uL APTT (22.0-30.0) sec ABG pH (7.35-7.45) ABG pO2 273 H (83-108) mmHg ABG HCO3 26 H (21-25) mmol/L ABG Total CO2 27 H (19-24) mmol/L ABG O2 Saturation 100.0 H (94-97) % ABG Hematocrit (34.0-46.0) % ABG Sodium (135-146) mmol/L ABG Potassium (3.4-4.5) mmol/L ABG Ionized Calcium (4.5-5.3) mg/dL ABG Glucose (75-99) mg/dL ABG Lactic Acid (0.5-1.6) mmol/L Hemoglobin (13.0-17.5) gm/dL Sodium 135 L (137-145) mmol/L Glucose 112 H (74-99) mg/dL POC Glucose (mg/dL) 104 H (75-99) mg/dL Calcium 7.9 L (8.4-10.2) mg/dL Magnesium 2.8 H (1.6-2.3) mg/dL AST 73 H (17-59) U/L ALT 75 H (4-49) U/L Total Protein 4.9 L (6.3-8.2) g/dL Albumin 2.6 L (3.5-5.0) g/dL Arterial Blood Potassium (3.4-4.5) mmol/L Arterial Blood Glucose (75-99) mg/dL Crossmatch 06/01/21 06/01/21 06/01/21 Range/Units 15:05 16:05 17:03 WBC (3.8-10.6) k/uL RBC (4.30-5.90) m/uL Hgb (13.0-17.5) gm/dL Hct (39.0-53.0) % Plt Count (150-450) k/uL Neutrophils # (1.3-7.7) k/uL Lymphocytes # (1.0-4.8) k/uL Monocytes # (0-1.0) k/uL APTT (22.0-30.0) sec ABG pH (7.35-7.45) ABG pO2 (83-108) mmHg ABG HCO3 (21-25) mmol/L ABG Total CO2 (19-24) mmol/L ABG O2 Saturation (94-97) % ABG Hematocrit (34.0-46.0) % ABG Sodium (135-146) mmol/L ABG Potassium (3.4-4.5) mmol/L ABG Ionized Calcium (4.5-5.3) mg/dL ABG Glucose (75-99) mg/dL ABG Lactic Acid (0.5-1.6) mmol/L Hemoglobin (13.0-17.5) gm/dL Sodium (137-145) mmol/L Glucose (74-99) mg/dL POC Glucose (mg/dL) 103 H 119 H 148 H (75-99) mg/dL Calcium (8.4-10.2) mg/dL Magnesium (1.6-2.3) mg/dL AST (17-59) U/L ALT (4-49) U/L Total Protein (6.3-8.2) g/dL Albumin (3.5-5.0) g/dL Arterial Blood Potassium (3.4-4.5) mmol/L Arterial Blood Glucose (75-99) mg/dL Crossmatch 06/01/21 06/01/21 06/01/21 Range/Units 18:03 18:59 19:45 WBC (3.8-10.6) k/uL RBC (4.30-5.90) m/uL Hgb (13.0-17.5) gm/dL Hct (39.0-53.0) % Plt Count (150-450) k/uL Neutrophils # (1.3-7.7) k/uL Lymphocytes # (1.0-4.8) k/uL Monocytes # (0-1.0) k/uL APTT (22.0-30.0) sec ABG pH (7.35-7.45) ABG pO2 (83-108) mmHg ABG HCO3 (21-25) mmol/L ABG Total CO2 (19-24) mmol/L ABG O2 Saturation (94-97) % ABG Hematocrit (34.0-46.0) % ABG Sodium (135-146) mmol/L ABG Potassium (3.4-4.5) mmol/L ABG Ionized Calcium (4.5-5.3) mg/dL ABG Glucose (75-99) mg/dL ABG Lactic Acid (0.5-1.6) mmol/L Hemoglobin (13.0-17.5) gm/dL Sodium (137-145) mmol/L Glucose (74-99) mg/dL POC Glucose (mg/dL) 149 H 138 H 133 H (75-99) mg/dL Calcium (8.4-10.2) mg/dL Magnesium (1.6-2.3) mg/dL AST (17-59) U/L ALT (4-49) U/L Total Protein (6.3-8.2) g/dL Albumin (3.5-5.0) g/dL Arterial Blood Potassium (3.4-4.5) mmol/L Arterial Blood Glucose (75-99) mg/dL Crossmatch 06/01/21 06/01/21 06/01/21 Range/Units 19:50 21:15 22:12 WBC 14.6 H (3.8-10.6) k/uL RBC 4.20 L (4.30-5.90) m/uL Hgb 12.2 L (13.0-17.5) gm/dL Hct 37.4 L (39.0-53.0) % Plt Count 133 L (150-450) k/uL Neutrophils # 12.7 H (1.3-7.7) k/uL Lymphocytes # 0.6 L (1.0-4.8) k/uL Monocytes # 1.1 H (0-1.0) k/uL APTT (22.0-30.0) sec ABG pH (7.35-7.45) ABG pO2 (83-108) mmHg ABG HCO3 (21-25) mmol/L ABG Total CO2 (19-24) mmol/L ABG O2 Saturation (94-97) % ABG Hematocrit (34.0-46.0) % ABG Sodium (135-146) mmol/L ABG Potassium (3.4-4.5) mmol/L ABG Ionized Calcium (4.5-5.3) mg/dL ABG Glucose (75-99) mg/dL ABG Lactic Acid (0.5-1.6) mmol/L Hemoglobin (13.0-17.5) gm/dL Sodium (137-145) mmol/L Glucose (74-99) mg/dL POC Glucose (mg/dL) 131 H 133 H (75-99) mg/dL Calcium (8.4-10.2) mg/dL Magnesium (1.6-2.3) mg/dL AST (17-59) U/L ALT (4-49) U/L Total Protein (6.3-8.2) g/dL Albumin (3.5-5.0) g/dL Arterial Blood Potassium (3.4-4.5) mmol/L Arterial Blood Glucose (75-99) mg/dL Crossmatch 06/01/21 06/01/21 06/02/21 Range/Units 23:25 Unknown 00:48 WBC 18.5 H (3.8-10.6) k/uL RBC (4.30-5.90) m/uL Hgb (13.0-17.5) gm/dL Hct (39.0-53.0) % Plt Count (150-450) k/uL Neutrophils # 15.7 H (1.3-7.7) k/uL Lymphocytes # (1.0-4.8) k/uL Monocytes # 1.5 H (0-1.0) k/uL APTT (22.0-30.0) sec ABG pH (7.35-7.45) ABG pO2 (83-108) mmHg ABG HCO3 (21-25) mmol/L ABG Total CO2 (19-24) mmol/L ABG O2 Saturation (94-97) % ABG Hematocrit (34.0-46.0) % ABG Sodium (135-146) mmol/L ABG Potassium (3.4-4.5) mmol/L ABG Ionized Calcium (4.5-5.3) mg/dL ABG Glucose (75-99) mg/dL ABG Lactic Acid (0.5-1.6) mmol/L Hemoglobin (13.0-17.5) gm/dL Sodium (137-145) mmol/L Glucose (74-99) mg/dL POC Glucose (mg/dL) 140 H 139 H (75-99) mg/dL Calcium (8.4-10.2) mg/dL Magnesium (1.6-2.3) mg/dL AST (17-59) U/L ALT (4-49) U/L Total Protein (6.3-8.2) g/dL Albumin (3.5-5.0) g/dL Arterial Blood Potassium (3.4-4.5) mmol/L Arterial Blood Glucose (75-99) mg/dL Crossmatch 06/02/21 06/02/21 06/02/21 Range/Units 02:41 03:31 03:35 WBC 15.8 H (3.8-10.6) k/uL RBC (4.30-5.90) m/uL Hgb 12.6 L (13.0-17.5) gm/dL Hct 38.5 L (39.0-53.0) % Plt Count (150-450) k/uL Neutrophils # 13.5 H (1.3-7.7) k/uL Lymphocytes # 0.8 L (1.0-4.8) k/uL Monocytes # 1.2 H (0-1.0) k/uL APTT (22.0-30.0) sec ABG pH (7.35-7.45) ABG pO2 (83-108) mmHg ABG HCO3 (21-25) mmol/L ABG Total CO2 (19-24) mmol/L ABG O2 Saturation (94-97) % ABG Hematocrit (34.0-46.0) % ABG Sodium (135-146) mmol/L ABG Potassium (3.4-4.5) mmol/L ABG Ionized Calcium (4.5-5.3) mg/dL ABG Glucose (75-99) mg/dL ABG Lactic Acid (0.5-1.6) mmol/L Hemoglobin (13.0-17.5) gm/dL Sodium (137-145) mmol/L Glucose (74-99) mg/dL POC Glucose (mg/dL) 128 H 124 H (75-99) mg/dL Calcium (8.4-10.2) mg/dL Magnesium (1.6-2.3) mg/dL AST (17-59) U/L ALT (4-49) U/L Total Protein (6.3-8.2) g/dL Albumin (3.5-5.0) g/dL Arterial Blood Potassium (3.4-4.5) mmol/L Arterial Blood Glucose (75-99) mg/dL Crossmatch 06/02/21 06/02/21 06/02/21 Range/Units 03:35 05:33 06:51 WBC (3.8-10.6) k/uL RBC (4.30-5.90) m/uL Hgb (13.0-17.5) gm/dL Hct (39.0-53.0) % Plt Count (150-450) k/uL Neutrophils # (1.3-7.7) k/uL Lymphocytes # (1.0-4.8) k/uL Monocytes # (0-1.0) k/uL APTT (22.0-30.0) sec ABG pH (7.35-7.45) ABG pO2 (83-108) mmHg ABG HCO3 (21-25) mmol/L ABG Total CO2 (19-24) mmol/L ABG O2 Saturation (94-97) % ABG Hematocrit (34.0-46.0) % ABG Sodium (135-146) mmol/L ABG Potassium (3.4-4.5) mmol/L ABG Ionized Calcium (4.5-5.3) mg/dL ABG Glucose (75-99) mg/dL ABG Lactic Acid (0.5-1.6) mmol/L Hemoglobin (13.0-17.5) gm/dL Sodium 135 L (137-145) mmol/L Glucose 141 H (74-99) mg/dL POC Glucose (mg/dL) 121 H 132 H (75-99) mg/dL Calcium 8.3 L (8.4-10.2) mg/dL Magnesium (1.6-2.3) mg/dL AST 114 H (17-59) U/L ALT 69 H (4-49) U/L Total Protein 5.7 L (6.3-8.2) g/dL Albumin 3.2 L (3.5-5.0) g/dL Arterial Blood Potassium (3.4-4.5) mmol/L Arterial Blood Glucose (75-99) mg/dL Crossmatch 06/02/21 06/02/21 06/02/21 Range/Units 08:03 09:00 10:07 WBC (3.8-10.6) k/uL RBC (4.30-5.90) m/uL Hgb (13.0-17.5) gm/dL Hct (39.0-53.0) % Plt Count (150-450) k/uL Neutrophils # (1.3-7.7) k/uL Lymphocytes # (1.0-4.8) k/uL Monocytes # (0-1.0) k/uL APTT (22.0-30.0) sec ABG pH (7.35-7.45) ABG pO2 (83-108) mmHg ABG HCO3 (21-25) mmol/L ABG Total CO2 (19-24) mmol/L ABG O2 Saturation (94-97) % ABG Hematocrit (34.0-46.0) % ABG Sodium (135-146) mmol/L ABG Potassium (3.4-4.5) mmol/L ABG Ionized Calcium (4.5-5.3) mg/dL ABG Glucose (75-99) mg/dL ABG Lactic Acid (0.5-1.6) mmol/L Hemoglobin (13.0-17.5) gm/dL Sodium (137-145) mmol/L Glucose (74-99) mg/dL POC Glucose (mg/dL) 125 H 123 H 123 H (75-99) mg/dL Calcium (8.4-10.2) mg/dL Magnesium (1.6-2.3) mg/dL AST (17-59) U/L ALT (4-49) U/L Total Protein (6.3-8.2) g/dL Albumin (3.5-5.0) g/dL Arterial Blood Potassium (3.4-4.5) mmol/L Arterial Blood Glucose (75-99) mg/dL Crossmatch 06/02/21 06/02/21 Range/Units 11:01 11:44 WBC (3.8-10.6) k/uL RBC (4.30-5.90) m/uL Hgb (13.0-17.5) gm/dL Hct (39.0-53.0) % Plt Count (150-450) k/uL Neutrophils # (1.3-7.7) k/uL Lymphocytes # (1.0-4.8) k/uL Monocytes # (0-1.0) k/uL APTT (22.0-30.0) sec ABG pH (7.35-7.45) ABG pO2 (83-108) mmHg ABG HCO3 (21-25) mmol/L ABG Total CO2 (19-24) mmol/L ABG O2 Saturation (94-97) % ABG Hematocrit (34.0-46.0) % ABG Sodium (135-146) mmol/L ABG Potassium (3.4-4.5) mmol/L ABG Ionized Calcium (4.5-5.3) mg/dL ABG Glucose (75-99) mg/dL ABG Lactic Acid (0.5-1.6) mmol/L Hemoglobin (13.0-17.5) gm/dL Sodium (137-145) mmol/L Glucose (74-99) mg/dL POC Glucose (mg/dL) 117 H 122 H (75-99) mg/dL Calcium (8.4-10.2) mg/dL Magnesium (1.6-2.3) mg/dL AST (17-59) U/L ALT (4-49) U/L Total Protein (6.3-8.2) g/dL Albumin (3.5-5.0) g/dL Arterial Blood Potassium (3.4-4.5) mmol/L Arterial Blood Glucose (75-99) mg/dL Crossmatch Microbiology - Last 24 Hours (Table) 05/31/21 12:11 Nasal Screen MRSA/MSSA - Final Nasal Swab
--- NOTE | 2021-06-02 13:17 | P.PN ---
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 EMS responded within 3 minutes to the call, and he was noted to be in ventricular fibrillation, received 1 shock and there was return of normal sinus rhythm and return of spontaneous circulation. He was brought into the hospital and seen by cardiology on consultation. Acute ST elevation SC alert was called, patient had cardiac catheterization and he was found to have chronic occlusion of the RCA. He was also found to have diffuse disease in the left coronary system patient received aspirin, atorvastatin, and sublingual nitroglycerin. And he also received heparin in the catheterization laboratory. Transferred after the cardiac cath to the ICU, thoracic surgery was consulted, and I was asked to see him on consultation for preoperative pulmonary clearance. Patient has no active pulmonary symptoms whatsoever. Denies any history of COPD, he is a lifetime nonsmoker. Never complained of shortness of breath. No history of cough wheezing. Although the patient had COVID-19 infection back in August of 2020. Patient is not vaccinated. Initial chest x-ray on admission showed evidence of congestive heart failure. Follow-up chest x-ray continues to show minimal cardiomegaly with interstitial opacities and atelectatic changes at the bases. Echocardiogram showed good LV function however he had severe concentric LVH. No significant valvular pathology was noted. Patient was found to have bicuspid aortic valve mildly thickened. There was also evidence of grade 1 diastolic dysfunction. And trace of mitral regurgitation at any rate considering the plan to undergo cardiac surgery, I was asked to see him on consultation, based on his clinical pulmonary history, patient is considered low operative risk. Reevaluated today on 06/01/21, patient just came back from the operating room, he is status post CABG, patient had GUIDO to LAD saphenous vein graft to obtuse marginal artery and saphenous vein graft to posterior descending. He is now in the ICU on mechanical ventilation, he is on assist control rate of 12 tidal volume of 500 FiO2 was initially on the percent and now it is 50%, and PEEP of 5. Chest x-ray showed no evidence of active disease, postoperative changes noted. ABG earlier today showed a pO2 of 273 pCO2 40 pH of 7.41 hence the patient is now on 50% FiO2. Patient is not requiring any inotropes or any pressors, he is on a low dose of propofol, and on clevidipine. Reevaluated today on 06/02/21, patient remains in the ICU, he was extubated shortly after his bypass surgery yesterday. He is now postoperative day #1. Patient is doing well, he is sitting in a recliner, he is already ambulating, extubation time was 20: 10. Patient is on room air. Not in any distress. Chest x-ray showed tiny left apical pneumothorax and minimal atelectasis with mild venous congestion. CBC is relatively normal WBC count is 15.8 hemoglobin is 12.6. Asymmetric metabolic profile is unremarkable. Objective - Vital Signs Vital signs: Vital Signs Temp 99.5 F 06/02/21 04:00 Pulse 79 06/02/21 11:00 Resp 26 H 06/02/21 11:00 BP 146/86 06/02/21 02:15 Pulse Ox 97 06/02/21 11:00 Intake & Output 06/01/21 06/02/21 06/02/21 18:59 06:59 18:59 Intake Total 479.847 9074.167 899.283 Output Total 1879 1344 350 Balance -1358.560 295.167 549.283 Weight 87.7 kg 87.7 kg Intake: IV 434.0 1568.5 296 ACETAMINOPHEN IV (For NPO 100 ) 1,000 mg In Empty Bag 1 bag @ 400 mls/hr IVPB Q6HR [facility] Rx#:[id number] Albumin Human 5% 500 ml 500 In Empty Bag 1 bag @ 250 mls/hr IVPB ONCE ONE Rx#: [id number] CO/CI 90 200 20 Lactated Ringers 1,000 ml 200 650 190 @ 20 mls/hr IV .Q24H [facility] Rx#:[id number] Nitroglycerin-D5w Pmx 50 6.0 1.5 mg In Dextrose/Water 1 250ml.bag @ 5 MCG/MIN 1.5 mls/hr IV .Q24H [facility] Rx#: [id number] Pressure bag 36 117 36 ceFAZolin 2 gm In Sodium 50 50 Chloride 0.9% 50 ml @ 100 mls/hr IVPB ONCE ONE Rx# :[id number] Intake, IV Titration 86.440 70.667 3.283 Amount Clevidipine Butyrate 25 64.865 45.066 mg In Empty Bag 1 bag @ 1 MG/HR 2 mls/hr IV .Q24H [facility] Rx#:[id number] Dexmedetomidine/0.9% NaCl 17.600 0.204 (Pmx) 400 mcg In Empty Bag 1 bag @ Titrate IV . Q0M [facility] Rx#:[id number] Insulin Regular 100 unit 1.952 19.897 3.283 In Sodium Chloride 0.9% 100 ml @ Per Protocol IV .Q0M [facility] Rx#:[id number] Norepinephrine 4 mg In 2.023 5.5 Sodium Chloride 0.9% 250 ml @ 0.05 MCG/KG/MIN 15. 564 mls/hr IV .[id number] [facility] Rx#:[id number] Oral 600 Output: Chest Tube Drainage 279 419 150 Chest Tube Left Pleural/ 72 289 80 Mediastinal Chest Tube Mediastinal 207 130 70 Urine 700 925 200 Estimated Blood Loss 900 Other: Voiding Method Indwelling Catheter Indwelling Catheter Indwelling Catheter ABP, PAP, CO, CI - Last Documented Arterial Blood Pressure 134/59 Pulmonary Artery Pressure 31/11 Cardiac Output 4.4 Cardiac Index 2.2 - Exam Physical Exam: Revealed a 65-year-old white male in no distress. Head: Atraumatic normocephalic. HEENT:[Neck is supple.] [No neck masses.] [No thyromegaly.] [No JVD.] Chest: [Chest tubes noted, crackles at the bases no rhonchi and no wheezes Cardiac Exam: [Normal S1 and S2, no S3 gallop, 2/6 systolic murmur throughout the precordium. Abdomen: [Soft, nontender, no megaly, no rebound, no guarding, normal bowel sounds.] Extremities: [No clubbing, no edema, no cyanosis.] Neurological Exam: [No focal neurologic deficit.] Alert oriented 3. Psychiatric: Normal mood affect and normal mental status examination. - Labs CBC & Chem 7: 06/02/21 03:35 06/02/21 03:35 Labs: Abnormal Lab Results - Last 24 Hours (Table) 05/31/21 06/01/21 06/01/21 Range/Units 12:31 09:16 10:18 WBC (3.8-10.6) k/uL RBC (4.30-5.90) m/uL Hgb (13.0-17.5) gm/dL Hct (39.0-53.0) % Plt Count (150-450) k/uL Neutrophils # (1.3-7.7) k/uL Lymphocytes # (1.0-4.8) k/uL Monocytes # (0-1.0) k/uL APTT (22.0-30.0) sec ABG pH (7.35-7.45) ABG pO2 349 H 179 H (83-108) mmHg ABG HCO3 27 H (21-25) mmol/L ABG Total CO2 28 H 26 H (19-24) mmol/L ABG O2 Saturation 99.7 H 99.5 H (94-97) % ABG Hematocrit (34.0-46.0) % ABG Sodium (135-146) mmol/L ABG Potassium (3.4-4.5) mmol/L ABG Ionized Calcium 4.3 L (4.5-5.3) mg/dL ABG Glucose 120 H 123 H (75-99) mg/dL ABG Lactic Acid (0.5-1.6) mmol/L Hemoglobin 11.7 L (13.0-17.5) gm/dL Sodium (137-145) mmol/L Glucose (74-99) mg/dL POC Glucose (mg/dL) (75-99) mg/dL Calcium (8.4-10.2) mg/dL Magnesium (1.6-2.3) mg/dL AST (17-59) U/L ALT (4-49) U/L Total Protein (6.3-8.2) g/dL Albumin (3.5-5.0) g/dL Arterial Blood Potassium (3.4-4.5) mmol/L Arterial Blood Glucose 120 H 123 H (75-99) mg/dL Crossmatch See Detail 06/01/21 06/01/21 06/01/21 Range/Units 11:23 11:48 12:15 WBC (3.8-10.6) k/uL RBC (4.30-5.90) m/uL Hgb (13.0-17.5) gm/dL Hct (39.0-53.0) % Plt Count (150-450) k/uL Neutrophils # (1.3-7.7) k/uL Lymphocytes # (1.0-4.8) k/uL Monocytes # (0-1.0) k/uL APTT (22.0-30.0) sec ABG pH 7.33 L (7.35-7.45) ABG pO2 317 H 378 H 350 H (83-108) mmHg ABG HCO3 (21-25) mmol/L ABG Total CO2 27 H 25 H (19-24) mmol/L ABG O2 Saturation 99.9 H 99.9 H 100.0 H (94-97) % ABG Hematocrit 33 L (34.0-46.0) % ABG Sodium 133 L 132 L 134 L (135-146) mmol/L ABG Potassium 6.1 H 6.9 H* 6.3 H* (3.4-4.5) mmol/L ABG Ionized Calcium 4.1 L 4.1 L 4.0 L (4.5-5.3) mg/dL ABG Glucose 147 H 161 H 172 H (75-99) mg/dL ABG Lactic Acid 2.0 H 2.9 H* 4.2 H* (0.5-1.6) mmol/L Hemoglobin 10.7 L 11.6 L 11.0 L (13.0-17.5) gm/dL Sodium (137-145) mmol/L Glucose (74-99) mg/dL POC Glucose (mg/dL) (75-99) mg/dL Calcium (8.4-10.2) mg/dL Magnesium (1.6-2.3) mg/dL AST (17-59) U/L ALT (4-49) U/L Total Protein (6.3-8.2) g/dL Albumin (3.5-5.0) g/dL Arterial Blood Potassium 6.1 H 6.9 H* 6.3 H* (3.4-4.5) mmol/L Arterial Blood Glucose 147 H 161 H 172 H (75-99) mg/dL Crossmatch 06/01/21 06/01/21 06/01/21 Range/Units 12: 14:10 14:10 WBC 17.5 H (3.8-10.6) k/uL RBC 4.16 L (4.30-5.90) m/uL Hgb 12.2 L (13.0-17.5) gm/dL Hct 37.3 L (39.0-53.0) % Plt Count 123 L (150-450) k/uL Neutrophils # 14.9 H (1.3-7.7) k/uL Lymphocytes # (1.0-4.8) k/uL Monocytes # 1.1 H (0-1.0) k/uL APTT 33.2 H (22.0-30.0) sec ABG pH (7.35-7.45) ABG pO2 411 H (83-108) mmHg ABG HCO3 (21-25) mmol/L ABG Total CO2 (19-24) mmol/L ABG O2 Saturation 99.9 H (94-97) % ABG Hematocrit 33 L (34.0-46.0) % ABG Sodium (135-146) mmol/L ABG Potassium 5.6 H (3.4-4.5) mmol/L ABG Ionized Calcium 3.9 L (4.5-5.3) mg/dL ABG Glucose 184 H (75-99) mg/dL ABG Lactic Acid 4.7 H* (0.5-1.6) mmol/L Hemoglobin 10.8 L (13.0-17.5) gm/dL Sodium (137-145) mmol/L Glucose (74-99) mg/dL POC Glucose (mg/dL) (75-99) mg/dL Calcium (8.4-10.2) mg/dL Magnesium (1.6-2.3) mg/dL AST (17-59) U/L ALT (4-49) U/L Total Protein (6.3-8.2) g/dL Albumin (3.5-5.0) g/dL Arterial Blood Potassium 5.6 H (3.4-4.5) mmol/L Arterial Blood Glucose 184 H (75-99) mg/dL Crossmatch 06/01/21 06/01/21 06/01/21 Range/Units 14:10 14:11 14:14 WBC (3.8-10.6) k/uL RBC (4.30-5.90) m/uL Hgb (13.0-17.5) gm/dL Hct (39.0-53.0) % Plt Count (150-450) k/uL Neutrophils # (1.3-7.7) k/uL Lymphocytes # (1.0-4.8) k/uL Monocytes # (0-1.0) k/uL APTT (22.0-30.0) sec ABG pH (7.35-7.45) ABG pO2 273 H (83-108) mmHg ABG HCO3 26 H (21-25) mmol/L ABG Total CO2 27 H (19-24) mmol/L ABG O2 Saturation 100.0 H (94-97) % ABG Hematocrit (34.0-46.0) % ABG Sodium (135-146) mmol/L ABG Potassium (3.4-4.5) mmol/L ABG Ionized Calcium (4.5-5.3) mg/dL ABG Glucose (75-99) mg/dL ABG Lactic Acid (0.5-1.6) mmol/L Hemoglobin (13.0-17.5) gm/dL Sodium 135 L (137-145) mmol/L Glucose 112 H (74-99) mg/dL POC Glucose (mg/dL) 104 H (75-99) mg/dL Calcium 7.9 L (8.4-10.2) mg/dL Magnesium 2.8 H (1.6-2.3) mg/dL AST 73 H (17-59) U/L ALT 75 H (4-49) U/L Total Protein 4.9 L (6.3-8.2) g/dL Albumin 2.6 L (3.5-5.0) g/dL Arterial Blood Potassium (3.4-4.5) mmol/L Arterial Blood Glucose (75-99) mg/dL Crossmatch 06/01/21 06/01/21 06/01/21 Range/Units 15:05 16:05 17:03 WBC (3.8-10.6) k/uL RBC (4.30-5.90) m/uL Hgb (13.0-17.5) gm/dL Hct (39.0-53.0) % Plt Count (150-450) k/uL Neutrophils # (1.3-7.7) k/uL Lymphocytes # (1.0-4.8) k/uL Monocytes # (0-1.0) k/uL APTT (22.0-30.0) sec ABG pH (7.35-7.45) ABG pO2 (83-108) mmHg ABG HCO3 (21-25) mmol/L ABG Total CO2 (19-24) mmol/L ABG O2 Saturation (94-97) % ABG Hematocrit (34.0-46.0) % ABG Sodium (135-146) mmol/L ABG Potassium (3.4-4.5) mmol/L ABG Ionized Calcium (4.5-5.3) mg/dL ABG Glucose (75-99) mg/dL ABG Lactic Acid (0.5-1.6) mmol/L Hemoglobin (13.0-17.5) gm/dL Sodium (137-145) mmol/L Glucose (74-99) mg/dL POC Glucose (mg/dL) 103 H 119 H 148 H (75-99) mg/dL Calcium (8.4-10.2) mg/dL Magnesium (1.6-2.3) mg/dL AST (17-59) U/L ALT (4-49) U/L Total Protein (6.3-8.2) g/dL Albumin (3.5-5.0) g/dL Arterial Blood Potassium (3.4-4.5) mmol/L Arterial Blood Glucose (75-99) mg/dL Crossmatch 06/01/21 06/01/21 06/01/21 Range/Units 18:03 18:59 19:45 WBC (3.8-10.6) k/uL RBC (4.30-5.90) m/uL Hgb (13.0-17.5) gm/dL Hct (39.0-53.0) % Plt Count (150-450) k/uL Neutrophils # (1.3-7.7) k/uL Lymphocytes # (1.0-4.8) k/uL Monocytes # (0-1.0) k/uL APTT (22.0-30.0) sec ABG pH (7.35-7.45) ABG pO2 (83-108) mmHg ABG HCO3 (21-25) mmol/L ABG Total CO2 (19-24) mmol/L ABG O2 Saturation (94-97) % ABG Hematocrit (34.0-46.0) % ABG Sodium (135-146) mmol/L ABG Potassium (3.4-4.5) mmol/L ABG Ionized Calcium (4.5-5.3) mg/dL ABG Glucose (75-99) mg/dL ABG Lactic Acid (0.5-1.6) mmol/L Hemoglobin (13.0-17.5) gm/dL Sodium (137-145) mmol/L Glucose (74-99) mg/dL POC Glucose (mg/dL) 149 H 138 H 133 H (75-99) mg/dL Calcium (8.4-10.2) mg/dL Magnesium (1.6-2.3) mg/dL AST (17-59) U/L ALT (4-49) U/L Total Protein (6.3-8.2) g/dL Albumin (3.5-5.0) g/dL Arterial Blood Potassium (3.4-4.5) mmol/L Arterial Blood Glucose (75-99) mg/dL Crossmatch 06/01/21 06/01/21 06/01/21 Range/Units 19:50 21:15 22:12 WBC 14.6 H (3.8-10.6) k/uL RBC 4.20 L (4.30-5.90) m/uL Hgb 12.2 L (13.0-17.5) gm/dL Hct 37.4 L (39.0-53.0) % Plt Count 133 L (150-450) k/uL Neutrophils # 12.7 H (1.3-7.7) k/uL Lymphocytes # 0.6 L (1.0-4.8) k/uL Monocytes # 1.1 H (0-1.0) k/uL APTT (22.0-30.0) sec ABG pH (7.35-7.45) ABG pO2 (83-108) mmHg ABG HCO3 (21-25) mmol/L ABG Total CO2 (19-24) mmol/L ABG O2 Saturation (94-97) % ABG Hematocrit (34.0-46.0) % ABG Sodium (135-146) mmol/L ABG Potassium (3.4-4.5) mmol/L ABG Ionized Calcium (4.5-5.3) mg/dL ABG Glucose (75-99) mg/dL ABG Lactic Acid (0.5-1.6) mmol/L Hemoglobin (13.0-17.5) gm/dL Sodium (137-145) mmol/L Glucose (74-99) mg/dL POC Glucose (mg/dL) 131 H 133 H (75-99) mg/dL Calcium (8.4-10.2) mg/dL Magnesium (1.6-2.3) mg/dL AST (17-59) U/L ALT (4-49) U/L Total Protein (6.3-8.2) g/dL Albumin (3.5-5.0) g/dL Arterial Blood Potassium (3.4-4.5) mmol/L Arterial Blood Glucose (75-99) mg/dL Crossmatch 06/01/21 06/01/21 06/02/21 Range/Units 23:25 Unknown 00:48 WBC 18.5 H (3.8-10.6) k/uL RBC (4.30-5.90) m/uL Hgb (13.0-17.5) gm/dL Hct (39.0-53.0) % Plt Count (150-450) k/uL Neutrophils # 15.7 H (1.3-7.7) k/uL Lymphocytes # (1.0-4.8) k/uL Monocytes # 1.5 H (0-1.0) k/uL APTT (22.0-30.0) sec ABG pH (7.35-7.45) ABG pO2 (83-108) mmHg ABG HCO3 (21-25) mmol/L ABG Total CO2 (19-24) mmol/L ABG O2 Saturation (94-97) % ABG Hematocrit (34.0-46.0) % ABG Sodium (135-146) mmol/L ABG Potassium (3.4-4.5) mmol/L ABG Ionized Calcium (4.5-5.3) mg/dL ABG Glucose (75-99) mg/dL ABG Lactic Acid (0.5-1.6) mmol/L Hemoglobin (13.0-17.5) gm/dL Sodium (137-145) mmol/L Glucose (74-99) mg/dL POC Glucose (mg/dL) 140 H 139 H (75-99) mg/dL Calcium (8.4-10.2) mg/dL Magnesium (1.6-2.3) mg/dL AST (17-59) U/L ALT (4-49) U/L Total Protein (6.3-8.2) g/dL Albumin (3.5-5.0) g/dL Arterial Blood Potassium (3.4-4.5) mmol/L Arterial Blood Glucose (75-99) mg/dL Crossmatch 06/02/21 06/02/21 06/02/21 Range/Units 02:41 03:31 03:35 WBC 15.8 H (3.8-10.6) k/uL RBC (4.30-5.90) m/uL Hgb 12.6 L (13.0-17.5) gm/dL Hct 38.5 L (39.0-53.0) % Plt Count (150-450) k/uL Neutrophils # 13.5 H (1.3-7.7) k/uL Lymphocytes # 0.8 L (1.0-4.8) k/uL Monocytes # 1.2 H (0-1.0) k/uL APTT (22.0-30.0) sec ABG pH (7.35-7.45) ABG pO2 (83-108) mmHg ABG HCO3 (21-25) mmol/L ABG Total CO2 (19-24) mmol/L ABG O2 Saturation (94-97) % ABG Hematocrit (34.0-46.0) % ABG Sodium (135-146) mmol/L ABG Potassium (3.4-4.5) mmol/L ABG Ionized Calcium (4.5-5.3) mg/dL ABG Glucose (75-99) mg/dL ABG Lactic Acid (0.5-1.6) mmol/L Hemoglobin (13.0-17.5) gm/dL Sodium (137-145) mmol/L Glucose (74-99) mg/dL POC Glucose (mg/dL) 128 H 124 H (75-99) mg/dL Calcium (8.4-10.2) mg/dL Magnesium (1.6-2.3) mg/dL AST (17-59) U/L ALT (4-49) U/L Total Protein (6.3-8.2) g/dL Albumin (3.5-5.0) g/dL Arterial Blood Potassium (3.4-4.5) mmol/L Arterial Blood Glucose (75-99) mg/dL Crossmatch 06/02/21 06/02/21 06/02/21 Range/Units 03:35 05:33 06:51 WBC (3.8-10.6) k/uL RBC (4.30-5.90) m/uL Hgb (13.0-17.5) gm/dL Hct (39.0-53.0) % Plt Count (150-450) k/uL Neutrophils # (1.3-7.7) k/uL Lymphocytes # (1.0-4.8) k/uL Monocytes # (0-1.0) k/uL APTT (22.0-30.0) sec ABG pH (7.35-7.45) ABG pO2 (83-108) mmHg ABG HCO3 (21-25) mmol/L ABG Total CO2 (19-24) mmol/L ABG O2 Saturation (94-97) % ABG Hematocrit (34.0-46.0) % ABG Sodium (135-146) mmol/L ABG Potassium (3.4-4.5) mmol/L ABG Ionized Calcium (4.5-5.3) mg/dL ABG Glucose (75-99) mg/dL ABG Lactic Acid (0.5-1.6) mmol/L Hemoglobin (13.0-17.5) gm/dL Sodium 135 L (137-145) mmol/L Glucose 141 H (74-99) mg/dL POC Glucose (mg/dL) 121 H 132 H (75-99) mg/dL Calcium 8.3 L (8.4-10.2) mg/dL Magnesium (1.6-2.3) mg/dL AST 114 H (17-59) U/L ALT 69 H (4-49) U/L Total Protein 5.7 L (6.3-8.2) g/dL Albumin 3.2 L (3.5-5.0) g/dL Arterial Blood Potassium (3.4-4.5) mmol/L Arterial Blood Glucose (75-99) mg/dL Crossmatch 06/02/21 06/02/21 06/02/21 Range/Units 08:03 09:00 10:07 WBC (3.8-10.6) k/uL RBC (4.30-5.90) m/uL Hgb (13.0-17.5) gm/dL Hct (39.0-53.0) % Plt Count (150-450) k/uL Neutrophils # (1.3-7.7) k/uL Lymphocytes # (1.0-4.8) k/uL Monocytes # (0-1.0) k/uL APTT (22.0-30.0) sec ABG pH (7.35-7.45) ABG pO2 (83-108) mmHg ABG HCO3 (21-25) mmol/L ABG Total CO2 (19-24) mmol/L ABG O2 Saturation (94-97) % ABG Hematocrit (34.0-46.0) % ABG Sodium (135-146) mmol/L ABG Potassium (3.4-4.5) mmol/L ABG Ionized Calcium (4.5-5.3) mg/dL ABG Glucose (75-99) mg/dL ABG Lactic Acid (0.5-1.6) mmol/L Hemoglobin (13.0-17.5) gm/dL Sodium (137-145) mmol/L Glucose (74-99) mg/dL POC Glucose (mg/dL) 125 H 123 H 123 H (75-99) mg/dL Calcium (8.4-10.2) mg/dL Magnesium (1.6-2.3) mg/dL AST (17-59) U/L ALT (4-49) U/L Total Protein (6.3-8.2) g/dL Albumin (3.5-5.0) g/dL Arterial Blood Potassium (3.4-4.5) mmol/L Arterial Blood Glucose (75-99) mg/dL Crossmatch 06/02/21 06/02/21 Range/Units 11:01 11:44 WBC (3.8-10.6) k/uL RBC (4.30-5.90) m/uL Hgb (13.0-17.5) gm/dL Hct (39.0-53.0) % Plt Count (150-450) k/uL Neutrophils # (1.3-7.7) k/uL Lymphocytes # (1.0-4.8) k/uL Monocytes # (0-1.0) k/uL APTT (22.0-30.0) sec ABG pH (7.35-7.45) ABG pO2 (83-108) mmHg ABG HCO3 (21-25) mmol/L ABG Total CO2 (19-24) mmol/L ABG O2 Saturation (94-97) % ABG Hematocrit (34.0-46.0) % ABG Sodium (135-146) mmol/L ABG Potassium (3.4-4.5) mmol/L ABG Ionized Calcium (4.5-5.3) mg/dL ABG Glucose (75-99) mg/dL ABG Lactic Acid (0.5-1.6) mmol/L Hemoglobin (13.0-17.5) gm/dL Sodium (137-145) mmol/L Glucose (74-99) mg/dL POC Glucose (mg/dL) 117 H 122 H (75-99) mg/dL Calcium (8.4-10.2) mg/dL Magnesium (1.6-2.3) mg/dL AST (17-59) U/L ALT (4-49) U/L Total Protein (6.3-8.2) g/dL Albumin (3.5-5.0) g/dL Arterial Blood Potassium (3.4-4.5) mmol/L Arterial Blood Glucose (75-99) mg/dL Crossmatch Microbiology - Last 24 Hours (Table) 05/31/21 12:11 Nasal Screen MRSA/MSSA - Final Nasal Swab Assessment and Plan Assessment: Impression: Status post CABG, GUIDO to LAD, SVG to obtuse marginal artery and SVG to posterior descending artery. Postoperative day #1 Ventricular fibrillation/cardiac arrest with return of spontaneous circulation in the field. Acute non-ST elevation myocardial infarction Coronary arteriosclerosis, patient is yet to be scheduled for myocardial vascularization by cardiothoracic surgery on the case. Patient has triple- vessel coronary artery disease. Mild diastolic congestive heart failure as noted on chest x-ray Lifetime nonsmoker Recommendation: Incentive spirometry Aspirin statins and Plavix and beta blockers Continue amiodarone Ambulate Pain control medication Discontinue unnecessary catheters or tubes We will continue to follow. Time with Patient: Less than 30
[2021-06-02 13:57] LABS: Glucose,Whole Blood 155 mg/dL (75-99)
[2021-06-02 14:57] LABS: Glucose,Whole Blood 142 mg/dL (75-99)
[2021-06-02 16:13] LABS: Glucose,Whole Blood 133 mg/dL (75-99)
[2021-06-02] MEDS: METOPROLOL TARTRATE 25 MG TAB PO SCH ×2 (16:32→21:31)
[2021-06-02 17:11] LABS: Glucose,Whole Blood 139 mg/dL (75-99)
[2021-06-02 19:21] LABS: Glucose,Whole Blood 191 mg/dL (75-99)
[2021-06-02 20:01] LABS: Glucose,Whole Blood 136 mg/dL (75-99)
[2021-06-02] MEDS: SENNOSIDES-DOCUSATE SODIUM 1 EACH TAB PO SCH (20:17)
[2021-06-02 21:29] LABS: Glucose,Whole Blood 101 mg/dL (75-99)
[2021-06-02 23:11] LABS: Glucose,Whole Blood 108 mg/dL (75-99)
[2021-06-03 02:46] LABS: Glucose,Whole Blood 123 mg/dL (75-99)
[2021-06-03 03:49] LABS: Glucose,Whole Blood 136 mg/dL (75-99)
[2021-06-03 03:59] LABS: Basophils % (A) 0 %; Eosinophils % (A) 0 %; HCT 34.3 % (39.0-53.0); HGB 11.2 gm/dL (13.0-17.5); Lymphocytes # (A) 0.5 k/uL (1.0-4.8); Lymphocytes % (A) 3 %; MCH 29.4 pg (25.0-35.0); MCHC 32.7 g/dL (31.0-37.0); MCV 90.1 fL (80.0-100.0); Mean Platelet Volume 10.1; Monocytes # (A) 1.1 k/uL (0-1.0); Monocytes % (A) 8 %; Neutrophils # (A) 12.5 k/uL (1.3-7.7); Neutrophils % (A) 87 %; Platelet Count 129 k/uL (150-450); RBC 3.81 m/uL (4.30-5.90); RDW 15.2 % (11.5-15.5); WBC 14.3 k/uL (3.8-10.6)
[2021-06-03 04:16] LABS: Ionized Calcium 4.8 mg/dL (4.5-5.3)
[2021-06-03 04:22] LABS: Calcium 8.3 mg/dL (8.4-10.2); Potassium 4.4 mmol/L (3.5-5.1); Total Bilirubin 1.1 mg/dL (0.2-1.3); Total Protein 5.6 g/dL (6.3-8.2)
[2021-06-03 05:56] LABS: Glucose,Whole Blood 108 mg/dL (75-99)
[2021-06-03] MEDS: KETOROLAC 30 MG/ML 1 ML VIAL IVP SCH (06:05)
[2021-06-03] MEDS: PANTOPRAZOLE 40 MG TABLET PO SCH (06:05)
[2021-06-03] MEDS: HYDROcodone/APAP 5-325MG 1 EACH TAB PO PRN ×3 (06:09→21:14)
[2021-06-03] MEDS ORDERED: KETOROLAC 30 MG/ML 1 ML VIAL IVP PRN (06:53)
[2021-06-03 06:57] LABS: Glucose,Whole Blood 129 mg/dL (75-99)
--- NOTE | 2021-06-03 07:23 | XR ---
EXAMINATION TYPE: XR chest 1V portable DATE OF EXAM: 06/03/2021 COMPARISON: 06/02/2021 INDICATION: Postop cardiac surgery TECHNIQUE: Single frontal view of the chest is obtained. FINDINGS: The heart size is mildly prominent. The pulmonary vasculature is normal. Left lower lobe infiltrate is present. Sternotomy wires are in the midline. Mediastinal tubes are in the midline. Epicardial leads are evident. Left-sided chest tube is present. Small pneumothorax is pr esent. Catheter sheath on the right. IMPRESSION: 1. Small left apical pneumothorax. Aside chest tube is stable in position. 2. Mediastinal chest tubes. 3. Mild cardiomegaly. 4. Small left lower lobe infiltrate. Correlate for atelectasis
--- NOTE | 2021-06-03 07:38 | P.PN ---
Subjective Progress Note Date: 06/03/21 Principal diagnosis: Triple-vessel coronary artery disease with non-STEMI this admission, V. fib arrest with CPR and shock 1, postarrest memory impairment, leukocytosis, transaminitis, hypertension on admission. Previous medical history of hyperlipidemia, COVID infection in August 2020, remains unvaccinated, never smoker. Bilateral carotid stenosis, right ICA 100%, left ICA 60% per CTA. POD #2 coronary artery bypass grafting 3 vessels, left internal mammary artery to the left anterior descending artery, reverse saphenous vein graft to the obtuse marginal artery, reverse saphenous vein graft to the posterior descending artery, endoscopic harvesting of the left greater saphenous vein, ligation of the left atrial appendage using a 35 mm AtriClip, epi-aortic ultrasound and intraoperative transesophageal echocardiogram The patient was seen and examined this morning in the intensive care unit. He was ambulating in the hallway with nursing, currently sitting up in the recliner in no acute distress. States pain is controlled on current medication regimen, denies shortness of breath. Remains in sinus rhythm, hemodynamically stable on no inotropes or pressors. Right internal jugular Cordis, right radial arterial line, mediastinal/left pleural chest tubes all remain. No other new concerns. Objective - Vital Signs Vital signs: Vital Signs Temp 97.8 F 06/03/21 04:00 Pulse 97 06/03/21 07:00 Resp 16 06/03/21 07:00 BP 113/68 06/03/21 01:30 Pulse Ox 92 L 06/03/21 07:00 Intake & Output 06/02/21 06/03/21 06/03/21 18:59 06:59 18:59 Intake Total 2111.575 565.720 46 Output Total 880 810 20 Balance 1231.575 -244.280 26 Weight 87.7 kg 88.8 kg Intake: IV 499 552 46 CO/CI 20 Lactated Ringers 1,000 ml 360 480 40 @ 20 mls/hr IV .Q24H [facility] Rx#:[id number] Pressure bag 69 72 6 ceFAZolin 2 gm In Sodium 50 Chloride 0.9% 50 ml @ 100 mls/hr IVPB ONCE ONE Rx# :[id number] Intake, IV Titration 12.575 13.720 Amount Insulin Regular 100 unit 12.575 13.720 In Sodium Chloride 0.9% 100 ml @ Per Protocol IV .Q0M [facility] Rx#:[id number] Oral 1600 Output: Chest Tube Drainage 200 260 20 Chest Tube Left Pleural/ 100 70 Mediastinal Chest Tube Mediastinal 100 190 20 Urine 680 550 Other: Voiding Method Indwelling Catheter Indwelling Catheter # Voids 0 ABP, PAP, CO, CI - Last Documented Arterial Blood Pressure 144/58 Pulmonary Artery Pressure 31/11 Cardiac Output 4.4 Cardiac Index 2.2 - Exam CONSTITUTIONAL: Appears comfortable, cooperative, no acute distress RESPIRATORY: Lungs sounds diminished bilaterally. Respirations even, non labored. Currently on 2 L nasal cannula with oxygen saturation 93%. Able to achieve 1000 mL on incentive spirometry. Strong nonproductive cough. CARDIOVASCULAR: S1, S2 present. Regular rate and rhythm, sinus rhythm on telemetry. Sternum stable. Palpable peripheral pulses bilaterally. No edema present. No calf pain or tenderness noted. Heart hugger in place with patient demonstrating appropriate use. Antiembolism stockings, SCDs present. GASTROINTESTINAL: Abdomen soft, nontender, nondistended. Active bowel sounds present 4 quadrants. Tolerating clear liquid diet. Positive flatus GENITOURINARY: Robles present draining clear, yellow urine. Output overnight 30 mL per hour, 1195 mL in the last 24 hours. INTEGUMENTARY: Skin is warm and dry with evidence of good perfusion. Anterior chest incision well approximated and covered with dry intact dressing. Left lower extremity EVH site well approximated without redness or drainage. NEUROLOGIC: Cranial nerves II through XII intact MUSKULOSKELETAL: Able to move all extremities, strength equal bilaterally PSYCHIATRIC: Alert and oriented to person place and time, appropriate affect INVASIVE LINES AND TUBES: Mediastinal/left pleural chest tubes present and connected to wall suction, no air leaks present. Mediastinal tube with 60 mL serosanguineous drainage overnight, 300 mL in the last 24 hours. Left pleural chest tube with 30 mL serosanguineous drainage overnight, 250 mL in the last 24 hours. A/V epicardial pacemaker wires present, grounded. Right internal jugular Cordis, right radial arterial line present. - Allied health notes Allied health notes reviewed: nursing - Labs CBC & Chem 7: 06/03/21 03:46 06/03/21 03:46 Labs: Abnormal Lab Results - Last 24 Hours (Table) 06/02/21 06/02/21 06/02/21 Range/Units 08:03 09:00 10:07 WBC (3.8-10.6) k/uL RBC (4.30-5.90) m/uL Hgb (13.0-17.5) gm/dL Hct (39.0-53.0) % Plt Count (150-450) k/uL Neutrophils # (1.3-7.7) k/uL Lymphocytes # (1.0-4.8) k/uL Monocytes # (0-1.0) k/uL Sodium (137-145) mmol/L BUN (9-20) mg/dL Glucose (74-99) mg/dL POC Glucose (mg/dL) 125 H 123 H 123 H (75-99) mg/dL Calcium (8.4-10.2) mg/dL AST (17-59) U/L Total Protein (6.3-8.2) g/dL Albumin (3.5-5.0) g/dL 06/02/21 06/02/21 06/02/21 Range/Units 11:01 11:44 13:55 WBC (3.8-10.6) k/uL RBC (4.30-5.90) m/uL Hgb (13.0-17.5) gm/dL Hct (39.0-53.0) % Plt Count (150-450) k/uL Neutrophils # (1.3-7.7) k/uL Lymphocytes # (1.0-4.8) k/uL Monocytes # (0-1.0) k/uL Sodium (137-145) mmol/L BUN (9-20) mg/dL Glucose (74-99) mg/dL POC Glucose (mg/dL) 117 H 122 H 155 H (75-99) mg/dL Calcium (8.4-10.2) mg/dL AST (17-59) U/L Total Protein (6.3-8.2) g/dL Albumin (3.5-5.0) g/dL 06/02/21 06/02/21 06/02/21 Range/Units 14:56 16:12 17:10 WBC (3.8-10.6) k/uL RBC (4.30-5.90) m/uL Hgb (13.0-17.5) gm/dL Hct (39.0-53.0) % Plt Count (150-450) k/uL Neutrophils # (1.3-7.7) k/uL Lymphocytes # (1.0-4.8) k/uL Monocytes # (0-1.0) k/uL Sodium (137-145) mmol/L BUN (9-20) mg/dL Glucose (74-99) mg/dL POC Glucose (mg/dL) 142 H 133 H 139 H (75-99) mg/dL Calcium (8.4-10.2) mg/dL AST (17-59) U/L Total Protein (6.3-8.2) g/dL Albumin (3.5-5.0) g/dL 06/02/21 06/02/21 06/02/21 Range/Units 19:19 19:59 21:28 WBC (3.8-10.6) k/uL RBC (4.30-5.90) m/uL Hgb (13.0-17.5) gm/dL Hct (39.0-53.0) % Plt Count (150-450) k/uL Neutrophils # (1.3-7.7) k/uL Lymphocytes # (1.0-4.8) k/uL Monocytes # (0-1.0) k/uL Sodium (137-145) mmol/L BUN (9-20) mg/dL Glucose (74-99) mg/dL POC Glucose (mg/dL) 191 H 136 H 101 H (75-99) mg/dL Calcium (8.4-10.2) mg/dL AST (17-59) U/L Total Protein (6.3-8.2) g/dL Albumin (3.5-5.0) g/dL 06/02/21 06/03/21 06/03/21 Range/Units 23:09 02:44 03:46 WBC 14.3 H (3.8-10.6) k/uL RBC 3.81 L (4.30-5.90) m/uL Hgb 11.2 L (13.0-17.5) gm/dL Hct 34.3 L (39.0-53.0) % Plt Count 129 L (150-450) k/uL Neutrophils # 12.5 H (1.3-7.7) k/uL Lymphocytes # 0.5 L (1.0-4.8) k/uL Monocytes # 1.1 H (0-1.0) k/uL Sodium (137-145) mmol/L BUN (9-20) mg/dL Glucose (74-99) mg/dL POC Glucose (mg/dL) 108 H 123 H (75-99) mg/dL Calcium (8.4-10.2) mg/dL AST (17-59) U/L Total Protein (6.3-8.2) g/dL Albumin (3.5-5.0) g/dL 06/03/21 06/03/21 06/03/21 Range/Units 03:46 03:48 05:55 WBC (3.8-10.6) k/uL RBC (4.30-5.90) m/uL Hgb (13.0-17.5) gm/dL Hct (39.0-53.0) % Plt Count (150-450) k/uL Neutrophils # (1.3-7.7) k/uL Lymphocytes # (1.0-4.8) k/uL Monocytes # (0-1.0) k/uL Sodium 130 L (137-145) mmol/L BUN 32 H (9-20) mg/dL Glucose 141 H (74-99) mg/dL POC Glucose (mg/dL) 136 H 108 H (75-99) mg/dL Calcium 8.3 L (8.4-10.2) mg/dL AST 80 H (17-59) U/L Total Protein 5.6 L (6.3-8.2) g/dL Albumin 3.0 L (3.5-5.0) g/dL 06/03/21 Range/Units 06:56 WBC (3.8-10.6) k/uL RBC (4.30-5.90) m/uL Hgb (13.0-17.5) gm/dL Hct (39.0-53.0) % Plt Count (150-450) k/uL Neutrophils # (1.3-7.7) k/uL Lymphocytes # (1.0-4.8) k/uL Monocytes # (0-1.0) k/uL Sodium (137-145) mmol/L BUN (9-20) mg/dL Glucose (74-99) mg/dL POC Glucose (mg/dL) 129 H (75-99) mg/dL Calcium (8.4-10.2) mg/dL AST (17-59) U/L Total Protein (6.3-8.2) g/dL Albumin (3.5-5.0) g/dL - Imaging and Cardiology Chest x-ray: report reviewed, image reviewed Assessment and Plan Assessment: 1. Triple-vessel coronary artery disease, non-STEMI this admission, status post three-vessel CABG 2. Status post V. fib arrest with CPR and shock 1, ROSC achieved 3. Post arrest memory impairment 4. Leukocytosis, likely reactive 5. Transaminitis, likely from hepatic steatosis 6. Hypertension on admission 7. History of hyperlipidemia, untreated, cholesterol 407, LDL 310, triglycer ides 228 8. Bilateral carotid stenosis, right ICA 100%, left ICA 60% per CTA. 9. COVID infection in August 2020, remains unvaccinated 10. Never smoker Plan: 1. Continue aspirin, statin, Plavix, beta rosie therapy. Will increase beta rosie therapy as tolerated, increasaed to 50 mg twice a day today. 2. Continue amiodarone 400 mg twice a day today due to recent V. fib arrest as well as prophylaxis for atrial fibrillation 3. Wean O2 as tolerated. Encourage incentive spirometry 10 times every hour while awake. Bronchodilators per pulmonology 4. Increase activity, ambulate as tolerated. PT/OT/cardiac rehab consulted 5. Will monitor daily labs and x-rays. Electrolyte replacement protocol. Will give 20 mg IVP lasix today 6. Pain control current medication regimen 7. Insulin management per primary care service. Patient is not a diabetic, hemoglobin A1c 5.7%. Needs tight blood sugar control to promote sternal union and prevent infection 8. Will discontinue mediastinal chest tube, continue left pleural chest tubes for another 24 hours 9. Discontinue Robles catheter. May bladder scan and straight cath for >300 mL residual 10. Strict accurate intake and output. Daily weights 11. Discontinue cordis, arterial line 12. Keep mean arterial pressure greater than 70 due to carotid stenosis, patient to follow up with vascular outpatient 13. Likely will place transfer orders for [facility] this afternoon 14. More recommendations to follow as patient progresses Time with Patient: Greater than 30
[2021-06-03 08:09] LABS: Glucose,Whole Blood 149 mg/dL (75-99)
[2021-06-03] MEDS: ASPIRIN 325 MG TAB PO SCH (08:22)
[2021-06-03] MEDS: CLOPIDOGREL 75 MG TAB PO SCH (08:22)
[2021-06-03] MEDS: AMIODARONE 200 MG TAB PO SCH ×2 (08:22→21:11)
[2021-06-03] MEDS: ATORVASTATIN 40 MG TAB PO SCH (08:22)
[2021-06-03] MEDS: METOPROLOL TARTRATE 50 MG TAB PO SCH ×2 (08:22→21:11)
[2021-06-03] MEDS: HEPARIN SODIUM,PORCINE/PF 5,000 UNIT/0.5 ML SYRINGE SQ SCH ×3 (08:22→23:59)
[2021-06-03] MEDS: MUPIROCIN 2% OINT 22 GM TUBE NASAL SCH (08:24)
[2021-06-03] MEDS: LACTATED RINGERS 1,000 ML IV SCH (08:26)
[2021-06-03] MEDS: IPRATROPIUM-ALBUTEROL 3 ML NEB INHALATION SCH ×4 (08:28→19:42)
[2021-06-03] MEDS ORDERED: FUROSEMIDE 10 MG/ML 2 ML VIAL IV ONE (08:56)
[2021-06-03] MEDS ORDERED: CALCIUM GLUCONATE 1 GM in SODIUM CHLORIDE 0.9% 100 ML IVPB ONE (08:56)
--- NOTE | 2021-06-03 09:08 | P.VSCSTY ---
Greater Saphenous Vein Mapping This is bilateral lower extremity greater saphenous vein mapping. Date of service: 05/31/2021 Vein quality and ultrasound appearance: We see no intraluminal thrombus or obvious wall changes. Vein size groin right : 8.8 x 8.8 groin left: 12.1 x 10.1 High thigh right: 4.3 x 6.3 high thigh left: 5.8 x 5.5 Mid thigh right: 3.4 x 5.1 mid thigh left: 3.9 x 5.0 Above-knee right: 3.7 x 5.4 above- knee left: 4.0 x 5.0 Below knee right: 3.4 x 4.3 below-knee left: 4.3 x 5.1 Mid calf right: 3.4 x 3.8 mid calf left: 3.4 x 4.6 Ankle right: 3.5 x 4.9 ankle left: 3.1 x 4.0 Impression: Usable bilateral greater saphenous vein.
[2021-06-03] MEDS ORDERED: INSULIN DETEMIR (LEVEMIR) 100 UNIT/ML SYR SQ ONE (09:45)
[2021-06-03 10:35] LABS: Glucose,Whole Blood 129 mg/dL (75-99)
[2021-06-03 12:08] LABS: Glucose,Whole Blood 121 mg/dL (75-99)
[2021-06-03] MEDS: INSULIN ASPART (NovoLOG) 100 UNIT/ML VIAL SQ SCH ×3 (12:47→21:09)
--- NOTE | 2021-06-03 13:14 | CDI ---
Documentation Clarification Form Date: 06/03/2021 12:59:26 PM From: Latisha Powell CCS, CCDS Admit Date: 05/31/2021 02:09:00 AM Patient Name: Daljit Maki Visit Number: [id number] Discharge Date: ATTENTION: The Clinical Documentation Specialists (CDI) and [facility] Coding Staff appreciate your assistance in clarifying documentation. Please respond to the clarification below the line at the bottom and electronically sign. The CDI & [facility] Coding staff will review the response and follow-up if needed. Please note: Queries are made part of the Legal Health Record. If you have any questions, please contact the author of this message via ITS. Dr. Tejinder Barrientos: Mild Diastolic Congestive Heart Failure as noted on the Chest Xray is documented in the 05/31 Pulmonary/Critical Care Consult and subsequent Progress Notes on 06/01 & 06/02 without further acuity. Additional information regarding the Acuity of CHF is requested. History/Risk Factors per the 05/31 H/P: PAD. Nonsmoker. Clinical Indicators: Presented to the ED on 05/31 via EMS after suffering V Fib Cardiac Arrest at home requiring CPR and Shocked x1 by EMS with ROSC. Admitted with Ventricular Fibrillation. Taken to the [facility] tender restoration labor and diagnosed with CAD with NSTEMI. 06/01: To OR for CABG x3 05/31 VS: T 97.6, P 97, R 20 - 22, BP 215/103, PO 98 2Lnc, BMI: 28.1 05/31 LAB: WBC 13.8, Neut 8.2, [place] 1.1; glucose 219, AST 247, ALT 210, Troponin 0.038, 0.922, 2.540; Triglycerides 228.00, Cholesterol 407.00. BNP: not done. 05/31: Echocardiogram Results: Severe LVH, Left systolic low normal with EF 50- 55%, Apical hypertrophy, Trace MR/TR. 05/31 CXR: Pulmonary interstitial edema could relate to acute heart failure. Treatment 05/31: ICU postop Heart Catheterization, O2 2Lnc, IV Heparin, Nitro sl, po Lipitor, IV Lasix 20 mg q12Hr (ordered, not given) 06/01: CABG x3, IV Cefazolin, IV Heparin, IV Albumin 250 mls/hr q1Hr, IV Clevidipine, IV Insulin, IV Lactated Ringers 1,000 mls @ 20 mls/hr q24H, IV Nitro/Dextrose, IV Tylenol, IV Toradol, IV Levophed, INH Duoneb QID 06/02: IV Lasix 20 mg x2. 06/03: IV Lasix 20 mg x1 In your professional opinion, can you please clarify the [acuity and type] of CHF if known? [ ] Acute Systolic Heart Failure [ ] Acute Diastolic Heart Failure [ ] Acute Systolic & Diastolic Heart Failure [ ] Other, please specify [ ] Unable to determine (Template Last Revised: July 2020) MTDD
--- NOTE | 2021-06-03 13:43 | P.PN ---
Subjective Progress Note Date: 06/03/21 Principal diagnosis: Severe coronary artery disease The patient is a pleasant 65-year-old gentleman who had a cardiac arrest with V. fib. CPR was initiated and the patient was brought into normal sinus rhythm. An emergent heart catheterization was performed and revealed severe triple- vessel CAD. The patient underwent coronary artery bypass grafting 3 yesterday with GUIDO to LAD and SVG to OM and SVG to PDA. The patient was seen today. He seems to be stable overall. Hemodynamically he is stable. The heart rate has been in the 90s. The dose of metoprolol was increased earlier today. Pressure is within normal limits. The chest x-ray was reviewed and seems to be better compared to the one from yesterday. Currently he is on dual antiplatelet therapy along with high intensity statin along with beta rosie. Urine output is good as well as Objective - Vital Signs Vital signs: Vital Signs Temp 98.3 F 06/03/21 12:00 Pulse 86 06/03/21 12:27 Resp 17 06/03/21 12:00 BP 128/73 06/03/21 12:00 Pulse Ox 91 L 06/03/21 12:00 Intake & Output 06/02/21 06/03/21 06/03/21 18:59 06:59 18:59 Intake Total 2111.575 565.720 270 Output Total 880 810 530 Balance 1231.575 -244.280 -260 Weight 87.7 kg 88.8 kg Intake: IV 499 552 270 CO/CI 20 Lactated Ringers 1,000 ml 360 480 240 @ 20 mls/hr IV .Q24H [facility] Rx#:[id number] Pressure bag 69 72 30 ceFAZolin 2 gm In Sodium 50 Chloride 0.9% 50 ml @ 100 mls/hr IVPB ONCE ONE Rx# :[id number] Intake, IV Titration 12.575 13.720 0 Amount Insulin Regular 100 unit 12.575 13.720 0 In Sodium Chloride 0.9% 100 ml @ Per Protocol IV .Q0M [facility] Rx#:[id number] Oral 1600 Output: Chest Tube Drainage 200 260 30 Chest Tube Left Pleural/ 100 70 10 Mediastinal Chest Tube Mediastinal 100 190 20 Urine 680 550 500 Other: Voiding Method Indwelling Catheter Indwelling Catheter Indwelling Catheter # Voids 0 ABP, PAP, CO, CI - Last Documented Arterial Blood Pressure 128/73 Pulmonary Artery Pressure 31/11 Cardiac Output 4.4 Cardiac Index 2.2 - Constitutional General appearance: Present: no acute distress - Respiratory Respiratory: bilateral: diminished - Cardiovascular Rhythm: regular - Labs CBC & Chem 7: 06/03/21 03:46 06/03/21 03:46 Labs: Abnormal Lab Results - Last 24 Hours (Table) 06/02/21 06/02/21 06/02/21 Range/Units 13:55 14:56 16:12 WBC (3.8-10.6) k/uL RBC (4.30-5.90) m/uL Hgb (13.0-17.5) gm/dL Hct (39.0-53.0) % Plt Count (150-450) k/uL Neutrophils # (1.3-7.7) k/uL Lymphocytes # (1.0-4.8) k/uL Monocytes # (0-1.0) k/uL Sodium (137-145) mmol/L BUN (9-20) mg/dL Glucose (74-99) mg/dL POC Glucose (mg/dL) 155 H 142 H 133 H (75-99) mg/dL Calcium (8.4-10.2) mg/dL AST (17-59) U/L Total Protein (6.3-8.2) g/dL Albumin (3.5-5.0) g/dL 06/02/21 06/02/21 06/02/21 Range/Units 17:10 19:19 19:59 WBC (3.8-10.6) k/uL RBC (4.30-5.90) m/uL Hgb (13.0-17.5) gm/dL Hct (39.0-53.0) % Plt Count (150-450) k/uL Neutrophils # (1.3-7.7) k/uL Lymphocytes # (1.0-4.8) k/uL Monocytes # (0-1.0) k/uL Sodium (137-145) mmol/L BUN (9-20) mg/dL Glucose (74-99) mg/dL POC Glucose (mg/dL) 139 H 191 H 136 H (75-99) mg/dL Calcium (8.4-10.2) mg/dL AST (17-59) U/L Total Protein (6.3-8.2) g/dL Albumin (3.5-5.0) g/dL 06/02/21 06/02/21 06/03/21 Range/Units 21:28 23:09 02:44 WBC (3.8-10.6) k/uL RBC (4.30-5.90) m/uL Hgb (13.0-17.5) gm/dL Hct (39.0-53.0) % Plt Count (150-450) k/uL Neutrophils # (1.3-7.7) k/uL Lymphocytes # (1.0-4.8) k/uL Monocytes # (0-1.0) k/uL Sodium (137-145) mmol/L BUN (9-20) mg/dL Glucose (74-99) mg/dL POC Glucose (mg/dL) 101 H 108 H 123 H (75-99) mg/dL Calcium (8.4-10.2) mg/dL AST (17-59) U/L Total Protein (6.3-8.2) g/dL Albumin (3.5-5.0) g/dL 06/03/21 06/03/21 06/03/21 Range/Units 03:46 03:46 03:48 WBC 14.3 H (3.8-10.6) k/uL RBC 3.81 L (4.30-5.90) m/uL Hgb 11.2 L (13.0-17.5) gm/dL Hct 34.3 L (39.0-53.0) % Plt Count 129 L (150-450) k/uL Neutrophils # 12.5 H (1.3-7.7) k/uL Lymphocytes # 0.5 L (1.0-4.8) k/uL Monocytes # 1.1 H (0-1.0) k/uL Sodium 130 L (137-145) mmol/L BUN 32 H (9-20) mg/dL Glucose 141 H (74-99) mg/dL POC Glucose (mg/dL) 136 H (75-99) mg/dL Calcium 8.3 L (8.4-10.2) mg/dL AST 80 H (17-59) U/L Total Protein 5.6 L (6.3-8.2) g/dL Albumin 3.0 L (3.5-5.0) g/dL 06/03/21 06/03/21 06/03/21 Range/Units 05:55 06:56 08:08 WBC (3.8-10.6) k/uL RBC (4.30-5.90) m/uL Hgb (13.0-17.5) gm/dL Hct (39.0-53.0) % Plt Count (150-450) k/uL Neutrophils # (1.3-7.7) k/uL Lymphocytes # (1.0-4.8) k/uL Monocytes # (0-1.0) k/uL Sodium (137-145) mmol/L BUN (9-20) mg/dL Glucose (74-99) mg/dL POC Glucose (mg/dL) 108 H 129 H 149 H (75-99) mg/dL Calcium (8.4-10.2) mg/dL AST (17-59) U/L Total Protein (6.3-8.2) g/dL Albumin (3.5-5.0) g/dL 06/03/21 06/03/21 Range/Units 10:34 12:05 WBC (3.8-10.6) k/uL RBC (4.30-5.90) m/uL Hgb (13.0-17.5) gm/dL Hct (39.0-53.0) % Plt Count (150-450) k/uL Neutrophils # (1.3-7.7) k/uL Lymphocytes # (1.0-4.8) k/uL Monocytes # (0-1.0) k/uL Sodium (137-145) mmol/L BUN (9-20) mg/dL Glucose (74-99) mg/dL POC Glucose (mg/dL) 129 H 121 H (75-99) mg/dL Calcium (8.4-10.2) mg/dL AST (17-59) U/L Total Protein (6.3-8.2) g/dL Albumin (3.5-5.0) g/dL Assessment and Plan Assessment: Assessment #1 cardiac arrest #2 severe triple-vessel CAD and status post CABG #3 bicuspid aortic valve Plan #1 continue the current medical regimen #2 continue amiodarone by mouth #3 follow-up with the patient
--- NOTE | 2021-06-03 14:29 | P.PN ---
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 EMS responded within 3 minutes to the call, and he was noted to be in ventricular fibrillation, received 1 shock and there was return of normal sinus rhythm and return of spontaneous circulation. He was brought into the hospital and seen by cardiology on consultation. Acute ST elevation OR alert was called, patient had cardiac catheterization and he was found to have chronic occlusion of the RCA. He was also found to have diffuse disease in the left coronary system patient received aspirin, atorvastatin, and sublingual nitroglycerin. And he also received heparin in the catheterization laboratory. Transferred after the cardiac cath to the ICU, thoracic surgery was consulted, and I was asked to see him on consultation for preoperative pulmonary clearance. Patient has no active pulmonary symptoms whatsoever. Denies any history of COPD, he is a lifetime nonsmoker. Never complained of shortness of breath. No history of cough wheezing. Although the patient had COVID-19 infection back in August of 2020. Patient is not vaccinated. Initial chest x-ray on admission showed evidence of congestive heart failure. Follow-up chest x-ray continues to show minimal cardiomegaly with interstitial opacities and atelectatic changes at the bases. Echocardiogram showed good LV function however he had severe concentric LVH. No significant valvular pathology was noted. Patient was found to have bicuspid aortic valve mildly thickened. There was also evidence of grade 1 diastolic dysfunction. And trace of mitral regurgitation at any rate considering the plan to undergo cardiac surgery, I was asked to see him on consultation, based on his clinical pulmonary history, patient is considered low operative risk. Reevaluated today on 06/01/21, patient just came back from the operating room, he is status post CABG, patient had GUIDO to LAD saphenous vein graft to obtuse marginal artery and saphenous vein graft to posterior descending. He is now in the ICU on mechanical ventilation, he is on assist control rate of 12 tidal volume of 500 FiO2 was initially on the percent and now it is 50%, and PEEP of 5. Chest x-ray showed no evidence of active disease, postoperative changes noted. ABG earlier today showed a pO2 of 273 pCO2 40 pH of 7.41 hence the patient is now on 50% FiO2. Patient is not requiring any inotropes or any pressors, he is on a low dose of propofol, and on clevidipine. Reevaluated today on 06/02/21, patient remains in the ICU, he was extubated shortly after his bypass surgery yesterday. He is now postoperative day #1. Patient is doing well, he is sitting in a recliner, he is already ambulating, extubation time was 20: 10. Patient is on room air. Not in any distress. Chest x-ray showed tiny left apical pneumothorax and minimal atelectasis with mild venous congestion. CBC is relatively normal WBC count is 15.8 hemoglobin is 12.6. Asymmetric metabolic profile is unremarkable. Reevaluated today on 06/03/21, patient remains in the ICU, he is on room air with O2 saturation 94%, patient seems to be doing quite well. Patient is postoperative day #2. He is status post CABG 3. Lifetime nonsmoker. Chest x- ray today showed a small tiny left apical pneumothorax, left-sided chest tube remains in position, patient has a small left lower lobe atelectasis. Otherwise his chest x-ray is reassuring. And clinically the patient is doing well, not requiring any pressors or any inotropes. WBC count is 14.3 hemoglobin is 11.2. Sodium is a bit on the low side 130 his renal profile is normal creatinine is 1.04. Patient has been receiving diuretics on a daily basis Objective - Vital Signs Vital signs: Vital Signs Temp 98.3 F 06/03/21 12:00 Pulse 86 06/03/21 12:27 Resp 17 06/03/21 12:00 BP 128/73 06/03/21 12:00 Pulse Ox 91 L 06/03/21 12:00 Intake & Output 06/02/21 06/03/21 06/03/21 18:59 06:59 18:59 Intake Total 2111.575 565.720 270 Output Total 880 810 530 Balance 1231.575 -244.280 -260 Weight 87.7 kg 88.8 kg Intake: IV 499 552 270 CO/CI 20 Lactated Ringers 1,000 ml 360 480 240 @ 20 mls/hr IV .Q24H [facility] Rx#:[id number] Pressure bag 69 72 30 ceFAZolin 2 gm In Sodium 50 Chloride 0.9% 50 ml @ 100 mls/hr IVPB ONCE ONE Rx# :[id number] Intake, IV Titration 12.575 13.720 0 Amount Insulin Regular 100 unit 12.575 13.720 0 In Sodium Chloride 0.9% 100 ml @ Per Protocol IV .Q0M [facility] Rx#:[id number] Oral 1600 Output: Chest Tube Drainage 200 260 30 Chest Tube Left Pleural/ 100 70 10 Mediastinal Chest Tube Mediastinal 100 190 20 Urine 680 550 500 Other: Voiding Method Indwelling Catheter Indwelling Catheter Indwelling Catheter # Voids 0 ABP, PAP, CO, CI - Last Documented Arterial Blood Pressure 128/73 Pulmonary Artery Pressure 31/11 Cardiac Output 4.4 Cardiac Index 2.2 - Exam Physical Exam: Revealed a 65-year-old white male in no distress. On room air. Head: Atraumatic normocephalic. HEENT:[Neck is supple.] [No neck masses.] [No thyromegaly.] [No JVD.] Chest: [Chest tubes noted, crackles at the bases no rhonchi and no wheezes Cardiac Exam: [Normal S1 and S2, no S3 gallop, 2/6 systolic murmur throughout the precordium. Abdomen: [Soft, nontender, no megaly, no rebound, no guarding, normal bowel sounds.] Extremities: [No clubbing, no edema, no cyanosis.] Neurological Exam: [No focal neurologic deficit.] Alert oriented 3. Psychiatric: Normal mood affect and normal mental status examination. - Labs CBC & Chem 7: 06/03/21 03:46 06/03/21 03:46 Labs: Abnormal Lab Results - Last 24 Hours (Table) 06/02/21 06/02/21 06/02/21 Range/Units 14:56 16:12 17:10 WBC (3.8-10.6) k/uL RBC (4.30-5.90) m/uL Hgb (13.0-17.5) gm/dL Hct (39.0-53.0) % Plt Count (150-450) k/uL Neutrophils # (1.3-7.7) k/uL Lymphocytes # (1.0-4.8) k/uL Monocytes # (0-1.0) k/uL Sodium (137-145) mmol/L BUN (9-20) mg/dL Glucose (74-99) mg/dL POC Glucose (mg/dL) 142 H 133 H 139 H (75-99) mg/dL Calcium (8.4-10.2) mg/dL AST (17-59) U/L Total Protein (6.3-8.2) g/dL Albumin (3.5-5.0) g/dL 06/02/21 06/02/21 06/02/21 Range/Units 19:19 19:59 21:28 WBC (3.8-10.6) k/uL RBC (4.30-5.90) m/uL Hgb (13.0-17.5) gm/dL Hct (39.0-53.0) % Plt Count (150-450) k/uL Neutrophils # (1.3-7.7) k/uL Lymphocytes # (1.0-4.8) k/uL Monocytes # (0-1.0) k/uL Sodium (137-145) mmol/L BUN (9-20) mg/dL Glucose (74-99) mg/dL POC Glucose (mg/dL) 191 H 136 H 101 H (75-99) mg/dL Calcium (8.4-10.2) mg/dL AST (17-59) U/L Total Protein (6.3-8.2) g/dL Albumin (3.5-5.0) g/dL 06/02/21 06/03/21 06/03/21 Range/Units 23:09 02:44 03:46 WBC 14.3 H (3.8-10.6) k/uL RBC 3.81 L (4.30-5.90) m/uL Hgb 11.2 L (13.0-17.5) gm/dL Hct 34.3 L (39.0-53.0) % Plt Count 129 L (150-450) k/uL Neutrophils # 12.5 H (1.3-7.7) k/uL Lymphocytes # 0.5 L (1.0-4.8) k/uL Monocytes # 1.1 H (0-1.0) k/uL Sodium (137-145) mmol/L BUN (9-20) mg/dL Glucose (74-99) mg/dL POC Glucose (mg/dL) 108 H 123 H (75-99) mg/dL Calcium (8.4-10.2) mg/dL AST (17-59) U/L Total Protein (6.3-8.2) g/dL Albumin (3.5-5.0) g/dL 06/03/21 06/03/21 06/03/21 Range/Units 03:46 03:48 05:55 WBC (3.8-10.6) k/uL RBC (4.30-5.90) m/uL Hgb (13.0-17.5) gm/dL Hct (39.0-53.0) % Plt Count (150-450) k/uL Neutrophils # (1.3-7.7) k/uL Lymphocytes # (1.0-4.8) k/uL Monocytes # (0-1.0) k/uL Sodium 130 L (137-145) mmol/L BUN 32 H (9-20) mg/dL Glucose 141 H (74-99) mg/dL POC Glucose (mg/dL) 136 H 108 H (75-99) mg/dL Calcium 8.3 L (8.4-10.2) mg/dL AST 80 H (17-59) U/L Total Protein 5.6 L (6.3-8.2) g/dL Albumin 3.0 L (3.5-5.0) g/dL 06/03/21 06/03/21 06/03/21 Range/Units 06:56 08:08 10:34 WBC (3.8-10.6) k/uL RBC (4.30-5.90) m/uL Hgb (13.0-17.5) gm/dL Hct (39.0-53.0) % Plt Count (150-450) k/uL Neutrophils # (1.3-7.7) k/uL Lymphocytes # (1.0-4.8) k/uL Monocytes # (0-1.0) k/uL Sodium (137-145) mmol/L BUN (9-20) mg/dL Glucose (74-99) mg/dL POC Glucose (mg/dL) 129 H 149 H 129 H (75-99) mg/dL Calcium (8.4-10.2) mg/dL AST (17-59) U/L Total Protein (6.3-8.2) g/dL Albumin (3.5-5.0) g/dL 06/03/21 Range/Units 12:05 WBC (3.8-10.6) k/uL RBC (4.30-5.90) m/uL Hgb (13.0-17.5) gm/dL Hct (39.0-53.0) % Plt Count (150-450) k/uL Neutrophils # (1.3-7.7) k/uL Lymphocytes # (1.0-4.8) k/uL Monocytes # (0-1.0) k/uL Sodium (137-145) mmol/L BUN (9-20) mg/dL Glucose (74-99) mg/dL POC Glucose (mg/dL) 121 H (75-99) mg/dL Calcium (8.4-10.2) mg/dL AST (17-59) U/L Total Protein (6.3-8.2) g/dL Albumin (3.5-5.0) g/dL Assessment and Plan Assessment: Impression: Status post CABG, GUIDO to LAD, SVG to obtuse marginal artery and SVG to posterior descending artery. Postoperative day #2 Ventricular fibrillation/cardiac arrest with return of spontaneous circulation in the field. Acute non-ST elevation myocardial infarction Coronary arteriosclerosis, patient is yet to be scheduled for myocardial vascularization by cardiothoracic surgery on the case. Patient has triple- vessel coronary artery disease. Mild diastolic congestive heart failure as noted on chest x-ray Lifetime nonsmoker On left apical tiny pneumothorax, expected Recommendation: Continue Incentive spirometry Continue Aspirin statins and Plavix and beta blockers Ambulate Discontinue unnecessary catheters or tubes We will continue to follow. Time with Patient: Less than 30
--- NOTE | 2021-06-03 15:15 | P.PN ---
Subjective Progress Note Date: 06/03/21 Principal diagnosis: unresponsive Patient is a 65-year-old male with high cholesterol not currently taking medication who presents to ER with a V. fib arrest. He was having intercourse when he passed out. Bystander CPR was in progress when EMS arrived. They placed him on a monitor he was shown to be in V. fib. Patient was successfully cardioverted with ROSC. Vital signs on arrival showed hypertension with a blood pressure 215/103. He was taken for emergent cardiac cath which showed a total occlusion of the RCA, nondominant circumflex distally occluded, LAD with 60-70% narrowing in the midportion and 99% at the apex. He did not require stent at that time. He was placed on amiodarone and heparin. He was admitted to the ICU and cardiac surgery was consulted. They did recommend cardiac bypass. Cholesterol came back extremely elevated with a total cholesterol 407 and an LDL of 310. Echo shows severe concentric LVH, ejection fraction 50-55%, grade 1 diastolic dysfunction. Carotid ultrasound showed severe greater than 70% left ICA stenosis. He was started on Lipitor, Cozaar, and metoprolol. He was taken for CABG on 06/01 and underwent GUIDO to LAD, SVG to OM and SVG to posterior descending artery he was extubated the same day he returned to the ICU. Patient seen and examined at bedside. Awake and alert. Feels that his memory is intact he has 4 kids he has been for 37 years in December and has built 4 new home. He was having severe pain when laying flat in bed. No shortness of breath, no nausea, no vomiting. Has not passed gas at this time. General: non toxic, no distress, appears at stated age Derm: warm, dry Head: atraumatic, normocephalic, symmetric Eyes: EOMI, no lid lag, anicteric sclera Mouth: no lip lesion, mucus membranes moist Cardiovascular: S1S2 reg, no murmur, positive posterior tibial pulse bilateral, spinal and chest tube in place, Bear Hugger in place Lungs: CTA bilateral, no rhonchi, no rales , no accessory muscle use Abdominal: soft, nontender to palpation, no guarding, no appreciable organomegaly Ext: no gross muscle atrophy, no edema, no contractures Neuro: CN II-XI grossly intact, no focal neuro deficits Psych: Alert, oriented, flat affect, delayed thinking Assessment/Plan: V. fib arrest Multivessel coronary artery disease S/P CABG, GUIDO to LAD, SVG to OM and SVG to PDA Non-STEMI Hyperlipidemia, Xanthomas - management per cardio thorasic surgery -statin - likely will need PCSK9 inhinbitor as outpatient -Cardiology recommendations -Pulm recs - Plavix, Metoprolol, ASA - amio Hyponatremia - likely due to low solute intake and diuretic use - follow BMP Anoxic Encephalopathy - supportive care Carotid stenosis -Vascular Recs appreciated: outpatient follow-up Elevated BP on arrival without previous diagnosis of HTN - follow BP - Continue current medications Transaminitis, improved Hepatic Steatosis - likely due to decreased perfusion and fatty infiltration of the liver - repeat labs in AM Hyperglycemia - Transition off insulin gtt and Levemir X 1, and novolog SSI - follow BS -Likely reflective acute distress -Hemoglobin A1c 5.7 Discussed with: Nursing Anticipated discharge: 3-[address]: home health A total of 35 minutes was spent on the care of this complex patient more than 50% of the time was spent in counseling and care coordination. Objective - Vital Signs Vital signs: Vital Signs Temp 98.3 F 06/03/21 12:00 Pulse 92 06/03/21 14:00 Resp 19 06/03/21 14:00 BP 121/75 06/03/21 14:00 Pulse Ox 92 L 06/03/21 14:00 Intake & Output 06/02/21 06/03/21 06/03/21 18:59 06:59 18:59 Intake Total 2111.575 565.720 356 Output Total 880 810 550 Balance 1231.575 -244.280 -194 Weight 87.7 kg 88.8 kg Intake: IV 499 552 356 CO/CI 20 Lactated Ringers 1,000 ml 360 480 320 @ 20 mls/hr IV .Q24H [facility] Rx#:[id number] Pressure bag 69 72 36 ceFAZolin 2 gm In Sodium 50 Chloride 0.9% 50 ml @ 100 mls/hr IVPB ONCE ONE Rx# :[id number] Intake, IV Titration 12.575 13.720 0 Amount Insulin Regular 100 unit 12.575 13.720 0 In Sodium Chloride 0.9% 100 ml @ Per Protocol IV .Q0M [facility] Rx#:[id number] Oral 1600 Output: Chest Tube Drainage 200 260 50 Chest Tube Left Pleural/ 100 70 30 Mediastinal Chest Tube Mediastinal 100 190 20 Urine 680 550 500 Other: Voiding Method Indwelling Catheter Indwelling Catheter Indwelling Catheter # Voids 0 ABP, PAP, CO, CI - Last Documented Arterial Blood Pressure 128/73 Pulmonary Artery Pressure 31/11 Cardiac Output 4.4 Cardiac Index 2.2 - Labs CBC & Chem 7: 06/03/21 03:46 06/03/21 03:46 Labs: Abnormal Lab Results - Last 24 Hours (Table) 06/02/21 06/02/21 06/02/21 Range/Units 16:12 17:10 19:19 WBC (3.8-10.6) k/uL RBC (4.30-5.90) m/uL Hgb (13.0-17.5) gm/dL Hct (39.0-53.0) % Plt Count (150-450) k/uL Neutrophils # (1.3-7.7) k/uL Lymphocytes # (1.0-4.8) k/uL Monocytes # (0-1.0) k/uL Sodium (137-145) mmol/L BUN (9-20) mg/dL Glucose (74-99) mg/dL POC Glucose (mg/dL) 133 H 139 H 191 H (75-99) mg/dL Calcium (8.4-10.2) mg/dL AST (17-59) U/L Total Protein (6.3-8.2) g/dL Albumin (3.5-5.0) g/dL 06/02/21 06/02/21 06/02/21 Range/Units 19:59 21:28 23:09 WBC (3.8-10.6) k/uL RBC (4.30-5.90) m/uL Hgb (13.0-17.5) gm/dL Hct (39.0-53.0) % Plt Count (150-450) k/uL Neutrophils # (1.3-7.7) k/uL Lymphocytes # (1.0-4.8) k/uL Monocytes # (0-1.0) k/uL Sodium (137-145) mmol/L BUN (9-20) mg/dL Glucose (74-99) mg/dL POC Glucose (mg/dL) 136 H 101 H 108 H (75-99) mg/dL Calcium (8.4-10.2) mg/dL AST (17-59) U/L Total Protein (6.3-8.2) g/dL Albumin (3.5-5.0) g/dL 06/03/21 06/03/21 06/03/21 Range/Units 02:44 03:46 03:46 WBC 14.3 H (3.8-10.6) k/uL RBC 3.81 L (4.30-5.90) m/uL Hgb 11.2 L (13.0-17.5) gm/dL Hct 34.3 L (39.0-53.0) % Plt Count 129 L (150-450) k/uL Neutrophils # 12.5 H (1.3-7.7) k/uL Lymphocytes # 0.5 L (1.0-4.8) k/uL Monocytes # 1.1 H (0-1.0) k/uL Sodium 130 L (137-145) mmol/L BUN 32 H (9-20) mg/dL Glucose 141 H (74-99) mg/dL POC Glucose (mg/dL) 123 H (75-99) mg/dL Calcium 8.3 L (8.4-10.2) mg/dL AST 80 H (17-59) U/L Total Protein 5.6 L (6.3-8.2) g/dL Albumin 3.0 L (3.5-5.0) g/dL 06/03/21 06/03/21 06/03/21 Range/Units 03:48 05:55 06:56 WBC (3.8-10.6) k/uL RBC (4.30-5.90) m/uL Hgb (13.0-17.5) gm/dL Hct (39.0-53.0) % Plt Count (150-450) k/uL Neutrophils # (1.3-7.7) k/uL Lymphocytes # (1.0-4.8) k/uL Monocytes # (0-1.0) k/uL Sodium (137-145) mmol/L BUN (9-20) mg/dL Glucose (74-99) mg/dL POC Glucose (mg/dL) 136 H 108 H 129 H (75-99) mg/dL Calcium (8.4-10.2) mg/dL AST (17-59) U/L Total Protein (6.3-8.2) g/dL Albumin (3.5-5.0) g/dL 06/03/21 06/03/21 06/03/21 Range/Units 08:08 10:34 12:05 WBC (3.8-10.6) k/uL RBC (4.30-5.90) m/uL Hgb (13.0-17.5) gm/dL Hct (39.0-53.0) % Plt Count (150-450) k/uL Neutrophils # (1.3-7.7) k/uL Lymphocytes # (1.0-4.8) k/uL Monocytes # (0-1.0) k/uL Sodium (137-145) mmol/L BUN (9-20) mg/dL Glucose (74-99) mg/dL POC Glucose (mg/dL) 149 H 129 H 121 H (75-99) mg/dL Calcium (8.4-10.2) mg/dL AST (17-59) U/L Total Protein (6.3-8.2) g/dL Albumin (3.5-5.0) g/dL
[2021-06-03 16:51] LABS: Glucose,Whole Blood 124 mg/dL (75-99)
[2021-06-03 20:23] LABS: Glucose,Whole Blood 114 mg/dL (75-99)
[2021-06-03] MEDS: SENNOSIDES-DOCUSATE SODIUM 1 EACH TAB PO SCH (21:13)
[2021-06-04] MEDS: HYDROcodone/APAP 5-325MG 1 EACH TAB PO PRN ×2 (01:59→06:19)
[2021-06-04 02:07] LABS: Glucose,Whole Blood 109 mg/dL (75-99)
[2021-06-04 06:16] LABS: Glucose,Whole Blood 111 mg/dL (75-99)
[2021-06-04] MEDS: PANTOPRAZOLE 40 MG TABLET PO SCH (06:19)
[2021-06-04] MEDS: INSULIN ASPART (NovoLOG) 100 UNIT/ML VIAL SQ SCH ×4 (06:27→20:20)
--- NOTE | 2021-06-04 07:43 | XR ---
EXAMINATION TYPE: XR chest 1V portable DATE OF EXAM: 06/04/2021 Comparison: 06/03/2021 Clinical History: 65 year-old male post cardiac surgery Findings: Median sternotomy wires are present. Post-CABG clips in the mediastinum. Greater degree of opacity at the left mid and lower lung. Mild interstitial density persists. Left-sided chest tube remains. Trac e left apical pneumothorax is redemonstrated, slightly larger at 6 mm versus 4 mm, previously. Suspec jania trace pneumothorax on the right now as well measuring 5 mm. Mediastinal drains have been removed. Impression: 1. A trace right apical pneumothorax now visualized measuring 5 mm. 2. Left-sided chest tube in place with a redemonstrated trace left apical pneumothorax slightly large r 6 mm versus 4 mm, previously. 3. Worsening atelectasis and consolidation in the left mid and lower lung. 4. Possible background mild pulmonary vascular congestion. Findings regarding pneumothoraces called to Nurse James on [facility]SCARD at 7:39am.
--- NOTE | 2021-06-04 07:45 | P.PN ---
Subjective Progress Note Date: 06/04/21 Principal diagnosis: Severe coronary artery disease The patient is a pleasant 65-year-old gentleman who had a cardiac arrest with V. fib. CPR was initiated and the patient was brought into normal sinus rhythm. An emergent heart catheterization was performed and revealed severe triple- vessel CAD. The patient underwent coronary artery bypass grafting 3 yesterday with GUIDO to LAD and SVG to OM and SVG to PDA. The patient was seen this morning. He is overall doing good. Hemodynamically he is stable. He is on maximize medical treatment including dual antiplatelet therapy along with beta rosie as well as amiodarone as well as a statin. The chest x-ray was reviewed today and continues to show evidence off left pleural effusion. I'll suggest giving the patient another dose of Lasix today. Objective - Vital Signs Vital signs: Vital Signs Temp 98.9 F 06/04/21 03:10 Pulse 94 06/04/21 03:10 Resp 18 06/04/21 03:10 BP 137/75 06/04/21 03:10 Pulse Ox 94 L 06/04/21 03:10 Intake & Output 06/03/21 06/04/21 06/04/21 18:59 06:59 18:59 Intake Total 409 480 Output Total 550 1300 Balance -141 -820 Weight 87.1 kg Intake: IV 409 Lactated Ringers 1,000 ml 370 @ 20 mls/hr IV .Q24H [facility] Rx#:[id number] Pressure bag 39 Intake, IV Titration 0 Amount Insulin Regular 100 unit 0 In Sodium Chloride 0.9% 100 ml @ Per Protocol IV .Q0M [facility] Rx#:[id number] Oral 480 Output: Chest Tube Drainage 50 50 Chest Tube Left Pleural/ 30 50 Mediastinal Chest Tube Mediastinal 20 Urine 500 1250 Other: Voiding Method Urinal Urinal # Voids 0 # Bowel Movements 1 ABP, PAP, CO, CI - Last Documented Arterial Blood Pressure 128/73 Pulmonary Artery Pressure 31/11 Cardiac Output 4.4 Cardiac Index 2.2 - Constitutional General appearance: Present: no acute distress - Respiratory Respiratory: bilateral: diminished - Cardiovascular Rhythm: regular - Labs CBC & Chem 7: 06/03/21 03:46 06/03/21 03:46 Labs: Abnormal Lab Results - Last 24 Hours (Table) 12/29/21 12/29/21 12/29/21 Range/Units 08:08 10:34 12:05 POC Glucose (mg/dL) 149 H 129 H 121 H (75-99) mg/dL 06/03/21 06/03/21 06/04/21 Range/Units 16:48 20:21 02:02 POC Glucose (mg/dL) 124 H 114 H 109 H (75-99) mg/dL 06/04/21 Range/Units 06:14 POC Glucose (mg/dL) 111 H (75-99) mg/dL Assessment and Plan Assessment: Assessment #1 cardiac arrest #2 severe triple-vessel CAD and status post CABG #3 bicuspid aortic valve Plan #1 continue the current medical regimen #2 continue amiodarone by mouth #3 follow-up with the patient #4 continue monitor the hemoglobin and renal function
[2021-06-04 07:50] LABS: Basophils % (A) 0 %; Eosinophils # (A) 0.1 k/uL (0-0.7); Eosinophils % (A) 1 %; HCT 32.7 % (39.0-53.0); HGB 10.6 gm/dL (13.0-17.5); Lymphocytes # (A) 0.7 k/uL (1.0-4.8); Lymphocytes % (A) 5 %; MCH 29.1 pg (25.0-35.0); MCHC 32.3 g/dL (31.0-37.0); MCV 89.9 fL (80.0-100.0); Mean Platelet Volume 9.8; Monocytes # (A) 1.4 k/uL (0-1.0); Monocytes % (A) 10 %; Neutrophils # (A) 11.1 k/uL (1.3-7.7); Neutrophils % (A) 82 %; Platelet Count 178 k/uL (150-450); RBC 3.64 m/uL (4.30-5.90); RDW 14.6 % (11.5-15.5); WBC 13.6 k/uL (3.8-10.6)
[2021-06-04 08:08] LABS: ALT 35 U/L (4-49); AST 73 U/L (17-59); African American GFR (CKD) >90 (>60 ml/min/1.73 sqM); Alkaline Phosphatase 80 U/L (38-126); Anion Gap 8 mmol/L; Blood Urea Nitrogen 34 mg/dL (9-20); Calcium 8.1 mg/dL (8.4-10.2); Carbon Dioxide 24 mmol/L (22-30); Chloride 98 mmol/L (98-107); Glucose 117 mg/dL (74-99); Magnesium 2.4 mg/dL (1.6-2.3); Non-African American GFR(CKD) >90 (>60 ml/min/1.73 sqM); Potassium 4.4 mmol/L (3.5-5.1); Sodium 130 mmol/L (137-145); Total Bilirubin 0.8 mg/dL (0.2-1.3); Total Protein 5.7 g/dL (6.3-8.2)
[2021-06-04] MEDS: IPRATROPIUM-ALBUTEROL 3 ML NEB INHALATION SCH ×4 (08:45→20:51)
[2021-06-04] MEDS: CLOPIDOGREL 75 MG TAB PO SCH (08:55)
[2021-06-04] MEDS: ATORVASTATIN 40 MG TAB PO SCH (08:55)
[2021-06-04] MEDS: HEPARIN SODIUM,PORCINE/PF 5,000 UNIT/0.5 ML SYRINGE SQ SCH ×3 (08:55→23:30)
[2021-06-04] MEDS: ASPIRIN 325 MG TAB PO SCH (08:56)
[2021-06-04] MEDS: AMIODARONE 200 MG TAB PO SCH ×2 (08:56→20:23)
--- NOTE | 2021-06-04 08:58 | P.PN ---
Subjective Progress Note Date: 06/04/21 Principal diagnosis: Triple-vessel coronary artery disease with non-STEMI this admission, ventricular fibrillation arrest with CPR and shock 1, post arrest memory impairment, leuk ocytosis, transaminitis, and hypertension on admission. Past medical history significant for hyperlipidemia, COVID-19 infection in August 2020, remains unvaccinated, lifetime nonsmoker. Bilateral carotid stenosis, right ICA 100%, left ICA 60% per CTA. POD #3 coronary artery bypass grafting 3 vessels, left internal mammary artery to the left anterior descending coronary artery, a reverse saphenous vein graft to the obtuse marginal coronary artery, and a reverse saphenous vein graft to the posterior descending coronary artery, endoscopic harvesting of the left greater saphenous vein, ligation of the left atrial appendage using a 35 mm AtriClip, epi-aortic ultrasound and intraoperative transesophageal echocardiogram. Postoperative acute blood loss anemia, expected given cardiopulmonary bypass and hemodilution. The patient was seen in follow-up today 06/04/2021 at his bedside on the cardiac stepdown unit. Currently he is sitting up to the bedside chair, is awake, alert, oriented 3 and is in no acute apparent distress. Denies any complaints of shortness of breath at this time, although is complaining of some surgical type pain to his left chest tube insertion site with deep breathing and coughing. Oxygen saturation are 94% on room air and he is achieving 750-1000 mL on his incentive spirometry. Remote telemetry is showing normal sinus rhythm heart rate 97 BPM. He reports he has been up ambulating in the hallway 3 yesterday with standby assistance from therapy and nursing staff. He remains hemodynamically stable and is currently on no inotropic or pressor support. Left pleural chest tube remains in place to low continuous wall suction -20 cm H2O. No air leak is present. Draining thin serosanguineous drainage with 40 mL of output in the last 24 hours. He remains afebrile the last 24 hours. The patient and his who were present at his bedside were educated on the use of his incentive spirometry and encouragement of use 10 times every hour while awake. The patient's chest x-ray report this morning shows a trace right apical pneumothorax, a trace left apical pneumothorax despite the left-sided chest tube being in place and worsening atelectasis and consolidation in the mid and lower left lung. Objective - Vital Signs Vital signs: Vital Signs Temp 98.9 F 06/04/21 03:10 Pulse 94 06/04/21 03:10 Resp 18 06/04/21 03:10 BP 137/75 06/04/21 03:10 Pulse Ox 94 L 06/04/21 03:10 Intake & Output 06/03/21 06/04/21 06/04/21 18:59 06:59 18:59 Intake Total 409 480 Output Total 550 1300 Balance -141 -820 Weight 87.1 kg Intake: IV 409 Lactated Ringers 1,000 ml 370 @ 20 mls/hr IV .Q24H ANN Rx#:[id number] Pressure bag 39 Intake, IV Titration 0 Amount Insulin Regular 100 unit 0 In Sodium Chloride 0.9% 100 ml @ Per Protocol IV .Q0M ANN Rx#:[id number] Oral 480 Output: Chest Tube Drainage 50 50 Chest Tube Left Pleural/ 30 50 Mediastinal Chest Tube Mediastinal 20 Urine 500 1250 Other: Voiding Method Urinal Urinal # Voids 0 # Bowel Movements 1 ABP, PAP, CO, CI - Last Documented Arterial Blood Pressure 128/73 Pulmonary Artery Pressure 31/11 Cardiac Output 4.4 Cardiac Index 2.2 - Exam CONSTITUTIONAL: Sitting up to the bedside chair on the cardiac stepdown unit, appears comfortable, cooperative, no apparent acute distress. HEENT: Neck is supple, no JVD, no lymphadenopathy. RESPIRATORY: Lungs sounds essentially clear throughout, diminished to his bilateral bases. Respirations are symmetrical and nonlabored. Currently on room air with oxygen saturations 94%. Able to achieve 750-1000 mL on his incentive spirometry. Strong cough. CARDIOVASCULAR: Regular rhythm and rate. S1 and S2 present, negative for S3, gallop or murmur. Sternum is stable. Palpable peripheral pulses bilaterally, no calf pain or tenderness noted. Heart hugger in place with patient demonstrating appropriate use. Knee-high TOMMIE hose and sequential compression devices in place to his bilateral lower extremities. GASTROINTESTINAL: Abdomen soft, nontender, and slightly distended. Active bowel sounds present 4 quadrants. Tolerating diet. Passing flatus. No guarding or rigidity. Bowel movement yesterday 06/03/2021. GENITOURINARY: Continues to void. Urine output 650 mL in the last 8 hours. INTEGUMENTARY: Skin is warm and dry with no evidence of clubbing or cyanosis. Midline sternal incision clean dry and well approximated, covered with dry intact dressing. Left lower extremity EVH sites well approximated without redness or drainage. NEUROLOGIC: Cranial nerves II through XII intact. No focal deficits. MUSKULOSKELETAL: Able to move all extremities, strength equal bilaterally, generalized weakness. PSYCHIATRIC: Alert and oriented to person place and time, appropriate affect, intact judgment and insight. INVASIVE LINES AND TUBES: Left pleural chest tube present and connected to low continuous wall suction, no air leaks present. Left pleural chest tube with 40 mL output in the last 24 hours. Atrial and ventricular epicardial pacemaker wires present and grounded. - Allied health notes Allied health notes reviewed: nursing - Labs CBC & Chem 7: 06/04/21 07:14 06/04/21 07:14 Labs: Abnormal Lab Results - Last 24 Hours (Table) 06/03/21 06/03/21 06/03/21 Range/Units 10:34 12:05 16:48 WBC (3.8-10.6) k/uL RBC (4.30-5.90) m/uL Hgb (13.0-17.5) gm/dL Hct (39.0-53.0) % Neutrophils # (1.3-7.7) k/uL Lymphocytes # (1.0-4.8) k/uL Monocytes # (0-1.0) k/uL Sodium (137-145) mmol/L BUN (9-20) mg/dL Glucose (74-99) mg/dL POC Glucose (mg/dL) 129 H 121 H 124 H (75-99) mg/dL Calcium (8.4-10.2) mg/dL Magnesium (1.6-2.3) mg/dL AST (17-59) U/L Total Protein (6.3-8.2) g/dL Albumin (3.5-5.0) g/dL 06/03/21 06/04/21 06/04/21 Range/Units 20:21 02:02 06:14 WBC (3.8-10.6) k/uL RBC (4.30-5.90) m/uL Hgb (13.0-17.5) gm/dL Hct (39.0-53.0) % Neutrophils # (1.3-7.7) k/uL Lymphocytes # (1.0-4.8) k/uL Monocytes # (0-1.0) k/uL Sodium (137-145) mmol/L BUN (9-20) mg/dL Glucose (74-99) mg/dL POC Glucose (mg/dL) 114 H 109 H 111 H (75-99) mg/dL Calcium (8.4-10.2) mg/dL Magnesium (1.6-2.3) mg/dL AST (17-59) U/L Total Protein (6.3-8.2) g/dL Albumin (3.5-5.0) g/dL 06/04/21 06/04/21 Range/Units 07:14 07:14 WBC 13.6 H (3.8-10.6) k/uL RBC 3.64 L (4.30-5.90) m/uL Hgb 10.6 L (13.0-17.5) gm/dL Hct 32.7 L (39.0-53.0) % Neutrophils # 11.1 H (1.3-7.7) k/uL Lymphocytes # 0.7 L (1.0-4.8) k/uL Monocytes # 1.4 H (0-1.0) k/uL Sodium 130 L (137-145) mmol/L BUN 34 H (9-20) mg/dL Glucose 117 H (74-99) mg/dL POC Glucose (mg/dL) (75-99) mg/dL Calcium 8.1 L (8.4-10.2) mg/dL Magnesium 2.4 H (1.6-2.3) mg/dL AST 73 H (17-59) U/L Total Protein 5.7 L (6.3-8.2) g/dL Albumin 3.0 L (3.5-5.0) g/dL - Imaging and Cardiology Chest x-ray: report reviewed, image reviewed Assessment and Plan Assessment: 1. Triple-vessel coronary artery disease, non-STEMI this admission, status post three-vessel CABG 2. Status post ventricular fibrillation arrest with CPR and shock 1, ROSC achieved 3. Post arrest memory impairment 4. Leukocytosis, likely reactive 5. Transaminitis, likely from hepatic steatosis, AST is trending down, ALT within normal limits 6. Hypertension on admission 7. History of hyperlipidemia, untreated, cholesterol 407, LDL 310, triglycerides 228 8. Bilateral carotid stenosis, right ICA 100%, left ICA 60% per CTA. 9. COVID-19 infection in August 2020, remains unvaccinated 10. Lifetime nonsmoker Plan: 1. Continue aspirin, statin, Plavix, and beta rosie. Will increase metoprolol tartrate to 75 mg by mouth twice a day. 2. Continue amiodarone 400 mg twice a day today due to recent V. fib arrest as well as prophylaxis for atrial fibrillation. 3. Encourage incentive spirometry 10 times every hour while awake. Bronchodilators per pulmonology. 4. Increase activity, ambulate as tolerated. PT/OT/cardiac rehab following. 5. Will monitor daily labs and chest x-rays. Electrolyte replacement protocol. 6. Pain control current medication regimen. Discontinued Toradol as his BUN and creatinine were trending up. 7. Insulin management per primary care service. Patient is not a diabetic, hemoglobin A1c 5.7%. Needs tight blood sugar control to promote sternal union and prevent infection. 8. Will discontinue left pleural chest tube today. 9. May bladder scan and straight cath for >300 mL residual. Bladder scan this a.m. due to some abdominal distention. 10. Strict accurate intake and output. Daily weights. 11. Remove atrial and ventricular epicardial pacemaker wires. Bedrest for 1 hour post pacemaker wire removal. 12. Keep mean arterial pressure greater than 70 due to carotid stenosis, patient to follow up with vascular outpatient 13. Discharge planning is in place, anticipate discharge home with home health care in the next 24-48 hours. 14. More recommendations to follow based on patient's clinical course. Time with Patient: Greater than 30
[2021-06-04] MEDS: METOPROLOL TARTRATE 25 MG TAB PO SCH ×2 (09:07→20:24)
[2021-06-04] MEDS ORDERED: FUROSEMIDE 10 MG/ML 2 ML VIAL IV ONE (10:50)
[2021-06-04 11:38] LABS: Glucose,Whole Blood 115 mg/dL (75-99)
[2021-06-04] MEDS: NITROGLYCERIN-D5W PMX 50 MG in DEXTROSE/WATER 1 250ML.BAG IV SCH (15:45)
--- NOTE | 2021-06-04 16:24 | P.PN ---
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 EMS responded within 3 minutes to the call, and he was noted to be in ventricular fibrillation, received 1 shock and there was return of normal sinus rhythm and return of spontaneous circulation. He was brought into the hospital and seen by cardiology on cons ultation. Acute ST elevation DE alert was called, patient had cardiac catheterization and he was found to have chronic occlusion of the RCA. He was also found to have diffuse disease in the left coronary system patient received aspirin, atorvastatin, and sublingual nitroglycerin. And he also received heparin in the catheterization laboratory. Transferred after the cardiac cath to the ICU, thoracic surgery was consulted, and I was asked to see him on consultation for preoperative pulmonary clearance. Patient has no active pulmonary symptoms whatsoever. Denies any history of COPD, he is a lifetime nonsmoker. Never complained of shortness of breath. No history of cough wheezing. Although the patient had COVID-19 infection back in August of 2020. Patient is not vaccinated. Initial chest x-ray on admission showed evidence of congestive heart failure. Follow-up chest x-ray continues to show minimal cardiomegaly with interstitial opacities and atelectatic changes at the bases. Echocardiogram showed good LV function however he had severe concentric LVH. No significant valvular pathology was noted. Patient was found to have bicuspid aortic valve mildly thickened. There was also evidence of grade 1 diastolic dysfunction. And trace of mitral regurgitation at any rate considering the plan to undergo cardiac surgery, I was asked to see him on consultation, based on his clinical pulmonary history, patient is considered low operative risk. Reevaluated today on 06/01/21, patient just came back from the operating room, he is status post CABG, patient had GUIDO to LAD saphenous vein graft to obtuse marginal artery and saphenous vein graft to posterior descending. He is now in the ICU on mechanical ventilation, he is on assist control rate of 12 tidal volume of 500 FiO2 was initially on the percent and now it is 50%, and PEEP of 5. Chest x-ray showed no evidence of active disease, postoperative changes noted. ABG earlier today showed a pO2 of 273 pCO2 40 pH of 7.41 hence the patient is now on 50% FiO2. Patient is not requiring any inotropes or any pressors, he is on a low dose of propofol, and on clevidipine. Reevaluated today on 06/02/21, patient remains in the ICU, he was extubated shortly after his bypass surgery yesterday. He is now postoperative day #1. Patient is doing well, he is sitting in a recliner, he is already ambulating, extubation time was 20: 10. Patient is on room air. Not in any distress. Chest x-ray showed tiny left apical pneumothorax and minimal atelectasis with mild venous congestion. CBC is relatively normal WBC count is 15.8 hemoglobin is 12.6. Asymmetric metabolic profile is unremarkable. Reevaluated today on 06/03/21, patient remains in the ICU, he is on room air with O2 saturation 94%, patient seems to be doing quite well. Patient is postoperative day #2. He is status post CABG 3. Lifetime nonsmoker. Chest x- ray today showed a small tiny left apical pneumothorax, left-sided chest tube remains in position, patient has a small left lower lobe atelectasis. Otherwise his chest x-ray is reassuring. And clinically the patient is doing well, not requiring any pressors or any inotropes. WBC count is 14.3 hemoglobin is 11.2. Sodium is a bit on the low side 130 his renal profile is normal creatinine is 1. 04. Patient has been receiving diuretics on a daily basis 06/04/2021, patient is being seen for a follow-up. The patient drinks and 11 the patient is currently on room air oxygen. No shortness of breath. Breathing is nonlabored. The patient is able to communicate. He is alert and oriented 3. Surgical wound site is dry clean and intact. The chest x-ray from today showed questionable tiny left apical pneumothorax. There was no evidence of any air leak and the total amount of drainage was around 40 mL over the past 24 hours from the left-sided chest tube. The drainage was serosanguineous in nature. Based on that, we made recommendations and was supported removal of the left-sided chest tube. Otherwise, the patient using incentive spirometer. His bowling approximately thousand on his incentive spirometer. His emanating. He is hemodynamically stable. Producing adequate amount of urine output. As mentioned, he is on room air oxygen. No other significant events otherwise over the past 24 hours. He is calm and comfortable. He is postop day #3. The tentative plan is to discharge this patient home tomorrow. He was attempted 0.6. Normal renal function. Sodium level is at 130. Objective - Vital Signs Vital signs: Vital Signs Temp 98.5 F 06/04/21 12:25 Pulse 86 06/04/21 12:25 Resp 18 06/04/21 12:25 BP 102/76 06/04/21 12:25 Pulse Ox 92 L 06/04/21 12:25 Intake & Output 06/03/21 06/04/21 06/04/21 18:59 06:59 18:59 Intake Total 409 480 240 Output Total 550 1300 Balance -141 -820 240 Weight 87.1 kg Intake: IV 409 Lactated Ringers 1,000 ml 370 @ 20 mls/hr IV .Q24H ANN Rx#:[id number] Pressure bag 39 Intake, IV Titration 0 Amount Insulin Regular 100 unit 0 In Sodium Chloride 0.9% 100 ml @ Per Protocol IV .Q0M ANN Rx#:[id number] Oral 480 240 Output: Chest Tube Drainage 50 50 Chest Tube Left Pleural/ 30 50 Mediastinal Chest Tube Mediastinal 20 Urine 500 1250 Other: Voiding Method Urinal Urinal Urinal # Voids 0 # Bowel Movements 1 ABP, PAP, CO, CI - Last Documented Arterial Blood Pressure 128/73 Pulmonary Artery Pressure 31/11 Cardiac Output 4.4 Cardiac Index 2.2 - Exam CONSTITUTIONAL: Sitting up to the bedside chair on the cardiac stepdown unit, appears comfortable, cooperative, no apparent acute distress. HEENT: Neck is supple, no JVD, no lymphadenopathy. RESPIRATORY: Lungs sounds essentially clear throughout, diminished to his buck ateral bases. Respirations are symmetrical and nonlabored. Currently on room air with oxygen saturations 94%. Able to achieve 750-1000 mL on his incentive spirometry. Strong cough. CARDIOVASCULAR: Regular rhythm and rate. S1 and S2 present, negative for S3, gallop or murmur. Sternum is stable. Palpable peripheral pulses bilaterally, no calf pain or tenderness noted. Heart hugger in place with patient demonstrating appropriate use. Knee-high TOMMIE hose and sequential compression devices in place to his bilateral lower extremities. GASTROINTESTINAL: Abdomen soft, nontender, and slightly distended. Active bowel sounds present 4 quadrants. Tolerating diet. Passing flatus. No guard ing or rigidity. Bowel movement yesterday 06/03/2021. GENITOURINARY: Continues to void. Urine output 650 mL in the last 8 hours. INTEGUMENTARY: Skin is warm and dry with no evidence of clubbing or cyanosis. Midline sternal incision clean dry and well approximated, covered with dry intact dressing. Left lower extremity EVH sites well approximated without redness or drainage. NEUROLOGIC: Cranial nerves II through XII intact. No focal deficits. MUSKULOSKELETAL: Able to move all extremities, strength equal bilaterally, generalized weakness. PSYCHIATRIC: Alert and oriented to person place and time, appropriate affect, intact judgment and insight. INVASIVE LINES AND TUBES: Left pleural chest tube present and connected to low continuous wall suction, no air leaks present. Left pleural chest tube with 40 mL output in the last 24 hours. Atrial and ventricular epicardial pacemaker wires present and grounded. - Labs CBC & Chem 7: 06/04/21 07:14 06/04/21 07:14 Labs: Abnormal Lab Results - Last 24 Hours (Table) 06/03/21 06/03/21 06/04/21 Range/Units 16:48 20:21 02:02 WBC (3.8-10.6) k/uL RBC (4.30-5.90) m/uL Hgb (13.0-17.5) gm/dL Hct (39.0-53.0) % Neutrophils # (1.3-7.7) k/uL Lymphocytes # (1.0-4.8) k/uL Monocytes # (0-1.0) k/uL Sodium (137-145) mmol/L BUN (9-20) mg/dL Glucose (74-99) mg/dL POC Glucose (mg/dL) 124 H 114 H 109 H (75-99) mg/dL Calcium (8.4-10.2) mg/dL Magnesium (1.6-2.3) mg/dL AST (17-59) U/L Total Protein (6.3-8.2) g/dL Albumin (3.5-5.0) g/dL 06/04/21 06/04/21 06/04/21 Range/Units 06:14 07:14 07:14 WBC 13.6 H (3.8-10.6) k/uL RBC 3.64 L (4.30-5.90) m/uL Hgb 10.6 L (13.0-17.5) gm/dL Hct 32.7 L (39.0-53.0) % Neutrophils # 11.1 H (1.3-7.7) k/uL Lymphocytes # 0.7 L (1.0-4.8) k/uL Monocytes # 1.4 H (0-1.0) k/uL Sodium 130 L (137-145) mmol/L BUN 34 H (9-20) mg/dL Glucose 117 H (74-99) mg/dL POC Glucose (mg/dL) 111 H (75-99) mg/dL Calcium 8.1 L (8.4-10.2) mg/dL Magnesium 2.4 H (1.6-2.3) mg/dL AST 73 H (17-59) U/L Total Protein 5.7 L (6.3-8.2) g/dL Albumin 3.0 L (3.5-5.0) g/dL 06/04/21 Range/Units 11:37 WBC (3.8-10.6) k/uL RBC (4.30-5.90) m/uL Hgb (13.0-17.5) gm/dL Hct (39.0-53.0) % Neutrophils # (1.3-7.7) k/uL Lymphocytes # (1.0-4.8) k/uL Monocytes # (0-1.0) k/uL Sodium (137-145) mmol/L BUN (9-20) mg/dL Glucose (74-99) mg/dL POC Glucose (mg/dL) 115 H (75-99) mg/dL Calcium (8.4-10.2) mg/dL Magnesium (1.6-2.3) mg/dL AST (17-59) U/L Total Protein (6.3-8.2) g/dL Albumin (3.5-5.0) g/dL Assessment and Plan Plan: 1. Triple-vessel coronary artery disease, non-STEMI this admission, status post three-vessel CABG, the patient is postop day #3 and the patient is doing well. Surgical site is dry clean and intact. 2. Status post ventricular fibrillation arrest with CPR and shock 1, ROSC achieved 3. Post thoracotomy, left-sided chest tube will be removed today. Tiny left apical pneumothorax. Noted this of any air leak. Output from the left sided chest to be serosanguineous and minimal at this point in time. 4. Leukocytosis, likely reactive 5. Transaminitis, likely from hepatic steatosis, AST is trending down, ALT within normal limits 6. Hypertension 7. History of hyperlipidemia, untreated, cholesterol 407, LDL 310, triglycerides 228 8. Bilateral carotid stenosis, right ICA 100%, left ICA 60% per CTA. 9. COVID-19 infection in August 2020, remains unvaccinated Plan Left-sided chest tube was removed successfully Repeat chest x-ray in the morning and continue using incentive spirometer Continue to the aspirin and Plavix and the metoprolol at a dose of 75 mg by mouth twice a day Bronchodilators Increased mobility and activity as tolerated The epicardial pacemaker wires will be removed Possible discharge home tomorrow. We'll continue to follow.
[2021-06-04 16:38] LABS: Glucose,Whole Blood 118 mg/dL (75-99)
[2021-06-04] MEDS: METOCLOPRAMIDE 5 MG/ML 2 ML VIAL IVP PRN (17:44)
--- NOTE | 2021-06-04 17:44 | P.PN ---
Subjective Progress Note Date: 06/04/21 (Delayed charting seen at 0945) Principal diagnosis: unresponsive Patient is a 65-year-old male with high cholesterol not currently taking medication who presents to ER with a V. fib arrest. He was having intercourse when he passed out. Bystander CPR was in progress when EMS arrived. They placed him on a monitor he was shown to be in V. fib. Patient was successfully cardioverted with ROSC. Vital signs on arrival showed hypertension with a blood pressure 215/103. He was taken for emergent cardiac cath which showed a total occlusion of the RCA, nondominant circumflex distally occluded, LAD with 60-70% narrowing in the midportion and 99% at the apex. He did not require stent at that time. He was placed on amiodarone and heparin. He was admitted to the ICU and cardiac surgery was consulted. They did recommend cardiac bypass. Cholesterol came back extremely elevated with a total cholesterol 407 and an LDL of 310. Echo shows severe concentric LVH, ejection fraction 50-55%, grade 1 diastolic dysfunction. Carotid ultrasound showed severe greater than 70% left ICA stenosis. He was started on Lipitor, Cozaar, and metoprolol. He was taken for CABG on 06/01 and underwent GUIDO to LAD, SVG to OM and SVG to posterior descending artery he was extubated the same day he returned to the ICU. He has been progressing well. Patient seen and examined at bedside. Awake alert. States he is feeling emotional and crying. He was having some pain with coughing which is better. He denies any shortness of breath. He has been up and walking. General: non toxic, no distress, appears at stated age Derm: warm, dry Head: atraumatic, normocephalic, symmetric Eyes: EOMI, no lid lag, anicteric sclera Mouth: no lip lesion, mucus membranes moist Cardiovascular: S1S2 reg, no murmur, positive posterior tibial pulse bilateral, Bear Hugger in place Lungs: CTA bilateral, no rhonchi, no rales , no accessory muscle use Abdominal: soft, nontender to palpation, no guarding, no appreciable organomegaly Ext: no gross muscle atrophy, no edema, no contractures Neuro: CN II-XI grossly intact, no focal neuro deficits Psych: Alert, oriented, flat affect, delayed thinking Assessment/Plan: V. fib arrest Multivessel coronary artery disease S/P CABG, GUIDO to LAD, SVG to OM and SVG to PDA Non-STEMI Hyperlipidemia, Xanthomas - management per cardio thorasic surgery -statin - likely will need PCSK9 inhibitor as outpatient -Cardiology recommendations -Pulm recs - Plavix, Metoprolol, ASA - amio-wean as able Anoxic Encephalopathy Impairment with cognitive functioning and memory recall -Patient with poor testing with speech therapy for immediate recall as well as higher cognitive functioning. Patient was doing well with long-term memory -Had a long discussion with his . They will ensure that somebody is there to monitor him 24 7 when he goes home. They will take care of all of finances and his pills. -Patient will have outpatient physical therapy for cognition. Hyperglycemia - SSI - follow BS -Likely reflective acute distress -Hemoglobin A1c 5.7- will need close follow-up this is on the cuff for pre diabetes Hyponatremia - likely due to low solute intake and diuretic use - follow BMP Carotid stenosis -Vascular Recs appreciated: outpatient follow-up Elevated BP on arrival without previous diagnosis of HTN Transaminitis, improved Hepatic Steatosis Discussed with: Nursing Anticipated discharge: 3-[address]: home health A total of 35 minutes was spent on the care of this complex patient more than 50% of the time was spent in counseling and care coordination. Active Medications Acetaminophen (Acetaminophen Tab 325 Mg Tab) 650 mg PO Q4HR PRN PRN Reason: Fever and/ or Pain Albuterol/Ipratropium (Ipratropium-Albuterol 3 Ml Neb) 3 ml INHALATION RT-Q2H PRN PRN Reason: Shortness Of Breath Or Wheezing Albuterol/Ipratropium (Ipratropium-Albuterol 3 Ml Neb) 3 ml INHALATION RT-QID [facility] Last Admin: 06/04/21 15:29 Dose: Not Given Documented by: Amiodarone HCl (Amiodarone 200 Mg Tab) 400 mg PO BID [facility] Last Admin: 06/04/21 08:56 Dose: 400 mg Documented by: Aspirin (Aspirin 325 Mg Tab) 325 mg PO DAILY [facility] Last Admin: 06/04/21 08:56 Dose: 325 mg Documented by: Atorvastatin Calcium (Atorvastatin 40 Mg Tab) 80 mg PO DAILY [facility] Last Admin: 06/04/21 08:55 Dose: 80 mg Documented by: Benzocaine/Menthol (Benzocaine/Menthol Lozeng 1 Each Lozenge) 1 each MUCOUS MEM Q2H PRN PRN Reason: Sore Throat Bisacodyl (Bisacodyl 10 Mg Supp) 10 mg RECTAL DAILY PRN PRN Reason: Constipation Clopidogrel Bisulfate (Clopidogrel 75 Mg Tab) 75 mg PO DAILY [facility] Last Admin: 06/04/21 08:55 Dose: 75 mg Documented by: Heparin Sodium (Porcine) (Heparin Sodium,Porcine/Pf 5,000 Unit/0.5 Ml Syringe) 5,000 unit SQ Q8HR [facility] Last Admin: 06/04/21 16:25 Dose: 5,000 unit Documented by: Amiodarone HCl 150 mg/ (Dextrose/Water) 103 mls @ 618 mls/hr IV .Q10M PRN; Protocol PRN Reason: A.FIB/FLUTTER Insulin Aspart (Insulin Aspart (Novolog) 100 Unit/Ml Vial) 0 unit SQ ACHS [facility]; Protocol Last Admin: 06/04/21 16:47 Dose: Not Given Documented by: Magnesium Hydroxide (Magnesium Hydroxide 2,400 Mg/10 Ml Cup) 2,400 mg PO BID PRN PRN Reason: Constipation Metoclopramide HCl (Metoclopramide 5 Mg/Ml 2 Ml Vial) 10 mg IVP Q4H PRN PRN Reason: Nausea And Vomiting Last Admin: 06/02/21 06:55 Dose: 10 mg Documented by: Metoprolol Tartrate (Metoprolol Tartrate 25 Mg Tab) 75 mg PO BID [facility] Last Admin: 06/04/21 09:07 Dose: 75 mg Documented by: Miscellaneous Information (Magnesium Replacement Protocol 1 Each Misc) 1 each MISCELLANE DAILY PRN; Protocol PRN Reason: Per Protocol Miscellaneous Information (Potassium Replacement Protocol 1 Each Misc) 1 each MISCELLANE DAILY PRN; Protocol PRN Reason: Per Protocol Miscellaneous Information (Phosphorus Replacement Protoco 1 Each Misc) 1 each MISCELLANE DAILY PRN; Protocol PRN Reason: Per Protocol Ondansetron HCl (Ondansetron 4 Mg/2 Ml Vial) 4 mg IVP Q6HR PRN PRN Reason: Nausea And Vomiting Pantoprazole Sodium (Pantoprazole 40 Mg Tablet) 40 mg PO -BRKFST [facility] Last Admin: 06/04/21 06:19 Dose: 40 mg Documented by: Senna/Docusate Sodium (Sennosides-Docusate Sodium 1 Each Tab) 2 each PO HS [facility] Last Admin: 06/03/21 21:13 Dose: 2 each Documented by: Sodium Chloride (Sodium Chloride 0.9% Flush 10 Ml Syringe) 10 ml IV BID [facility] Last Admin: 06/04/21 09:08 Dose: Not Given Documented by: Objective - Vital Signs Vital signs: Vital Signs Temp 98.3 F 06/04/21 16:21 Pulse 94 06/04/21 16:21 Resp 15 06/04/21 16:21 BP 134/73 06/04/21 16:21 Pulse Ox 93 L 06/04/21 16:21 Intake & Output 06/03/21 06/04/21 06/04/21 18:59 06:59 18:59 Intake Total 409 480 240 Output Total 550 1300 Balance -141 -820 240 Weight 87.1 kg Intake: IV 409 Lactated Ringers 1,000 ml 370 @ 20 mls/hr IV .Q24H [facility] Rx#:[id number] Pressure bag 39 Intake, IV Titration 0 Amount Insulin Regular 100 unit 0 In Sodium Chloride 0.9% 100 ml @ Per Protocol IV .Q0M [facility] Rx#:[id number] Oral 480 240 Output: Chest Tube Drainage 50 50 Chest Tube Left Pleural/ 30 50 Mediastinal Chest Tube Mediastinal 20 Urine 500 1250 Other: Voiding Method Urinal Urinal Urinal # Voids 0 # Bowel Movements 1 ABP, PAP, CO, CI - Last Documented Arterial Blood Pressure 128/73 Pulmonary Artery Pressure 31/11 Cardiac Output 4.4 Cardiac Index 2.2 - Labs CBC & Chem 7: 06/04/21 07:14 06/04/21 07:14 Labs: Abnormal Lab Results - Last 24 Hours (Table) 06/03/21 06/04/21 06/04/21 Range/Units 20:21 02:02 06:14 WBC (3.8-10.6) k/uL RBC (4.30-5.90) m/uL Hgb (13.0-17.5) gm/dL Hct (39.0-53.0) % Neutrophils # (1.3-7.7) k/uL Lymphocytes # (1.0-4.8) k/uL Monocytes # (0-1.0) k/uL Sodium (137-145) mmol/L BUN (9-20) mg/dL Glucose (74-99) mg/dL POC Glucose (mg/dL) 114 H 109 H 111 H (75-99) mg/dL Calcium (8.4-10.2) mg/dL Magnesium (1.6-2.3) mg/dL AST (17-59) U/L Total Protein (6.3-8.2) g/dL Albumin (3.5-5.0) g/dL 06/04/21 06/04/21 06/04/21 Range/Units 07:14 07:14 11:37 WBC 13.6 H (3.8-10.6) k/uL RBC 3.64 L (4.30-5.90) m/uL Hgb 10.6 L (13.0-17.5) gm/dL Hct 32.7 L (39.0-53.0) % Neutrophils # 11.1 H (1.3-7.7) k/uL Lymphocytes # 0.7 L (1.0-4.8) k/uL Monocytes # 1.4 H (0-1.0) k/uL Sodium 130 L (137-145) mmol/L BUN 34 H (9-20) mg/dL Glucose 117 H (74-99) mg/dL POC Glucose (mg/dL) 115 H (75-99) mg/dL Calcium 8.1 L (8.4-10.2) mg/dL Magnesium 2.4 H (1.6-2.3) mg/dL AST 73 H (17-59) U/L Total Protein 5.7 L (6.3-8.2) g/dL Albumin 3.0 L (3.5-5.0) g/dL 06/04/21 Range/Units 16:36 WBC (3.8-10.6) k/uL RBC (4.30-5.90) m/uL Hgb (13.0-17.5) gm/dL Hct (39.0-53.0) % Neutrophils # (1.3-7.7) k/uL Lymphocytes # (1.0-4.8) k/uL Monocytes # (0-1.0) k/uL Sodium (137-145) mmol/L BUN (9-20) mg/dL Glucose (74-99) mg/dL POC Glucose (mg/dL) 118 H (75-99) mg/dL Calcium (8.4-10.2) mg/dL Magnesium (1.6-2.3) mg/dL AST (17-59) U/L Total Protein (6.3-8.2) g/dL Albumin (3.5-5.0) g/dL
[2021-06-04 20:09] LABS: Glucose,Whole Blood 95 mg/dL (75-99)
[2021-06-04] MEDS: SENNOSIDES-DOCUSATE SODIUM 1 EACH TAB PO SCH (20:24)
[2021-06-05 02:07] LABS: Glucose,Whole Blood 114 mg/dL (75-99)
[2021-06-05 06:08] LABS: Glucose,Whole Blood 113 mg/dL (75-99)
[2021-06-05] MEDS: INSULIN ASPART (NovoLOG) 100 UNIT/ML VIAL SQ SCH ×2 (06:12→12:27)
[2021-06-05] MEDS: PANTOPRAZOLE 40 MG TABLET PO SCH (06:27)
[2021-06-05] MEDS: IPRATROPIUM-ALBUTEROL 3 ML NEB INHALATION SCH ×2 (07:23→11:07)
--- NOTE | 2021-06-05 07:42 | XR ---
EXAMINATION TYPE: XR chest 2V DATE OF EXAM: 06/05/2021 COMPARISON: 06/04/2021 HISTORY: 65-year-old male postoperative CABG TECHNIQUE: PA and lateral views FINDINGS: Median sternotomy wires are present. Left chest tube removed in the interval. Trace 2 mm medial left apical pneumothorax. A trace 4 mm right apical pneumothorax is slightly visualized. Prominent patchy opacity left mid and lower lung persists. Left heart margin partially obscured by adjacent parenchyma l opacity. IMPRESSION: 1. Left-sided chest tube removed. Trace 2 mm medial left apical pneumothorax. Versus 6 mm, previously . 2. Trace right apical pneumothorax at 4 mm versus 5 mm, previously. 3. Continued atelectasis and/or consolidation in the left mid and lower lung.
[2021-06-05] MEDS: ATORVASTATIN 40 MG TAB PO SCH (08:19)
[2021-06-05] MEDS: HEPARIN SODIUM,PORCINE/PF 5,000 UNIT/0.5 ML SYRINGE SQ SCH (08:19)
[2021-06-05] MEDS: CLOPIDOGREL 75 MG TAB PO SCH (08:19)
[2021-06-05] MEDS: AMIODARONE 200 MG TAB PO SCH (08:20)
[2021-06-05] MEDS: ASPIRIN 325 MG TAB PO SCH (08:20)
[2021-06-05] MEDS ORDERED: METOPROLOL TARTRATE 50 MG TAB PO SCH (09:00)
[2021-06-05 09:01] LABS: HCT 30.8 % (39.0-53.0); HGB 9.8 gm/dL (13.0-17.5); MCH 28.5 pg (25.0-35.0); MCHC 31.9 g/dL (31.0-37.0); MCV 89.5 fL (80.0-100.0); Platelet Count 202 k/uL (150-450); RBC 3.44 m/uL (4.30-5.90); RDW 14.9 % (11.5-15.5); WBC 11.1 k/uL (3.8-10.6)
[2021-06-05 09:04] LABS: ALT 41 U/L (4-49); AST 80 U/L (17-59); African American GFR (CKD) >90 (>60 ml/min/1.73 sqM); Anion Gap 7 mmol/L; Blood Urea Nitrogen 30 mg/dL (9-20); Calcium 8.4 mg/dL (8.4-10.2); Carbon Dioxide 25 mmol/L (22-30); Chloride 99 mmol/L (98-107); Glucose 143 mg/dL (74-99); Non-African American GFR(CKD) 87 (>60 ml/min/1.73 sqM); Potassium 3.7 mmol/L (3.5-5.1); Sodium 131 mmol/L (137-145)
--- NOTE | 2021-06-05 09:41 | P.PN ---
Subjective Progress Note Date: 06/05/21 Principal diagnosis: Triple-vessel coronary artery disease with non-STEMI this admission, ventricular fibrillation arrest with CPR and shock 1, post arrest memory impairment, leuk ocytosis, transaminitis, and hypertension on admission. Past medical history significant for hyperlipidemia, COVID-19 infection in August 2020, remains unvaccinated, lifetime nonsmoker. Bilateral carotid stenosis, right ICA 100%, left ICA 60% per CTA. POD #4 coronary artery bypass grafting 3 vessels, left internal mammary artery to the left anterior descending coronary artery, a reverse saphenous vein graft to the obtuse marginal coronary artery, and a reverse saphenous vein graft to the posterior descending coronary artery, endoscopic harvesting of the left greater saphenous vein, ligation of the left atrial appendage using a 35 mm AtriClip, epi-aortic ultrasound and intraoperative transesophageal echocardiogram. Postoperative acute blood loss anemia, expected given cardiopulmonary bypass and hemodilution. The patient was seen in follow-up today 06/05/2021 at his bedside on the cardiac stepdown unit. Currently he is sitting up to the bedside chair, is awake, alert, oriented 3 and is in no acute apparent distress. Denies any complaints of shortness of breath at this time or pain at this time. The patient reports his pain is well controlled on his current pain medication regimen. Oxygen saturation are 94% on room air and he is achieving 1000 mL on his incentive spirometry with encouragement. Remote telemetry is showing normal sinus rhythm heart rate 97 BPM. The patient reports he has been up ambulating in the cardiac stepdown unit hallway with standby assistance from nursing and therapy staff. His T-max temperature in the last 24 hours has been 99.1F. Atrial and ventricular epicardial pacemaker wires were removed without incident yesterday 06/04/2021. Left pleural chest tube was removed without incident yesterday. The patient is complaining of some episodes of loose stool this morning and his stool softer has been discontinued. The patient's chest x-ray from this morning continues to demonstrate trace bilateral apical pneumothorax and atelectasis to his left mid and lower lung. Discharge planning is in place and discussed with the patient and his who is present at his bedside. Objective - Vital Signs Vital signs: Vital Signs Temp 98.3 F 06/05/21 03:21 Pulse 96 06/05/21 03:21 Resp 16 06/05/21 03:21 BP 134/76 12/31/21 03:21 Pulse Ox 94 L 06/05/21 03:21 Intake & Output 06/04/21 06/05/21 06/05/21 18:59 06:59 18:59 Intake Total 240 720 240 Output Total 375 1050 Balance -135 -330 240 Weight 86 kg Intake: Oral 240 720 240 Output: Urine 375 1050 Other: Voiding Method Urinal Urinal # Voids 0 # Bowel Movements 1 ABP, PAP, CO, CI - Last Documented Arterial Blood Pressure 128/73 Pulmonary Artery Pressure Cardiac Output 4.4 Cardiac Index 2.2 - Exam CONSTITUTIONAL: Sitting up to the bedside chair on the cardiac stepdown unit, appears comfortable, cooperative, no apparent acute distress. HEENT: Neck is supple, no JVD, no lymphadenopathy. RESPIRATORY: Lungs sounds essentially clear throughout, diminished to his bilateral bases. Respirations are symmetrical and nonlabored. Currently on room air with oxygen saturations 94%. Able to achieve 1000 mL on his incentive spirometry. Strong cough. CARDIOVASCULAR: Regular rhythm and rate. S1 and S2 present, negative for S3, gallop or murmur. Sternum is stable. Palpable peripheral pulses bilaterally, no calf pain or tenderness noted. Trace pedal edema bilateral. Heart hugger in place with patient demonstrating appropriate use. Knee-high TOMMIE hose and sequential compression devices in place to his bilateral lower extremities. GASTROINTESTINAL: Abdomen soft, nontender, and nondistended. Active bowel sounds present 4 quadrants. Tolerating diet. Passing flatus. No guarding or rigidity. Loose bowel movement this morning 2. GENITOURINARY: Continues to void. Urine output 1050 mL in the last 8 hours. INTEGUMENTARY: Skin is warm and dry with no evidence of clubbing or cyanosis. Midline sternal incision clean dry and well approximated, covered with dry intact dressing. Left lower extremity EVH sites well approximated without redness or drainage. NEUROLOGIC: Cranial nerves II through XII intact. No focal deficits. MUSKULOSKELETAL: Able to move all extremities, strength equal bilaterally, generalized weakness. PSYCHIATRIC: Alert and oriented to person place and time, appropriate affect, intact judgment and insight. - Allied health notes Allied health notes reviewed: nursing - Labs CBC & Chem 7: 06/05/21 08:14 06/05/21 08:14 Labs: Abnormal Lab Results - Last 24 Hours (Table) 06/04/21 06/04/21 06/05/21 Range/Units 11:37 16:36 02:05 WBC (3.8-10.6) k/uL RBC (4.30-5.90) m/uL Hgb (13.0-17.5) gm/dL Hct (39.0-53.0) % Sodium (137-145) mmol/L BUN (9-20) mg/dL Glucose (74-99) mg/dL POC Glucose (mg/dL) 115 H 118 H 114 H (75-99) mg/dL AST (17-59) U/L 06/05/21 06/05/21 06/05/21 Range/Units 06:05 08:14 08:14 WBC 11.1 H (3.8-10.6) k/uL RBC 3.44 L (4.30-5.90) m/uL Hgb 9.8 L (13.0-17.5) gm/dL Hct 30.8 L (39.0-53.0) % Sodium 131 L (137-145) mmol/L BUN 30 H (9-20) mg/dL Glucose 143 H (74-99) mg/dL POC Glucose (mg/dL) 113 H (75-99) mg/dL AST 80 H (17-59) U/L - Imaging and Cardiology Chest x-ray: report reviewed, image reviewed Assessment and Plan Assessment: 1. Triple-vessel coronary artery disease, non-STEMI this admission, status post three-vessel CABG 2. Status post ventricular fibrillation arrest with CPR and shock 1, ROSC achieved 3. Post arrest memory impairment 4. Leukocytosis, likely reactive 5. Transaminitis, likely from hepatic steatosis, AST is trending down, ALT within normal limits 6. Hypertension on admission 7. History of hyperlipidemia, untreated, cholesterol 407, LDL 310, triglycerides 228 8. Bilateral carotid stenosis, right ICA 100%, left ICA 60% per CTA. 9. COVID-19 infection in August 2020, remains unvaccinated 10. Lifetime nonsmoker Plan: 1. Continue aspirin, statin, Plavix, and beta rosie. Will increase metoprolol tartrate to 100 mg by mouth twice a day. 2. Continue amiodarone 400 mg twice a day today due to recent V. fib arrest as well as prophylaxis for atrial fibrillation. 3. Encourage incentive spirometry 10 times every hour while awake. Bronchodilators per pulmonology. 4. Increase activity, ambulate as tolerated. PT/OT/cardiac rehab following. 5. Will monitor daily labs and chest x-rays. Electrolyte replacement protocol. Potassium replaced per protocol. 6. Pain control current medication regimen. 7. Insulin management per primary care service. Patient is not a diabetic, h emoglobin A1c 5.7%. Needs tight blood sugar control to promote sternal union and prevent infection. 8. Discharge instructions reviewed with the patient and his present at his bedside. 9. Stool softener discontinued due to his complaints of loose stools. 10. Strict accurate intake and output. Daily weights. 11. Discharge planning is in place, anticipate discharge home with home health care in the next 24-48 hours. 12. More recommendations to follow based on patient's clinical course. Time with Patient: Greater than 30
[2021-06-05] MEDS ORDERED: POTASSIUM CHLORIDE ER 20 MEQ TAB.ER PO SCH (10:00)
[2021-06-05 10:42] VITALS: TEMP 99
[2021-06-05 11:32] LABS: Glucose,Whole Blood 137 mg/dL (75-99)
--- NOTE | 2021-06-05 12:17 | P.PN ---
Subjective This is a 65 year old male with a past medical history of hyperlipidemia, COVID- 19 infection in August 2020 and bilateral carotid stenosis. He does not reguarly follow with a pet counselor prior to this admission. Patient admitted with NSTEMI, ventricular fibrillation arrest with CPR and shock 1. On 06/01/2021, patient underwent 3 vessel CABG, GUIDO to LAD, a reverse SVG to obtuse marginal coronary artery, reverse SVG to PDA. Patient did have post arrest memory impairment, leukocytosis, transaminitis, and hypertension on admission. Patient seen and examined at beside on 3S cardiac stepdown. He is alert and oriented x 3, no acute distress. Denies shortness of breath. Vital signs are stable. He feels well this morning, only complaint is lack of sleep in the hospital. He is currently maintained on amiodarone 400 mg twice a day, aspirin 325 mg daily, atorvastatin 80 mg daily, Plavix 75 mg daily, metoprolol tartrate 100 mg twice a day Labs, WBC 11.1, hemoglobin 9.8, platelets 202, sodium 131, potassium 3.7, BUN 30, serum creatinine 0.9 Vitals Reviewed GENERAL: Well-appearing, well-nourished and in no acute distress. NECK: Supple without JVD or thyromegaly. LUNGS: Breath sounds clear to auscultation bilaterally. Respiration equal and unlabored. No wheezes, rales or rhonchi. HEART: Regular rate and rhythm without murmurs, rubs or gallops. S1 and S2 heard. EXTREMITIES: Normal range of motion, no edema. No clubbing or cyanosis. Per ipheral pulses intact. ASSESSMENT Triple-vessel coronary artery disease, status post three-vessel CABG ON 06/01/21 Ventricular fibrillation arrest with CPR and shock 1, ROSC achieved Hypertension Hyperlipidemia Bilateral carotid stenosis, right ICA 100%, left ICA 60% per CTA. PLAN Post operative management per CT Surgery Continue aspirin, statin, Plavix, and beta rosie. Continue amiodarone Encourage incentive spirometry 10 times every hour while awake. Increase activity, ambulate as tolerated Plan for possible discharge home today. Patient to follow up with Dr. Menchaca on discharge Objective - Vital Signs Vital signs: Vital Signs Temp 98.3 F 06/04/21 16:21 Pulse 94 06/04/21 16: Resp 15 12/30/21 16:21 BP 134/73 06/04/21 16:21 Pulse Ox 93 L 06/04/21 16:21 Intake & Output 06/03/21 06/04/21 06/04/21 18:59 06:59 18:59 Intake Total 409 480 240 Output Total 550 1300 375 Balance -141 -820 -135 Weight 87.1 kg Intake: IV 409 Lactated Ringers 1,000 ml 370 @ 20 mls/hr IV .Q24H [facility] Rx#:[id number] Pressure bag 39 Intake, IV Titration 0 Amount Insulin Regular 100 unit 0 In Sodium Chloride 0.9% 100 ml @ Per Protocol IV .Q0M [facility] Rx#:[id number] Oral 480 240 Output: Chest Tube Drainage 50 50 Chest Tube Left Pleural/ 30 50 Mediastinal Chest Tube Mediastinal 20 Urine 500 1250 375 Other: Voiding Method Urinal Urinal Urinal # Voids 0 # Bowel Movements 1 ABP, PAP, CO, CI - Last Documented Arterial Blood Pressure 128/73 Pulmonary Artery Pressure 31/11 Cardiac Output 4.4 Cardiac Index 2.2 - Labs CBC & Chem 7: 06/05/21 08:14 06/05/21 08:14 Labs: Abnormal Lab Results - Last 24 Hours (Table) 06/03/21 06/04/21 06/04/21 Range/Units 20:21 02:02 06:14 WBC (3.8-10.6) k/uL RBC (4.30-5.90) m/uL Hgb (13.0-17.5) gm/dL Hct (39.0-53.0) % Neutrophils # (1.3-7.7) k/uL Lymphocytes # (1.0-4.8) k/uL Monocytes # (0-1.0) k/uL Sodium (137-145) mmol/L BUN (9-20) mg/dL Glucose (74-99) mg/dL POC Glucose (mg/dL) 114 H 109 H 111 H (75-99) mg/dL Calcium (8.4-10.2) mg/dL Magnesium (1.6-2.3) mg/dL AST (17-59) U/L Total Protein (6.3-8.2) g/dL Albumin (3.5-5.0) g/dL 06/04/21 06/04/21 06/04/21 Range/Units 07:14 07:14 11:37 WBC 13.6 H (3.8-10.6) k/uL RBC 3.64 L (4.30-5.90) m/uL Hgb 10.6 L (13.0-17.5) gm/dL Hct 32.7 L (39.0-53.0) % Neutrophils # 11.1 H (1.3-7.7) k/uL Lymphocytes # 0.7 L (1.0-4.8) k/uL Monocytes # 1.4 H (0-1.0) k/uL Sodium 130 L (137-145) mmol/L BUN 34 H (9-20) mg/dL Glucose 117 H (74-99) mg/dL POC Glucose (mg/dL) 115 H (75-99) mg/dL Calcium 8.1 L (8.4-10.2) mg/dL Magnesium 2.4 H (1.6-2.3) mg/dL AST 73 H (17-59) U/L Total Protein 5.7 L (6.3-8.2) g/dL Albumin 3.0 L (3.5-5.0) g/dL 06/04/21 Range/Units 16:36 WBC (3.8-10.6) k/uL RBC (4.30-5.90) m/uL Hgb (13.0-17.5) gm/dL Hct (39.0-53.0) % Neutrophils # (1.3-7.7) k/uL Lymphocytes # (1.0-4.8) k/uL Monocytes # (0-1.0) k/uL Sodium (137-145) mmol/L BUN (9-20) mg/dL Glucose (74-99) mg/dL POC Glucose (mg/dL) 118 H (75-99) mg/dL Calcium (8.4-10.2) mg/dL Magnesium (1.6-2.3) mg/dL AST (17-59) U/L Total Protein (6.3-8.2) g/dL Albumin (3.5-5.0) g/dL
--- NOTE | 2021-06-05 12:36 | P.DS ---
Providers Date of admission: 05/31/21 02:09 Expected date of discharge: 06/05/21 Attending physician: Kevin Howard Consults: 06/01/21 13:38 Consult Physician Routine Consulting Provider: Tesha Darnell Consult Reason/Comments: med mgmt Do you want consulting provider notified?: Already Contacted 06/01/21 14:48 Consult Physician Routine Consulting Provider: Brennen Chaudhry Consult Reason/Comments: cabg (previous order accidentally cancelled) Do you want consulting provider notified?: Already Contacted 06/01/21 15:29 Consult Physician Routine Consulting Provider: Jody Menchaca Consult Reason/Comments: nstemi (previous order cancelled) Do you want consulting provider notified?: Already Contacted 06/01/21 15:30 Consult Physician Routine Consulting Provider: Tejinder Barrientos Consult Reason/Comments: cabg Do you want consulting provider notified?: Already Contacted Primary care physician: Stated None Hospital Course: FINAL DIAGNOSIS: 1. Triple-vessel coronary artery disease, non-STEMI this admission, status post three-vessel CABG 2. Status post ventricular fibrillation arrest with CPR and shock 1, ROSC achieved 3. Post arrest memory impairment 4. Leukocytosis, likely reactive 5. Transaminitis, likely from hepatic steatosis, AST is trending down, ALT within normal limits 6. Hypertension on admission 7. History of hyperlipidemia, untreated, cholesterol 407, LDL 310, triglycerides 228 8. Bilateral carotid stenosis, right ICA 100%, left ICA 60% per CTA. 9. COVID-19 infection in August 2020, remains unvaccinated 10. Lifetime nonsmoker PRINCIPAL PROCEDURE: 1. Coronary artery bypass grafting 3 vessels, with left internal mammary artery to left anterior descending coronary artery, a reverse greater saphenous vein graft to the obtuse marginal coronary artery and a reverse greater saphenous vein graft to the posterior descending coronary artery. 2. Endoscopic harvesting of the left greater saphenous vein. 3. Ligation of the left atrial appendage using a 35 mm Atriclip. 4. Intraoperative transesophageal echocardiogram. 5. Intraoperative epi-aortic ultrasound. HISTORY OF PRESENT ILLNESS: This is a 65-year-old gentleman who does not follow on an outpatient basis regularly with a primary care physician. He presented to [facility] on 05/31/2021 via EMS to the emergency department after a ventricular fibrillation arrest with CPR and 1 shock was subsequent return of spontaneous circulation. The patient was at home, surrounded by his and other family members when the patient reported chest discomfort and subsequently passed out. Subsequently, EMS was called, CPR was performed by the patient's son, EMS arrived in place the patient on a monitor demonstrating ventricular fibrillation although the patient did have a palpable carotid pulse. EMS delivered 1 shock with successful return of spontaneous circulation. The patient was subsequently transferred to [facility] for further evaluation and treatment recommendations. On admission to the hospital his EKG demonstrated normal sinus rhythm with ST abnormalities. For further evaluation and chest x-ray was completed which demonstrated some pulmonary interstitial edema. Initial laboratory results showed a WBC count of 13.8, hemoglobin 16.9, creatinine 1.04, AST 247, ALT 210, positive serial troponins as high as 2.540 which ruled the patient in for a non-ST elevated myocardial infarction. Cardiology was consulted and the patient underwent a cardiac catheterization and transthoracic 2-D echocardiogram. The cardiac catheterization demonstrated a total occlusion of the right coronary artery, distal total occlusion of the circumflex coronary artery, a proximal to mid left anterior descending stenosis of 60-70% with a distal stenosis to his left anterior descending coronary artery of 99%, with collaterals to both right and left systems. The transthoracic 2-D echocardiogram showed an overall left ventricular systolic function to be low normal with an ejection fraction between 50-55%, a functionally bicuspid aortic valve with a peak/mean gradient across aortic valve of 13.87 mmHg/7.87 mmHg, trace mitral valve regurgitation and trace tricuspid valve regurgitation. Due to the patient's presenting symptoms, positive troponins and findings on his cardiac catheterization a consult was placed to cardiothoracic surgery for further evaluation and treatment recommendations including myocardial revascularization surgery. Dr. Brennen Chaudhry met with the patient, reviewed the patient's diagnostic findings with the patient and his present at his bedside, treatment options were discussed including myocardial revascularization surgery. Risks and benefits of myocardial revascularization surgery were discussed including the STS risk score and knowing and understanding these risks the patient wished to proceed with the surgical option. HOSPITAL COURSE: The patient was admitted to the hospital and on 06/01/2021 after obtaining consent, the patient was taken to the preoperative area, prepared in the usual fashion and subsequently taken to the operating room where Dr. Kevin Howard performed a coronary artery bypass grafting 3 vessels, with left internal mammary artery to left anterior descending coronary artery, a reverse greater saphenous vein graft to the obtuse marginal coronary artery and a reverse greater saphenous vein graft to the posterior descending coronary artery, endoscopic harvesting of the left greater saphenous vein, ligation of the left atrial appendage using a 35 mm Atriclip, intraoperative transesophageal echocardiogram and epi-aortic scanning. Upon completion of the surgery the patient was transferred to the cardiovascular intensive care unit where he was recovered and monitored hemodynamically. He was extubated, all lines, tubes and supportive drips were discontinued when appropriate and he was subsequently transferred to the third floor cardiac stepdown unit for further monitoring and will dilatation. His oxygen was titrated down, he continued to work with physical/occupational therapy and cardiac rehab, he was tolerating an oral diet, his pain was well-controlled and was ready to be discharged home with visiting [facility] on postoperative day #4. He has received written and verbal instructions regarding his medications, activity restrictions, signs and symptoms requiring physician notification and his follow-up appointment. Patient Condition at Discharge: Serious Plan - Discharge Summary New Discharge Prescriptions: New Aspirin 325 mg PO DAILY tab Amiodarone [Cordarone] 400 mg PO BID #35 tab Atorvastatin [Lipitor] 80 mg PO DAILY #60 tab Metoprolol Tartrate [Lopressor] 100 mg PO BID #120 tab Clopidogrel [Plavix] 75 mg PO DAILY #30 tab Acetaminophen Tab [Tylenol] 650 mg PO Q4HR PRN tab PRN Reason: Fever And/ Or Pain Pantoprazole [Protonix] 40 mg PO AC-BRKFST #30 tab Discharge Medication List Acetaminophen Tab [Tylenol] 650 mg PO Q4HR PRN tab 06/05/21 [Rx] Amiodarone [Cordarone] 400 mg PO BID #35 tab 06/05/21 [Rx] Aspirin 325 mg PO DAILY tab 06/05/21 [Rx] Atorvastatin [Lipitor] 80 mg PO DAILY #60 tab 06/05/21 [Rx] Clopidogrel [Plavix] 75 mg PO DAILY #30 tab 06/05/21 [Rx] Metoprolol Tartrate [Lopressor] 100 mg PO BID #120 tab 06/05/21 [Rx] Pantoprazole [Protonix] 40 mg PO AC-BRKFST #30 tab 06/05/21 [Rx] Follow up Appointment(s)/Referral(s): Tejinder Barrientos MD [STAFF PHYSICIAN] - 06/18/21 2:30 pm Valery Sood NPC [Nurse Practitioner] - 06/09/21 11:00 am Jody Menchaca MD [STAFF PHYSICIAN] - 2 Weeks (The office will call with a follow up appointment.) Rehab [facility],Cardiac [NON-STAFF] - 4 Weeks (You will be called approximately 4-6 weeks after surgery for evaluation for cardiac rehab) Michelle Robles DO [STAFF PHYSICIAN] - 06/17/21 9:45 am John Overton MD [REFERRING] - 2 Weeks (Provider phone number is [phone]. Office can coverer at the office will reach out regarding an appointment date and time. ) Kevin Howard MD [STAFF PHYSICIAN] - 4 Weeks (Linnea from Dr. Howard's office will call with follow-up appointment) [facility] Visiting Nurse, [NON-STAFF] - 1-2 Days Ambulatory/Diagnostic Orders: Complete Blood Count w/diff [LAB.AMB] Time Frame: 06/08/21, Facility: [facility], Location: [facility] Comprehensive Metabolic Panel [LAB.AMB] Time Frame: 06/08/21, Facility: [facility], Location: [facility] Activity/Diet/Wound Care/Special Instructions: DISCHARGE INSTRUCTIONS: 1. No driving for 4 weeks, or until physician gives their ok. 2. The patient should sleep in their own bed, no medical bed needed. 3. Stairs are not an issue. If the bedroom is upstairs, it is advised that the patient go up at night and down in the morning for the first week. Go slowly, using handrail and take 1 step at a time. 4. TOMMIE hose are to be worn for 30 days or until physician discontinues. 5. Heart hugger is to be worn 100% of the time until physician discontinues.(except when showering) 6. No lifting, pushing, or pulling more than 10 pounds for 12 weeks. The physician will advise of any restriction changes. 7. The patient is expected to continue the prescribed walking program. 8. Continue pain control per as needed orders. 9. Continue with incentive spirometry and splinting/heart hugger until otherwise directed by the physician. 10. Must shower daily using liquid antibacterial soap and a separate white washcloth for each individual incision. 11. Routine sternal incision care. No powders, lotions, ointments on incisions. No dressings are necessary on incisions unless they are draining. Dermabond tape is to remain on sternal incision until surgeon follow-up. 12. Please call surgeon/TERMITE RENEWAL INSPECTOR for temp greater than 101 F or purulent drainage from incisions. 13. Narcotic medications were discussed with the patient, including the potential for misuse, addiction, and abuse. Opiod Start Talking form was reviewed with the patient. 14. All prescriptions given by surgeon for 30 days. Refills need to be filled through oceanic sciences professor/primary care physician. 15. A Red armband has been placed on the patient. It should be worn for 30 days post surgery and will be removed by the cardiac surgeons. If an ER visit is necessary, please make sure the number on the Red armband is called. 16. You have been referred to and are expected to begin Cardiac Rehab in approximately 4-6 weeks. HOME HEALTH SERVICES TO PROVIDE: RN SKILLED HOME CARE SERVICES FOR POST-OP SURGICAL PATIENTS WITH THE FOLLOWING: Coronary Artery Bypass Surgery (CABG), Mitral Valve Replacement/Repair ( MVR), Aortic Valve Replacement/Repair (AVR) RN TO CONTINUE EDUCATION FROM ``ROAD TO A HEALTH HEART PATIENT EDUCATION MANUAL (GIVEN TO PATIENT IN THE HOSPITAL) MEDICATION RECONCILIATION WITH EDUCATION NEEDED ON FIRST HOME VISIT EMPHASIZE IMPORTANCE OF WEARING BREAST SUPPORT/HEART HUGGER ENCOURAGE USE OF INCENTIVE SPIROMETER 10 X EVERY HOUR WHILE AWAKE ENCOURAGE UTILIZATION OF LOWER EXTREMITY COMPRESSION STOCKINGS/TOMMIE HOSE and ELEVATE LEGS ABOVE LEVEL OF HEART WHILE AT REST. ENCOURAGE AMBULATION 3-5x/day INCREASING TOLERATES, WHILE AVOIDING EXTREMES IN TEMPERATURE FREQUENCY: RN TO OPEN THE PATIENT WITHIN 24 HOURS OF DISCHARGE FROM THE HOSPITAL WITH TELEHEALTH INSTALLED AT [facility], RN TO VISIT 2-3 X A WEEK FOR 4 WEEKS ESTABLISHED BY PATIENT NEEDS. LABORATORY: CBC, CMP TO BE DRAWN ON THE THIRD DAY HOME, (RAN STAT) FAX RESULTS TO [phone]. TELEHEALTH PARAMETERS: WEIGHT: NOTIFY MD OF WEIGHT GAIN OF 2 LBS IN 24 HOURS OR 5 LBS IN ONE WEEK HR: NOTIFY MD OF HR <55 BPM OR HR>100 BPM BP: NOTIFY MD IF BP <90/55 OR BP>140/100 O2 SAT: NOTIFY MD IF PO2<93% ON ROOM AIR SEND TELEHEALTH REPORT TO AUTOMATIC OPERATOR AND CARDIOVASCULAR SURGEON THE FIRST WEEK OF CARE AND THEN BI-WEEKLY. PLEASE ADDITIONALLY COMMUNICATE ANY ABNORMALS AND NEW FINDINGS TO THE SURGEONS OFFICE. Discharge Disposition: HOME WITH HOME HEALTH SERVICES
[2021-06-05 12:54] VITALS: BP 126/66; PULSE 84; RESP 18
--- NOTE | 2021-06-05 14:07 | P.PN ---
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 EMS responded within 3 minutes to the call, and he was noted to be in ventricular fibrillation, received 1 shock and there was return of normal sinus rhythm and return of spontaneous circulation. He was brought into the hospital and seen by cardiology on cons ultation. Acute ST elevation [facility] alert was called, patient had cardiac catheterization and he was found to have chronic occlusion of the RCA. He was also found to have diffuse disease in the left coronary system patient received aspirin, atorvastatin, and sublingual nitroglycerin. And he also received heparin in the catheterization laboratory. Transferred after the cardiac cath to the ICU, thoracic surgery was consulted, and I was asked to see him on consultation for preoperative pulmonary clearance. Patient has no active pulmonary symptoms whatsoever. Denies any history of COPD, he is a lifetime nonsmoker. Never complained of shortness of breath. No history of cough wheezing. Although the patient had COVID-19 infection back in August of 2020. Patient is not vaccinated. Initial chest x-ray on admission showed evidence of congestive heart failure. Follow-up chest x-ray continues to show minimal cardiomegaly with interstitial opacities and atelectatic changes at the bases. Echocardiogram showed good LV function however he had severe concentric LVH. No significant valvular pathology was noted. Patient was found to have bicuspid aortic valve mildly thickened. There was also evidence of grade 1 diastolic dysfunction. And trace of mitral regurgitation at any rate considering the plan to undergo cardiac surgery, I was asked to see him on consultation, based on his clinical pulmonary history, patient is considered low operative risk. Reevaluated today on 06/01/21, patient just came back from the operating room, he is status post CABG, patient had GUIDO to LAD saphenous vein graft to obtuse marginal artery and saphenous vein graft to posterior descending. He is now in the ICU on mechanical ventilation, he is on assist control rate of 12 tidal volume of 500 FiO2 was initially on the percent and now it is 50%, and PEEP of 5. Chest x-ray showed no evidence of active disease, postoperative changes noted. ABG earlier today showed a pO2 of 273 pCO2 40 pH of 7.41 hence the patient is now on 50% FiO2. Patient is not requiring any inotropes or any pressors, he is on a low dose of propofol, and on clevidipine. Reevaluated today on 06/02/21, patient remains in the ICU, he was extubated shortly after his bypass surgery yesterday. He is now postoperative day #1. Patient is doing well, he is sitting in a recliner, he is already ambulating, extubation time was 20: 10. Patient is on room air. Not in any distress. Chest x-ray showed tiny left apical pneumothorax and minimal atelectasis with mild venous congestion. CBC is relatively normal WBC count is 15.8 hemoglobin is 12.6. Asymmetric metabolic profile is unremarkable. Reevaluated today on 06/03/21, patient remains in the ICU, he is on room air with O2 saturation 94%, patient seems to be doing quite well. Patient is postoperative day #2. He is status post CABG 3. Lifetime nonsmoker. Chest x- ray today showed a small tiny left apical pneumothorax, left-sided chest tube remains in position, patient has a small left lower lobe atelectasis. Otherwise his chest x-ray is reassuring. And clinically the patient is doing well, not requiring any pressors or any inotropes. WBC count is 14.3 hemoglobin is 11.2. Sodium is a bit on the low side 130 his renal profile is normal creatinine is 1. 04. Patient has been receiving diuretics on a daily basis 06/04/2021, patient is being seen for a follow-up. The patient drinks and 11 the patient is currently on room air oxygen. No shortness of breath. Breathing is nonlabored. The patient is able to communicate. He is alert and oriented 3. Surgical wound site is dry clean and intact. The chest x-ray from today showed questionable tiny left apical pneumothorax. There was no evidence of any air leak and the total amount of drainage was around 40 mL over the past 24 hours from the left-sided chest tube. The drainage was serosanguineous in nature. Based on that, we made recommendations and was supported removal of the left-sided chest tube. Otherwise, the patient using incentive spirometer. His bowling approximately thousand on his incentive spirometer. His emanating. He is hemodynamically stable. Producing adequate amount of urine output. As mentioned, he is on room air oxygen. No other significant events otherwise over the past 24 hours. He is calm and comfortable. He is postop day #3. The tentative plan is to discharge this patient home tomorrow. He was attempted 0.6. Normal renal function. Sodium level is at 130. On today's evaluation of 06/05/2021, the patient is postop day #4. Doing well. Using incentive spirometer. Still pulling approximately thousand. Unable to improve his ability to go above 1000 MLS on his incentive spirometer. Meanwhile, the patient remains on room air oxygen. Was to difficulties. Sternum stable clean and intact. CHEST is available. Hemodynamic is stable. Tolerating his diet. No nausea. No vomiting. No abdominal pain. No neurological deficit. He is alert and oriented 3. Most recent chest x-ray from today shows trace biapical pneumothorax and there is no evidence of any significant pleural effusion. There is some gas distention of the stomach and bowels. He is passing gas. No signs of any bowel obstruction. No nausea vomiting or emesis. Discharge planning is in progress and the patient was discharged home today. Objective - Vital Signs Vital signs: Vital Signs Temp 99.0 F 06/05/21 08:00 Pulse 84 06/05/21 12:00 Resp 18 06/05/21 12:00 BP 126/66 06/05/21 12:00 Pulse Ox 95 06/05/21 12:00 Intake & Output 06/04/21 06/05/21 06/05/21 18:59 06:59 18:59 Intake Total 240 720 480 Output Total 375 1050 Balance -135 -330 480 Weight 86 kg Intake: Oral 240 720 480 Output: Urine 375 1050 Other: Voiding Method Urinal Urinal Urinal # Voids 0 # Bowel Movements 1 ABP, PAP, CO, CI - Last Documented Arterial Blood Pressure 128/73 Pulmonary Artery Pressure 31/11 Cardiac Output 4.4 Cardiac Index 2.2 - Exam CONSTITUTIONAL: Sitting up to the bedside chair on the cardiac stepdown unit, appears comfortable, cooperative, no apparent acute distress. HEENT: Neck is supple, no JVD, no lymphadenopathy. RESPIRATORY: Lungs sounds essentially clear throughout, diminished to his bilateral bases. Respirations are symmetrical and nonlabored. Currently on room air with oxygen saturations 94%. Able to achieve 750-1000 mL on his incentive spirometry. Strong cough. CARDIOVASCULAR: Regular rhythm and rate. S1 and S2 present, negative for S3, g allop or murmur. Sternum is stable. Palpable peripheral pulses bilaterally, no calf pain or tenderness noted. Heart hugger in place with patient demonstrating appropriate use. Knee-high TOMMIE hose and sequential compression devices in place to his bilateral lower extremities. GASTROINTESTINAL: Abdomen soft, nontender, and slightly distended. Active bowel sounds present 4 quadrants. Tolerating diet. Passing flatus. No guarding or rigidity. Bowel movement yesterday 06/03/2021. GENITOURINARY: Continues to void. Urine output 650 mL in the last 8 hours. INTEGUMENTARY: Skin is warm and dry with no evidence of clubbing or cyanosis. Midline sternal incision clean dry and well approximated, covered with dry intact dressing. Left lower extremity EVH sites well approximated without redn ess or drainage. NEUROLOGIC: Cranial nerves II through XII intact. No focal deficits. MUSKULOSKELETAL: Able to move all extremities, strength equal bilaterally, generalized weakness. PSYCHIATRIC: Alert and oriented to person place and time, appropriate affect, intact judgment and insight. INVASIVE LINES AND TUBES: Left pleural chest tube present and connected to low continuous wall suction, no air leaks present. Left pleural chest tube with 40 mL output in the last 24 hours. Atrial and ventricular epicardial pacemaker wires present and grounded. - Labs CBC & Chem 7: 06/05/21 08:14 06/05/21 08:14 Labs: Abnormal Lab Results - Last 24 Hours (Table) 06/04/21 06/05/21 06/05/21 Range/Units 16:36 02:05 06:05 WBC (3.8-10.6) k/uL RBC (4.30-5.90) m/uL Hgb (13.0-17.5) gm/dL Hct (39.0-53.0) % Sodium (137-145) mmol/L BUN (9-20) mg/dL Glucose (74-99) mg/dL POC Glucose (mg/dL) 118 H 114 H 113 H (75-99) mg/dL AST (17-59) U/L 06/05/21 06/05/21 06/05/21 Range/Units 08:14 08:14 11:30 WBC 11.1 H (3.8-10.6) k/uL RBC 3.44 L (4.30-5.90) m/uL Hgb 9.8 L (13.0-17.5) gm/dL Hct 30.8 L (39.0-53.0) % Sodium 131 L (137-145) mmol/L BUN 30 H (9-20) mg/dL Glucose 143 H (74-99) mg/dL POC Glucose (mg/dL) 137 H (75-99) mg/dL AST 80 H (17-59) U/L Assessment and Plan Plan: 1. Triple-vessel coronary artery disease, non-STEMI this admission, status post three-vessel CABG, the patient is postop day #4and the patient is doing well. Surgical site is dry clean and intact. 2. Status post ventricular fibrillation arrest with CPR and shock 1, ROSC achieved 3. Post thoracotomy, left-sided chest tube will be removed today. Tiny left apical pneumothorax. Noted this of any air leak. Output from the left sided chest to be serosanguineous and minimal at this point in time. The patient remains on oxygen. The patient continues to have some small tiny apical pneumothorax on the left. 4. Leukocytosis, likely reactive 5. Transaminitis, likely from hepatic steatosis, AST is trending down, ALT within normal limits 6. Hypertension 7. History of hyperlipidemia, untreated, cholesterol 407, LDL 310, triglycerides 228 8. Bilateral carotid stenosis, right ICA 100%, left ICA 60% per CTA. 9. COVID-19 infection in August 2020, remains unvaccinated Plan Continue using incentive spirometer Follow-up chest x-ray from today was noted Aggressive pulmonary toileting Increased mobility as tolerated Repeat chest x-ray in the morning was reviewed and the patient was reassured Continue to the aspirin and Plavix and the metoprolol at a dose of 75 mg by mouth twice a day Bronchodilators Increased mobility and activity as tolerated The epicardial pacemaker wires will be removed Discharge home today
--- NOTE | 2021-06-05 18:28 | P.PN ---
Subjective Progress Note Date: 06/05/21 (delayed charting seen at 1230) Principal diagnosis: unresponsive Patient is a 65-year-old male with high cholesterol not currently taking medication who presents to ER with a V. fib arrest. He was having intercourse when he passed out. Bystander CPR was in progress when EMS arrived. They placed him on a monitor he was shown to be in V. fib. Patient was successfully cardioverted with ROSC. Vital signs on arrival showed hypertension with a blood pressure 215/103. He was taken for emergent cardiac cath which showed a total occlusion of the RCA, nondominant circumflex distally occluded, LAD with 60-70% narrowing in the midportion and 99% at the apex. He did not require stent at that time. He was placed on amiodarone and heparin. He was admitted to the ICU and cardiac surgery was consulted. They did recommend cardiac bypass. Cholesterol came back extremely elevated with a total cholesterol 407 and an LDL of 310. Echo shows severe concentric LVH, ejection fraction 50-55%, grade 1 diastolic dysfunction. Carotid ultrasound showed severe greater than 70% left ICA stenosis. He was started on Lipitor, Cozaar, and metoprolol. He was taken for CABG on 06/01 and underwent GUIDO to LAD, SVG to OM and SVG to posterior descending artery he was extubated the same day he returned to the ICU. He has been progressing well. Patient seen and examined at bedside. He is doing well. No chest pain or unusual shortness of breath. present at bedside and we discussed need for continued monitoring she is aware. Need for outpatient A1c in approximately 3 months as he has borderline prediabetes. She is also aware of the need to follow his cholesterol levels closely. General: non toxic, no distress, appears at stated age Derm: warm, dry Head: atraumatic, normocephalic, symmetric Eyes: EOMI, no lid lag, anicteric sclera Mouth: no lip lesion, mucus membranes moist Cardiovascular: S1S2 reg, no murmur, positive posterior tibial pulse bilateral, Bear Hugger in place Lungs: CTA bilateral, no rhonchi, no rales , no accessory muscle use Abdominal: soft, nontender to palpation, no guarding, no appreciable organomegaly Ext: no gross muscle atrophy, no edema, no contractures Neuro: CN II-XI grossly intact, no focal neuro deficits Psych: Alert, oriented, flat affect, delayed thinking Assessment/Plan: V. fib arrest Multivessel coronary artery disease S/P CABG, GUIDO to LAD, SVG to OM and SVG to PDA Non-STEMI Hyperlipidemia, Xanthomas - management per cardio thorasic surgery -statin - likely will need PCSK9 inhibitor as outpatient -Cardiology recommendations -Pulm recs - Plavix, Metoprolol, ASA - amio-wean as able Anoxic Encephalopathy Impairment with cognitive functioning and memory recall -Patient with poor testing with speech therapy for immediate recall as well as higher cognitive functioning. Patient was doing well with long-term memory -Had a long discussion with his . They will ensure that somebody is there to monitor him when he goes home. They will take care of all of finances and his pills. -Patient will have outpatient physical therapy for cognition. Hyperglycemia - SSI - follow BS -Likely reflective acute distress -Hemoglobin A1c 5.7- will need close follow-up this is on the cuff for pre diabetes Hyponatremia - likely due to low solute intake and diuretic use - follow BMP Carotid stenosis -Vascular Recs appreciated: outpatient follow-up Elevated BP on arrival without previous diagnosis of HTN Transaminitis, improved Hepatic Steatosis Discussed with: NursingCharles Medically optimized for discharge. Anticipated discharge place: home health A total of 25 minutes was spent on the care of this complex patient more than 50% of the time was spent in counseling and care coordination. Objective - Vital Signs Vital signs: Vital Signs Temp 99.0 F 06/05/21 08:00 Pulse 84 06/05/21 12:00 Resp 18 06/05/21 12:00 BP 126/66 06/05/21 12:00 Pulse Ox 95 06/05/21 12:00 Intake & Output 06/04/21 06/05/21 06/05/21 18:59 06:59 18:59 Intake Total 240 720 480 Output Total 375 1050 Balance -135 -330 480 Weight 86 kg Intake: Oral 240 720 480 Output: Urine 375 1050 Other: Voiding Method Urinal Urinal Urinal # Voids 0 # Bowel Movements 1 ABP, PAP, CO, CI - Last Documented Arterial Blood Pressure 128/73 Pulmonary Artery Pressure Cardiac Output 4.4 Cardiac Index 2.2 - Labs CBC & Chem 7: 06/05/21 08:14 06/05/21 08:14 Labs: Abnormal Lab Results - Last 24 Hours (Table) 06/05/21 06/05/21 06/05/21 Range/Units 02:05 06:05 08:14 WBC 11.1 H (3.8-10.6) k/uL RBC 3.44 L (4.30-5.90) m/uL Hgb 9.8 L (13.0-17.5) gm/dL Hct 30.8 L (39.0-53.0) % Sodium (137-145) mmol/L BUN (9-20) mg/dL Glucose (74-99) mg/dL POC Glucose (mg/dL) 114 H 113 H (75-99) mg/dL AST (17-59) U/L 06/05/21 06/05/21 Range/Units 08:14 11:30 WBC (3.8-10.6) k/uL RBC (4.30-5.90) m/uL Hgb (13.0-17.5) gm/dL Hct (39.0-53.0) % Sodium 131 L (137-145) mmol/L BUN 30 H (9-20) mg/dL Glucose 143 H (74-99) mg/dL POC Glucose (mg/dL) 137 H (75-99) mg/dL AST 80 H (17-59) U/L
--- NOTE | 2021-06-08 08:09 | CDI ---
Documentation Clarification Form Date: 06/03/2021 12:59:00 PM From: Latisha Powell CCS, CCDS Admit Date: 05/31/2021 02:09:00 AM Patient Name: Daljit Maki Visit Number: [id number] Discharge Date: 06/05/2021 03:00:00 PM ATTENTION: The Clinical Documentation Specialists (CDI) and [facility] Coding Staff appreciate your assistance in clarifying documentation. Please respond to the clarification below the line at the bottom and electronically sign. The CDI & [facility] Coding staff will review the response and follow-up if needed. Please note: Queries are made part of the Legal Health Record. If you have any questions, please contact the author of this message via ITS. Dr. Jj Alegria: Mild Diastolic Congestive Heart Failure as noted on the Chest Xray is documented in the 05/31 Pulmonary/Critical Care Consult and subsequent Progress Notes on 06/01 & 06/02 without further acuity. Additional information regarding the Acuity of CHF is requested. History/Risk Factors per the 05/31 H/P: PAD. Nonsmoker. Clinical Indicators: Presented to the ED on 05/31 via EMS after suffering V Fib Cardiac Arrest at home requiring CPR and Shocked x1 by EMS with ROSC. Admitted with Ventricular Fibrillation. Taken to the salvage laborer and diagnosed with CAD with NSTEMI. 06/01: To OR for CABG x3 05/31 VS: T 97.6, P 97, R 20 - 22, BP 215/103, PO 98 2Lnc, BMI: 28.1 05/31 LAB: WBC 13.8, Neut 8.2, [place] 1.1; glucose 219, AST 247, ALT 210, Troponin 0.038, 0.922, 2.540; Triglycerides 228.00, Cholesterol 407.00. BNP: not done. 05/31: Echocardiogram Results: Severe LVH, Left systolic low normal with EF 50- 55%, Apical hypertrophy, Trace MR/TR. 05/31 CXR: Pulmonary interstitial edema could relate to acute heart failure. Treatment 05/31: ICU postop Heart Catheterization, O2 2Lnc, IV Heparin, Nitro sl, po Lipitor, IV Lasix 20 mg q12Hr (ordered, not given) 06/01: CABG x3, IV Cefazolin, IV Heparin, IV Albumin 250 mls/hr q1Hr, IV Clevidipine, IV Insulin, IV Lactated Ringers 1,000 mls @ 20 mls/hr q24H, IV Nitro/Dextrose, IV Tylenol, IV Toradol, IV Levophed, INH Duoneb QID 06/02: IV Lasix 20 mg x2. 06/03: IV Lasix 20 mg x1 In your professional opinion, can you please clarify the [acuity and type] of CHF if known? [ ] Acute Diastolic Heart Failure [x ] Chronic Diastolic Heart Failure [ ] Other, please specify [ ] Unable to determine (Template Last Revised: July 2020) MTDD
--- NOTE | 2021-06-10 10:33 | P.ARTDOP ---
Arterial Doppler Bilateral radial artery ultrasound for sizing: Date of study: 05/31/2021 Reason for study: Preop CABG. Findings: The right radial measures 3.4 x 3.8 mm distally, 3.9 x 3.8 mm mid, proximally there is an IV site. The left radial measures 4.2 x 4.4 mm distally, 3.6 x 3.4 mm mid, and 4 x 3.8 mm proximally Impression: Both radial arteries appear to meet size criteria. We have no pressure measurements or radial artery compression maneuvers to assess adequacy of collateralization. Clinical correlation strongly recommended.
== END 2021-06-05 15:00 | disposition home health service (06) | DRG 233 ==
LOC: EC 01:03 → 2SICU 02:09 → 3SCARD 06-03 16:43
PROVIDERS: ADMIT Surgery; ATTEND Surgery
PROC: B2111ZZ Fluoroscopy of Multiple Coronary Arteries using Low Osmolar Contrast (ICD-10-PCS; 2021-05-31)
PROC: B2151ZZ Fluoroscopy of Left Heart using Low Osmolar Contrast (ICD-10-PCS; 2021-05-31)
PROC: B54DZZZ Ultrasonography of Bilateral Lower Extremity Veins (ICD-10-PCS; 2021-05-31)
PROC: 30233R1 Transfusion of Nonautologous Platelets into Peripheral Vein, Percutaneous Approach (ICD-10-PCS; 2021-05-31)
PROC: 30233N1 Transfusion of Nonautologous Red Blood Cells into Peripheral Vein, Percutaneous Approach (ICD-10-PCS; 2021-05-31)
PROC: 4A023N7 Measurement of Cardiac Sampling and Pressure, Left Heart, Percutaneous Approach (ICD-10-PCS; principal; 2021-05-31 01:06)
PROC: 06BQ4ZZ Excision of Left Saphenous Vein, Percutaneous Endoscopic Approach (ICD-10-PCS; 2021-06-01)
PROC: 02L70CK Occlusion of Left Atrial Appendage with Extraluminal Device, Open Approach (ICD-10-PCS; 2021-06-01)
PROC: B24BZZ4 Ultrasonography of Heart with Aorta, Transesophageal (ICD-10-PCS; 2021-06-01)
PROC: 02100Z9 Bypass Coronary Artery, One Artery from Left Internal Mammary, Open Approach (ICD-10-PCS; 2021-06-01 07:30)
PROC: 021109W Bypass Coronary Artery, Two Arteries from Aorta with Autologous Venous Tissue, Open Approach (ICD-10-PCS; 2021-06-01 07:30)
DX: I21.4 Non-ST elevation (NSTEMI) myocardial infarction (principal); I49.01 Ventricular fibrillation; I46.2 Cardiac arrest due to underlying cardiac condition; J81.0 Acute pulmonary edema; I50.32 Chronic diastolic (congestive) heart failure; I82.412 Acute embolism and thrombosis of left femoral vein; E87.1 Hypo-osmolality and hyponatremia; G93.1 Anoxic brain damage, not elsewhere classified; I48.92 Unspecified atrial flutter; Q23.1 Congenital insufficiency of aortic valve; D62 Acute posthemorrhagic anemia; J98.11 Atelectasis; I11.0 Hypertensive heart disease with heart failure; I25.82 Chronic total occlusion of coronary artery; E78.00 Pure hypercholesterolemia, unspecified; Z20.822 Contact with and (suspected) exposure to COVID-19; E78.5 Hyperlipidemia, unspecified; I25.10 Atherosclerotic heart disease of native coronary artery without angina pectoris; I48.91 Unspecified atrial fibrillation; I65.23 Occlusion and stenosis of bilateral carotid arteries; D72.829 Elevated white blood cell count, unspecified; R79.89 Other specified abnormal findings of blood chemistry; M54.50 Low back pain, unspecified; R73.03 Prediabetes; K76.0 Fatty (change of) liver, not elsewhere classified; J02.9 Acute pharyngitis, unspecified; R41.3 Other amnesia; R74.01 Elevation of levels of liver transaminase levels; Z86.16 Personal history of COVID-19; Z82.49 Family history of ischemic heart disease and other diseases of the circulatory system; Z82.41 Family history of sudden cardiac death; Z82.3 Family history of stroke; Z82.0 Family history of epilepsy and other diseases of the nervous system; Z79.899 Other long term (current) drug therapy; Z79.82 Long term (current) use of aspirin; Z79.02 Long term (current) use of antithrombotics/antiplatelets; Z28.3 Underimmunization status; K59.00 Constipation, unspecified
CPT/HCPCS: 36415; 70496; 70498; 71045; 71046; 71250; 76705; 80048; 80053; 80061; 80074; 80076; 81003; 82330; 82805; 83036; 83735; 84443; 84450; 84460; 84484; 85025; 85027; 85520; 85610; 85730; 86140; 86850; 86891; 86900; 86901; 86920; 87070; 87635; 93005; 93306; 93458; 93880; 93930; 93970; 94002; 94150; 94640; 96374; 99291

== ENCOUNTER 2023-05-22 10:50 | Emergency (ER) | payer MEDICARE ==
[2023-05-22 11:00] VITALS: TEMP 98.2
--- NOTE | 2023-05-22 11:12 | ED ---
General Adult HPI - General Chief complaint: Neuro Symptoms/Deficit Stated complaint: Facial Numbness Time Seen by Provider: 05/22/23 11:00 Source: patient, family, RN notes reviewed Mode of arrival: ambulatory Limitations: no limitations - History of Present Illness Initial comments: Patient is a pleasant [age]-year-old male presenting to the emergency department with concerns for paresthesias on the right side. Patient does have known history of carotid artery blockage, 100% on the right and 70% on the left. Patient has not followed up regarding that recently. Patient does state when further questioned that there may be some right arm weakness associated with these episodes. Patient has had several episodes occurred over the past week. Patient did have an episode this morning that is near resolved. Patient states he has had some speech problems with these episodes occasionally. - Related Data Previous Rx's Medication Instructions Recorded Acetaminophen Tab [Tylenol] 650 mg PO Q4HR PRN tab 06/05/21 Amiodarone [Cordarone] 400 mg PO BID #35 tab 06/05/21 Aspirin 325 mg PO DAILY tab 06/05/21 Atorvastatin [Lipitor] 80 mg PO DAILY #60 tab 06/05/21 Clopidogrel [Plavix] 75 mg PO DAILY #30 tab 06/05/21 Metoprolol Tartrate [Lopressor] 100 mg PO BID #120 tab 06/05/21 Pantoprazole [Protonix] 40 mg PO AC-BRKFST #30 tab 06/05/21 Cephalexin [Keflex] 500 mg PO Q8HR #21 cap 06/09/21 Sulfamethox-Tmp 800-160Mg [Bactrim 1 tab PO Q12HR #14 tab 06/17/21 DS 800-160 mg] Allergies Allergy/AdvReac Type Severity Reaction Status Date / Time No Known Allergies Allergy Verified 05/22/23 10:56 Review of Systems ROS Statement: Those systems with pertinent positive or pertinent negative responses have been documented in the HPI. ROS Other: All systems not noted in ROS Statement are negative. Constitutional: Denies: fever Eyes: Denies: eye pain ENT: Denies: ear pain Respiratory: Denies: cough Cardiovascular: Denies: chest pain Endocrine: Denies: fatigue Gastrointestinal: Denies: abdominal pain Genitourinary: Denies: dysuria Musculoskeletal: Denies: back pain Past Medical History Past Medical History: No Reported History, Coronary Artery Disease (CAD) Additional Past Medical History / Comment(s): Patient denies any history although he does not see a physician on a regular basis History of Any Multi-Drug Resistant Organisms: None Reported Past Surgical History: Unable to Obtain, Heart Catheterization With Stent Additional Past Surgical History / Comment(s): Vasectomy Past Anesthesia/Blood Transfusion Reactions: No Reported Reaction Additional Past Anesthesia/Blood Transfusion Reaction / Comment(s): Patient vomited on transfer from cheesemaking laborer this admission Past Psychological History: No Psychological Hx Reported Smoking Status: Never smoker Past Alcohol Use History: None Reported Past Drug Use History: None Reported - Past Family History Father Family Medical History: Dementia Additional Family Medical History / Comment(s): Father had Alzheimer's Mother Family Medical History: CVA/TIA, Hypertension General Exam Limitations: no limitations General appearance: alert, in no apparent distress Head exam: Present: atraumatic, normocephalic Eye exam: Present: normal appearance, PERRL, EOMI ENT exam: Present: normal oropharynx Neck exam: Present: normal inspection Respiratory exam: Present: normal lung sounds bilaterally Cardiovascular Exam: Present: regular rate, normal rhythm GI/Abdominal exam: Present: soft. Absent: tenderness Extremities exam: Present: normal inspection, full ROM Neurological exam: Present: alert, oriented X3, CN II-XII intact. Absent: motor sensory deficit Expanded Neurological exam: Present: protecting the airway Speech: Present: fluid speech Cranial nerves: EOM's Intact: Normal, Facial Sensation: Normal Sensory exam: Upper Extremity Light Touch: Normal, Lower Extremity Light Touch: Normal Motor strength exam: RUE: 5, LUE: 5, RLE: 5, LLE: 5 Eye Response: (4) open spontaneously Motor Response: (6) obeys commands Verbal Response: (5) oriented Psychiatric exam: Present: normal affect, normal mood Skin exam: Present: normal color Course Vital Signs 05/22/23 05/22/23 05/22/23 10:53 11:19 11:41 Temperature 98.2 F Pulse Rate 76 65 Respiratory 20 Rate Blood Pressure 212/99 195/146 183/110 O2 Sat by Pulse 98 96 Oximetry Medical Decision Making - Medical Decision Making Patient is not a candidate for TPA secondary to risks outweigh the benefit. NIH is 0. Case also discussed with Dr. Bermeo who is in agreement. Case was again discussed with Dr. Bermeo who does recommend transfer secondary to near total occlusion left carotid artery. He does request brilinta as well as aspirin. Was pt. sent in by a medical professional or institution (, WILLY, BOILER ATTENDANT, urgent care, hospital, or intermediate...) When possible be specific @ -No Did you speak to anyone other than the patient for history (EMS, parent, family, police, friend...)? What history was obtained from this source @ - is present and helps confirm details including time. Did you review nursing and triage notes (agree or disagree)? Why? @ -I reviewed and agree with nursing and triage notes Were old charts reviewed (outside hosp., previous admission, EMS record, old EKG, old radiological studies, urgent care reports/EKG's, intermediate records)? Report findings @ -No old charts were reviewed Differential Diagnosis (chest pain, altered mental status, abdominal pain women, abdominal pain men, vaginal bleeding, weakness, fever, dyspnea, syncope, headache, dizziness, GI bleed, back pain, seizure, CVA, palpatations, mental health, musculoskeletal)? @ -Differential Weakness: Hypoglycemia, shock, sepsis, hyponatremia, anemia, infection, CA, ETOH, adverse medicine reaction, overdose, stroke, this is not meant to be an all-inclusive list. EKG interpreted by me (3pts min.). @ -As above X-rays interpreted by me (1pt min.). @ -Chest x-ray shows no acute process CT interpreted by me (1pt min.). @ -CT brain shows indeterminate age left basal ganglion U/S interpreted by me (1pt. min.). @ -None done What testing was considered but not performed or refused? (CT, X-rays, U/S, labs)? Why? @ -None What meds were considered but not given or refused? Why? @ -None Did you discuss the management of the patient with other professionals (professionals i.e. , WILLY, BOILER ATTENDANT, lab, RT, psych nurse, protective services social worker, sales service technician, te acher, classifications officer cc/cm, case assistant)? Give summary @ -Case discussed twice with Dr. Bermeo. Transfer team also updated. Was smoking cessation discussed for >3mins.? @ -No Was critical care preformed (if so, how long)? @ -31 minutes critical care time provided. Were there social determinants of health that impacted care today? How? (Homelessness, low income, unemployed, alcoholism, drug addiction, transportation, low edu. Level, literacy, decrease access to med. care, penitentiary, rehab)? @ -No Was there de-escalation of care discussed even if they declined (Discuss DNR or withdrawal of care, Hospice)? DNR status @ -No What co-morbidities impacted this encounter? (DM, HTN, Smoking, COPD, CAD, Cancer, CVA, ARF, Chemo, Hep., AIDS, mental health diagnosis, sleep apnea, morbid obesity)? @ -None Was patient admitted / discharged? Hospital course, mention meds given and [place], prescriptions, significant lab abnormalities, going to OR and other pertinent info. @ -Patient reevaluated. Patient and family updated on results and plan. Patient presents with TIA symptoms intermittently over the week, currently symptom-free therefore not a TPA candidate. Patient does have near total occlusion left carotid artery and will be transferred to [facility] for procedure. Undiagnosed new problem with uncertain prognosis? @ -No Drug Therapy requiring intensive monitoring for toxicity (Heparin, Nitro, Insulin, Cardizem)? @ -No Were any procedures done? @ -No Diagnosis/symptom? @ -TIA, occluded left carotid artery Acute, or Chronic, or Acute on Chronic? @ -Acute, acute Uncomplicated (without systemic symptoms) or Complicated (systemic symptoms)? @ -default Side effects of treatment? @ -No Exacerbation, Progression, or Severe Exacerbation? @ -No Poses a threat to life or bodily function? How? (Chest pain, [place], CA, pneumonia, PE, COPD, DKA, ARF, appy, cholecystitis, CVA, Diverticulitis, Homicidal, Suicidal, threat to staff... and all critical care pts) @ -No - Lab Data Result diagrams: 05/22/23 11:24 Lab Results 05/22/23 Range/Units 11:24 WBC 7.2 (3.8-10.6) k/uL RBC 6.16 H (4.30-5.90) m/uL Hgb 17.4 (13.0-17.5) gm/dL Hct 53.3 H (39.0-53.0) % MCV 86.5 (80.0-100.0) fL MCH 28.3 (25.0-35.0) pg MCHC 32.7 (31.0-37.0) g/dL RDW 14.3 (11.5-15.5) % Plt Count 174 (150-450) k/uL MPV 8.5 Neutrophils % 77 % Lymphocytes % 11 % Monocytes % 8 % Eosinophils % 1 % Basophils % 1 % Neutrophils # 5.6 (1.3-7.7) k/uL Lymphocytes # 0.8 L (1.0-4.8) k/uL Monocytes # 0.5 (0-1.0) k/uL Eosinophils # 0.0 (0-0.7) k/uL Basophils # 0.1 (0-0.2) k/uL Disposition Clinical Impression: Transient cerebral ischemia, Left carotid artery occlusion Disposition: OTHER INSTITUTION NOT DEFINED Condition: Serious Is patient prescribed a controlled substance at d/c from ED?: No Referrals: Constantino Cummings MD [Primary Care Provider] - 1-2 days Time of Disposition: 11:58 - Out of Hospital Transfer - Req. Specs Out of Hospital Transfer - Requested Specifics: Other Emergency Center
--- NOTE | 2023-05-22 11:39 | CT ---
EXAMINATION TYPE: CT brain wo con CT DLP: 1092 mGycm, Automated exposure control for dose reduction was used. DATE OF EXAM: 05/22/2023 11:35 AM COMPARISON: None. CLINICAL INDICATION:Male, 67 years old with history of Neuro deficit, acute, stroke suspected, stroke TECHNIQUE: Brain: Axial CT images of the brain were obtained with coronal and sagittal reformats created and rev iewed. Contrast used: None. Oral contrast used: None. FINDINGS: Brain: Extra-axial spaces: No abnormal extra-axial fluid collections. Ventricular system: Within normal limits Cerebral parenchyma: Hypodense area in the left basal ganglia/stein radiata. No acute intraparenchym al hemorrhage or mass effect. The nix-white junction is well differentiated. Cerebellum: Unremarkable. Mass effect: No evidence of midline shift. Intracranial vasculature: unremarkable Soft tissues: Normal. Calvarium/osseous structures: No depressed skull fracture. Paranasal sinuses and mastoid air cells: Mild scattered paranasal sinus disease. Visualized orbits: Orbital contents are intact. IMPRESSION: Indeterminate injury of the left basal ganglia/stein radiata. Follow-up MRI recommended.
[2023-05-22 11:49] VITALS: PULSE 65
[2023-05-22] MEDS ORDERED: TICAGRELOR 90 MG TAB PO STA (11:49)
[2023-05-22 11:51] LABS: Basophils # (A) 0.1 k/uL (0-0.2); Basophils % (A) 1 %; Eosinophils % (A) 1 %; HCT 53.3 % (39.0-53.0); HGB 17.4 gm/dL (13.0-17.5); Lymphocytes # (A) 0.8 k/uL (1.0-4.8); Lymphocytes % (A) 11 %; MCH 28.3 pg (25.0-35.0); MCHC 32.7 g/dL (31.0-37.0); MCV 86.5 fL (80.0-100.0); Mean Platelet Volume 8.5; Monocytes # (A) 0.5 k/uL (0-1.0); Monocytes % (A) 8 %; Neutrophils # (A) 5.6 k/uL (1.3-7.7); Neutrophils % (A) 77 %; Platelet Count 174 k/uL (150-450); RBC 6.16 m/uL (4.30-5.90); RDW 14.3 % (11.5-15.5); WBC 7.2 k/uL (3.8-10.6)
--- NOTE | 2023-05-22 11:53 | XR ---
EXAMINATION TYPE: XR chest 2V DATE OF EXAM: 05/22/2023 11:44 AM CLINICAL INDICATION:Male, 67 years old with history of altered mental status; [facility] COMPARISON: Chest radiographs from 06/05/2021 TECHNIQUE: XR chest 2V Frontal and lateral views of the chest. FINDINGS: Lungs/Pleura: There is no evidence of pleural effusion, focal consolidation, or pneumothorax. Pulmonary vascularity: Unremarkable. Heart/mediastinum: Cardiomediastinal silhouette is enlarged and stable. Left atrial appendage occlusi on device is present. Musculoskeletal: No acute osseous pathology. Midline sternotomy wires are noted. Other findings: None IMPRESSION: No acute cardiopulmonary disease/process.
[2023-05-22] MEDS ORDERED: ASPIRIN 81 MG PO STA (11:55)
[2023-05-22 12:00] LABS: INR 0.9 (<1.2); Partial Thromboplastin Time 26.3 sec (22.0-30.0); Prothrombin Time 10.4 sec (10.0-12.5)
--- NOTE | 2023-05-22 12:00 | CT ---
EXAMINATION TYPE: CT angio head neck CT DLP: 1551 mGycm, Automated exposure control for dose reduction was used. DATE OF EXAM: 05/22/2023 11:47 AM COMPARISON: CT head same day . 05/31/2021. CLINICAL INDICATION:Male, 67 years old with history of Neuro deficit, acute, stroke suspected; [facility], TECHNIQUE: Axially acquired helical CT angiogram of the head and neck was obtained with contrast. Axi al images are supplemented with 3D reconstructions and MIP images which were post-processed at an in dependent workstation. NASCET criteria used. Contrast used: 65 cc of [id number] Oral contrast used: None. FINDINGS: CTA HEAD: No evidence of acute intracranial hemorrhage, mass effect, or midline shift. The ventricles, sulci, a nd cisterns are unremarkable. The visualized portions of the internal carotid arteries, middle cerebral arteries, anterior cerebral arteries, and posterior cerebral arteries are patent. The basilar and vertebral arteries are patent. CTA NECK: Right Carotid System: The common carotid artery is patent. The origin of the internal carotid artery is occluded just past its origin with reconstitution [place] the remaining testicle flow through this region. Left Carotid System: The common carotid artery and external carotid artery are patent. The carotid bifurcation demonstrate s no evidence of hemodynamically significant stenosis. The remaining portions of the internal carotid artery demonstrate normal size without significant narrowing. The origins of the great vessels are patent. No evidence of hemodynamically significant stenosis. Isabella tomic variant right subclavian artery transversing/coursing posterior to the and esophagus. The left vertebral artery originates off the aortic arch. The distal portion of the right vertebral artery is diminutive in the intracranial portion is indeterminate as the posterior inferior cerebellar artery. The left vertebral arteries dominant and patent. Upper thorax: Partially visualized sternotomy wires. IMPRESSION: 1. Occlusion of the right internal carotid artery extending just past its origin with possible trick le flow through the lumen with reconstitution in the [place]. Previously trickle flow is not definitively visualized on 05/31/2021. 2. There is a patent left carotid system. No evidence for intracranial aneurysm or intracranial occl usion/stenosis.
[2023-05-22 12:22] LABS: ALT 18 U/L (4-49); AST 27 U/L (17-59); African American GFR (CKD) >90 (>60 ml/min/1.73 sqM); Albumin 4.3 g/dL (3.5-5.0); Alkaline Phosphatase 88 U/L (38-126); Anion Gap 11 mmol/L; Blood Urea Nitrogen 14 mg/dL (9-20); Calcium 9.7 mg/dL (8.4-10.2); Carbon Dioxide 22 mmol/L (22-30); Chloride 105 mmol/L (98-107); Creatine Kinase 51 U/L (55-170); Glucose 124 mg/dL (74-99); Non-African American GFR(CKD) >90 (>60 ml/min/1.73 sqM); Potassium 4.7 mmol/L (3.5-5.1); Sodium 138 mmol/L (137-145); Total Bilirubin 0.5 mg/dL (0.2-1.3); Total Protein 7.6 g/dL (6.3-8.2)
[2023-05-22 12:36] VITALS: BP 191/122; RESP 18
== END 2023-05-22 12:26 | disposition other institution (70) ==
LOC: EC 10:50
DX: I65.22 Occlusion and stenosis of left carotid artery (principal); I25.10 Atherosclerotic heart disease of native coronary artery without angina pectoris
CPT/HCPCS: 36415; 93005; 80053; 82550; 85025; 85610; 85730; 71046; 70496; 70450; 70498; 99285; Q9967